=== PATIENT | female | born 1935 | race Caucasian/White ===

== ENCOUNTER 2018-07-02 10:28 | Inpatient (IN) | payer MEDICARE, OTHER ==
[2018-07-02 11:11] LABS: GLUCOSE, URINE (UA) NEGATIVE (NEGATIVE); KETONES,URINE (UA) 15 mg/dL (NEGATIVE); LEUKOCYTE ESTERASE, URINE TRACE (NEGATIVE); NITRITE,URINE NEGATIVE (NEGATIVE); OCCULT BLOOD,URINE SMALL (NEGATIVE); PH,URINE 5.5 PH (5.0-7.5); PROTEIN,URINE 100 mg/dL (NEGATIVE); UROBILINOGEN,URINE 0.2 (NORMAL) E.U./dL (NORMAL)
[2018-07-02 11:12] LABS: BASOPHILS % (AUTO) 0.4 %; EOSINOPHILS % (AUTO) 0.2 %; HGB - HEMOGLOBIN 14.3 g/dL (12.0-16.0); LYMPHOCYTES # (AUTO) 0.5 10^3/uL (1.5-3.5); LYMPHOCYTES % (AUTO) 6.4 %; MEAN CORPUSCULAR HEMOGLOBIN 32.1 pg (27.0-31.0); MEAN CORPUSCULAR HGB CONC 33.4 g/dL (32.0-36.0); MEAN CORPUSCULAR VOLUME 96.3 fL (81.0-99.0); MONOCYTES # (AUTO) 0.4 10^3/uL (0.0-1.0); MONOCYTES % (AUTO) 4.9 %; NEUTROPHILS # (AUTO) 7.2 10^3/uL (1.5-6.6); NEUTROPHILS % (AUTO) 88.1 %; PLT - PLATELET COUNT 213 10^3/uL (130-450); RED BLOOD COUNT 4.45 10^6/uL (4.20-5.40); WHITE BLOOD COUNT 8.1 x10^3/uL (4.8-10.8)
[2018-07-02 11:13] LABS: CLARITY,URINE SL. CLOUDY (CLEAR)
[2018-07-02 11:17] LABS: BILIRUBIN,URINE NEGATIVE (NEGATIVE); ICTOTEST,URINE NEGATIVE
[2018-07-02 11:22] LABS: BACTERIA,URINE Moderate /HPF (None Seen); SQUAMOUS EPITHELIAL CELL,UR MANY Squamous (<= Few)
[2018-07-02 11:25] LABS: ALBUMIN 3.8 g/dL (3.2-5.5); ALBUMIN/GLOBULIN RATIO 0.9 (1.0-2.2); BILIRUBIN,TOTAL 1.1 mg/dL (0.2-1.0); CALCIUM 9.8 mg/dL (8.5-10.3); CREATININE 1.2 mg/dL (0.4-1.0); TOTAL PROTEIN 8.1 g/dL (6.7-8.2)
[2018-07-02] MEDS ORDERED: ONDANSETRON 4 MG/2 ML VIAL IVP STA (12:20)
[2018-07-02] MEDS ORDERED: SODIUM CHLORIDE 0.9% 1,000 ML IV ONE (12:20)
[2018-07-02] MEDS ORDERED: HYDROmorphone 1 MG/ML CARPUJECT IVP STA (12:20)
--- NOTE | 2018-07-02 12:23 | ED Physician Documentation ---
PD HPI ABD PAIN - Stated complaint Stated Complaint: ABD PX/UNABLE TO URINATE - Chief complaint Chief Complaint: Abd Pain - History obtained from History obtained from: Patient - History of Present Illness Timing - onset: Enter time (0800), Yesterday Timing - duration: Days (1) Timing - details: Abrupt onset, Still present Quality: Cramping, Sharp, Fullness/distended, Pain Location: All over / everywhere Improved by: Laying still Worsened by: Moving, Position, Palpation Associated symptoms: Nausea, Vomiting Similar symptoms before: Diagnosis (bowel obstruction) Recently seen: Not recently seen - Additional information Additional information: 83-year-old female was well on went to [facility] on Wednesday morning with abdominal pain nausea vomiting and distention. She has had something similar to this happen to her previously when she has had a bowel obstruction. She has had a prior hysterectomy and appendectomy for ruptured appendix back in the 1970s. She did have a prior bowel obstruction requiring an 8-day hospitalization and surgery in the . One of her chief complaints today is that she has been unable to urinate or only makes a tiny amount of urine. She has not been able to consume fluids yesterday. She does report one loose bowel movement yesterday and nothing since. Review of Systems Constitutional: reports: Fatigue. denies: Fever, Chills Eyes: denies: Decreased vision Ears: denies: Ear pain Nose: denies: Rhinorrhea / runny nose, Congestion Throat: denies: Sore throat Cardiac: denies: Chest pain / pressure, Palpitations Respiratory: denies: Dyspnea, Cough GI: reports: Abdominal Pain, Nausea, Vomiting : denies: Dysuria, Frequency Skin: denies: Rash Musculoskeletal: denies: Neck pain, Back pain, Extremity pain Neurologic: reports: Generalized weakness. 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 HEENT: None Psych: None Musculoskeletal: None Derm: None - Past Surgical History General: Appendectomy, Other /SHREDDING MACHINE TENDER: Hysterectomy - Allergies Allergies/Adverse Reactions: Allergies Allergy/AdvReac Type Severity Reaction Status Date / Time iodine Allergy Hives Verified 07/02/18 10:37 - Social History Does the pt smoke?: No Smoking Status: Never smoker Does the pt drink ETOH?: Yes ETOH Use: Wine, Beer, Liquor Does the pt have substance abuse?: No - Immunizations Immunizations are current?: Yes - POLST Patient has POLST: No PD ED PE NORMAL - Vitals Vital signs reviewed: Yes (hypertensive systolic with wide pulse pressure. ) - General General: Alert and oriented X 3, No acute distress, Well developed/nourished - HEENT HEENT: Atraumatic, PERRL, EOMI - Neck Neck: Supple, no meningeal sign - Cardiac Cardiac: Other (irregularly irregular with 2/6 holosystolic murmer at LSB) - Respiratory Respiratory: No respiratory distress, Clear bilaterally - Abdomen Abdomen: Soft, Other (distended and generally tender without guarding or rebound tenderness. diminished bowel sounds. 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 handle assembler 2-12 intact, No motor deficit, No sensory deficit, Normal speech Eye Opening: Spontaneous Motor: Obeys Commands Verbal: Oriented GCS Score: 15 - Psych Psych: Normal mood, Normal affect Results - Vitals Vitals: Vital Signs - 24 hr 07/02/18 07/02/18 07/02/18 10:36 11:45 13:23 Temperature 37.0 C 36.8 C Heart Rate 96 78 83 Respiratory 18 20 16 Rate Blood Pressure 196/64 H 189/74 H 131/65 H O2 Saturation 97 96 94 Oxygen O2 Source Room air - Labs Labs: Laboratory Tests 07/02/18 07/02/18 07/02/18 10:57 11:05 11:05 WBC 8.1 RBC 4.45 Hgb 14.3 Hct 42.8 MCV 96.3 MCH 32.1 H MCHC 33.4 RDW 15.0 Plt Count 213 MPV 10.0 Neut # (Auto) 7.2 H Lymph # (Auto) 0.5 L [place] # (Auto) 0.4 Eos # (Auto) 0.0 Baso # (Auto) 0.0 Absolute Nucleated RBC 0.00 Nucleated RBC % 0.0 Sodium 140 Potassium 3.6 Chloride 100 L Carbon Dioxide 26 Anion Gap 14.0 H BUN 25 H Creatinine 1.2 H Estimated GFR (MDRD) 43 L Glucose 161 H Calcium 9.8 Total Bilirubin 1.1 H AST 29 ALT 28 Alkaline Phosphatase 51 Troponin I Total Protein 8.1 Albumin 3.8 Globulin 4.3 H Albumin/Globulin Ratio 0.9 L Lipase 33 Urine Color DARK YELLOW Urine Clarity SL. CLOUDY Urine pH 5.5 Ur Specific [place] >=1.030 H Urine Protein 100 H Urine Glucose (UA) NEGATIVE Urine Ketones 15 H Urine Occult Blood SMALL H Urine Nitrite NEGATIVE Urine Bilirubin NEGATIVE Urine Urobilinogen 0.2 (NORMAL) Ur Leukocyte Esterase TRACE H Urine RBC 11-25 H Urine WBC 6-10 H Ur Squamous Epith Cells MANY Squamous H Urine Bacteria Moderate H Ur Microscopic Review INDICATED Urine Culture Comments NOT INDICATED 07/02/18 11:05 WBC RBC Hgb Hct MCV MCH MCHC RDW Plt Count MPV Neut # (Auto) Lymph # (Auto) [place] # (Auto) Eos # (Auto) Baso # (Auto) Absolute Nucleated RBC Nucleated RBC % Sodium Potassium Chloride Carbon Dioxide Anion Gap BUN Creatinine Estimated GFR (MDRD) Glucose Calcium Total Bilirubin AST ALT Alkaline Phosphatase Troponin I < 0.04 Total Protein Albumin Globulin Albumin/Globulin Ratio Lipase Urine Color Urine Clarity Urine pH Ur Specific [place] Urine Protein Urine Glucose (UA) Urine Ketones Urine Occult Blood Urine Nitrite Urine Bilirubin Urine Urobilinogen Ur Leukocyte Esterase Urine RBC Urine WBC Ur Squamous Epith Cells Urine Bacteria Ur Microscopic Review Urine Culture Comments - Rads (name of study) CT abd/pel without Radiology: Prelim report reviewed (Impression: 1. Positive findings of a mid to distal small bowel obstruction. 2. Small volume of intraperitoneal free fluid. No bowel perforation or abscess. 3. There are three fat-containing hernias in the midline near the umbilicus these are not the cause of small bowel obstruction. 4. Colonic diverticulosis.), EMP read indepedently, See rad report Procedures - Bedside sono Bedside sono by EMP: With use of bedside ultrasound the bladder is imaged it is sonographically tender there is no evidence of distention of the bladder. It is nearly empty. - IVC sono (time) 1212 Bedside IVC sono: IVC measures (cm) (0.78), Significant dehydration (est 2-3 liter deficit) PD MEDICAL DECISION MAKING - ED course Complexity details: reviewed results, re-evaluated patient, considered differential, d/w patient, d/w reservoir engineering consultant ([place]: recomends hydration and gastrografin challenge. ) ED course: 83-year-old female with symptoms of bowel obstruction since yesterday morning has not been able to keep any fluids down she is dehydrated and CT scan shows evidence of mid small bowel obstruction. Dr. Gibson is consulted in the case and recommends hydration and Gastrografin challenge. The patient is found to be significantly dehydrated and IV saline, anti-emetic and pain medication are administered. Departure - Departure Disposition: 66 [facility] DC/Xfer Clinical Impression: Small bowel obstruction, Dehydration Condition: Stable
[2018-07-02] MEDS ORDERED: IOVERSOL 320 100 ML VIAL IVP ONE (12:33)
--- NOTE | 2018-07-02 13:22 | CT Report ---
Reason: looks like a bowel obstruction Procedure Date: 07/02/2018 Accession Number: [id number] / [id number] Procedure: CT - Abdomen/Pelvis WO CPT Code: FULL RESULT: EXAM: CT ABDOMEN AND PELVIS EXAM DATE: 07/02/2018 12:58 PM. CLINICAL HISTORY: Looks like a bowel obstruction. COMPARISONS: None. TECHNIQUE: Routine helical CT imaging was performed through the abdomen and pelvis. IV contrast: No. Enteric contrast: No. Reconstructions: Coronal and sagittal. In accordance with CT protocol optimization, one or more of the following dose reduction techniques were utilized for this exam: automated exposure control, adjustment of mA and/or KV based on patient size, or use of iterative reconstructive technique. FINDINGS: Lung Bases: There is mild linear left lower lobe atelectasis. No pleural effusion. Liver: The liver is normal in size and contour. Gallbladder/Bile Ducts: Unremarkable. Spleen: Normal in size and contour. Pancreas: Normal in size and contour. Adrenal Glands: Normal. Kidneys: Kidneys are normal in size. No renal calculus or hydronephrosis. Peritoneal Cavity/Bowel: The stomach contains fluid and gas and the size is within normal limits. There are multiple dilated small bowel loops with air-fluid levels. The larger small bowel loops measure up to 36 mm in diameter. There are distal small bowel loops which are non-dilated. There is some architectural distortion of small bowel loops and mesentery in the lower abdomen. There is a small volume of intraperitoneal free fluid. There are 3 fat-containing hernias near midline at the level of the umbilicus. The hernias measured 13 mm, 16 mm, and 13 mm in diameter at the neck of the hernia. There is a small amount of fluid within the hernia sac. There is no bowel in the hernia and the hernia does not correspond to small bowel obstruction. There are moderate number of diverticula throughout the colon. Pelvic Organs: There is very small free fluid in the low pelvis. Urinary bladder is unremarkable. Uterus not visualized. Vasculature: There is diffuse atherosclerotic vascular calcification. Bones: No significant abnormality. Other: None. IMPRESSION: 1. Positive for findings of a mid to distal small bowel obstruction 2. Small volume of intraperitoneal free fluid. No bowel perforation or abscess. 3. There are 3 fat-containing hernias at midline near the umbilicus. These are not the cause of small bowel obstruction. 4. Colonic diverticulosis. RADIA
[2018-07-02] MEDS ORDERED: ACETAMINOPHEN 325 MG TABLET PO PRN (14:04)
[2018-07-02] MEDS ORDERED: ONDANSETRON 4 MG/2 ML VIAL IVP PRN (14:04)
--- NOTE | 2018-07-02 14:09 | HISTORY & PHYSICAL EXAMINATION ---
Chief Complaint - Chief Complaint Chief Complaint: unable to urinate, abdominal pain Abdominal Pain HPI - Admitted From Admitted from: ED - History Obtained From Records Reviewed: RN notes reviewed, Old records reviewed History obtained from: Patient, Family - History of Present Illness Pain/Problem Location Description: flank pain, diffuse abdominal pain Severity at the worst: Moderate Pain Quality: Dull, Aching Context-Pain started w/: Eating, Movement, Palpation, Position Timing: Gradual onset (saw PCP yesterday (Wednesday), became worse by this morning) Duration: Days: (2) Improved with: Nothing Worsened by: Eating, Movement, Palpation, Nothing Associated symptoms: Nausea, Vomiting, Feeling faint / dizzy, General Weakness, Cough HPI Comment/Other: Elizabeth Quinonez is a 83-year old female with a past medical history of hypertension, DM type 2, GERD, chronic diarrhea, stable umbilical hernias, and prior SBO. She arrived to the ED today via private car with complaints of nausea, vomiting, new constipation and weakness. She saw Dr. Jon yesterday (Wednesday) for similar, less severe symptoms including nausea, abdominal pain, and constipation. She drank Miralax while in the clinic, and was prescribed nausea medications. She states that she was up all night with ongoing nausea with vomiting, abdominal pain, and remained constipated. Since this was unresolved and she was having urinary symptoms, her daughter, Arina drove her to the ED. Upon arrival the patient gave a urine sample which indicates acute UTI. Labs showed a WBC count of 8.1, H/H of 14.3/42.8, neut # 7.2, sodium 140, potassium 3.6, chloride 100, BUN 25, anion gap 14, creatinine 1.2, GFR 43, glucose 161, bili 1.1, troponin of 0.04, with no other abnormalities. Imaging showed a mid to distal SBO, 3 umbilical hernia are not suspected to be the cause, so a general surgery consult was made. Dr. Villanueva suggests to start with a gastro-graffin challenge imaging study. The patient will be admitted to inpatient for IV antibiotics, the gastro-graffin challenge using 100 mL of contrast to be consumed with serial single view imaging and surgery to follow. 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 OR PROBATION OFFICER: positive: Endometriosis : positive: Incontinence, Nocturia, Frequency HEENT: positive: Chronic vision loss, Chronic sinusitis Psych: positive: None Musculoskeletal: positive: Osteoarthritis Derm: positive: None MRSA Hx?: No - Past Surgical History General: positive: Appendectomy, Gastric surgery, Other /PAROLE OR PROBATION OFFICER: positive: Hysterectomy, Oophrectomy Social & Family Hx - Living Situation Living Arrangement: At home Living Situation: Alone (lives with her cat named Sujatha) - Social History Does the pt smoke?: No Smoking Status: Former smoker (from age [age]) Does the pt drink ETOH?: Yes ETOH Use: Wine, Beer, Liquor Does the pt have substance abuse?: No Additional Social History: 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 Her daughterArina lives near-by. She admits to a tobacco history from age [age], denies illicit drug use, and admits to occasional alcohol- wine or beer, only 1 per night. She wishes to be a FULL code. - POLST Patient has POLST: No POLST Status: Full Code - Family History Family History: Mother: , Diabetes, Type 2, Father: Meds/Allgy - Home Medications Home Medications: Ambulatory Orders Medication Instructions Recorded Confirmed Allopurinol 07/02/18 Hydrochlorothiazide 07/02/18 Lisinopril 07/02/18 - Allergies Allergies/Adverse Reactions: Allergies Allergy/AdvReac Type Severity Reaction Status Date / Time iodine Allergy Hives Verified 07/02/18 10:37 Review of Systems - Constitutional Constitutional: reports: Weakness, Poor appetite - Eyes Eyes: reports: Corrective lenses - Ears, Nose & Throat Ears, Nose & Throat: reports: Tinnitus, Nasal discharge, Postnasal drainage, Dentures - Cardiovascular Cariovascular: reports: Lightheadedness - Respiratory Respiratory: reports: Cough - Gastrointestinal Gastrointestinal: reports: Abdominal pain, Abdominal distention, Constipation, Diarrhea, Change in bowel habits, Nausea, Vomiting, Reflux/heartburn, Bloating, Poor appetite - Genitourinary Genitourinary: reports: Dysuria, Frequency, Incontinence, Nocturia - Musculoskeletal Musculoskeletal: reports: Muscle weakness, Gout, Joint swelling - Integumentary Integumentary: reports: Dryness - Neurological Neurological: reports: General weakness, Dizziness, Memory problems, Pre- existing deficit - All Other Systems All Other Systems: reports: Reviewed and negative Prior Level of Functionality: Lives independently with her cat Sujatha, some episodes of stumbling due to foot drop. No use of walker Exam - Vital Signs Reviewed Vital Signs: Yes Vital Signs: Vital Signs x48h Temp Pulse Resp BP Pulse Ox 07/02/18 13:23 83 16 131/65 H 94 07/02/18 11:45 36.8 C 78 20 189/74 H 96 07/02/18 10:36 37.0 C 96 18 196/64 H 97 - Physical Exam General Appearance: positive: Alert, Moderate distress Eyes Bilateral: positive: PERRL ENT: positive: Pharynx nml, Dry mucous membranes Neck: positive: Thyroid nml, No JVD, Trachea midline Respiratory: positive: Chest non-tender, No respiratory distress, Other (scattered crackles) Cardiovascular: positive: Regular rate & rhythm, No gallop, Systolic murmur Peripheral Pulses: positive: 2+ Abdomen: positive: Tenderness, Guarding, Hepatomegaly, Abnml bowel sounds (hyper/hypoactive), Other (rounded, soft) Back: positive: CVA tenderness (R), CVA tenderness (L) Skin: positive: No rash, Warm, Dry, Pallor Extremities: positive: Non-tender, Full ROM, Nml appearance, No pedal edema Neurologic/Psychiatric: positive: Oriented x3, CN's nml (2-12), Motor nml, Sensation nml, Mood/affect nml Reflexes: Bicep (R): 3+, Bicep (L): 3+ Results - Lab Results Lab results reviewed: Yes Fish Bones: 07/02/18 11:05 07/02/18 11:05 Other Lab Results: Lab Results x24hrs 07/02/18 07/02/18 07/02/18 Range/Units 13:10 11:05 11:05 WBC (4.8-10.8) x10^3/uL RBC (4.20-5.40) 10^6/uL Hgb (12.0-16.0) g/dL Hct (37.0-47.0) % MCV (81.0-99.0) fL MCH (27.0-31.0) pg MCHC (32.0-36.0) g/dL RDW (12.0-15.0) % Plt Count (130-450) 10^3/uL MPV (7.9-10.8) fL Neut # (Auto) (1.5-6.6) 10^3/uL Lymph # (Auto) (1.5-3.5) 10^3/uL [place] # (Auto) (0.0-1.0) 10^3/uL Eos # (Auto) (0.0-0.7) 10^3/uL Baso # (Auto) (0.0-0.1) 10^3/uL Absolute Nucleated RBC x10^3/uL Nucleated RBC % /100WBC Sodium 140 (135-145) mmol/L Potassium 3.6 (3.5-5.0) mmol/L Chloride 100 L (101-111) mmol/L Carbon Dioxide 26 (21-32) mmol/L Anion Gap 14.0 H (6-13) BUN 25 H (6-20) mg/dL Creatinine 1.2 H (0.4-1.0) mg/dL Estimated GFR (MDRD) 43 L (>89) Glucose 161 H (70-100) mg/dL Lactic Acid 1.2 (0.5-2.2) mmol/L Calcium 9.8 (8.5-10.3) mg/dL Total Bilirubin 1.1 H (0.2-1.0) mg/dL AST 29 (10-42) IU/L ALT 28 (10-60) IU/L Alkaline Phosphatase 51 (42-121) IU/L Troponin I < 0.04 (<0.49) ng/mL Total Protein 8.1 (6.7-8.2) g/dL Albumin 3.8 (3.2-5.5) g/dL Globulin 4.3 H (2.1-4.2) g/dL Albumin/Globulin Ratio 0.9 L (1.0-2.2) Lipase 33 (22-51) U/L Urine Color Urine Clarity (CLEAR) Urine pH (5.0-7.5) PH Ur Specific [place] (1.002-1.030) Urine Protein (NEGATIVE) mg/dL Urine Glucose (UA) (NEGATIVE) mg/dL Urine Ketones (NEGATIVE) mg/dL Urine Occult Blood (NEGATIVE) Urine Nitrite (NEGATIVE) Urine Bilirubin (NEGATIVE) Urine Urobilinogen (NORMAL) E.U./dL Ur Leukocyte Esterase (NEGATIVE) Urine RBC (0-5) /HPF Urine WBC (0-5) /HPF Ur Squamous Epith Cells (<= Few) Urine Bacteria (None Seen) /HPF Ur Microscopic Review Urine Culture Comments 07/02/18 07/02/18 Range/Units 11:05 10:57 WBC 8.1 (4.8-10.8) x10^3/uL RBC 4.45 (4.20-5.40) 10^6/uL Hgb 14.3 (12.0-16.0) g/dL Hct 42.8 (37.0-47.0) % MCV 96.3 (81.0-99.0) fL MCH 32.1 H (27.0-31.0) pg MCHC 33.4 (32.0-36.0) g/dL RDW 15.0 (12.0-15.0) % Plt Count 213 (130-450) 10^3/uL MPV 10.0 (7.9-10.8) fL Neut # (Auto) 7.2 H (1.5-6.6) 10^3/uL Lymph # (Auto) 0.5 L (1.5-3.5) 10^3/uL [place] # (Auto) 0.4 (0.0-1.0) 10^3/uL Eos # (Auto) 0.0 (0.0-0.7) 10^3/uL Baso # (Auto) 0.0 (0.0-0.1) 10^3/uL Absolute Nucleated RBC 0.00 x10^3/uL Nucleated RBC % 0.0 /100WBC Sodium (135-145) mmol/L Potassium (3.5-5.0) mmol/L Chloride (101-111) mmol/L Carbon Dioxide (21-32) mmol/L Anion Gap (6-13) BUN (6-20) mg/dL Creatinine (0.4-1.0) mg/dL Estimated GFR (MDRD) (>89) Glucose (70-100) mg/dL Lactic Acid (0.5-2.2) mmol/L Calcium (8.5-10.3) mg/dL Total Bilirubin (0.2-1.0) mg/dL AST (10-42) IU/L ALT (10-60) IU/L Alkaline Phosphatase (42-121) IU/L Troponin I (<0.49) ng/mL Total Protein (6.7-8.2) g/dL Albumin (3.2-5.5) g/dL Globulin (2.1-4.2) g/dL Albumin/Globulin Ratio (1.0-2.2) Lipase (22-51) U/L Urine Color DARK YELLOW Urine Clarity SL. CLOUDY (CLEAR) Urine pH 5.5 (5.0-7.5) PH Ur Specific [place] >=1.030 H (1.002-1.030) Urine Protein 100 H (NEGATIVE) mg/dL Urine Glucose (UA) NEGATIVE (NEGATIVE) mg/dL Urine Ketones 15 H (NEGATIVE) mg/dL Urine Occult Blood SMALL H (NEGATIVE) Urine Nitrite NEGATIVE (NEGATIVE) Urine Bilirubin NEGATIVE (NEGATIVE) Urine Urobilinogen 0.2 (NORMAL) (NORMAL) E.U./dL Ur Leukocyte Esterase TRACE H (NEGATIVE) Urine RBC 11-25 H (0-5) /HPF Urine WBC 6-10 H (0-5) /HPF Ur Squamous Epith Cells MANY Squamous H (<= Few) Urine Bacteria Moderate H (None Seen) /HPF Ur Microscopic Review INDICATED Urine Culture Comments NOT INDICATED - Diagnostic Imaging Results Diagnostic Imaging Results: positive: Final report reviewed Diagnostic Imaging Results Comments: EXAM: CT ABDOMEN AND PELVIS EXAM DATE: 07/02/2018 12:58 PM IMPRESSION: 1. Positive for findings of a mid to distal small bowel obstruction 2. Small volume of intraperitoneal free fluid. No bowel perforation or abscess. 3. There are 3 fat-containing hernias at midline near the umbilicus. These are not the cause of small bowel obstruction. 4. Colonic diverticulosis. Impression/Plan - Problem List Problem List: Diagnoses: SBO Intractable nausea and vomiting UTI TIFFANI hypoxia bilateral flank pain Diverticulosis Dehydration DM type 2 Generalized weakness Plan: Admit to inpatient for further treatment of UTI- pending sensitivities using IV antibiotics. Bladder scans for reports of urinary retention. Insert a reed catheter if found to have urinary retention. Carb controlled diet, and DM insulin order set to allow for SSI if needed. Monitor labs, give IV fluids for dehydration evidenced by TIFFANI/ creatinine of 1.2. General surgery consulted who suggested a Gastro-graffin challenge study. Follow up imaging, and control of symptoms, pain, nausea, vomiting, dysuria. * When ordering the gastro-graffin study, this is contraindicated with those patient who are allergic to iodine. I have alerted Dr. Gibson, bowel rest and pain control for now. No NG unless vomiting is intractable. Core Measures - Anticipated LOS I expect patient to be DC'd or transferred within 96 hours.: Yes - DVT/VTE - Prophylaxis VTE/DVT Device ordered at admit?: Yes VTE/DVT Prophylaxis med ordered at admit?: Yes - Stroke - Rehab Assessment Rehab services assessment to be ordered?: Yes - AMI - Statin at Admit Aspirin Prescribed on Admit: Yes
[2018-07-02] MEDS: SODIUM CHLORIDE FLUSH 0.9% 10 ML SYRINGE IVP PRN (15:48)
[2018-07-02] MEDS: SODIUM CHLORIDE 0.9% 1,000 ML IV SCH (15:48)
[2018-07-02] MEDS: SODIUM CHLORIDE FLUSH 0.9% 10 ML SYRINGE IVP SCH (18:17)
[2018-07-02] MEDS: ONDANSETRON 4 MG/2 ML VIAL IVP PRN (18:44)
[2018-07-02] MEDS: cefTRIAXone 2 GM in SODIUM CHLORIDE 0.9% MINIBAG 100 ML IV SCH (18:50)
[2018-07-02] MEDS: ENALAPRILAT 1.25 MG/ML VIAL IVP SCH (20:31)
[2018-07-02] MEDS: HYDROmorphone 0.5 MG/0.5 ML SYRINGE IVP PRN (21:26)
[2018-07-03] MEDS: ENALAPRILAT 1.25 MG/ML VIAL IVP SCH ×3 (00:21→13:07)
[2018-07-03] MEDS: SODIUM CHLORIDE 0.9% 1,000 ML IV SCH ×2 (02:19→12:20)
[2018-07-03] MEDS: SODIUM CHLORIDE FLUSH 0.9% 10 ML SYRINGE IVP SCH ×4 (02:19→19:54)
[2018-07-03] MEDS: HYDROmorphone 0.5 MG/0.5 ML SYRINGE IVP PRN ×2 (04:27→20:12)
[2018-07-03] MEDS: ONDANSETRON 4 MG/2 ML VIAL IVP PRN ×4 (04:27→19:54)
[2018-07-03] MEDS: PANTOPRAZOLE 40 MG TABLET PO SCH (06:53)
[2018-07-03 08:19] LABS: BASOPHILS % (AUTO) 0.3 %; EOSINOPHILS % (AUTO) 0.8 %; HGB - HEMOGLOBIN 13.4 g/dL (12.0-16.0); LYMPHOCYTES # (AUTO) 0.4 10^3/uL (1.5-3.5); LYMPHOCYTES % (AUTO) 7.4 %; MEAN CORPUSCULAR HEMOGLOBIN 32.5 pg (27.0-31.0); MEAN CORPUSCULAR HGB CONC 33.7 g/dL (32.0-36.0); MEAN CORPUSCULAR VOLUME 96.3 fL (81.0-99.0); MEAN PLATELET VOLUME 9.7 fL (7.9-10.8); MONOCYTES # (AUTO) 0.4 10^3/uL (0.0-1.0); MONOCYTES % (AUTO) 8.2 %; NEUTROPHILS # (AUTO) 4.4 10^3/uL (1.5-6.6); NEUTROPHILS % (AUTO) 83.3 %; PLT - PLATELET COUNT 170 10^3/uL (130-450); RED BLOOD COUNT 4.14 10^6/uL (4.20-5.40); RED CELL DISTRIBUTION WIDTH 14.7 % (12.0-15.0); WHITE BLOOD COUNT 5.2 x10^3/uL (4.8-10.8)
[2018-07-03 08:31] LABS: ALBUMIN 3.2 g/dL (3.2-5.5); ALBUMIN/GLOBULIN RATIO 0.9 (1.0-2.2); BILIRUBIN,TOTAL 0.7 mg/dL (0.2-1.0); CALCIUM 8.4 mg/dL (8.5-10.3); MAGNESIUM 1.9 mg/dL (1.7-2.8); TOTAL PROTEIN 6.6 g/dL (6.7-8.2)
[2018-07-03] MEDS: POLYETHYLENE GLYCOL 3350 17 GM PACKET PO SCH (09:39)
[2018-07-03] MEDS ORDERED: LACTULOSE 10 GM/15 ML BOTTLE PR SCH (11:00)
--- NOTE | 2018-07-03 13:20 | XRAY Report ---
Reason: SVT, cough Procedure Date: 07/03/2018 Accession Number: [id number] / [id number] Procedure: XR - Chest 1 View X-Ray CPT Code: 64659 FULL RESULT: EXAM: CHEST RADIOGRAPHY EXAM DATE: 07/03/2018 10:45 AM. CLINICAL HISTORY: SVT, cough. COMPARISON: CHEST 2 VIEW PA/LAT 07/08/2015 10:30 AM. TECHNIQUE: 1 view. FINDINGS: Lungs/Pleura: No focal opacities evident. No pleural effusion. No pneumothorax. Mediastinum: There is borderline enlargement of the cardiac silhouette, similar to prior. There is mild atherosclerotic calcification of the descending thoracic aorta. Other: No acute osseous abnormality. IMPRESSION: Stable borderline cardiomegaly. No focal pulmonary consolidation or other acute change. RADIA
[2018-07-03] MEDS ORDERED: diltiaZEM INJ 5 MG/ML VIAL IVP SCH ×2 (14:52→17:19)
[2018-07-03] MEDS ORDERED: IOVERSOL 320 100 ML VIAL IVP ONE (15:11)
[2018-07-03] MEDS ORDERED: DIATR MEGLU/DIATRIZOATE SODIUM 120 ML BOTTLE PO ONE (15:56)
[2018-07-03] MEDS ORDERED: diphenhydrAMINE INJ 50 MG/ML VIAL IVP SCH (15:57)
[2018-07-03] MEDS ORDERED: methylPREDNISolone SUCCINATE 40 MG/ML VIAL IVP SCH (15:58)
[2018-07-03 16:22] LABS: BASOPHILS % (AUTO) 0.1 %; EOSINOPHILS % (AUTO) 0.1 %; HGB - HEMOGLOBIN 14.4 g/dL (12.0-16.0); LYMPHOCYTES # (AUTO) 0.2 10^3/uL (1.5-3.5); LYMPHOCYTES % (AUTO) 4.1 %; MEAN CORPUSCULAR HEMOGLOBIN 32.5 pg (27.0-31.0); MEAN CORPUSCULAR HGB CONC 33.3 g/dL (32.0-36.0); MEAN CORPUSCULAR VOLUME 97.6 fL (81.0-99.0); MEAN PLATELET VOLUME 10.1 fL (7.9-10.8); MONOCYTES # (AUTO) 0.3 10^3/uL (0.0-1.0); MONOCYTES % (AUTO) 5.6 %; NEUTROPHILS # (AUTO) 4.5 10^3/uL (1.5-6.6); NEUTROPHILS % (AUTO) 90.1 %; PLT - PLATELET COUNT 192 10^3/uL (130-450); RED BLOOD COUNT 4.43 10^6/uL (4.20-5.40); RED CELL DISTRIBUTION WIDTH 14.9 % (12.0-15.0)
[2018-07-03] MEDS ORDERED: PROCHLORPERAZINE 10 MG/2 ML VIAL IVP PRN (16:30)
[2018-07-03 17:10] LABS: CRP - C-REACTIVE PROTEIN 3.7 mg/dL (0-1.0)
--- NOTE | 2018-07-03 18:07 | CONSULTATION NOTE ---
Referring Provider Name of Referring Provider:: Kelsey Brooks Consult Date: 07/02/18 Chief Complaint - Chief Complaint Chief Complaint: Obstipation-small bowel obstruction History of Present Illness - Admitted From Admitted From:: [facility] ED - History Obtained From Records Reviewed: Yes. History obtained from: Primarily the patient but also Dr. Mendiola and Kelsey Brooks. Exam Limitations: None. - History of Present Illness HPI Comment/Other: This is a absolutely delightful 83-year-old female who I interviewed in room 2210 at [facility] unit. This is a patient who normally complains of diarrhea but yesterday presented to our emergency department after she had not had a bowel movement and was complaining of some nausea and vomiting. There is very little abdominal pain. The patient states that she is distended. The last bowel movement was approximately 18 hours prior to presentation to the emergency department. Importantly, she had a ruptured appendix back in the . Additionally she had a hysterectomy and then in the had an operation for small bowel obstruction. The patient believes the bowel was resected but I do not have any records of this. There are no aggravating or alleviating factors. The patient has not had these symptoms recently. The patient was originally born in [place] but spent quite a bit of time in [facility]. She attended [employer]. While in [facility], in an effort to get the best montemayor, she mixed an iodine preparation along with baby oil and slathered it all over herself. As a result she states that she got a pretty nasty rash. Subsequent to this physicians have told her that they do not think that she has an allergy to iodine but rather she reacted to the preparation that she put on herself. This is an important part of the story if we are going to consider giving her a Gastrografin challenge. She states that her primary doc had treated her for hypertension in the past but with diet modification and some exercise she was able to come off of the medication. 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 She states that she is very stressed because her crafts have outgrown her trailer. She has no place to put many of her crafts including the rubber stamps that she uses. She describes this problem as a source of her anxiety and a likely contributor to her hypertension. History - Past Medical History Cardiovascular: reports: Hypertension Respiratory: reports: Emphysema Neuro: reports: Peripheral neuropathy Endocrine/Autoimmune: reports: Type 2 diabetes GI: reports: GERD, Chronic diarrhea MEDICAL RECORD TECHNICIAN: reports: Endometriosis : reports: Incontinence, Nocturia, Frequency HEENT: reports: Chronic vision loss, Chronic sinusitis Psych: reports: None Musculoskeletal: reports: Osteoarthritis Derm: reports: None MRSA Hx?: No - Past Surgical History General: reports: Appendectomy, Gastric surgery, Other /MEDICAL RECORD TECHNICIAN: reports: Hysterectomy, Oophrectomy - Family & Social History Family History: Mother: , Diabetes, Type 2, Father: Living arrangement: At home Living Situation: Alone (lives with her cat named Sujatha) Social History Notes: 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 Her daughter, Arina lives near-by. She admits to a tobacco history from age [age], denies illicit drug use, and admits to occasional alcohol- wine or beer, only 1 per night. She wishes to be a FULL code. - POLST Patient has POLST: No POLST Status: Full Code Meds/Allgy - Home Medications Home Medications: Ambulatory Orders Medication Instructions Recorded Confirmed Lisinopril 10 mg PO DAILY 07/02/18 07/03/18 Amlodipine Besylate 2.5 mg PO DAILY 07/03/18 07/03/18 Omeprazole 20 mg PO Q2D@0700 07/03/18 07/03/18 hydroCHLOROthiazide 25 mg PO DAILY 07/03/18 07/03/18 [Hydrochlorothiazide] - Allergies Allergies/Adverse Reactions: Allergies Allergy/AdvReac Type Severity Reaction Status Date / Time iodine Allergy Hives Verified 07/02/18 10:37 Review of Systems - Constitutional Constitutional: denies: Fever, Chills, Malaise - Eyes Eyes: denies: Pain - Ears, Nose & Throat Ears, Nose & Throat: denies: Ear pain - Cardiovascular Cariovascular: denies: Irregular heart rate - Respiratory Respiratory: denies: Cough - Gastrointestinal Gastrointestinal: reports: Diarrhea, Nausea, Vomiting. denies: Abdominal pain, Constipation, Rectal bleeding, Black stools, Bloody stools - Genitourinary Genitourinary: denies: Dysuria - Musculoskeletal Musculoskeletal: reports: Muscle aches - Integumentary Integumentary: denies: Rash - Hematologic/Lymphatic Hematologic/Lymphatic: denies: Anemia, Bruising Exam - Vital Signs Reviewed Vital Signs: Yes Vital Signs: Vital Signs x48h Temp Pulse Resp BP BP BP Pulse Ox 07/03/18 17:51 162/97 H 07/03/18 16:43 165 H 169/87 H 07/03/18 16:15 167 H 163/105 H 07/03/18 16:00 157 H 157/101 H 07/03/18 15:45 173 H 173/80 H 07/03/18 15:30 161 H 163/131 H 98 07/03/18 15:26 178 H 20 144/102 H 98 07/03/18 15:20 166 H 146/98 H 98 07/03/18 15:16 146/98 H 07/03/18 15:15 156 H 159/84 H 07/03/18 14:51 165 H 158/101 H 96 07/03/18 12:34 36.8 C 79 20 188/87 H 182/77 H 94 - Physical Exam General Appearance: positive: No acute distress Eyes Bilateral: positive: No lid inflammation, Conjunctivae nml, No scleral icterus ENT: positive: Dry mucous membranes (Mildly.) Neck: positive: Trachea midline, Other (No bruit or thrill bilaterally.). negative: Carotid bruit, Swelling/bruising, Tracheal deviation Respiratory: positive: Chest non-tender, No respiratory distress, Breath sounds nml Cardiovascular: positive: Regular rate & rhythm Abdomen: positive: Non-tender, Abnml bowel sounds (Ever so slightly decreased.), Other (Palpable hernias in the midline without obstruction, incarceration, strangulation, erythema, or ecchymosis.). negative: Tenderness, Guarding, Rebound, Hepatomegaly, Splenomegaly Extremities: positive: Non-tender, Nml appearance Neurologic/Psychiatric: positive: Oriented x3, Motor nml, Sensation nml, Mood/affect nml Conclusion/Plan - Diagnosis Diagnosis: Obstipationsmall bowel obstruction - Plan Plan: Her presentation was that of profound dehydration, urinary tract infection, and obstipation. The reading of the CT scan states that she has small bowel obstruction but no mention is made of a transition point or possible etiology. The CT scan does mention 3 hernias in the anterior abdominal wall. The report then goes on to state that these are not the source of the obstruction. The patient's white blood cell count is normal and her lactate is normal. I am not concerned about a closed loop small bowel obstruction. First, prior to a Gastrografin challenge, the patient needs to be rather aggressively hydrated. Following this I believe a Gastrografin challenge can be given safely in this patient. The patient herself is not sure that she is really allergic to iodine. To be on the safe side I would premedicate her with steroids as well as Benadryl. As I explained to her my job as her surgeon is to be the "other choice." Surgery is not first choice for her and arguably should not even be the second choice. She is being treated for the bacteria found in her urine. I will continue to follow the patient and have asked that she contact me with any surgical questions and or concerns. She stated that she would. 45 minutes of [id number] time spent with the patient, the majority of which was spent in discussion, coordination of care, and completion of the requisite paperwork I wish to thank Kelsey Brooks very much for this consultation. [employer] disclaimer: This document was created in part using voice recognition technology. Because of the inherent limitations of the system ([employer]'s [employer] Dictate user manual states that the licensee understands that speech recognition is a statistical process and that recognition errors are inherent in the process), occasional same sounding word substitutions and grammatical errors do occur and persist despite proofreading. Please read this document for context. - Lab Results Lab results reviewed: Yes Fish Bones: 07/03/18 16:10 07/03/18 07:45 - Diagnostic Imaging Results Diagnostic Imaging Results: positive: Final report reviewed, Read independently (I disagree a bit with the reading in the sense that I do not see a transition point and there is a paucity of air-fluid levels.)
--- NOTE | 2018-07-03 18:20 | PROVIDER PROGRESS NOTE ---
Subjective - Prog Note Date Prog Note Date: 07/03/18 Prog Note Time: 18:17 - Subjective Pt reports feeling: Worse Subjective: Elizabeth continues to complain of LLQ abdominal pain and states "I just don't feel good today". She has a dry mouth, has intermittent nausea with small amounts of emesis. She denies chest pain, headaches, a new rash, or a new cough. She denies s/s of her faster heart rates and states she thinks this happens at home at times as sometimes she is breathless while in bed at night. Current Medications - Current Medications Current Medications: Active Medications: Acetaminophen (Tylenol) 650 mg PO Q4HR PRN Diltiazem HCl (Cardizem Inj) 20 mg IVP ONCE NESSA Hydromorphone HCl (Dilaudid Inj Syringe) 0.5 mg IVP Q2H PRN Ceftriaxone Sodium 2 gm/ (Sodium Chloride) 100 mls @ 200 mls/hr IV Q24H NESSA Potassium Chloride/Sodium Chloride (Normal Saline 0.9% W/20 Meq Kcl) 1,000 mls @ 125 mls/hr IV .Q8H NESSA Magnesium Sulfate 1 gm/ Sodium (Chloride) 52 mls @ 54 mls/hr IV ONCE ONE Lactulose (Lactulose) 60 gm NH DAILY NSESA Ondansetron HCl (Zofran Inj) 4 mg IVP Q4HR PRN Pantoprazole Sodium (Protonix) 40 mg PO QDAC NESSA Polyethylene Glycol (Miralax) 17 gm PO DAILY NESSA Prochlorperazine Edisylate (Compazine Inj) 10 mg IVP Q4HR PRN Temazepam (Restoril) 15 mg PO QPM PRN HOME meds: Lisinopril 10 mg PO DAILY 07/02/18 Amlodipine Besylate 2.5 mg PO DAILY 07/03/18 Omeprazole 20 mg PO Q2D@0700 07/03/18 hydroCHLOROthiazide [Hydrochlorothiazide] 25 mg PO DAILY 07/03/18 * appears to be noncompliant per pharmacy review Objective - Vital Signs/Intake & Output Reviewed Vital Signs: Yes Vital Signs: Vital Signs x48h Temp Pulse Resp BP BP BP Pulse Ox 07/03/18 18:05 165 H 132/95 H 07/03/18 18:00 146 H 154/95 H 07/03/18 17:51 166 H 162/97 H 162/97 H 07/03/18 16:43 165 H 169/87 H 07/03/18 16:15 167 H 163/105 H 07/03/18 16:00 157 H 157/101 H 07/03/18 15:45 173 H 173/80 H 07/03/18 15:30 161 H 163/131 H 98 07/03/18 15:26 178 H 20 144/102 H 98 07/03/18 15:20 166 H 146/98 H 98 07/03/18 15:16 146/98 H 07/03/18 15:15 156 H 159/84 H 07/03/18 14:51 165 H 158/101 H 96 07/03/18 12:34 36.8 C 79 20 188/87 H 182/77 H 94 Intake & Output: Intake & Output 06/30/18 07/01/18 07/02/18 07/03/18 23:59 23:59 23:59 23:59 Intake Total 1100 1990 Output Total 310 Balance 1100 1680 - Objective General Appearance: positive: Alert, Moderate distress Eyes Bilateral: positive: PERRL ENT: positive: Pharynx nml, Dry mucous membranes Neck: positive: Thyroid nml, No JVD, Trachea midline Respiratory: positive: Chest non-tender, No respiratory distress, Other (scat tered crackles) Cardiovascular: positive: No gallop, Irregularly irregular, Systolic murmur, Decreased pulse(s) Peripheral Pulses: 1+ Radial (R), 1+ Radial (L) Abdomen: positive: Tenderness, Guarding, Abnml bowel sounds, Other (soft, rounded) Back: positive: Nml inspection Skin: positive: Color nml, No rash, Warm, Dry Extremities: positive: Non-tender, Full ROM, Nml appearance, No pedal edema Neurologic/Psychiatric: positive: Oriented x3, CN's nml (2-12), Motor nml, Sensation nml, Mood/affect nml Reflexes: Bicep (R): 2+, Bicep (L): 2+ - Lab Results Fish Bones: 07/03/18 16:10 07/03/18 07:45 Other Labs: Lab Results x24hrs 07/03/18 07/03/18 07/03/18 Range/Units 16:10 16:10 16:10 WBC 5.0 (4.8-10.8) x10^3/uL RBC 4.43 (4.20-5.40) 10^6/uL Hgb 14.4 (12.0-16.0) g/dL Hct 43.3 (37.0-47.0) % MCV 97.6 (81.0-99.0) fL MCH 32.5 H (27.0-31.0) pg MCHC 33.3 (32.0-36.0) g/dL RDW 14.9 (12.0-15.0) % Plt Count 192 (130-450) 10^3/uL MPV 10.1 (7.9-10.8) fL Neut # (Auto) 4.5 (1.5-6.6) 10^3/uL Lymph # (Auto) 0.2 L (1.5-3.5) 10^3/uL Pepin # (Auto) 0.3 (0.0-1.0) 10^3/uL Eos # (Auto) 0.0 (0.0-0.7) 10^3/uL Baso # (Auto) 0.0 (0.0-0.1) 10^3/uL Absolute Nucleated RBC 0.00 x10^3/uL Nucleated RBC % 0.0 /100WBC Sodium (135-145) mmol/L Potassium (3.5-5.0) mmol/L Chloride (101-111) mmol/L Carbon Dioxide (21-32) mmol/L Anion Gap (6-13) BUN (6-20) mg/dL Creatinine (0.4-1.0) mg/dL Estimated GFR (MDRD) (>89) Glucose (70-100) mg/dL Calcium (8.5-10.3) mg/dL Magnesium (1.7-2.8) mg/dL Total Bilirubin (0.2-1.0) mg/dL AST (10-42) IU/L ALT (10-60) IU/L Alkaline Phosphatase (42-121) IU/L Troponin I (<0.49) ng/mL C-Reactive Protein 3.7 H (0-1.0) mg/dL Total Protein (6.7-8.2) g/dL Albumin (3.2-5.5) g/dL Globulin (2.1-4.2) g/dL Albumin/Globulin Ratio (1.0-2.2) Lipase 27 (22-51) U/L TSH 0.67 (0.34-5.60) uIU/mL 07/03/18 07/03/18 07/03/18 Range/Units 16:10 07:45 07:45 WBC 5.2 (4.8-10.8) x10^3/uL RBC 4.14 L (4.20-5.40) 10^6/uL Hgb 13.4 (12.0-16.0) g/dL Hct 39.8 (37.0-47.0) % MCV 96.3 (81.0-99.0) fL MCH 32.5 H (27.0-31.0) pg MCHC 33.7 (32.0-36.0) g/dL RDW 14.7 (12.0-15.0) % Plt Count 170 (130-450) 10^3/uL MPV 9.7 (7.9-10.8) fL Neut # (Auto) 4.4 (1.5-6.6) 10^3/uL Lymph # (Auto) 0.4 L (1.5-3.5) 10^3/uL Pepin # (Auto) 0.4 (0.0-1.0) 10^3/uL Eos # (Auto) 0.0 (0.0-0.7) 10^3/uL Baso # (Auto) 0.0 (0.0-0.1) 10^3/uL Absolute Nucleated RBC 0.00 x10^3/uL Nucleated RBC % 0.0 /100WBC Sodium 139 (135-145) mmol/L Potassium 3.8 (3.5-5.0) mmol/L Chloride 103 (101-111) mmol/L Carbon Dioxide 24 (21-32) mmol/L Anion Gap 12.0 (6-13) BUN 23 H (6-20) mg/dL Creatinine 1.0 (0.4-1.0) mg/dL Estimated GFR (MDRD) 53 L (>89) Glucose 133 H (70-100) mg/dL Calcium 8.4 L (8.5-10.3) mg/dL Magnesium 1.9 (1.7-2.8) mg/dL Total Bilirubin 0.7 (0.2-1.0) mg/dL AST 17 (10-42) IU/L ALT 19 (10-60) IU/L Alkaline Phosphatase 38 L (42-121) IU/L Troponin I < 0.04 (<0.49) ng/mL C-Reactive Protein (0-1.0) mg/dL Total Protein 6.6 L (6.7-8.2) g/dL Albumin 3.2 (3.2-5.5) g/dL Globulin 3.4 (2.1-4.2) g/dL Albumin/Globulin Ratio 0.9 L (1.0-2.2) Lipase (22-51) U/L TSH (0.34-5.60) uIU/mL ABX Reporting Has patient been on IV antibiotics over the past 48 hours?: Yes Assessment/Plan - Problem List (1) Atrial fibrillation with RVR Impression: - since today at 1234pm, the patient has been with heart rates 150-210 - no chest pain on exam, but sometimes when taking a very deep breath some dilcia athlessness is noted - No palpitations, no diaphoresis, no dizziness, no desaturations - Oxygen applied for increased work load - Keep K+ at 4.0, keep mag at 2.0 Plan: Now status post diltiazem IV pushes x2 10mg, then 20mg, initiate diltiazem gtt in the ICU, monitor on telemetry (2) Small bowel obstruction Impression: - Initial imaging showed a SBO, but did not indicated as complete verses partial - Ongoing abdominal discomfort, primarily to the LLQ - Intermittent constipation at home - Previous abdominal surgeries, chronic umbilical hernias x3- stable on imaging - Surgery is consulted and following- Dr. Villanueva Plan: Gastro-graffin x1, repeat if not tolerated, consider per rectum is still no success (3) Abdominal pain Impression: - Imaging confirmed the most likely cause of this being SBO - Also with a history of diverticulosis Plan: continue to treat with bowel rest and IV dilaudid Qualifiers: Abdominal location: left lower quadrant Qualified Code(s): R10.32 - Left lower quadrant pain (4) GERD (gastroesophageal reflux disease) Impression: - takes a PPI at home - Now continued IV - Magnesium is stable at 1.9, giving a 1x rider Plan: Continue to monitor (5) Intractable nausea and vomiting Impression: - Likely a consequence of SBO - Was seen outpatient by PCP for this who prescribed Miralax Plan: Give zofran, compazine, attempt gastrograffin again (6) UTI (urinary tract infection) Impression: - Complaints of dysuria, urinary retention and frequency at home - Initial UA appeared infections given symptoms described - Started on Rocephin, which continues Plan: continue to monitor I/O, continue daily Rocephin
[2018-07-03] MEDS ORDERED: MAGNESIUM SULFATE 1 GM in SODIUM CHLORIDE 0.9% 50 ML IV SCH (18:25)
[2018-07-03] MEDS: cefTRIAXone 2 GM in SODIUM CHLORIDE 0.9% MINIBAG 100 ML IV SCH (18:32)
[2018-07-03] MEDS ORDERED: MAGNESIUM SULFATE 2 GRAM 2 GM/50 ML BAG IV SCH (19:00)
[2018-07-03] MEDS ORDERED: NS W/20 MEQ KCL 1,000 ML IV SCH (19:00)
[2018-07-03] MEDS: diltiaZEM INJ 125 MG in DEXTROSE 5% 100 ML IV SCH (19:57)
[2018-07-03] MEDS: SODIUM CHLORIDE FLUSH 0.9% 10 ML SYRINGE IVP PRN (20:12)
[2018-07-03] MEDS: TEMAZEPAM 15 MG CAPSULE PO PRN (22:53)
[2018-07-03] MEDS: guaiFENesin 100 MG/5 ML UDC PO PRN (23:26)
[2018-07-03] MEDS ORDERED: FUROSEMIDE 100 MG/10 ML VIAL IVP SCH (23:34)
[2018-07-04] MEDS: IPRATROPIUM/ALBUTEROL 3 ML NEB INH PRN (00:05)
[2018-07-04] MEDS: SODIUM CHLORIDE FLUSH 0.9% 10 ML SYRINGE IVP PRN ×2 (00:10→06:16)
[2018-07-04] MEDS: diltiaZEM INJ 125 MG in DEXTROSE 5% 100 ML IV SCH ×3 (04:00→21:06)
[2018-07-04] MEDS: ONDANSETRON 4 MG/2 ML VIAL IVP PRN ×2 (06:16→23:26)
[2018-07-04] MEDS: PANTOPRAZOLE 40 MG TABLET PO SCH (06:19)
--- NOTE | 2018-07-04 06:41 | XRAY Report ---
Reason: wheezing, dyspnea Procedure Date: 07/04/2018 Accession Number: [id number] / [id number] Procedure: XR - Chest 1 View X-Ray CPT Code: 19695 FULL RESULT: EXAM: CHEST RADIOGRAPHY EXAM DATE: 07/04/2018 06:34 AM. CLINICAL HISTORY: Wheezing, dyspnea. COMPARISON: CHEST 1 VIEW 07/03/2018 10:31 AM. TECHNIQUE: 1 view. FINDINGS: Lungs/Pleura: New patchy bibasilar airspace disease. No effusion or pneumothorax. Mediastinum: Within exam limitations, the cardiomediastinal contour is normal. Other: None. IMPRESSION: New patchy bibasilar infiltrates. RADIA
[2018-07-04 06:44] LABS: HGB - HEMOGLOBIN 14.4 g/dL (12.0-16.0); LYMPHOCYTES # (AUTO) 0.2 10^3/uL (1.5-3.5); LYMPHOCYTES % (AUTO) 2.4 %; MEAN CORPUSCULAR HEMOGLOBIN 33.2 pg (27.0-31.0); MEAN CORPUSCULAR HGB CONC 34.4 g/dL (32.0-36.0); MEAN CORPUSCULAR VOLUME 96.7 fL (81.0-99.0); MEAN PLATELET VOLUME 10.2 fL (7.9-10.8); MONOCYTES # (AUTO) 0.4 10^3/uL (0.0-1.0); MONOCYTES % (AUTO) 4.2 %; NEUTROPHILS # (AUTO) 8.5 10^3/uL (1.5-6.6); NEUTROPHILS % (AUTO) 93.4 %; PLT - PLATELET COUNT 237 10^3/uL (130-450); RED BLOOD COUNT 4.32 10^6/uL (4.20-5.40); RED CELL DISTRIBUTION WIDTH 14.9 % (12.0-15.0); WHITE BLOOD COUNT 9.1 x10^3/uL (4.8-10.8)
[2018-07-04 06:49] LABS: CALCIUM 8.8 mg/dL (8.5-10.3); CREATININE 1.3 mg/dL (0.4-1.0)
[2018-07-04] MEDS ORDERED: SODIUM CHLORIDE 0.9% 500 ML IV ONE (07:42)
[2018-07-04] MEDS ORDERED: PIPERACILLIN/TAZOBACTAM 3.375 GM in SODIUM CHLORIDE 0.9% MINIBAG 100 ML IV ONE (08:00)
[2018-07-04] MEDS: POTASSIUM CHLOR 10 MEQ/100 ML 10 MEQ/100 ML BAG IV SCH ×4 (08:36→14:01)
[2018-07-04] MEDS: POLYETHYLENE GLYCOL 3350 17 GM PACKET PO SCH (08:37)
[2018-07-04] MEDS: METOPROLOL 5 MG/5 ML VIAL IVP SCH ×4 (10:31→23:26)
[2018-07-04] MEDS: SODIUM CHLORIDE FLUSH 0.9% 10 ML SYRINGE IVP SCH ×3 (11:14→23:28)
[2018-07-04] MEDS ORDERED: PIPERACILLIN/TAZOBACTAM 3.375 GM in SODIUM CHLORIDE 0.9% MINIBAG 100 ML IV SCH (12:00)
[2018-07-04] MEDS: PIPERACILLIN/TAZOBACTAM 3.375 GM in SODIUM CHLORIDE 0.9% MINIBAG 100 ML IV SCH ×2 (13:38→21:39)
[2018-07-04] MEDS: LEVALBUTEROL 1.25 MG/3 ML NEB INH PRN (13:44)
--- NOTE | 2018-07-04 13:59 | PROVIDER PROGRESS NOTE ---
Subjective - General Admit Date: 07/02/18 - Review of Systems General: positive: No symptoms HEENT: positive: No symptoms Pulmonary: positive: No symptoms Cardiovascular: positive: No symptoms Gastrointestinal: positive: No symptoms (But states that she has not had a bowel movement today - 2 yesterday.) All Other Systems: positive: Reviewed and negative Objective - Patient Data Reviewed Vital Signs: Yes Vital Signs: Vital Signs x48h Temp Pulse Pulse Resp BP BP Pulse Ox 07/04/18 13:47 88 15 07/04/18 13:43 89 34 H 147/54 H 96 07/04/18 13:36 138/68 H 07/04/18 13:00 112 H 30 H 138/68 H 94 07/04/18 12:00 107 H 25 H 141/84 H 95 07/04/18 11:00 91 29 H 137/59 H 95 07/04/18 10:31 162/85 H 07/04/18 10:00 127 H 20 162/85 H 95 07/04/18 09:00 99 35 H 151/99 H 95 07/04/18 08:00 37.1 C 110 H 34 H 151/91 H 92 07/04/18 07:00 105 H 28 H 125/74 97 07/04/18 06:00 150 H 30 H 141/84 H 91 L Weight: Weight 07/02/18 07/03/18 07/04/18 23:59 23:59 23:59 Weight (kg) 80.5 kg 80 kg 80 kg Intake & Output: Intake and Output Totals x24h 07/02/18 07/03/18 07/04/18 23:59 23:59 23:59 Intake Total 1100 2870.833 1024.75 Output Total 410 1899 Balance 1100 2460.833 -874.25 - Lab Results Lab Results: 07/04/18 06:33 07/04/18 06:33 Other Lab Results: Lab Results x24hrs 07/04/18 07/04/18 07/04/18 Range/Units 06:33 06:33 06:33 WBC (4.8-10.8) x10^3/uL RBC (4.20-5.40) 10^6/uL Hgb (12.0-16.0) g/dL Hct (37.0-47.0) % MCV (81.0-99.0) fL MCH (27.0-31.0) pg MCHC (32.0-36.0) g/dL RDW (12.0-15.0) % Plt Count (130-450) 10^3/uL MPV (7.9-10.8) fL Neut # (Auto) (1.5-6.6) 10^3/uL Lymph # (Auto) (1.5-3.5) 10^3/uL [place] # (Auto) (0.0-1.0) 10^3/uL Eos # (Auto) (0.0-0.7) 10^3/uL Baso # (Auto) (0.0-0.1) 10^3/uL Absolute Nucleated RBC x10^3/uL Nucleated RBC % /100WBC Sodium (135-145) mmol/L Potassium (3.5-5.0) mmol/L Chloride (101-111) mmol/L Carbon Dioxide (21-32) mmol/L Anion Gap (6-13) BUN (6-20) mg/dL Creatinine (0.4-1.0) mg/dL Estimated GFR (MDRD) (>89) Glucose (70-100) mg/dL POC Whole Bld Glucose (70 - 100) mg/dL Calcium (8.5-10.3) mg/dL Troponin I < 0.04 (<0.49) ng/mL C-Reactive Protein (0-1.0) mg/dL Lipase (22-51) U/L TSH (0.34-5.60) uIU/mL Free T4 1.21 (0.58-1.64) ng/dL Free T3 pg/mL 2.61 (2.5-3.9) pg/mL Nasal Screen MRSA (PCR) (NEGATIVE) 07/04/18 07/04/18 07/03/18 Range/Units 06:33 06:33 22:37 WBC 9.1 (4.8-10.8) x10^3/uL RBC 4.32 (4.20-5.40) 10^6/uL Hgb 14.4 (12.0-16.0) g/dL Hct 41.8 (37.0-47.0) % MCV 96.7 (81.0-99.0) fL MCH 33.2 H (27.0-31.0) pg MCHC 34.4 (32.0-36.0) g/dL RDW 14.9 (12.0-15.0) % Plt Count 237 (130-450) 10^3/uL MPV 10.2 (7.9-10.8) fL Neut # (Auto) 8.5 H (1.5-6.6) 10^3/uL Lymph # (Auto) 0.2 L (1.5-3.5) 10^3/uL [place] # (Auto) 0.4 (0.0-1.0) 10^3/uL Eos # (Auto) 0.0 (0.0-0.7) 10^3/uL Baso # (Auto) 0.0 (0.0-0.1) 10^3/uL Absolute Nucleated RBC 0.01 x10^3/uL Nucleated RBC % 0.1 /100WBC Sodium 139 (135-145) mmol/L Potassium 3.2 L (3.5-5.0) mmol/L Chloride 101 (101-111) mmol/L Carbon Dioxide 24 (21-32) mmol/L Anion Gap 14.0 H (6-13) BUN 25 H (6-20) mg/dL Creatinine 1.3 H (0.4-1.0) mg/dL Estimated GFR (MDRD) 39 L (>89) Glucose 188 H (70-100) mg/dL POC Whole Bld Glucose 161 H (70 - 100) mg/dL Calcium 8.8 (8.5-10.3) mg/dL Troponin I (<0.49) ng/mL C-Reactive Protein (0-1.0) mg/dL Lipase (22-51) U/L TSH (0.34-5.60) uIU/mL Free T4 (0.58-1.64) ng/dL Free T3 pg/mL (2.5-3.9) pg/mL Nasal Screen MRSA (PCR) (NEGATIVE) 07/03/18 07/03/18 07/03/18 Range/Units 20:45 16:10 16:10 WBC (4.8-10.8) x10^3/uL RBC (4.20-5.40) 10^6/uL Hgb (12.0-16.0) g/dL Hct (37.0-47.0) % MCV (81.0-99.0) fL MCH (27.0-31.0) pg MCHC (32.0-36.0) g/dL RDW (12.0-15.0) % Plt Count (130-450) 10^3/uL MPV (7.9-10.8) fL Neut # (Auto) (1.5-6.6) 10^3/uL Lymph # (Auto) (1.5-3.5) 10^3/uL [place] # (Auto) (0.0-1.0) 10^3/uL Eos # (Auto) (0.0-0.7) 10^3/uL Baso # (Auto) (0.0-0.1) 10^3/uL Absolute Nucleated RBC x10^3/uL Nucleated RBC % /100WBC Sodium (135-145) mmol/L Potassium (3.5-5.0) mmol/L Chloride (101-111) mmol/L Carbon Dioxide (21-32) mmol/L Anion Gap (6-13) BUN (6-20) mg/dL Creatinine (0.4-1.0) mg/dL Estimated GFR (MDRD) (>89) Glucose (70-100) mg/dL POC Whole Bld Glucose (70 - 100) mg/dL Calcium (8.5-10.3) mg/dL Troponin I (<0.49) ng/mL C-Reactive Protein 3.7 H (0-1.0) mg/dL Lipase 27 (22-51) U/L TSH 0.67 (0.34-5.60) uIU/mL Free T4 (0.58-1.64) ng/dL Free T3 pg/mL (2.5-3.9) pg/mL Nasal Screen MRSA (PCR) NEGATIVE (NEGATIVE) 07/03/18 07/03/18 Range/Units 16:10 16:10 WBC 5.0 (4.8-10.8) x10^3/uL RBC 4.43 (4.20-5.40) 10^6/uL Hgb 14.4 (12.0-16.0) g/dL Hct 43.3 (37.0-47.0) % MCV 97.6 (81.0-99.0) fL MCH 32.5 H (27.0-31.0) pg MCHC 33.3 (32.0-36.0) g/dL RDW 14.9 (12.0-15.0) % Plt Count 192 (130-450) 10^3/uL MPV 10.1 (7.9-10.8) fL Neut # (Auto) 4.5 (1.5-6.6) 10^3/uL Lymph # (Auto) 0.2 L (1.5-3.5) 10^3/uL [place] # (Auto) 0.3 (0.0-1.0) 10^3/uL Eos # (Auto) 0.0 (0.0-0.7) 10^3/uL Baso # (Auto) 0.0 (0.0-0.1) 10^3/uL Absolute Nucleated RBC 0.00 x10^3/uL Nucleated RBC % 0.0 /100WBC Sodium (135-145) mmol/L Potassium (3.5-5.0) mmol/L Chloride (101-111) mmol/L Carbon Dioxide (21-32) mmol/L Anion Gap (6-13) BUN (6-20) mg/dL Creatinine (0.4-1.0) mg/dL Estimated GFR (MDRD) (>89) Glucose (70-100) mg/dL POC Whole Bld Glucose (70 - 100) mg/dL Calcium (8.5-10.3) mg/dL Troponin I < 0.04 (<0.49) ng/mL C-Reactive Protein (0-1.0) mg/dL Lipase (22-51) U/L TSH (0.34-5.60) uIU/mL Free T4 (0.58-1.64) ng/dL Free T3 pg/mL (2.5-3.9) pg/mL Nasal Screen MRSA (PCR) (NEGATIVE) - Current Medications Current Medications: Current Medications Generic Name Dose Route Start Last Admin Trade Name Freq PRN Reason Stop Dose Admin Albuterol/Ipratropium 3 ml 07/03/18 23:34 07/04/18 00:05 Duoneb INH 3 ml Q4HR PRN Administration Wheezing Guaifenesin 100 mg 07/03/18 23:18 07/03/18 23:26 Robitussin Liquid PO 100 mg Q6HR PRN Administration Cough Hydromorphone HCl 0.5 mg 07/02/18 14:04 07/03/18 20:12 Dilaudid Inj Syringe IVP 0.5 mg Q2H PRN Administration Pain 8 to 10 Piperacillin Sod/Tazobactam 100 mls @ 25 mls/hr 07/04/18 14:00 07/04/18 13:38 Sod 3.375 gm/ Sodium Chloride IV 25 mls/hr Q8H NESSA Administration Diltiazem HCl 125 mg/ Dextrose 125 mls @ 15 mls/hr 07/04/18 12:30 07/04/18 12:49 IV 15 mg/hr .Q8H20M NESSA 15 mls/hr Administration Protocol 15 MG/HR Levalbuterol HCl 1.25 mg 07/04/18 11:06 07/04/18 13:44 Xopenex INH 1.25 mg RTQ4H PRN Administration SHORTNESS OF AIR/WHEEZING Metoprolol Tartrate 2.5 mg 07/04/18 08:00 07/04/18 13:36 Lopressor Inj IVP 2.5 mg Q6HR NESSA Administration Ondansetron HCl 4 mg 07/02/18 16:27 07/04/18 06:16 Zofran Inj IVP 4 mg Q4HR PRN Administration Nausea / Vomiting Pantoprazole Sodium 40 mg 07/03/18 07:00 07/04/18 06:19 Protonix PO 40 mg QDAC NESSA Administration Polyethylene Glycol 17 gm 07/03/18 09:00 07/04/18 08:37 Miralax PO Not Given DAILY NESSA Prochlorperazine Edisylate 10 mg 07/03/18 16:30 07/03/18 17:34 Compazine Inj IVP 10 mg Q4HR PRN Administration Nausea / Vomiting Sodium Chloride 10 ml 07/02/18 14:04 07/04/18 06:16 Normal Saline Flush 0.9% IVP 10 ml PRN PRN Administration NEEDED PER PROVIDER ORDERS Sodium Chloride 10 ml 07/02/18 17:00 07/04/18 11:14 Normal Saline Flush 0.9% IVP 10 ml 0100,0900,1700 NESSA Administration Temazepam 15 mg 07/02/18 14:04 07/03/18 22:53 Restoril PO 15 mg QPM PRN Administration Insomnia - Physical Exam General Appearance: positive: No acute distress Eyes Bilateral: positive: No lid inflammation, Conjunctivae nml, No scleral icterus ENT: positive: Dry mucous membranes Neck: positive: Trachea midline Abdomen: positive: Non-tender, No organomegaly. negative: No distention (Still slightly distended.) Skin: positive: Color nml Extremities: positive: Nml appearance Neurologic/Psychiatric: positive: Oriented x3, Motor nml, Sensation nml, Mood/affect nml Impression/Plan - Problem List Problem List: Small bowel obstruction is clinically improved if the patient is having bowel movements but distention persists and no follow up AXR was done. I ordered it portably as she is an ICU patient. WBC is still normal. No fever. Need for surgical intervention is not apparent. Will follow.
--- NOTE | 2018-07-04 14:45 | XRAY Report ---
Reason: s/p gastrograffin challenge Procedure Date: 07/04/2018 Accession Number: [id number] / [id number] Procedure: XR - Abdomen 1 View X-Ray CPT Code: 77078 FULL RESULT: EXAM: ABDOMEN RADIOGRAPHY EXAM DATE: 07/04/2018 02:18 PM. CLINICAL HISTORY: Status post gastrografin challenge. COMPARISON: ABDOMEN/PELVIS W/O 07/02/2018 12:51 PM. TECHNIQUE: 1 view. FINDINGS: Bowel Gas Pattern: First film post-administration of positive oral contrast shows gastric distention and filling of moderately dilated proximal small bowel to at least the level of the mid jejunum. Small bowel dilatation measures upwards of 4.5 cm, not accounting for magnification. There is gas within nondistended colon. Other: None. IMPRESSION: First image of Gastrografin challenge as described. Gastric distention, with positive contrast filling dilated proximal small bowel to about the level of the mid jejunum. RADIA
[2018-07-04] MEDS ORDERED: D5NS W/20 MEQ KCL 1,000 ML IV STA (15:32)
--- NOTE | 2018-07-04 15:38 | PROVIDER PROGRESS NOTE ---
Assessment/Plan - Problem List (1) Atrial fibrillation with RVR Assessment/Plan: IV diltiazem started yesterday, it has been titrated up to maximum dose of 15mcg/kg/hr. Will add IV Lopressor 2.5 mg every 6 hours for further rate control. If her blood pressure tolerates it, the dose could be 5 mg IV q6h. Her CHADs score = 3 (HTN, DM diet controlled and age> 75). Since the A. fib has not converted, will begin anticoagulation using theraputic Lovenox sq dosing, renally adjusted, in case it needs to be stopped for surgery. Etiologies for developing new A.fib were investigated: Her troponins were negative, her thyroid function is stable, her Echo shows normal LV and RV sizes and function but she has a new pneumonia. (2) HCAP (healthcare-associated pneumonia) Assessment/Plan: Yesterday's chest x-ray was done when she went into new A.fib. This showed patchy bibasilar infiltrates. She has now been started on empiric IV Zosyn for HCAP. Start Mucinex, Xopenex and supplemental oxygen if she desaturates. (3) Small bowel obstruction Assessment/Plan: She got the Gastrograffin yesterday (with steroids and Benadryl premedication) and that resulted in 2 BMs, then she stopped passing gas and today is distended and hypertympanic, but has no pain. She did have N/V this a.m. Will restart IV fluids, continue with bowel rest except ice chips. Abdominal x-ray ordered. Surgery is following along (4) UTI (urinary tract infection) Assessment/Plan: Blood cx results pending. There was no urine culture obtained because of high squamous cell content but the U?A appeared consistent with a UTI. Patient also had complaints of dysuria and lower abdominal pain. She is on empiric iv antibiotics with Zosyn, changed to this from Ceftriaxone when the CXR showed HCAP. (5) Dehydration Assessment/Plan: She remains tachycardic and has poor urine output, both may be signs of volume depletion Restart iv fluids for hydration. Follow BMP daily. (6) Hypokalemia Assessment/Plan: Replace with iv fluids. Follow K daily. (7) Diet-controlled diabetes mellitus Assessment/Plan: Will begin empiric sliding scale insulin coverage, fingerstick glucose checks for patient who is n.p.o. and a hypoglycemia protocol. - Current Meds Current Meds: Current Medications Generic Name Dose Route Start Last Admin Trade Name Freq PRN Reason Stop Dose Admin Albuterol/Ipratropium 3 ml 07/03/18 23:34 07/04/18 00:05 Duoneb INH 3 ml Q4HR PRN Administration Wheezing Guaifenesin 100 mg 07/03/18 23:18 07/03/18 23:26 Robitussin Liquid PO 100 mg Q6HR PRN Administration Cough Hydromorphone HCl 0.5 mg 07/02/18 14:04 07/03/18 20:12 Dilaudid Inj Syringe IVP 0.5 mg Q2H PRN Administration Pain 8 to 10 Piperacillin Sod/Tazobactam 100 mls @ 25 mls/hr 07/04/18 14:00 07/04/18 13:38 Sod 3.375 gm/ Sodium Chloride IV 25 mls/hr Q8H NESSA Administration Diltiazem HCl 125 mg/ Dextrose 125 mls @ 15 mls/hr 07/04/18 12:30 07/04/18 12:49 IV 15 mg/hr .Q8H20M NESSA 15 mls/hr Administration Protocol 15 MG/HR Levalbuterol HCl 1.25 mg 07/04/18 11:06 07/04/18 13:44 Xopenex INH 1.25 mg RTQ4H PRN Administration SHORTNESS OF AIR/WHEEZING Metoprolol Tartrate 2.5 mg 07/04/18 08:00 07/04/18 13:36 Lopressor Inj IVP 2.5 mg Q6HR NESSA Administration Ondansetron HCl 4 mg 07/02/18 16:27 07/04/18 06:16 Zofran Inj IVP 4 mg Q4HR PRN Administration Nausea / Vomiting Pantoprazole Sodium 40 mg 07/03/18 07:00 07/04/18 06:19 Protonix PO 40 mg QDAC NESSA Administration Polyethylene Glycol 17 gm 07/03/18 09:00 07/04/18 08:37 Miralax PO Not Given DAILY NESSA Prochlorperazine Edisylate 10 mg 07/03/18 16:30 07/03/18 17:34 Compazine Inj IVP 10 mg Q4HR PRN Administration Nausea / Vomiting Sodium Chloride 10 ml 07/02/18 14:04 07/04/18 06:16 Normal Saline Flush 0.9% IVP 10 ml PRN PRN Administration NEEDED PER PROVIDER ORDERS Sodium Chloride 10 ml 07/02/18 17:00 07/04/18 11:14 Normal Saline Flush 0.9% IVP 10 ml 0100,0900,1700 NESSA Administration Temazepam 15 mg 07/02/18 14:04 07/03/18 22:53 Restoril PO 15 mg QPM PRN Administration Insomnia - Lab Result Fish Bone Diagrams: 07/04/18 06:33 07/04/18 06:33 - Additional Planning My Orders: My Active Orders 07/04/18 11:06 Nebulizer/MDI Tx. [RC] .qid Levalbuterol [Xopenex] 1.25 mg INH RTQ4H PRN 07/04/18 12:30 Dextrose 5% [D5w] 100 ml diltiaZEM INJ [Cardizem Inj] 125 mg IV 15 mg/hr 07/04/18 15:32 D5.9NS W/20 MEQ KCL @ 125 mls/hr D5ns W/20 Meq KCl 1,000 ml IV 125 mls/hr Subjective - Subjective Patient Reports: Feeling Better, Resting Comfortably Nursing Reports: Other (Urine output decreasing, has a Jessica) Objective Vital Signs: Vital Signs - 24 hr 07/03/18 07/03/18 07/03/18 15:45 16:00 16:15 Temperature Heart Rate Heart Rate [ 173 H 157 H 167 H Monitoring electrodes] Respiratory Rate Blood Pressure Blood Pressure 173/80 H 157/101 H 163/105 H [Right Brachial artery] O2 Saturation 07/03/18 07/03/18 07/03/18 16:43 17:51 18:00 Temperature Heart Rate Heart Rate [ 165 H 166 H 146 H Monitoring electrodes] Respiratory Rate Blood Pressure 162/97 H Blood Pressure 169/87 H 162/97 H 154/95 H [Right Brachial artery] O2 Saturation 07/03/18 07/03/18 07/03/18 18:05 18:14 18:25 Temperature Heart Rate Heart Rate [ 165 H 150 H 166 H Monitoring electrodes] Respiratory 22 Rate Blood Pressure Blood Pressure 132/95 H 142/101 H 146/78 H [Right Brachial artery] O2 Saturation 97 07/03/18 07/03/18 07/03/18 18:35 18:50 19:25 Temperature 37.4 C Heart Rate Heart Rate [ 156 H 150 H 163 H Monitoring electrodes] Respiratory 23 Rate Blood Pressure Blood Pressure 159/90 H 148/94 H 158/102 H [Right Brachial artery] O2 Saturation 92 07/03/18 07/03/18 07/03/18 19:30 19:45 20:00 Temperature Heart Rate Heart Rate [ 159 H 160 H 156 H Monitoring electrodes] Respiratory 23 25 H 24 Rate Blood Pressure Blood Pressure 149/95 H 155/113 H 165/82 H [Right Brachial artery] O2 Saturation 97 97 97 07/03/18 07/03/18 07/03/18 20:15 20:30 21:00 Temperature Heart Rate Heart Rate [ 160 H 156 H 150 H Monitoring electrodes] Respiratory 19 20 21 Rate Blood Pressure Blood Pressure 147/94 H 145/134 H 122/110 H [Right Brachial artery] O2 Saturation 95 93 94 07/03/18 07/03/18 07/04/18 22:00 23:00 00:00 Temperature 37.2 C Heart Rate Heart Rate [ 149 H 134 H 130 H Monitoring electrodes] Respiratory 25 H 27 H 23 Rate Blood Pressure Blood Pressure 122/98 H 119/80 137/90 H [Right Brachial artery] O2 Saturation 95 94 96 07/04/18 07/04/18 07/04/18 00:05 01:00 02:00 Temperature Heart Rate 135 H Heart Rate [ 142 H 134 H Monitoring electrodes] Respiratory 23 27 H 29 H Rate Blood Pressure Blood Pressure 121/92 H 127/97 H [Right Brachial artery] O2 Saturation 92 84 L 07/04/18 07/04/18 07/04/18 03:00 04:00 05:00 Temperature Heart Rate Heart Rate [ 132 H 128 H 137 H Monitoring electrodes] Respiratory 22 30 H 30 H Rate Blood Pressure Blood Pressure 121/78 131/80 H 146/81 H [Right Brachial artery] O2 Saturation 95 100 97 07/04/18 07/04/18 07/04/18 06:00 07:00 08:00 Temperature 37.1 C Heart Rate Heart Rate [ 150 H 105 H 110 H Monitoring electrodes] Respiratory 30 H 28 H 34 H Rate Blood Pressure Blood Pressure 141/84 H 125/74 151/91 H [Right Brachial artery] O2 Saturation 91 L 97 92 07/04/18 07/04/18 07/04/18 09:00 10:00 10:31 Temperature Heart Rate Heart Rate [ 99 127 H Monitoring electrodes] Respiratory 35 H 20 Rate Blood Pressure 162/85 H Blood Pressure 151/99 H 162/85 H [Right Brachial artery] O2 Saturation 95 95 07/04/18 07/04/18 07/04/18 11:00 12:00 13:00 Temperature Heart Rate Heart Rate [ 91 107 H 112 H Monitoring electrodes] Respiratory 29 H 25 H 30 H Rate Blood Pressure Blood Pressure 137/59 H 141/84 H 138/68 H [Right Brachial artery] O2 Saturation 95 95 94 07/04/18 07/04/18 07/04/18 13:36 13:43 13:47 Temperature Heart Rate 88 Heart Rate [ 89 Monitoring electrodes] Respiratory 34 H 15 Rate Blood Pressure 138/68 H Blood Pressure 147/54 H [Right Brachial artery] O2 Saturation 96 07/04/18 07/04/18 07/04/18 13:50 14:15 14:30 Temperature Heart Rate Heart Rate [ 90 96 100 Monitoring electrodes] Respiratory Rate Blood Pressure Blood Pressure 120/66 137/63 H 140/57 H [Right Brachial artery] O2 Saturation 07/04/18 15:00 Temperature Heart Rate Heart Rate [ 123 H Monitoring electrodes] Respiratory 29 H Rate Blood Pressure Blood Pressure 144/52 H [Right Brachial artery] O2 Saturation 95 Oxygen O2 Source Nasal cannula I&O (Last 24 Hrs): Intake and Output Totals x24h 07/02/18 07/03/18 07/04/18 23:59 23:59 23:59 Intake Total 1100 2870.833 1124.75 Output Total 410 1924 Balance 1100 2460.833 -799.25 General: Alert, Oriented x3 HEENT: Mucous membr. moist/pink Neck: Supple, No JVD Neuro: Non Focal Cardiovascular: Regular rate, No murmurs Respiratory: No respiratory distress, Breath sounds nml Abdomen: Soft, No tenderness, Other (distended, no bowel sounds) Extremities: No edema - Results Results: Laboratory Results WBC 9.1 x10^3/uL (4.8-10.8) 07/04/18 06:33 RBC 4.32 10^6/uL (4.20-5.40) 07/04/18 06:33 Hgb 14.4 g/dL (12.0-16.0) 07/04/18 06:33 Hct 41.8 % (37.0-47.0) 07/04/18 06:33 MCV 96.7 fL (81.0-99.0) 07/04/18 06:33 MCH 33.2 pg (27.0-31.0) H 07/04/18 06:33 MCHC 34.4 g/dL (32.0-36.0) 07/04/18 06:33 RDW 14.9 % (12.0-15.0) 07/04/18 06:33 Plt Count 237 10^3/uL (130-450) 07/04/18 06:33 MPV 10.2 fL (7.9-10.8) 07/04/18 06:33 Neut # (Auto) 8.5 10^3/uL (1.5-6.6) H 07/04/18 06:33 Lymph # (Auto) 0.2 10^3/uL (1.5-3.5) L 07/04/18 06:33 [place] # (Auto) 0.4 10^3/uL (0.0-1.0) 07/04/18 06:33 Eos # (Auto) 0.0 10^3/uL (0.0-0.7) 07/04/18 06:33 Baso # (Auto) 0.0 10^3/uL (0.0-0.1) 07/04/18 06:33 Absolute Nucleated RBC 0.01 x10^3/uL 07/04/18 06:33 Nucleated RBC % 0.1 /100WBC 07/04/18 06:33 Sodium 139 mmol/L (135-145) 07/04/18 06:33 Potassium 3.2 mmol/L (3.5-5.0) L 07/04/18 06:33 Chloride 101 mmol/L (101-111) 07/04/18 06:33 Carbon Dioxide 24 mmol/L (21-32) 07/04/18 06:33 Anion Gap 14.0 (6-13) H 07/04/18 06:33 BUN 25 mg/dL (6-20) H 07/04/18 06:33 Creatinine 1.3 mg/dL (0.4-1.0) H 07/04/18 06:33 Estimated GFR (MDRD) 39 (>89) L 07/04/18 06:33 Glucose 188 mg/dL (70-100) H 07/04/18 06:33 POC Whole Bld Glucose 161 mg/dL (70 - 100) H 07/03/18 22:37 Lactic Acid 1.2 mmol/L (0.5-2.2) 07/02/18 13:10 Calcium 8.8 mg/dL (8.5-10.3) 07/04/18 06:33 Magnesium 1.9 mg/dL (1.7-2.8) 07/03/18 07:45 Total Bilirubin 0.7 mg/dL (0.2-1.0) 07/03/18 07:45 AST 17 IU/L (10-42) 07/03/18 07:45 ALT 19 IU/L (10-60) 07/03/18 07:45 Alkaline Phosphatase 38 IU/L (42-121) L 07/03/18 07:45 Troponin I < 0.04 ng/mL (<0.49) 07/04/18 06:33 C-Reactive Protein 3.7 mg/dL (0-1.0) H 07/03/18 16:10 Total Protein 6.6 g/dL (6.7-8.2) L 07/03/18 07:45 Albumin 3.2 g/dL (3.2-5.5) 07/03/18 07:45 Globulin 3.4 g/dL (2.1-4.2) 07/03/18 07:45 Albumin/Globulin Ratio 0.9 (1.0-2.2) L 07/03/18 07:45 Lipase 27 U/L (22-51) 07/03/18 16:10 TSH 0.67 uIU/mL (0.34-5.60) 07/03/18 16:10 Free T4 1.21 ng/dL (0.58-1.64) 07/04/18 06:33 Free T3 pg/mL 2.61 pg/mL (2.5-3.9) 07/04/18 06:33 Urine Color DARK YELLOW 07/02/18 10:57 Urine Clarity SL. CLOUDY (CLEAR) 07/02/18 10:57 Urine pH 5.5 PH (5.0-7.5) 07/02/18 10:57 Ur Specific [place] >=1.030 (1.002-1.030) H 07/02/18 10:57 Urine Protein 100 mg/dL (NEGATIVE) H 07/02/18 10:57 Urine Glucose (UA) NEGATIVE mg/dL (NEGATIVE) 07/02/18 10:57 Urine Ketones 15 mg/dL (NEGATIVE) H 07/02/18 10:57 Urine Occult Blood SMALL (NEGATIVE) H 07/02/18 10:57 Urine Nitrite NEGATIVE (NEGATIVE) 07/02/18 10:57 Urine Bilirubin NEGATIVE (NEGATIVE) 07/02/18 10:57 Urine Urobilinogen 0.2 (NORMAL) E.U./dL (NORMAL) 07/02/18 10:57 Ur Leukocyte Esterase TRACE (NEGATIVE) H 07/02/18 10:57 Urine RBC 11-25 /HPF (0-5) H 07/02/18 10:57 Urine WBC 6-10 /HPF (0-5) H 07/02/18 10:57 Ur Squamous Epith Cells MANY Squamous (<= Few) H 07/02/18 10:57 Urine Bacteria Moderate /HPF (None Seen) H 07/02/18 10:57 Ur Microscopic Review INDICATED 07/02/18 10:57 Urine Culture Comments NOT INDICATED 07/02/18 10:57 Nasal Screen MRSA (PCR) NEGATIVE (NEGATIVE) 07/03/18 20:45
[2018-07-04] MEDS: ENOXAPARIN 80 MG/0.8 ML SYRINGE SUBQ SCH (16:15)
[2018-07-04] MEDS: INSULIN REGULAR HUMAN 100 UNIT/1 ML 10 ML MDV SUBQ SCH ×2 (18:20→23:30)
[2018-07-04] MEDS: TEMAZEPAM 15 MG CAPSULE PO PRN (21:39)
[2018-07-05 05:00] LABS: BASOPHILS % (AUTO) 0.3 %; HGB - HEMOGLOBIN 13.2 g/dL (12.0-16.0); LYMPHOCYTES # (AUTO) 0.5 10^3/uL (1.5-3.5); LYMPHOCYTES % (AUTO) 7.5 %; MEAN CORPUSCULAR HEMOGLOBIN 32.6 pg (27.0-31.0); MEAN CORPUSCULAR HGB CONC 33.5 g/dL (32.0-36.0); MEAN CORPUSCULAR VOLUME 97.5 fL (81.0-99.0); MEAN PLATELET VOLUME 10.3 fL (7.9-10.8); MONOCYTES # (AUTO) 0.3 10^3/uL (0.0-1.0); MONOCYTES % (AUTO) 4.6 %; NEUTROPHILS # (AUTO) 5.7 10^3/uL (1.5-6.6); NEUTROPHILS % (AUTO) 87.6 %; PLT - PLATELET COUNT 189 10^3/uL (130-450); RED BLOOD COUNT 4.04 10^6/uL (4.20-5.40); RED CELL DISTRIBUTION WIDTH 15.1 % (12.0-15.0); WHITE BLOOD COUNT 6.5 x10^3/uL (4.8-10.8)
[2018-07-05 05:10] LABS: CALCIUM 8.6 mg/dL (8.5-10.3); CREATININE 1.6 mg/dL (0.4-1.0); MAGNESIUM 2.2 mg/dL (1.7-2.8)
[2018-07-05 05:18] LABS: HB2 TOTAL 13.4 g/dL; HEMOGLOBIN A1C 0.5 g/dL; HEMOGLOBIN A1C % 5.6 % (4.6-6.2)
[2018-07-05] MEDS: PIPERACILLIN/TAZOBACTAM 3.375 GM in SODIUM CHLORIDE 0.9% MINIBAG 100 ML IV SCH ×3 (05:41→21:40)
[2018-07-05] MEDS: SODIUM CHLORIDE FLUSH 0.9% 10 ML SYRINGE IVP PRN (06:07)
[2018-07-05] MEDS: PANTOPRAZOLE 40 MG TABLET PO SCH (06:07)
[2018-07-05] MEDS: METOPROLOL 5 MG/5 ML VIAL IVP SCH ×4 (06:07→23:40)
[2018-07-05] MEDS: INSULIN REGULAR HUMAN 100 UNIT/1 ML 10 ML MDV SUBQ SCH ×3 (06:15→18:30)
[2018-07-05] MEDS: diltiaZEM INJ 125 MG in DEXTROSE 5% 100 ML IV SCH ×2 (06:51→16:50)
[2018-07-05] MEDS ORDERED: HYDROmorphone 2 MG/ML VIAL IVP PRN (09:02)
[2018-07-05] MEDS: guaiFENesin 100 MG/5 ML UDC PO PRN (09:07)
--- NOTE | 2018-07-05 10:09 | XRAY Report ---
Reason: short of breath, hypoxic Procedure Date: 07/05/2018 Accession Number: [id number] / [id number] Procedure: XR - Chest 1 View X-Ray CPT Code: 36091 FULL RESULT: EXAM: CHEST RADIOGRAPHY EXAM DATE: 07/05/2018 09:27 AM. CLINICAL HISTORY: Shortness of breath; hypoxia. COMPARISON: CHEST 1 VIEW 07/04/2018 6:19 AM. TECHNIQUE: 1 view. FINDINGS: Lungs/Pleura: The right lung base is clear. Patchy parenchymal opacity has worsened in the left lung base, now associated with a left pleural effusion. Differential diagnosis includes pneumonia or less likely atelectasis. No other focal opacities are evident. No pulmonary vascular congestion or interstitial edema. Mediastinum: Within exam limitations, the cardiomediastinal contour is normal. Other: Stable degenerative changes in the spine. IMPRESSION: 1. Worsening patchy parenchymal opacity in the left lung base, now associated with a left pleural effusion. Favored etiology is left lower lobe pneumonia. 2. The right lung base is clear. 3. The remainder is stable. [facility]
[2018-07-05] MEDS: SODIUM CHLORIDE FLUSH 0.9% 10 ML SYRINGE IVP SCH ×3 (10:59→23:41)
[2018-07-05] MEDS: POLYETHYLENE GLYCOL 3350 17 GM PACKET PO SCH (10:59)
[2018-07-05] MEDS ORDERED: SODIUM CHLORIDE 0.9% 500 ML IV PRN ×2 (11:02→18:26)
[2018-07-05] MEDS: ENOXAPARIN 80 MG/0.8 ML SYRINGE SUBQ SCH (11:49)
--- NOTE | 2018-07-05 12:40 | XRAY Report ---
Reason: ng tube placement Procedure Date: 07/05/2018 Accession Number: [id number] / [id number] Procedure: XR - Abdomen 1 View X-Ray CPT Code: 31594 FULL RESULT: EXAM: ABDOMEN RADIOGRAPHY EXAM DATE: 07/05/2018 12:25 PM. CLINICAL HISTORY: Ng tube placement. COMPARISON: ABDOMEN 1 VIEW 07/04/2018 2:01 PM CHEST 1 VIEW 07/04/2018 6:19 AM CHEST 1 VIEW 07/05/2018 9:26 AM. TECHNIQUE: 1 view. FINDINGS: Bowel Gas Pattern: Within normal limits. No dilated loops. Other: Nasogastric tube tip overlies the lateral left upper quadrant and region of upper gastric body. Extensive atherosclerotic aortic calcifications. Lateral left basilar lung opacity with obscuration of costophrenic angle. IMPRESSION: 1. Nasogastric tube tip overlies lateral upper gastric body. 2. Left basilar airspace disease concerning for pneumonia. [facility]
[2018-07-05] MEDS: levoFLOXacin 750 MG/150 ML 750 MG/150 ML BAG IV SCH (12:42)
--- NOTE | 2018-07-05 13:13 | XRAY Report ---
Reason: worsening bowel obst Procedure Date: 07/05/2018 Accession Number: [id number] / [id number] Procedure: XR - Abdomen 2 View X-Ray CPT Code: 11159 FULL RESULT: EXAM: ABDOMEN RADIOGRAPHY EXAM DATE: 07/05/2018 12:55 PM. CLINICAL HISTORY: Worsening bowel obstruction. COMPARISON: ABDOMEN 1 VIEW 07/05/2018 12:09 PM. ABDOMEN 1 VIEW 07/04/2018 2:01 PM. TECHNIQUE: 2 views. FINDINGS: Lung Bases: Small left effusion and subsegmental left basilar atelectasis. Bowel Gas Pattern: Stomach is now decompressed. There is an NG tube overlying the left upper quadrant; the tip does not conform to the greater curvature and may be within a redundant fold. There is faint dilute positive contrast within loops of jejunum showing dilatation upwards of 6 cm not accounting for magnification. Small amounts of gas are noted within the colon. No definite positive contrast into the colon. Free Air: None. Other: Atherosclerotic deposition noted in the aorta. IMPRESSION: Continued abnormal bowel gas pattern consistent with mid small bowel obstruction. [facility]
[2018-07-05 13:22] LABS: ABG BASE EXCESS 2.7 mmol/L (-2.0-3.0); ABG HCO3 26.3 mmol/L (22.0-26.0); ABG OXYGEN SATURATION 97 % (94-98); ABG PCO2 37 mmHg (34-45); ABG PH 7.47 (7.35-7.45); ABG PO2 89 mmHg (80-100); ABG TCO2 27.4 MMOL/L (21.0-29.0)
[2018-07-05] MEDS ORDERED: SODIUM CHLORIDE 0.9% 500 ML IV ONE (18:25)
[2018-07-05] MEDS ORDERED: POTASSIUM PHOSPHATE 15 MMOL in SODIUM CHLORIDE 0.9% 250 ML IV ONE (19:00)
--- NOTE | 2018-07-05 19:14 | PROVIDER PROGRESS NOTE ---
Subjective - Prog Note Date Prog Note Date: 07/05/18 Prog Note Time: 19:11 - Subjective Pt reports feeling: Worse (Feels breathing has become more labored) Objective - Vital Signs/Intake & Output Vital Signs: Vital Signs x48h Temp Pulse Resp BP BP Pulse Ox 07/05/18 18:41 142/73 H 07/05/18 18:01 120 H 21 157/65 H 98 07/05/18 17:00 127 H 23 115/66 94 07/05/18 16:00 116 H 21 119/70 96 07/05/18 15:58 36.6 C 119 H 16 126/65 97 07/05/18 15:00 107 H 26 H 119/71 97 07/05/18 13:56 93 123/48 L 07/05/18 13:45 120 H 122/68 07/05/18 13:30 100 25 H 111/46 L 97 07/05/18 13:00 91 23 109/61 94 07/05/18 12:08 125/58 L 07/05/18 12:00 95 26 H 125/58 L 95 Intake & Output: Intake & Output 07/02/18 07/03/18 07/04/18 07/05/18 23:59 23:59 23:59 23:59 Intake Total 1100 2870.833 1754.00 2107.499 Output Total 410 2499 2441 Balance 1100 2460.833 -745.00 -333.501 - Objective General Appearance: positive: Lethargic Eyes Bilateral: positive: Normal inspection Neck: positive: Nml inspection, Thyroid nml, No JVD, Trachea midline Respiratory: positive: Wheezes, Rhonchi, Other (RR mid 20-30s. Feeling more labored today.) Cardiovascular: positive: Irregularly irregular, Tachycardia (120-130s) Abdomen: positive: Non-tender, No organomegaly, Abnml bowel sounds, Other (Absent bowel tones. Remains distended, though reports no tenderness) Skin: positive: Color nml, No rash Extremities: positive: Non-tender Neurologic/Psychiatric: positive: Oriented x3 - Lab Results Fish Bones: 07/06/18 04:50 07/06/18 04:50 Other Labs: Lab Results x24hrs 07/05/18 07/05/18 07/05/18 Range/Units 18:26 13:07 12:24 WBC (4.8-10.8) x10^3/uL RBC (4.20-5.40) 10^6/uL Hgb (12.0-16.0) g/dL Hct (37.0-47.0) % MCV (81.0-99.0) fL MCH (27.0-31.0) pg MCHC (32.0-36.0) g/dL RDW (12.0-15.0) % Plt Count (130-450) 10^3/uL MPV (7.9-10.8) fL Neut # (Auto) (1.5-6.6) 10^3/uL Lymph # (Auto) (1.5-3.5) 10^3/uL Taney # (Auto) (0.0-1.0) 10^3/uL Eos # (Auto) (0.0-0.7) 10^3/uL Baso # (Auto) (0.0-0.1) 10^3/uL Absolute Nucleated RBC x10^3/uL Nucleated RBC % /100WBC Bld Gas Analysis Time 1320 Sample Site RIGHT BRACHIAL ABG pH 7.47 H (7.35-7.45) ABG pCO2 37 (34-45) mmHg ABG pO2 89 (80-100) mmHg ABG HCO3 26.3 H (22.0-26.0) mmol/L ABG Total CO2 27.4 (21.0-29.0) MMOL/L ABG O2 Saturation 97 (94-98) % ABG Base Excess 2.7 (-2.0-3.0) mmol/L Buddy Test NOT APPLICABLE O2 Delivery Device NASAL CANNULA O2 Liters/Min 4.50 LPM Sodium (135-145) mmol/L Potassium (3.5-5.0) mmol/L Chloride (101-111) mmol/L Carbon Dioxide (21-32) mmol/L Anion Gap (6-13) BUN (6-20) mg/dL Creatinine (0.4-1.0) mg/dL Estimated GFR (MDRD) (>89) Glucose (70-100) mg/dL POC Whole Bld Glucose 98 171 H (70 - 100) mg/dL Glycated Hemoglobin (4.6-6.2) % Estim Average Glucose (70-100) Calcium (8.5-10.3) mg/dL Phosphorus (2.5-4.6) mg/dL Magnesium (1.7-2.8) mg/dL B-Natriuretic Peptide (5-100) pg/mL 07/05/18 07/05/18 07/05/18 Range/Units 05:59 04:48 04:48 WBC (4.8-10.8) x10^3/uL RBC (4.20-5.40) 10^6/uL Hgb (12.0-16.0) g/dL Hct (37.0-47.0) % MCV (81.0-99.0) fL MCH (27.0-31.0) pg MCHC (32.0-36.0) g/dL RDW (12.0-15.0) % Plt Count (130-450) 10^3/uL MPV (7.9-10.8) fL Neut # (Auto) (1.5-6.6) 10^3/uL Lymph # (Auto) (1.5-3.5) 10^3/uL Taney # (Auto) (0.0-1.0) 10^3/uL Eos # (Auto) (0.0-0.7) 10^3/uL Baso # (Auto) (0.0-0.1) 10^3/uL Absolute Nucleated RBC x10^3/uL Nucleated RBC % /100WBC Bld Gas Analysis Time Sample Site ABG pH (7.35-7.45) ABG pCO2 (34-45) mmHg ABG pO2 (80-100) mmHg ABG HCO3 (22.0-26.0) mmol/L ABG Total CO2 (21.0-29.0) MMOL/L ABG O2 Saturation (94-98) % ABG Base Excess (-2.0-3.0) mmol/L Buddy Test O2 Delivery Device O2 Liters/Min LPM Sodium (135-145) mmol/L Potassium (3.5-5.0) mmol/L Chloride (101-111) mmol/L Carbon Dioxide (21-32) mmol/L Anion Gap (6-13) BUN (6-20) mg/dL Creatinine (0.4-1.0) mg/dL Estimated GFR (MDRD) (>89) Glucose (70-100) mg/dL POC Whole Bld Glucose 122 H (70 - 100) mg/dL Glycated Hemoglobin (4.6-6.2) % Estim Average Glucose (70-100) Calcium (8.5-10.3) mg/dL Phosphorus 1.7 L (2.5-4.6) mg/dL Magnesium (1.7-2.8) mg/dL B-Natriuretic Peptide 270 H (5-100) pg/mL 07/05/18 07/05/18 07/05/18 Range/Units 04:48 04:48 04:48 WBC 6.5 (4.8-10.8) x10^3/uL RBC 4.04 L (4.20-5.40) 10^6/uL Hgb 13.2 (12.0-16.0) g/dL Hct 39.4 (37.0-47.0) % MCV 97.5 (81.0-99.0) fL MCH 32.6 H (27.0-31.0) pg MCHC 33.5 (32.0-36.0) g/dL RDW 15.1 H (12.0-15.0) % Plt Count 189 (130-450) 10^3/uL MPV 10.3 (7.9-10.8) fL Neut # (Auto) 5.7 (1.5-6.6) 10^3/uL Lymph # (Auto) 0.5 L (1.5-3.5) 10^3/uL Taney # (Auto) 0.3 (0.0-1.0) 10^3/uL Eos # (Auto) 0.0 (0.0-0.7) 10^3/uL Baso # (Auto) 0.0 (0.0-0.1) 10^3/uL Absolute Nucleated RBC 0.00 x10^3/uL Nucleated RBC % 0.0 /100WBC Bld Gas Analysis Time Sample Site ABG pH (7.35-7.45) ABG pCO2 (34-45) mmHg ABG pO2 (80-100) mmHg ABG HCO3 (22.0-26.0) mmol/L ABG Total CO2 (21.0-29.0) MMOL/L ABG O2 Saturation (94-98) % ABG Base Excess (-2.0-3.0) mmol/L Buddy Test O2 Delivery Device O2 Liters/Min LPM Sodium 143 (135-145) mmol/L Potassium 3.7 (3.5-5.0) mmol/L Chloride 108 (101-111) mmol/L Carbon Dioxide 25 (21-32) mmol/L Anion Gap 10.0 (6-13) BUN 35 H (6-20) mg/dL Creatinine 1.6 H (0.4-1.0) mg/dL Estimated GFR (MDRD) 31 L (>89) Glucose 121 H (70-100) mg/dL POC Whole Bld Glucose (70 - 100) mg/dL Glycated Hemoglobin 5.6 (4.6-6.2) % Estim Average Glucose 114 H (70-100) Calcium 8.6 (8.5-10.3) mg/dL Phosphorus (2.5-4.6) mg/dL Magnesium 2.2 (1.7-2.8) mg/dL B-Natriuretic Peptide (5-100) pg/mL 07/04/18 Range/Units 23:17 WBC (4.8-10.8) x10^3/uL RBC (4.20-5.40) 10^6/uL Hgb (12.0-16.0) g/dL Hct (37.0-47.0) % MCV (81.0-99.0) fL MCH (27.0-31.0) pg MCHC (32.0-36.0) g/dL RDW (12.0-15.0) % Plt Count (130-450) 10^3/uL MPV (7.9-10.8) fL Neut # (Auto) (1.5-6.6) 10^3/uL Lymph # (Auto) (1.5-3.5) 10^3/uL Taney # (Auto) (0.0-1.0) 10^3/uL Eos # (Auto) (0.0-0.7) 10^3/uL Baso # (Auto) (0.0-0.1) 10^3/uL Absolute Nucleated RBC x10^3/uL Nucleated RBC % /100WBC Bld Gas Analysis Time Sample Site ABG pH (7.35-7.45) ABG pCO2 (34-45) mmHg ABG pO2 (80-100) mmHg ABG HCO3 (22.0-26.0) mmol/L ABG Total CO2 (21.0-29.0) MMOL/L ABG O2 Saturation (94-98) % ABG Base Excess (-2.0-3.0) mmol/L Buddy Test O2 Delivery Device O2 Liters/Min LPM Sodium (135-145) mmol/L Potassium (3.5-5.0) mmol/L Chloride (101-111) mmol/L Carbon Dioxide (21-32) mmol/L Anion Gap (6-13) BUN (6-20) mg/dL Creatinine (0.4-1.0) mg/dL Estimated GFR (MDRD) (>89) Glucose (70-100) mg/dL POC Whole Bld Glucose 223 H (70 - 100) mg/dL Glycated Hemoglobin (4.6-6.2) % Estim Average Glucose (70-100) Calcium (8.5-10.3) mg/dL Phosphorus (2.5-4.6) mg/dL Magnesium (1.7-2.8) mg/dL B-Natriuretic Peptide (5-100) pg/mL Assessment/Plan - Problem List (1) Atrial fibrillation with RVR Impression: IV diltiazem started 06/03, with IV betablocker q6h. Her CHADs score = 3 (HTN, DM, age). Since Afib has not converted, was started on subcutaneous lovenox. 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 Echocardiogram shows mild concentric left ventricular hypertrophy with an ejection fraction of 60-65 percent. Right ventricle normal size and function. Mild to moderate increase in left atrial volume index. Trace tricuspid regurgitation. Normal right ventricular systolic pressures. RVSP at rest 29. Her drip was titrated up to the max of 15mg/hr due to rate of 120-140s. Had br ief period Afib with controlled rate 80-90s after NGT placement, however returned to 1-teens to 130s this afternoon. Possibly consider alternate antiarhythmic if rate continues. (2) HCAP (healthcare-associated pneumonia) Impression: CxR 07/04 showing patchy bibasilar infiltrates. Initially started on Zosyn, levofloxacin added today. This morning presented with worsening respiratory status with labored breathing, RR 20-30s, increasing lethargy. Repeat CXR showed 1. worsening parenchymal opacity in the left lung base, now associated with a left pleural effusion. Favored etiology is left lower lobe pneumonia, 2. The right lung base is clear. (3) Small bowel obstruction Impression: She received gastrograffin 07/03 with one follow-up xray. Had 2 BMs, then stopped passing gas and remains distended, absent bowel tones, no pain. She vomited 300+ mL bilious emesis, so a NGT was placed with an initial 2700ml of bilious drainage. A repeat KUB showed continued abnormal bowel gas pattern consistent with mild small bowel obstruction. General surgery following, potential surgical candidate. (4) Acute kidney injury Impression: On chronic kidney disease stage III. Creatinine 1.2 on admit, 1.6 today. BUN 25 on admit, 35 today. Initial concern for UTI d/t complaints of dysuria and lower abdominal pain. No culture obtained. Continue to monitor UOP, follow creat/BUN tomorrow (5) Diet-controlled diabetes mellitus Impression: Currently NPO due to SBO. On SSI, fingerstick glucose checks for patient who is NPO and hypoglycemia protocol. BG 120-170s today. Will need to discuss potential for TPN if no improvement with SBO.
[2018-07-05] MEDS: TEMAZEPAM 15 MG CAPSULE PO PRN (23:37)
[2018-07-06] MEDS: diltiaZEM INJ 125 MG in DEXTROSE 5% 100 ML IV SCH ×3 (01:47→23:53)
[2018-07-06] MEDS: INSULIN REGULAR HUMAN 100 UNIT/1 ML 10 ML MDV SUBQ SCH ×4 (01:55→18:39)
[2018-07-06 05:42] LABS: BASOPHILS % (AUTO) 0.3 %; EOSINOPHILS # (AUTO) 0.1 10^3/uL (0.0-0.7); EOSINOPHILS % (AUTO) 1.3 %; HGB - HEMOGLOBIN 11.3 g/dL (12.0-16.0); LYMPHOCYTES # (AUTO) 0.5 10^3/uL (1.5-3.5); LYMPHOCYTES % (AUTO) 10.2 %; MEAN CORPUSCULAR HEMOGLOBIN 32.3 pg (27.0-31.0); MEAN CORPUSCULAR HGB CONC 32.9 g/dL (32.0-36.0); MEAN CORPUSCULAR VOLUME 98.3 fL (81.0-99.0); MEAN PLATELET VOLUME 10.3 fL (7.9-10.8); MONOCYTES # (AUTO) 0.2 10^3/uL (0.0-1.0); MONOCYTES % (AUTO) 4.5 %; NEUTROPHILS # (AUTO) 3.8 10^3/uL (1.5-6.6); NEUTROPHILS % (AUTO) 83.7 %; PLT - PLATELET COUNT 158 10^3/uL (130-450); RED BLOOD COUNT 3.49 10^6/uL (4.20-5.40); RED CELL DISTRIBUTION WIDTH 14.8 % (12.0-15.0); WHITE BLOOD COUNT 4.5 x10^3/uL (4.8-10.8)
[2018-07-06] MEDS: PIPERACILLIN/TAZOBACTAM 3.375 GM in SODIUM CHLORIDE 0.9% MINIBAG 100 ML IV SCH ×3 (05:50→21:51)
[2018-07-06 05:51] LABS: CREATININE 1.3 mg/dL (0.4-1.0)
[2018-07-06] MEDS: METOPROLOL 5 MG/5 ML VIAL IVP SCH (06:02)
[2018-07-06] MEDS: PANTOPRAZOLE 40 MG TABLET PO SCH (06:04)
[2018-07-06] MEDS: LEVALBUTEROL 1.25 MG/3 ML NEB INH PRN ×2 (07:46→13:16)
[2018-07-06] MEDS: SODIUM CHLORIDE FLUSH 0.9% 10 ML SYRINGE IVP SCH ×2 (08:11→17:02)
--- NOTE | 2018-07-06 09:05 | PROVIDER PROGRESS NOTE ---
Subjective - General Admit Date: 07/02/18 - Review of Systems General: positive: No symptoms HEENT: positive: No symptoms Pulmonary: positive: No symptoms Cardiovascular: positive: No symptoms Gastrointestinal: positive: Other (Patient has not passed gas or bowel movement in the last approximately 48 hours.) All Other Systems: positive: Reviewed and negative Objective - Patient Data Reviewed Vital Signs: Yes Vital Signs: Vital Signs x48h Temp Pulse Pulse Resp BP BP Pulse Ox 07/06/18 08:40 150 H 25 H 95 07/06/18 08:00 36.6 C 122 H 27 H 140/78 H 94 07/06/18 07:56 36.7 C 91 22 97 07/06/18 07:44 91 18 07/06/18 07:00 87 26 H 125/58 L 94 07/06/18 06:02 121/53 L 07/06/18 06:00 90 26 H 121/53 L 99 07/06/18 05:00 82 24 120/54 L 96 07/06/18 04:00 36.7 C 82 25 H 135/54 H 96 07/06/18 03:00 85 23 113/71 95 07/06/18 02:00 82 23 100/53 L 95 07/06/18 01:00 82 24 128/50 L 97 Weight: Weight 07/04/18 07/05/18 07/06/18 23:59 23:59 23:59 Weight (kg) 80 kg 80 kg 80 kg Intake & Output: Intake and Output Totals x24h 07/04/18 07/05/18 07/06/18 23:59 23:59 23:59 Intake Total 1754.00 2777.916 1104.750 Output Total 2499 3066 1122 Balance -745.00 -288.084 -17.250 - Lab Results Lab Results: 07/06/18 04:50 07/06/18 04:50 Other Lab Results: Lab Results x24hrs 07/06/18 07/06/18 07/06/18 Range/Units 05:55 04:50 04:50 WBC 4.5 L (4.8-10.8) x10^3/uL RBC 3.49 L (4.20-5.40) 10^6/uL Hgb 11.3 L (12.0-16.0) g/dL Hct 34.3 L (37.0-47.0) % MCV 98.3 (81.0-99.0) fL MCH 32.3 H (27.0-31.0) pg MCHC 32.9 (32.0-36.0) g/dL RDW 14.8 (12.0-15.0) % Plt Count 158 (130-450) 10^3/uL MPV 10.3 (7.9-10.8) fL Neut # (Auto) 3.8 (1.5-6.6) 10^3/uL Lymph # (Auto) 0.5 L (1.5-3.5) 10^3/uL Lares # (Auto) 0.2 (0.0-1.0) 10^3/uL Eos # (Auto) 0.1 (0.0-0.7) 10^3/uL Baso # (Auto) 0.0 (0.0-0.1) 10^3/uL Absolute Nucleated RBC 0.00 x10^3/uL Nucleated RBC % 0.0 /100WBC Bld Gas Analysis Time Sample Site ABG pH (7.35-7.45) ABG pCO2 (34-45) mmHg ABG pO2 (80-100) mmHg ABG HCO3 (22.0-26.0) mmol/L ABG Total CO2 (21.0-29.0) MMOL/L ABG O2 Saturation (94-98) % ABG Base Excess (-2.0-3.0) mmol/L Buddy Test O2 Delivery Device O2 Liters/Min LPM Sodium 142 (135-145) mmol/L Potassium 3.6 (3.5-5.0) mmol/L Chloride 108 (101-111) mmol/L Carbon Dioxide 25 (21-32) mmol/L Anion Gap 9.0 (6-13) BUN 38 H (6-20) mg/dL Creatinine 1.3 H (0.4-1.0) mg/dL Estimated GFR (MDRD) 39 L (>89) Glucose 120 H (70-100) mg/dL POC Whole Bld Glucose 105 H (70 - 100) mg/dL Calcium 8.0 L (8.5-10.3) mg/dL B-Natriuretic Peptide (5-100) pg/mL 07/05/18 07/05/18 07/05/18 Range/Units 23:28 18:26 13:07 WBC (4.8-10.8) x10^3/uL RBC (4.20-5.40) 10^6/uL Hgb (12.0-16.0) g/dL Hct (37.0-47.0) % MCV (81.0-99.0) fL MCH (27.0-31.0) pg MCHC (32.0-36.0) g/dL RDW (12.0-15.0) % Plt Count (130-450) 10^3/uL MPV (7.9-10.8) fL Neut # (Auto) (1.5-6.6) 10^3/uL Lymph # (Auto) (1.5-3.5) 10^3/uL Lares # (Auto) (0.0-1.0) 10^3/uL Eos # (Auto) (0.0-0.7) 10^3/uL Baso # (Auto) (0.0-0.1) 10^3/uL Absolute Nucleated RBC x10^3/uL Nucleated RBC % /100WBC Bld Gas Analysis Time 1320 Sample Site RIGHT BRACHIAL ABG pH 7.47 H (7.35-7.45) ABG pCO2 37 (34-45) mmHg ABG pO2 89 (80-100) mmHg ABG HCO3 26.3 H (22.0-26.0) mmol/L ABG Total CO2 27.4 (21.0-29.0) MMOL/L ABG O2 Saturation 97 (94-98) % ABG Base Excess 2.7 (-2.0-3.0) mmol/L Buddy Test NOT APPLICABLE O2 Delivery Device NASAL CANNULA O2 Liters/Min 4.50 LPM Sodium (135-145) mmol/L Potassium (3.5-5.0) mmol/L Chloride (101-111) mmol/L Carbon Dioxide (21-32) mmol/L Anion Gap (6-13) BUN (6-20) mg/dL Creatinine (0.4-1.0) mg/dL Estimated GFR (MDRD) (>89) Glucose (70-100) mg/dL POC Whole Bld Glucose 110 H 98 (70 - 100) mg/dL Calcium (8.5-10.3) mg/dL B-Natriuretic Peptide (5-100) pg/mL 07/05/18 07/05/18 Range/Units 12:24 04:48 WBC (4.8-10.8) x10^3/uL RBC (4.20-5.40) 10^6/uL Hgb (12.0-16.0) g/dL Hct (37.0-47.0) % MCV (81.0-99.0) fL MCH (27.0-31.0) pg MCHC (32.0-36.0) g/dL RDW (12.0-15.0) % Plt Count (130-450) 10^3/uL MPV (7.9-10.8) fL Neut # (Auto) (1.5-6.6) 10^3/uL Lymph # (Auto) (1.5-3.5) 10^3/uL Lares # (Auto) (0.0-1.0) 10^3/uL Eos # (Auto) (0.0-0.7) 10^3/uL Baso # (Auto) (0.0-0.1) 10^3/uL Absolute Nucleated RBC x10^3/uL Nucleated RBC % /100WBC Bld Gas Analysis Time Sample Site ABG pH (7.35-7.45) ABG pCO2 (34-45) mmHg ABG pO2 (80-100) mmHg ABG HCO3 (22.0-26.0) mmol/L ABG Total CO2 (21.0-29.0) MMOL/L ABG O2 Saturation (94-98) % ABG Base Excess (-2.0-3.0) mmol/L Buddy Test O2 Delivery Device O2 Liters/Min LPM Sodium (135-145) mmol/L Potassium (3.5-5.0) mmol/L Chloride (101-111) mmol/L Carbon Dioxide (21-32) mmol/L Anion Gap (6-13) BUN (6-20) mg/dL Creatinine (0.4-1.0) mg/dL Estimated GFR (MDRD) (>89) Glucose (70-100) mg/dL POC Whole Bld Glucose 171 H (70 - 100) mg/dL Calcium (8.5-10.3) mg/dL B-Natriuretic Peptide 270 H (5-100) pg/mL - Current Medications Current Medications: Current Medications Generic Name Dose Route Start Last Admin Trade Name Freq PRN Reason Stop Dose Admin Acetaminophen 650 mg 07/02/18 14:04 07/05/18 09:06 Tylenol PO 650 mg Q4HR PRN Administration Pain 1 to 4 Albuterol/Ipratropium 3 ml 07/03/18 23:34 07/04/18 00:05 Duoneb INH 3 ml Q4HR PRN Administration Wheezing Enoxaparin Sodium 80 mg 07/04/18 15:53 07/05/18 11:49 Lovenox SUBQ 80 mg 1200 NESSA Administration Guaifenesin 100 mg 07/03/18 23:18 07/05/18 09:07 Robitussin Liquid PO 100 mg Q6HR PRN Administration Cough Piperacillin Sod/Tazobactam 100 mls @ 25 mls/hr 07/04/18 14:00 07/06/18 05:50 Sod 3.375 gm/ Sodium Chloride IV 25 mls/hr Q8H NESSA Administration Diltiazem HCl 125 mg/ Dextrose 125 mls @ 15 mls/hr 07/04/18 12:30 07/06/18 08:40 IV 7 mg/hr .Q8H20M NESSA 7 mls/hr Titration Protocol 15 MG/HR Levofloxacin 750 mg in 150 mls @ 100 mls/hr 07/05/18 12:00 07/05/18 14:12 Levaquin 750 Mg/150 Ml IV Infused Q48H NESSA Infusion Sodium Chloride 500 mls @ 100 mls/hr 07/05/18 18:26 07/06/18 01:00 Normal Saline 0.9% IV Infused Q24H PRN Infusion TKO RATE Insulin Human Regular 1 - 5 unit 07/04/18 18:00 07/06/18 06:00 Novolin R SUBQ Not Given Q6HR NESSA Protocol Levalbuterol HCl 1.25 mg 07/04/18 11:06 07/06/18 07:46 Xopenex INH 1.25 mg RTQ4H PRN Administration SHORTNESS OF AIR/WHEEZING Metoprolol Tartrate 2.5 mg 07/05/18 09:04 07/06/18 06:02 Lopressor Inj IVP 2.5 mg Q6HR NESSA Administration Ondansetron HCl 4 mg 07/02/18 16:27 07/04/18 23:26 Zofran Inj IVP 4 mg Q4HR PRN Administration Nausea / Vomiting Pantoprazole Sodium 40 mg 07/03/18 07:00 07/06/18 06:04 Protonix PO 40 mg QDAC NESSA Administration Polyethylene Glycol 17 gm 07/03/18 09:00 07/05/18 10:59 Miralax PO Not Given DAILY NESSA Prochlorperazine Edisylate 10 mg 07/03/18 16:30 07/03/18 17:34 Compazine Inj IVP 10 mg Q4HR PRN Administration Nausea / Vomiting Sodium Chloride 10 ml 07/02/18 14:04 07/05/18 06:07 Normal Saline Flush 0.9% IVP 10 ml PRN PRN Administration NEEDED PER PROVIDER ORDERS Sodium Chloride 10 ml 07/02/18 17:00 07/06/18 08:11 Normal Saline Flush 0.9% IVP 10 ml 0100,0900,1700 NESSA Administration Temazepam 15 mg 07/02/18 14:04 07/05/18 23:37 Restoril PO 15 mg QPM PRN Administration Insomnia - Physical Exam General Appearance: positive: No acute distress Eyes Bilateral: positive: No lid inflammation, Conjunctivae nml, No scleral icterus Neck: positive: Trachea midline Respiratory: positive: Chest non-tender, Breath sounds nml Cardiovascular: positive: Irregularly irregular, Tachycardia Abdomen: positive: Non-tender, Abnml bowel sounds, Other (Midline incision with multiple incisional hernias nonincarcerated. No erythema. No ecchymosis.) Extremities: positive: Non-tender, Nml appearance Neurologic/Psychiatric: positive: Oriented x3, Motor nml, Sensation nml, Mood/affect nml Impression/Plan - Problem List Problem List: Although it appeared that the patient had responded initially to the Gastrografin challenge this was simply not the case. The patient had over 2 L sucked out of her stomach yesterday and a follow-up film showed no progression of the dye. The patient continues to have atrial fibrillation which yesterday seem to be controlled once the gastric decompression occurred but it has since recurred today. At any rate, 72 hours after refill Gastrografin decompression. I believe that surgery is indicated. The indications, procedure including incidental repair of any hernias that I encounter and possible bowel resection, risks including infection and bleeding including all the risks of transfusion, cardiac incident, and were fully explained to the patient all questions were answered. I placed her cardiac risk approximately 6%. I explained to Dr. Carranza would be able to give her a better idea of what her cardiac risk is. Postoperatively we will wait for bowel function return prior to feeding the patient and sending her home. Patient has an NG so she has been n.p.o. In addition she will receive antibiotics in anticipation of surgical prophylaxis. Teds and Venodyne's will be placed for prophylax against surgical DVT. I have asked her to contact me with any surgical questions and or concerns and she stated that she would. Additionally, have asked her let me know if there is any way we can make her stay at [facility] more comfortable and she stated that she would. She states her daughter will be arriving around 1030 which is approximately the time that surgery is anticipated.
[2018-07-06 09:58] LABS: MAGNESIUM 2.2 mg/dL (1.7-2.8); PHOSPHORUS 2.9 mg/dL (2.5-4.6)
[2018-07-06] MEDS ORDERED: BUPIVACAINE 0.5% PF 30 ML VIAL ONE (10:19)
--- NOTE | 2018-07-06 10:20 | PROVIDER PROGRESS NOTE ---
Subjective - Prog Note Date Prog Note Date: 07/06/18 Prog Note Time: 10:18 - Subjective Pt reports feeling: No change (Abdomen feels more distended, no pain or nausea. Breathing feels slightly better than yesterday.) Objective - Vital Signs/Intake & Output Vital Signs: Vital Signs x48h Temp Pulse Pulse Resp BP BP Pulse Ox 07/06/18 10:00 100 28 H 117/70 92 07/06/18 09:15 135 H 24 110/70 92 07/06/18 09:00 130 H 17 115/69 93 07/06/18 08:58 125 H 27 H 142/49 H 92 07/06/18 08:40 150 H 25 H 95 07/06/18 08:00 36.6 C 122 H 27 H 140/78 H 94 07/06/18 07:56 36.7 C 91 22 97 07/06/18 07:44 91 18 07/06/18 07:00 87 26 H 125/58 L 94 07/06/18 06:02 121/53 L 07/06/18 06:00 90 26 H 121/53 L 99 07/06/18 05:00 82 24 120/54 L 96 07/06/18 04:00 36.7 C 82 25 H 135/54 H 96 07/06/18 03:00 85 23 113/71 95 Intake & Output: Intake & Output 07/03/18 07/04/18 07/05/18 07/06/18 23:59 23:59 23:59 23:59 Intake Total 2870.833 1754.00 2777.916 1112.100 Output Total 410 2499 3066 1162 Balance 2460.833 -745.00 -288.084 -49.900 - Objective General Appearance: positive: No acute distress, Alert Eyes Bilateral: positive: Normal inspection ENT: positive: ENT inspection nml Neck: positive: Nml inspection, Thyroid nml, No JVD, Trachea midline Respiratory: positive: Chest non-tender, No respiratory distress, Wheezes, Rhonchi (L>R), Other (Coarse) Cardiovascular: positive: No murmur, Irregularly irregular Abdomen: positive: Non-tender, Nml bowel sounds (Bowel tones noted in Right lower quadrant, hypoactive in left lower quadrant), Other (Increased distention from yesterday) Skin: positive: Color nml, No rash, Warm, Dry, Other (slightly red buttock, blanching. Discussed respositioning) Extremities: positive: Non-tender, Joint swelling (Slight swelling noted in L lateral ankle. Per patient, intermittent swelling since she sprained it) Neurologic/Psychiatric: positive: Oriented x3, Motor nml, Sensation nml - Lab Results Fish Bones: 07/06/18 04:50 07/06/18 04:50 Other Labs: Lab Results x24hrs 07/06/18 07/06/18 07/06/18 Range/Units 05:55 04:50 04:50 WBC (4.8-10.8) x10^3/uL RBC (4.20-5.40) 10^6/uL Hgb (12.0-16.0) g/dL Hct (37.0-47.0) % MCV (81.0-99.0) fL MCH (27.0-31.0) pg MCHC (32.0-36.0) g/dL RDW (12.0-15.0) % Plt Count (130-450) 10^3/uL MPV (7.9-10.8) fL Neut # (Auto) (1.5-6.6) 10^3/uL Lymph # (Auto) (1.5-3.5) 10^3/uL Jack # (Auto) (0.0-1.0) 10^3/uL Eos # (Auto) (0.0-0.7) 10^3/uL Baso # (Auto) (0.0-0.1) 10^3/uL Absolute Nucleated RBC x10^3/uL Nucleated RBC % /100WBC Bld Gas Analysis Time Sample Site ABG pH (7.35-7.45) ABG pCO2 (34-45) mmHg ABG pO2 (80-100) mmHg ABG HCO3 (22.0-26.0) mmol/L ABG Total CO2 (21.0-29.0) MMOL/L ABG O2 Saturation (94-98) % ABG Base Excess (-2.0-3.0) mmol/L Buddy Test O2 Delivery Device O2 Liters/Min LPM Sodium (135-145) mmol/L Potassium (3.5-5.0) mmol/L Chloride (101-111) mmol/L Carbon Dioxide (21-32) mmol/L Anion Gap (6-13) BUN (6-20) mg/dL Creatinine (0.4-1.0) mg/dL Estimated GFR (MDRD) (>89) Glucose (70-100) mg/dL POC Whole Bld Glucose 105 H (70 - 100) mg/dL Calcium (8.5-10.3) mg/dL Phosphorus 2.9 (2.5-4.6) mg/dL Magnesium 2.2 (1.7-2.8) mg/dL Albumin 2.5 L (3.2-5.5) g/dL 07/06/18 07/06/18 07/05/18 Range/Units 04:50 04:50 23:28 WBC 4.5 L (4.8-10.8) x10^3/uL RBC 3.49 L (4.20-5.40) 10^6/uL Hgb 11.3 L (12.0-16.0) g/dL Hct 34.3 L (37.0-47.0) % MCV 98.3 (81.0-99.0) fL MCH 32.3 H (27.0-31.0) pg MCHC 32.9 (32.0-36.0) g/dL RDW 14.8 (12.0-15.0) % Plt Count 158 (130-450) 10^3/uL MPV 10.3 (7.9-10.8) fL Neut # (Auto) 3.8 (1.5-6.6) 10^3/uL Lymph # (Auto) 0.5 L (1.5-3.5) 10^3/uL Jack # (Auto) 0.2 (0.0-1.0) 10^3/uL Eos # (Auto) 0.1 (0.0-0.7) 10^3/uL Baso # (Auto) 0.0 (0.0-0.1) 10^3/uL Absolute Nucleated RBC 0.00 x10^3/uL Nucleated RBC % 0.0 /100WBC Bld Gas Analysis Time Sample Site ABG pH (7.35-7.45) ABG pCO2 (34-45) mmHg ABG pO2 (80-100) mmHg ABG HCO3 (22.0-26.0) mmol/L ABG Total CO2 (21.0-29.0) MMOL/L ABG O2 Saturation (94-98) % ABG Base Excess (-2.0-3.0) mmol/L Buddy Test O2 Delivery Device O2 Liters/Min LPM Sodium 142 (135-145) mmol/L Potassium 3.6 (3.5-5.0) mmol/L Chloride 108 (101-111) mmol/L Carbon Dioxide 25 (21-32) mmol/L Anion Gap 9.0 (6-13) BUN 38 H (6-20) mg/dL Creatinine 1.3 H (0.4-1.0) mg/dL Estimated GFR (MDRD) 39 L (>89) Glucose 120 H (70-100) mg/dL POC Whole Bld Glucose 110 H (70 - 100) mg/dL Calcium 8.0 L (8.5-10.3) mg/dL Phosphorus (2.5-4.6) mg/dL Magnesium (1.7-2.8) mg/dL Albumin (3.2-5.5) g/dL 07/05/18 07/05/18 07/05/18 Range/Units 18:26 13:07 12:24 WBC (4.8-10.8) x10^3/uL RBC (4.20-5.40) 10^6/uL Hgb (12.0-16.0) g/dL Hct (37.0-47.0) % MCV (81.0-99.0) fL MCH (27.0-31.0) pg MCHC (32.0-36.0) g/dL RDW (12.0-15.0) % Plt Count (130-450) 10^3/uL MPV (7.9-10.8) fL Neut # (Auto) (1.5-6.6) 10^3/uL Lymph # (Auto) (1.5-3.5) 10^3/uL Jack # (Auto) (0.0-1.0) 10^3/uL Eos # (Auto) (0.0-0.7) 10^3/uL Baso # (Auto) (0.0-0.1) 10^3/uL Absolute Nucleated RBC x10^3/uL Nucleated RBC % /100WBC Bld Gas Analysis Time 1320 Sample Site RIGHT BRACHIAL ABG pH 7.47 H (7.35-7.45) ABG pCO2 37 (34-45) mmHg ABG pO2 89 (80-100) mmHg ABG HCO3 26.3 H (22.0-26.0) mmol/L ABG Total CO2 27.4 (21.0-29.0) MMOL/L ABG O2 Saturation 97 (94-98) % ABG Base Excess 2.7 (-2.0-3.0) mmol/L Buddy Test NOT APPLICABLE O2 Delivery Device NASAL CANNULA O2 Liters/Min 4.50 LPM Sodium (135-145) mmol/L Potassium (3.5-5.0) mmol/L Chloride (101-111) mmol/L Carbon Dioxide (21-32) mmol/L Anion Gap (6-13) BUN (6-20) mg/dL Creatinine (0.4-1.0) mg/dL Estimated GFR (MDRD) (>89) Glucose (70-100) mg/dL POC Whole Bld Glucose 98 171 H (70 - 100) mg/dL Calcium (8.5-10.3) mg/dL Phosphorus (2.5-4.6) mg/dL Magnesium (1.7-2.8) mg/dL Albumin (3.2-5.5) g/dL Assessment/Plan - Problem List (1) Pre-op exam Impression: Patient preparing for surgery for small bowel obstruction, planned for this am. Revised Cardiac Index score of 1(intraperitoneal surgery), indicating Class II risk with 6% 30-day risk of , AR, cardiac arrest. Bowen Criteria 15 (Age >70, Arrhythmia-Afib, Intraperitonal surgery), indicating Class III risk with 14% complications. Atrial fibrillation rate controlled through the night in 80s on 5mg/hr Diltiazem drip overnight. Rate increased to 120s (brief periods up to 160 nonsustained) this am since learning of plan for surgery. Titrate up on Diltiazem. Also tolerating low-dose Metoprolol Tartrate 2.5mg IV (Last dose of Beta Hussain 07/06 at 0600) Abdomen appears more distended this am, though bowel tones ausculated in right lower quadrant and hypoactive in Left lower quadrant. Continued bilious drainage from NGT. No pain or nausea. (2) Small bowel obstruction Impression: Initially presented to the ED on 07/02 with nausea, vomiting, constipation and weakness. She saw Dr. Jon the day prior who prescribed Miralax and nausea meds. Symptoms continued to get worse, so daughter drove her to the ED. On imaging, she was found to have a mid to distal SBO and 3 umbilical hernias. Gastro-graffin was given, and she had two bowel movements following. However, she has not passed flatus since 07/04. She had 300+ mL bilious emesis 07/05, so an NGT tube was placed and immediately withdrew 2700ml Bilious drainage. This morning, Abdomen appears more distended though bowel tones auscultated in right lower quadrant and hypoactive in Left lower quadrant. Continued bilious drainage from NGT. No pain or nausea. Plan to take to surgery this am. (3) Atrial fibrillation with RVR Impression: Initially went in to Afib with RVR 07/03, diltiazem drip started. No history of afib, though patient described that a few days prior to her admission she could hear her heartbeat while laying in bed and she noticed it sounded "strange" and irregular. Diltiazem drip up to 15mg/hr yesterday with HR 120-140s, however, rate became controlled in 80s after placement of NGT. Rate controlled through the night in 80s on 5mg/hr Diltiazem drip overnight. Rate increased to 120s (brief periods up to 160 nonsustained) this morning since learning of plan for surgery. Titrate up on Diltiazem. Also tolerating low-dose Metoprolol Tartrate 2.5mg IV q6h. Currently on Lovenox 80mg SQ. CHADsVASC score 5 (HTN, Age >75, DM, Female). HAS- BLED score 1 (abnormal kidney function with TIFFANI, though creatinine slightly improved today). Overall the plan will be rate control with anticoagulation when she is done with surgery. (4) HCAP (healthcare-associated pneumonia) Impression: CxR 07/04 showing patchy bibasilar infiltrates. Started on Zosyn. Respiratory status worse on 07/05, RR 20-30, labored breathing, intermittent wheezing. Repeat CXR showed 1. worsening parenchymal opacity in the left lung base, now associated with a left pleural effusion. Favored etiology is left lower lobe p neumonia, 2. The right lung base is clear. Levofloxacin added 07/05. Continue with Zosyn and levofloxacin. Reports slight improvement in breathing this am. Remains intermittently wheezy, slight improvement after duoneb. Per patient, she is "always a little wheezy". Has history of empysema, however, patient unaware of this. History of smoking (from age [age]) noted in chart, Pack-year history unknown at this point.Respiratory therapy is working strongly with her. Using Xopenex for wheezing, and encouraging the patient to do incentive spirometry. Today RR 20s, remains on 4L NC sats 97-99%. (5) Acute kidney injury Impression: Mild TIFFANI though appears slightly improved today. Creatinine 1.2 on admit, 1.6 yesterday, 1.3 this am. UOP ~30ml/hr via reed Appears Euvolemic, electrolytes stable. Continue to monitor UOP, follow creat/BUN tomorrow (6) Diet-controlled diabetes mellitus Impression: Currently NPO due to SBO with plan for OR today. On SSI, fingerstick glucose checks for patient who is NPO and hypoglycemia protocol. BG 105-120 overnight. Will need to discuss potential for TPN if no improvement after surgery
--- NOTE | 2018-07-06 10:27 | ANESTHESIA ---
Pre-Anesthesia VS, & Labs - Diagnosis Diagnosis Obstipationsmall bowel obstruction Vital Signs: Temp Pulse Resp BP Pulse Ox 36.6 C 125 H 27 H 142/49 H 92 07/06/18 08:00 07/06/18 08:58 07/06/18 08:58 07/06/18 08:58 07/06/18 08:58 Height 5 ft Weight (kg) 80 kg Body Mass Index 34.6 - Lab Results Current Lab Results: Laboratory Tests 07/06/18 05:55: POC Whole Bld Glucose 105 H 07/06/18 04:50: Sodium 142, Potassium 3.6, Chloride 108, Carbon Dioxide 25, An ion Gap 9.0, BUN 38 H, Creatinine 1.3 H, Estimated GFR (MDRD) 39 L, Glucose 120 H, Calcium 8.0 L 07/06/18 04:50: WBC 4.5 L, RBC 3.49 L, Hgb 11.3 L, Hct 34.3 L, MCV 98.3, MCH 32.3 H, MCHC 32.9, RDW 14.8, Plt Count 158, MPV 10.3, Neut # (Auto) 3.8, Lymph # (Auto) 0.5 L, Sherman # (Auto) 0.2, Eos # (Auto) 0.1, Baso # (Auto) 0.0, Absolute Nucleated RBC 0.00, Nucleated RBC % 0.0 07/05/18 23:28: POC Whole Bld Glucose 110 H 07/05/18 18:26: POC Whole Bld Glucose 98 07/05/18 13:07: Bld Gas Analysis Time 1320, Sample Site RIGHT BRACHIAL, ABG pH 7.47 H, ABG pCO2 37, ABG pO2 89, ABG HCO3 26.3 H, ABG Total CO2 27.4, ABG O2 Saturation 97, ABG Base Excess 2.7, Buddy Test NOT APPLICABLE, O2 Delivery Device NASAL CANNULA, O2 Liters/Min 4.50 07/05/18 12:24: POC Whole Bld Glucose 171 H 07/05/18 05:59: POC Whole Bld Glucose 122 H 07/05/18 04:48: B-Natriuretic Peptide 270 H 07/05/18 04:48: Phosphorus 1.7 L 07/05/18 04:48: Glycated Hemoglobin 5.6, Estim Average Glucose 114 H 07/05/18 04:48: Sodium 143, Potassium 3.7, Chloride 108, Carbon Dioxide 25, Anion Gap 10.0, BUN 35 H, Creatinine 1.6 H, Estimated GFR (MDRD) 31 L, Glucose 121 H, Calcium 8.6, Magnesium 2.2 07/05/18 04:48: WBC 6.5, RBC 4.04 L, Hgb 13.2, Hct 39.4, MCV 97.5, MCH 32.6 H, MCHC 33.5, RDW 15.1 H, Plt Count 189, MPV 10.3, Neut # (Auto) 5.7, Lymph # (Auto) 0.5 L, Sherman # (Auto) 0.3, Eos # (Auto) 0.0, Baso # (Auto) 0.0, Absolute Nucleated RBC 0.00, Nucleated RBC % 0.0 07/04/18 23:17: POC Whole Bld Glucose 223 H 07/04/18 18:06: POC Whole Bld Glucose 220 H 07/04/18 06:33: Free T4 1.21 07/04/18 06:33: Free T3 pg/mL 2.61 07/04/18 06:33: Troponin I < 0.04 07/04/18 06:33: Sodium 139, Potassium 3.2 L, Chloride 101, Carbon Dioxide 24, Anion Gap 14.0 H, BUN 25 H, Creatinine 1.3 H, Estimated GFR (MDRD) 39 L, Glucose 188 H, Calcium 8.8 07/04/18 06:33: WBC 9.1, RBC 4.32, Hgb 14.4, Hct 41.8, MCV 96.7, MCH 33.2 H, MCHC 34.4, RDW 14.9, Plt Count 237, MPV 10.2, Neut # (Auto) 8.5 H, Lymph # (Auto) 0.2 L, Sherman # (Auto) 0.4, Eos # (Auto) 0.0, Baso # (Auto) 0.0, Absolute Nucleated RBC 0.01, Nucleated RBC % 0.1 07/03/18 22:37: POC Whole Bld Glucose 161 H 07/03/18 16:10: TSH 0.67 07/03/18 16:10: C-Reactive Protein 3.7 H, Lipase 27 07/03/18 16:10: WBC 5.0, RBC 4.43, Hgb 14.4, Hct 43.3, MCV 97.6, MCH 32.5 H, MCHC 33.3, RDW 14.9, Plt Count 192, MPV 10.1, Neut # (Auto) 4.5, Lymph # (Auto) 0.2 L, Sherman # (Auto) 0.3, Eos # (Auto) 0.0, Baso # (Auto) 0.0, Absolute Nucleated RBC 0.00, Nucleated RBC % 0.0 07/03/18 16:10: Troponin I < 0.04 07/03/18 07:45: Sodium 139, Potassium 3.8, Chloride 103, Carbon Dioxide 24, Anion Gap 12.0, BUN 23 H, Creatinine 1.0, Estimated GFR (MDRD) 53 L, Glucose 133 H, Calcium 8.4 L, Magnesium 1.9, Total Bilirubin 0.7, AST 17, ALT 19, Alkaline Phosphatase 38 L, Total Protein 6.6 L, Albumin 3.2, Globulin 3.4, Albumin/Globulin Ratio 0.9 L 07/03/18 07:45: WBC 5.2, RBC 4.14 L, Hgb 13.4, Hct 39.8, MCV 96.3, MCH 32.5 H, MCHC 33.7, RDW 14.7, Plt Count 170, MPV 9.7, Neut # (Auto) 4.4, Lymph # (Auto) 0.4 L, Sherman # (Auto) 0.4, Eos # (Auto) 0.0, Baso # (Auto) 0.0, Absolute Nucleated RBC 0.00, Nucleated RBC % 0.0 07/02/18 13:10: Lactic Acid 1.2 07/02/18 11:05: Troponin I < 0.04 07/02/18 11:05: Sodium 140, Potassium 3.6, Chloride 100 L, Carbon Dioxide 26, Anion Gap 14.0 H, BUN 25 H, Creatinine 1.2 H, Estimated GFR (MDRD) 43 L, Glucose 161 H, Calcium 9.8, Total Bilirubin 1.1 H, AST 29, ALT 28, Alkaline Phosphatase 51, Total Protein 8.1, Albumin 3.8, Globulin 4.3 H, Albumin/Globulin Ratio 0.9 L , Lipase 33 07/02/18 11:05: WBC 8.1, RBC 4.45, Hgb 14.3, Hct 42.8, MCV 96.3, MCH 32.1 H, MCHC 33.4, RDW 15.0, Plt Count 213, MPV 10.0, Neut # (Auto) 7.2 H, Lymph # (Auto) 0.5 L, Sherman # (Auto) 0.4, Eos # (Auto) 0.0, Baso # (Auto) 0.0, Absolute Nucleated RBC 0.00, Nucleated RBC % 0.0 Fish Bones: 07/06/18 04:50 07/06/18 04:50 Home Medications and Allergies Home Medications: Ambulatory Orders Lisinopril 10 mg PO DAILY 07/02/18 Amlodipine Besylate 2.5 mg PO DAILY 07/03/18 Omeprazole 20 mg PO Q2D@0700 07/03/18 hydroCHLOROthiazide [Hydrochlorothiazide] 25 mg PO DAILY 07/03/18 Active Medications Acetaminophen (Tylenol) 650 mg PO Q4HR PRN PRN Reason: Pain 1 to 4 Last Admin: 07/05/18 09:06 Dose: 650 mg Albuterol/Ipratropium (Duoneb) 3 ml INH Q4HR PRN PRN Reason: Wheezing Last Admin: 07/04/18 00:05 Dose: 3 ml Enoxaparin Sodium (Lovenox) 80 mg SUBQ 1200 NESSA Last Admin: 07/05/18 11:49 Dose: 80 mg Guaifenesin (Robitussin Liquid) 100 mg PO Q6HR PRN PRN Reason: Cough Last Admin: 07/05/18 09:07 Dose: 100 mg Hydromorphone HCl (Dilaudid Inj Syringe) 0.25 mg IVP Q2H PRN PRN Reason: PAIN Piperacillin Sod/Tazobactam (Sod 3.375 gm/ Sodium Chloride) 100 mls @ 25 mls/hr IV Q8H [facility] Last Admin: 07/06/18 05:50 Dose: 25 mls/hr Diltiazem HCl 125 mg/ Dextrose 125 mls @ 15 mls/hr IV .Q8H20M [facility]; Protocol Last Titration: 07/06/18 08:58 Dose: 12 mg/hr, 12 mls/hr Levofloxacin (Levaquin 750 Mg/150 Ml) 750 mg in 150 mls @ 100 mls/hr IV Q48H [facility] Last Infusion: 07/05/18 14:12 Dose: Infused Sodium Chloride (Normal Saline 0.9%) 500 mls @ 100 mls/hr IV Q24H PRN PRN Reason: TKO RATE Last Infusion: 07/06/18 01:00 Dose: Infused Insulin Human Regular (Novolin R) 1 - 5 unit SUBQ Q6HR [facility]; Protocol Last Admin: 07/06/18 06:00 Dose: Not Given Levalbuterol HCl (Xopenex) 1.25 mg INH RTQ4H PRN PRN Reason: SHORTNESS OF AIR/WHEEZING Last Admin: 07/06/18 07:46 Dose: 1.25 mg Metoprolol Tartrate (Lopressor Inj) 2.5 mg IVP Q6HR [facility] Last Admin: 07/06/18 06:02 Dose: 2.5 mg Ondansetron HCl (Zofran Inj) 4 mg IVP Q4HR PRN PRN Reason: Nausea / Vomiting Last Admin: 07/04/18 23:26 Dose: 4 mg Pantoprazole Sodium (Protonix) 40 mg PO QDAC [facility] Last Admin: 07/06/18 06:04 Dose: 40 mg Polyethylene Glycol (Miralax) 17 gm PO DAILY [facility] Last Admin: 07/05/18 10:59 Dose: Not Given Prochlorperazine Edisylate (Compazine Inj) 10 mg IVP Q4HR PRN PRN Reason: Nausea / Vomiting Last Admin: 07/03/18 17:34 Dose: 10 mg Sodium Chloride (Normal Saline Flush 0.9%) 10 ml IVP PRN PRN PRN Reason: NEEDED PER PROVIDER ORDERS Last Admin: 07/05/18 06:07 Dose: 10 ml Sodium Chloride (Normal Saline Flush 0.9%) 10 ml IVP 0100,0900,1700 [facility] Last Admin: 07/06/18 08:11 Dose: 10 ml Temazepam (Restoril) 15 mg PO QPM PRN PRN Reason: Insomnia Last Admin: 07/05/18 23:37 Dose: 15 mg Lisinopril 10 mg PO DAILY 07/02/18 Amlodipine Besylate 2.5 mg PO DAILY 07/03/18 Omeprazole 20 mg PO Q2D@0700 07/03/18 hydroCHLOROthiazide [Hydrochlorothiazide] 25 mg PO DAILY 07/03/18 Allergies/Adverse Reactions: Allergies Allergy/AdvReac Type Severity Reaction Status Date / Time iodine Allergy Hives Verified 07/02/18 10:37 Anes History & Medical History - Medical History Cardiovascular: reports: Hypertension Pulmonary: reports: Emphysema Gastrointestinal: reports: GERD, Chronic diarrhea Urinary: reports: Incontinence, Nocturia, Frequency Neuro: reports: Peripheral neuropathy Musculoskeletal: reports: Osteoarthritis Endocrine/Autoimmune: reports: Type 2 diabetes Blood Disorders: reports: None Skin: reports: None Smoking Status: Former smoker (from age [age]) - Surgical History General: Appendectomy, Gastric surgery, Other Gynecologic: Hysterectomy, Oophrectomy
--- NOTE | 2018-07-06 10:48 | ANESTHESIA ---
Pre-Anesthesia VS, & Labs - Diagnosis Diagnosis Obstipationsmall bowel obstruction Small bowel obstruction - Procedure Exploratory lap Vital Signs: Temp Pulse Resp BP Pulse Ox 36.6 C 100 28 H 117/70 92 07/06/18 08:00 07/06/18 10:00 07/06/18 10:00 07/06/18 10:00 07/06/18 10:00 Height 5 ft Weight (kg) 80 kg Body Mass Index 34.6 - NPO >8 hours, Other (ice chips) - Is Patient ?: No - Lab Results Current Lab Results: Laboratory Tests 07/06/18 05:55: POC Whole Bld Glucose 105 H 07/06/18 04:50: Albumin 2.5 L 07/06/18 04:50: Phosphorus 2.9, Magnesium 2.2 07/06/18 04:50: Sodium 142, Potassium 3.6, Chloride 108, Carbon Dioxide 25, Anion Gap 9.0, BUN 38 H, Creatinine 1.3 H, Estimated GFR (MDRD) 39 L, Glucose 120 H, Calcium 8.0 L 07/06/18 04:50: WBC 4.5 L, RBC 3.49 L, Hgb 11.3 L, Hct 34.3 L, MCV 98.3, MCH 32.3 H, MCHC 32.9, RDW 14.8, Plt Count 158, MPV 10.3, Neut # (Auto) 3.8, Lymph # (Auto) 0.5 L, Bourbon # (Auto) 0.2, Eos # (Auto) 0.1, Baso # (Auto) 0.0, Absolute Nucleated RBC 0.00, Nucleated RBC % 0.0 07/05/18 23:28: POC Whole Bld Glucose 110 H 07/05/18 18:26: POC Whole Bld Glucose 98 07/05/18 13:07: Bld Gas Analysis Time 1320, Sample Site RIGHT BRACHIAL, ABG pH 7.47 H, ABG pCO2 37, ABG pO2 89, ABG HCO3 26.3 H, ABG Total CO2 27.4, ABG O2 Saturation 97, ABG Base Excess 2.7, Buddy Test NOT APPLICABLE, O2 Delivery Device NASAL CANNULA, O2 Liters/Min 4.50 07/05/18 12:24: POC Whole Bld Glucose 171 H 07/05/18 05:59: POC Whole Bld Glucose 122 H 07/05/18 04:48: B-Natriuretic Peptide 270 H 07/05/18 04:48: Phosphorus 1.7 L 07/05/18 04:48: Glycated Hemoglobin 5.6, Estim Average Glucose 114 H 07/05/18 04:48: Sodium 143, Potassium 3.7, Chloride 108, Carbon Dioxide 25, Anion Gap 10.0, BUN 35 H, Creatinine 1.6 H, Estimated GFR (MDRD) 31 L, Glucose 121 H, Calcium 8.6, Magnesium 2.2 07/05/18 04:48: WBC 6.5, RBC 4.04 L, Hgb 13.2, Hct 39.4, MCV 97.5, MCH 32.6 H, MCHC 33.5, RDW 15.1 H, Plt Count 189, MPV 10.3, Neut # (Auto) 5.7, Lymph # (Auto) 0.5 L, Bourbon # (Auto) 0.3, Eos # (Auto) 0.0, Baso # (Auto) 0.0, Absolute Nucleated RBC 0.00, Nucleated RBC % 0.0 07/04/18 23:17: POC Whole Bld Glucose 223 H 07/04/18 18:06: POC Whole Bld Glucose 220 H 07/04/18 06:33: Free T4 1.21 07/04/18 06:33: Free T3 pg/mL 2.61 07/04/18 06:33: Troponin I < 0.04 07/04/18 06:33: Sodium 139, Potassium 3.2 L, Chloride 101, Carbon Dioxide 24, Anion Gap 14.0 H, BUN 25 H, Creatinine 1.3 H, Estimated GFR (MDRD) 39 L, Glucose 188 H, Calcium 8.8 07/04/18 06:33: WBC 9.1, RBC 4.32, Hgb 14.4, Hct 41.8, MCV 96.7, MCH 33.2 H, MCHC 34.4, RDW 14.9, Plt Count 237, MPV 10.2, Neut # (Auto) 8.5 H, Lymph # (Auto) 0.2 L, Bourbon # (Auto) 0.4, Eos # (Auto) 0.0, Baso # (Auto) 0.0, Absolute Nucleated RBC 0.01, Nucleated RBC % 0.1 07/03/18 22:37: POC Whole Bld Glucose 161 H 07/03/18 16:10: TSH 0.67 07/03/18 16:10: C-Reactive Protein 3.7 H, Lipase 27 07/03/18 16:10: WBC 5.0, RBC 4.43, Hgb 14.4, Hct 43.3, MCV 97.6, MCH 32.5 H, MCHC 33.3, RDW 14.9, Plt Count 192, MPV 10.1, Neut # (Auto) 4.5, Lymph # (Auto) 0.2 L, Bourbon # (Auto) 0.3, Eos # (Auto) 0.0, Baso # (Auto) 0.0, Absolute Nucleated RBC 0.00, Nucleated RBC % 0.0 07/03/18 16:10: Troponin I < 0.04 07/03/18 07:45: Sodium 139, Potassium 3.8, Chloride 103, Carbon Dioxide 24, Anion Gap 12.0, BUN 23 H, Creatinine 1.0, Estimated GFR (MDRD) 53 L, Glucose 133 H, Calcium 8.4 L, Magnesium 1.9, Total Bilirubin 0.7, AST 17, ALT 19, Alkaline Phosphatase 38 L, Total Protein 6.6 L, Albumin 3.2, Globulin 3.4, Albumin/Globulin Ratio 0.9 L 07/03/18 07:45: WBC 5.2, RBC 4.14 L, Hgb 13.4, Hct 39.8, MCV 96.3, MCH 32.5 H, MCHC 33.7, RDW 14.7, Plt Count 170, MPV 9.7, Neut # (Auto) 4.4, Lymph # (Auto) 0.4 L, Bourbon # (Auto) 0.4, Eos # (Auto) 0.0, Baso # (Auto) 0.0, Absolute Nucleated RBC 0.00, Nucleated RBC % 0.0 07/02/18 13:10: Lactic Acid 1.2 07/02/18 11:05: Troponin I < 0.04 07/02/18 11:05: Sodium 140, Potassium 3.6, Chloride 100 L, Carbon Dioxide 26, Anion Gap 14.0 H, BUN 25 H, Creatinine 1.2 H, Estimated GFR (MDRD) 43 L, Glucose 161 H, Calcium 9.8, Total Bilirubin 1.1 H, AST 29, ALT 28, Alkaline Phosphatase 51, Total Protein 8.1, Albumin 3.8, Globulin 4.3 H, Albumin/Globulin Ratio 0.9 L , Lipase 33 07/02/18 11:05: WBC 8.1, RBC 4.45, Hgb 14.3, Hct 42.8, MCV 96.3, MCH 32.1 H, MCHC 33.4, RDW 15.0, Plt Count 213, MPV 10.0, Neut # (Auto) 7.2 H, Lymph # (Auto) 0.5 L, Bourbon # (Auto) 0.4, Eos # (Auto) 0.0, Baso # (Auto) 0.0, Absolute Nucleated RBC 0.00, Nucleated RBC % 0.0 Lab results reviewed: Yes Fish Bones: 07/06/18 04:50 07/06/18 04:50 Home Medications and Allergies Home Medications: Ambulatory Orders Lisinopril 10 mg PO DAILY 07/02/18 Amlodipine Besylate 2.5 mg PO DAILY 07/03/18 Omeprazole 20 mg PO Q2D@0700 07/03/18 hydroCHLOROthiazide [Hydrochlorothiazide] 25 mg PO DAILY 07/03/18 Active Medications Acetaminophen (Tylenol) 650 mg PO Q4HR PRN PRN Reason: Pain 1 to 4 Last Admin: 07/05/18 09:06 Dose: 650 mg Albuterol/Ipratropium (Duoneb) 3 ml INH Q4HR PRN PRN Reason: Wheezing Last Admin: 07/04/18 00:05 Dose: 3 ml Enoxaparin Sodium (Lovenox) 80 mg SUBQ 1200 NESSA Last Admin: 07/05/18 11:49 Dose: 80 mg Guaifenesin (Robitussin Liquid) 100 mg PO Q6HR PRN PRN Reason: Cough Last Admin: 07/05/18 09:07 Dose: 100 mg Hydromorphone HCl (Dilaudid Inj Syringe) 0.25 mg IVP Q2H PRN PRN Reason: PAIN Piperacillin Sod/Tazobactam (Sod 3.375 gm/ Sodium Chloride) 100 mls @ 25 mls/hr IV Q8H [facility] Last Admin: 07/06/18 05:50 Dose: 25 mls/hr Diltiazem HCl 125 mg/ Dextrose 125 mls @ 15 mls/hr IV .Q8H20M [facility]; Protocol Last Titration: 07/06/18 09:21 Dose: 14 mg/hr, 14 mls/hr Levofloxacin (Levaquin 750 Mg/150 Ml) 750 mg in 150 mls @ 100 mls/hr IV Q48H [facility] Last Infusion: 07/05/18 14:12 Dose: Infused Sodium Chloride (Normal Saline 0.9%) 500 mls @ 100 mls/hr IV Q24H PRN PRN Reason: TKO RATE Last Infusion: 07/06/18 01:00 Dose: Infused Insulin Human Regular (Novolin R) 1 - 5 unit SUBQ Q6HR [facility]; Protocol Last Admin: 07/06/18 06:00 Dose: Not Given Levalbuterol HCl (Xopenex) 1.25 mg INH RTQ4H PRN PRN Reason: SHORTNESS OF AIR/WHEEZING Last Admin: 07/06/18 07:46 Dose: 1.25 mg Metoprolol Tartrate (Lopressor Inj) 2.5 mg IVP Q6HR [facility] Last Admin: 07/06/18 06:02 Dose: 2.5 mg Ondansetron HCl (Zofran Inj) 4 mg IVP Q4HR PRN PRN Reason: Nausea / Vomiting Last Admin: 07/04/18 23:26 Dose: 4 mg Pantoprazole Sodium (Protonix) 40 mg PO QDAC [facility] Last Admin: 07/06/18 06:04 Dose: 40 mg Polyethylene Glycol (Miralax) 17 gm PO DAILY [facility] Last Admin: 07/05/18 10:59 Dose: Not Given Prochlorperazine Edisylate (Compazine Inj) 10 mg IVP Q4HR PRN PRN Reason: Nausea / Vomiting Last Admin: 07/03/18 17:34 Dose: 10 mg Sodium Chloride (Normal Saline Flush 0.9%) 10 ml IVP PRN PRN PRN Reason: NEEDED PER PROVIDER ORDERS Last Admin: 07/05/18 06:07 Dose: 10 ml Sodium Chloride (Normal Saline Flush 0.9%) 10 ml IVP 0100,0900,1700 [facility] Last Admin: 07/06/18 08:11 Dose: 10 ml Temazepam (Restoril) 15 mg PO QPM PRN PRN Reason: Insomnia Last Admin: 07/05/18 23:37 Dose: 15 mg Lisinopril 10 mg PO DAILY 07/02/18 Amlodipine Besylate 2.5 mg PO DAILY 07/03/18 Omeprazole 20 mg PO Q2D@0700 07/03/18 hydroCHLOROthiazide [Hydrochlorothiazide] 25 mg PO DAILY 07/03/18 Allergies/Adverse Reactions: Allergies Allergy/AdvReac Type Severity Reaction Status Date / Time iodine Allergy Hives Verified 07/02/18 10:37 Anes History & Medical History - Anesthetic History Anesthesia Complications: reports: No previous complications Family history of Anesthesia Complications: Denies Family history of Malignant Hyperthermia: Denies - Medical History Cardiovascular: reports: Hypertension, Arrhythmia Pulmonary: reports: Emphysema, Other (oxygen therapy, 2 lpm) Gastrointestinal: reports: GERD, Chronic diarrhea Urinary: reports: Incontinence, Nocturia, Frequency Neuro: reports: None, Peripheral neuropathy Musculoskeletal: reports: Osteoarthritis Endocrine/Autoimmune: reports: Type 2 diabetes Blood Disorders: reports: None Skin: reports: None Smoking Status: Former smoker (from age [age]) Psychosocial: reports: No issues indicated - Surgical History General: Appendectomy, Gastric surgery, Other Gynecologic: Hysterectomy, Oophrectomy Exam General: Alert Dental: Dentures full Upper, Dentures full Lower Mouth Openin Fingerbreadth Neck Mobility: Normal Mallampati classification: II Thyromental Distance: greater than 6 cm Respiratory: Wheezing, Other (Decreased on bilat with insp crackles) Cardiovascular: Other (irregular) Neurological: Normal speech Mental/Cognitive Status: Alert/Oriented X3 Cognitive Status: Within normal limits Plan Anesthesia Type: General Consent for Procedure(s) Verified and Reviewed: Yes Code Status: Attempt Resuscitation ASA classification: 3-Severe systemic disease Is this case an emergency?: Yes
[2018-07-06] MEDS: POLYETHYLENE GLYCOL 3350 17 GM PACKET PO SCH (10:51)
[2018-07-06] MEDS ORDERED: LACTATED RINGERS 1,000 ML IV ONE (11:07)
[2018-07-06] MEDS ORDERED: BUPIVACAINE 0.5% PF 30 ML VIAL INFIL ONE (11:38)
[2018-07-06] MEDS ORDERED: PROPOFOL 200 MG/20 ML VIAL IVP ONE (12:32)
[2018-07-06] MEDS ORDERED: ESMOLOL 100 MG/10 ML VIAL IVP ONE (12:32)
[2018-07-06] MEDS ORDERED: ROCURONIUM 50 MG/5 ML VIAL IVP ONE (12:32)
[2018-07-06] MEDS ORDERED: fentaNYL 100 MCG/2 ML VIAL IVP ONE (12:32)
[2018-07-06] MEDS ORDERED: ONDANSETRON 4 MG/2 ML VIAL IVP ONE (12:32)
[2018-07-06] MEDS ORDERED: GLYCOPYRROLATE 1 MG/5 ML VIAL IVP ONE (12:32)
[2018-07-06] MEDS ORDERED: LIDOCAINE-MPF 2% 5 ML VIAL IM ONE (12:32)
[2018-07-06] MEDS ORDERED: ACETAMINOPHEN 1,000 MG/100 ML 100 ML IV ONE (12:32)
[2018-07-06] MEDS ORDERED: SUGAMMADEX 200 MG/2 ML VIAL IVP ONE ×2 (12:32→13:09)
[2018-07-06] MEDS ORDERED: NEOSTIGMINE 1 MG/1 ML 10 ML MDV IVP ONE (12:32)
[2018-07-06] MEDS ORDERED: ePHEDrine 50 MG/ML VIAL IVP ONE (12:32)
[2018-07-06] MEDS ORDERED: ceFAZolin 1 GM VIAL IV ONE (12:32)
--- NOTE | 2018-07-06 12:54 | OPERATIVE REPORT ---
Operative Report - General Admit Date: 07/02/18 Procedure Date: 07/06/18 Planned Procedure: Exploratory laparotomy with adhesio lysis, possible bowel resection, likely incidental incisional herniorrhaphy without mesh Pre-Op Diagnosis: Small bowel obstruction unresponsive to Gastrografin challenge, multiple in Procedure Performed: Exploratory laparotomy with significant adhesiolysis and release of internal hernia Repair of 4 incisional hernias without mesh Post Op Diagnosis: Internal hernia causing bowel obstruction, 4 incisional abdominal wall morteza - Procedure Note Primary Surgeon: Fritz Gibson MD Anesthesia Provider: Fritz Hughes MD Anesthesia Technique: General ET tube, Local (30 mL of half percent Marcaine without epinephrine) IV Fluids (mL): 700 Estimated Blood Loss (mL): 30 Drain/Tube Type: Other (None.) Complications: None. - Other Other Information/Narrative: OPERATIVE DESCRIPTION/REPORT: After verbal and written informed consent was obtained detailing the risks of infection, bleeding requiring transfusion with its risks, nerve injury, and , and after I met with the patient confirming the surgery and the site of the surgery, the patient was brought to the operative suite and placed supine on the operating table. Great care was taken to avoid pressure points to prevent pressure necrosis or nerve injury. Monitoring devices were applied along with TEDs and pneumatic compressive stockings (to prevent DVT). The patient received preoperative antibiotics for surgical prophylaxis. Dr. Fritz Hughes sedated and anesthetized the patient for the entire procedure. Please note that due to the patient's underlying comorbidities the patient was unstable throughout the procedure in the sense that her heart rate would vacillate between the 90s and 170. The patient was on a diltiazem drip and had received esmolol. Dr. Hughes was concerned enough that he called Dr. Palmer in to the operating room to discuss the operative and perioperative care. After assurance is that we could not improve the patient's clinical condition and that the operation itself was necessary I decided to proceed with the surgery. The patient was prepped and draped in the usual sterile manner. With the patient draped my initials were clearly visible. A "time in" then confirmed that the paitient was identified with 3 identifiers (name, birthdate and medical record number), the history and physical was in the chart, the signed consent confirming the procedure was in the chart, the patient was in the correct position, the aforementioned prophyla ctic measures were in place or given, we had the correct personel and equipment to complete the procedure and that anesthesia, surgery and nursing were given an opportunIty to express any concerns. With the agreement of everyone in the room, we proceeded with the operation. A midline incision was made tracing the previous crooked incision. Sharp dissection utilizing Bovie electrocautery was used to expose the linea alba. Numerous incisional hernias were encountered in the dissection down to the linea alba. The linea alba was opened using Bovie electrocautery. The peritoneum was incised using Metzenbaum scissor gaining entry into the abdomen without incident. All of the hernia sacs were delineated using Bovie electrocautery as well as Metzenbaum scissors. The interrupted Prolene sutures were used to close the abdomen previously were removed as they were encountered. There were significant adhesions to the anterior abdominal wall and these were taken down sharply using Metzenbaum scissors. The small bowel was carefully delivered onto the operative field. In the lower abdomen, the bowel was noted to be distended and this distended bowel had looped back onto itself and an adh esion/band was preventing passage of bowel contents. The bowel was not compromised in any way. The bowel was not dusky, dark or thick walled. This band causing the obstruction was cut with Bovie electrocautery using my finger to protect the underlying bowel. With this cut it was clear that the obstruction was resolved. There were multiple adhesions throughout the abdomen and additional adhesio lysis was performed using Metzenbaum scissors to ensure that 1 of these adhesions and several other bands did not become a another cause for a bowel obstruction. With this bowel mobilized I was able to run the bowel contents in the ligament of Treitz to the ileocecal valve but this is not to suggest that all the adhesions were taken down. The peritoneum was copiously irrigated with warm sterile saline. The fascia was closed using 0 PDS in a running fashion starting inferiorly and superiorly and running to meet in the middle just above the umbilicus. A fish Mushtaq retractor was used to protect the bowel during the closure of the fascia. Great care was taken to dissect the fascia back approximately 3 cm from the incision and during the closure I made sure to get excellent bites of the fascia in order to close the fascia and this repair the forehead incisional abdominal hernias without mesh. The umbilicus was sewn down to the fascia using a 3-0 Vicryl [id number] suture. This was done to give the patient a "innie." The skin incision was approximated with skin kaela. A dressing was placed on the wound. At this point a time out was performed that confirmed that all the counts were correct, the procedure that was performed, the blood loss, the IV fluids administered, and the patients condition. Having tolerated the procedure well, the patient was subsequently extubated and taken to ICU in fair and somewhat unstable condition (her heart rate was still not controlled). [employer] disclaimer: This document was created in part using voice recognition technology. Because of the inherent limitations of the system ([employer]'s [employer] user manual states that the licensee understands that speech recognition is a statistical process and that recognition errors are inherent in the process), occasional same sounding word substitutions and grammatical errors do occur and persist despite proofreading. Please read this document for context.
[2018-07-06] MEDS ORDERED: SODIUM CHLORIDE FLUSH 0.9% 10 ML SYRINGE IVP PRN (13:07)
[2018-07-06] MEDS: METOPROLOL 5 MG/5 ML VIAL IVP PRN (13:13)
[2018-07-06] MEDS ORDERED: ACETAMINOPHEN 1,000 MG/100 ML 100 ML IV SCH (14:00)
[2018-07-06] MEDS: NS W/20 MEQ KCL 1,000 ML IV SCH ×2 (14:36→23:52)
[2018-07-06] MEDS ORDERED: SODIUM CHLORIDE FLUSH 0.9% 10 ML SYRINGE IVP SCH (17:00)
[2018-07-06] MEDS: ENOXAPARIN 80 MG/0.8 ML SYRINGE SUBQ SCH (18:23)
[2018-07-06] MEDS: ACETAMINOPHEN 1,000 MG/100 ML 100 ML IV SCH ×2 (18:24→23:52)
[2018-07-06] MEDS: TEMAZEPAM 15 MG CAPSULE PO PRN (21:51)
[2018-07-07] MEDS: diltiaZEM INJ 125 MG in DEXTROSE 5% 100 ML IV SCH ×3 (00:48→15:25)
[2018-07-07] MEDS: INSULIN REGULAR HUMAN 100 UNIT/1 ML 10 ML MDV SUBQ SCH ×4 (00:50→18:11)
[2018-07-07] MEDS: SODIUM CHLORIDE FLUSH 0.9% 10 ML SYRINGE IVP SCH ×3 (02:23→18:03)
[2018-07-07] MEDS: HYDROmorphone 0.5 MG/0.5 ML SYRINGE IVP PRN ×3 (03:46→18:00)
[2018-07-07] MEDS: SODIUM CHLORIDE FLUSH 0.9% 10 ML SYRINGE IVP PRN (03:47)
[2018-07-07 04:52] LABS: BASOPHILS % (AUTO) 0.2 %; EOSINOPHILS # (AUTO) 0.1 10^3/uL (0.0-0.7); EOSINOPHILS % (AUTO) 1.8 %; HGB - HEMOGLOBIN 11.6 g/dL (12.0-16.0); LYMPHOCYTES # (AUTO) 0.4 10^3/uL (1.5-3.5); LYMPHOCYTES % (AUTO) 7.6 %; MEAN CORPUSCULAR HEMOGLOBIN 32.4 pg (27.0-31.0); MEAN CORPUSCULAR HGB CONC 32.8 g/dL (32.0-36.0); MEAN CORPUSCULAR VOLUME 98.6 fL (81.0-99.0); MEAN PLATELET VOLUME 10.5 fL (7.9-10.8); MONOCYTES # (AUTO) 0.2 10^3/uL (0.0-1.0); MONOCYTES % (AUTO) 4.5 %; NEUTROPHILS # (AUTO) 4.5 10^3/uL (1.5-6.6); NEUTROPHILS % (AUTO) 85.9 %; PLT - PLATELET COUNT 177 10^3/uL (130-450); RED BLOOD COUNT 3.57 10^6/uL (4.20-5.40); WHITE BLOOD COUNT 5.2 x10^3/uL (4.8-10.8)
[2018-07-07 04:54] LABS: CALCIUM 7.9 mg/dL (8.5-10.3); CREATININE 1.1 mg/dL (0.4-1.0)
[2018-07-07] MEDS: ACETAMINOPHEN 1,000 MG/100 ML 100 ML IV SCH ×3 (05:52→18:05)
[2018-07-07] MEDS: PIPERACILLIN/TAZOBACTAM 3.375 GM in SODIUM CHLORIDE 0.9% MINIBAG 100 ML IV SCH ×3 (05:52→22:26)
[2018-07-07] MEDS: IPRATROPIUM/ALBUTEROL 3 ML NEB INH PRN (06:02)
[2018-07-07] MEDS: PANTOPRAZOLE 40 MG TABLET PO SCH (06:41)
[2018-07-07] MEDS: LEVALBUTEROL 1.25 MG/3 ML NEB INH PRN (07:45)
[2018-07-07] MEDS: METOPROLOL 5 MG/5 ML VIAL IVP PRN ×2 (08:15→18:31)
[2018-07-07] MEDS: POLYETHYLENE GLYCOL 3350 17 GM PACKET PO SCH (09:44)
[2018-07-07] MEDS: NS W/20 MEQ KCL 1,000 ML IV SCH ×3 (10:00→21:56)
--- NOTE | 2018-07-07 10:05 | PROVIDER PROGRESS NOTE ---
Subjective - Prog Note Date Prog Note Date: 07/07/18 Prog Note Time: 12:05 - Subjective Pt reports feeling: Improved Subjective: She is still in discomfort. Her abdomen hurts. Overall she just does not want to be here anymore. But she does admit that the horrible misery she was feeling before that was so vague, nonspecific, not really associated with her abdominal pain, is gone. In retrospect she wonders if her belly was bothering her more than she realized. Her main complaint at this time is incisional pain. The cough from her pneumonia that causes her to have to use a pillow on her incision site. She is very tired. Nausea is gone. NG output is close to 500 cc overnight Current Medications - Current Medications Current Medications: Active Medications Acetaminophen (Tylenol) 650 mg PO Q4HR PRN PRN Reason: Pain 1 to 4 Last Admin: 07/05/18 09:06 Dose: 650 mg Albuterol/Ipratropium (Duoneb) 3 ml INH Q4HR PRN PRN Reason: Wheezing Last Admin: 07/07/18 06:02 Dose: 3 ml Enoxaparin Sodium (Lovenox) 80 mg SUBQ 1200 NESSA Last Admin: 07/07/18 11:50 Dose: 80 mg Guaifenesin (Robitussin Liquid) 100 mg PO Q6HR PRN PRN Reason: Cough Last Admin: 07/05/18 09:07 Dose: 100 mg Hydromorphone HCl (Dilaudid Inj Syringe) 0.25 mg IVP Q2H PRN PRN Reason: PAIN Last Admin: 07/07/18 10:57 Dose: 0.25 mg Piperacillin Sod/Tazobactam (Sod 3.375 gm/ Sodium Chloride) 100 mls @ 25 mls/hr IV Q8H NESSA Last Infusion: 07/07/18 10:00 Dose: Infused Diltiazem HCl 125 mg/ Dextrose 125 mls @ 15 mls/hr IV .Q8H20M NESSA; Protocol Last Titration: 07/07/18 11:00 Dose: 15 mg/hr, 15 mls/hr Levofloxacin (Levaquin 750 Mg/150 Ml) 750 mg in 150 mls @ 100 mls/hr IV Q48H NESSA Last Admin: 07/07/18 11:50 Dose: 100 mls/hr Sodium Chloride (Normal Saline 0.9%) 500 mls @ 100 mls/hr IV Q24H PRN PRN Reason: TKO RATE Last Infusion: 07/06/18 01:00 Dose: Infused Potassium Chloride/Sodium Chloride (Normal Saline 0.9% W/20 Meq Kcl) 1,000 mls @ 100 mls/hr IV .Q10H [facility] [place] Last Infusion: 07/07/18 11:35 Dose: 0 mls/hr Acetaminophen (Ofirmev) 100 mls @ 400 mls/hr IV Q6H [facility] [place] Last Infusion: 07/07/18 11:50 Dose: Infused Insulin Human Regular (Novolin R) 1 - 5 unit SUBQ Q6HR [facility] [place]; Protocol Last Admin: 07/07/18 11:39 Dose: Not Given Levalbuterol HCl (Xopenex) 1.25 mg INH RTQ4H PRN PRN Reason: SHORTNESS OF AIR/WHEEZING Last Admin: 07/07/18 07:45 Dose: 1.25 mg Metoprolol Tartrate (Lopressor Inj) 5 mg IVP Q6H PRN PRN Reason: Hypertensive Emergency Last Admin: 07/07/18 08:15 Dose: 5 mg Ondansetron HCl (Zofran Inj) 4 mg IVP Q4HR PRN PRN Reason: Nausea / Vomiting Last Admin: 07/04/18 23:26 Dose: 4 mg Pantoprazole Sodium (Protonix) 40 mg PO QDAC [facility] [place] Last Admin: 07/07/18 06:41 Dose: 40 mg Polyethylene Glycol (Miralax) 17 gm PO DAILY [facility] [place] Last Admin: 07/07/18 09:44 Dose: Not Given Prochlorperazine Edisylate (Compazine Inj) 10 mg IVP Q4HR PRN PRN Reason: Nausea / Vomiting Last Admin: 07/03/18 17:34 Dose: 10 mg Sodium Chloride (Normal Saline Flush 0.9%) 10 ml IVP PRN PRN PRN Reason: NEEDED PER PROVIDER ORDERS Last Admin: 07/07/18 03:47 Dose: 10 ml Sodium Chloride (Normal Saline Flush 0.9%) 10 ml IVP 0100,0900,1700 [facility] [place] Last Admin: 07/07/18 11:28 Dose: 10 ml Temazepam (Restoril) 15 mg PO QPM PRN PRN Reason: Insomnia Last Admin: 07/06/18 21:51 Dose: 15 mg Lisinopril 10 mg PO DAILY 07/02/18 Amlodipine Besylate 2.5 mg PO DAILY 07/03/18 Omeprazole 20 mg PO Q2D@0700 07/03/18 hydroCHLOROthiazide [Hydrochlorothiazide] 25 mg PO DAILY 07/03/18 Objective - Vital Signs/Intake & Output Reviewed Vital Signs: Yes Vital Signs: Vital Signs x48h Temp Pulse Pulse Resp BP BP Pulse Ox 07/07/18 09:00 146 H 22 130/91 H 95 07/07/18 08:18 90 105/55 L 07/07/18 08:15 130/91 H 07/07/18 08:00 97.4 C H 143 H 23 130/91 H 95 07/07/18 07:46 142 H 11 L 07/07/18 07:00 112 H 21 133/53 H 95 07/07/18 06:00 108 H 105 H 22 119/77 93 07/07/18 05:00 36.6 C 126 H 27 H 126/67 94 07/07/18 04:00 115 H 26 H 104/80 93 07/07/18 03:00 105 H 20 124/52 L 93 07/07/18 02:00 103 H 28 H 111/56 L 93 Intake & Output: Intake & Output 07/04/18 07/05/18 07/06/18 07/07/18 23:59 23:59 23:59 23:59 Intake Total 1754.00 2777.916 2767.017 1358.333 Output Total 2499 3066 1647 682 Balance -745.00 -815.789 1031.017 676.333 - Objective General Appearance: positive: No acute distress, Mild distress (From incisional pain, overall discomfort in being in bed all the time), Other (Elderly alert female with NG in place, looks fatigued) Eyes Bilateral: positive: PERRL ENT: positive: Dry mucous membranes Neck: positive: No JVD. negative: Stiff neck, Carotid bruit Respiratory: positive: Chest non-tender, Wheezes, Rhonchi, Other (Deep bronchiti c cough at times). negative: Rales Cardiovascular: positive: Irregularly irregular, Tachycardia (No Lopressor given overnight), Systolic murmur. negative: Gallop/S4, Friction rub Abdomen: positive: No organomegaly, No distention, Tenderness, Other (No bowel sounds yet, no flatus). negative: Guarding, Rebound Skin: positive: Warm, Dry Extremities: positive: Full ROM, Pedal edema Neurologic/Psychiatric: positive: Oriented x3, CN's nml (2-12), Motor nml - Lab Results Fish Bones: 07/07/18 04:15 07/07/18 04:15 Other Labs: Lab Results x24hrs 07/07/18 07/07/18 07/07/18 Range/Units 05:49 04:15 04:15 WBC 5.2 (4.8-10.8) x10^3/uL RBC 3.57 L (4.20-5.40) 10^6/uL Hgb 11.6 L (12.0-16.0) g/dL Hct 35.3 L (37.0-47.0) % MCV 98.6 (81.0-99.0) fL MCH 32.4 H (27.0-31.0) pg MCHC 32.8 (32.0-36.0) g/dL RDW 15.0 (12.0-15.0) % Plt Count 177 (130-450) 10^3/uL MPV 10.5 (7.9-10.8) fL Neut # (Auto) 4.5 (1.5-6.6) 10^3/uL Lymph # (Auto) 0.4 L (1.5-3.5) 10^3/uL Mellette # (Auto) 0.2 (0.0-1.0) 10^3/uL Eos # (Auto) 0.1 (0.0-0.7) 10^3/uL Baso # (Auto) 0.0 (0.0-0.1) 10^3/uL Absolute Nucleated RBC 0.00 x10^3/uL Nucleated RBC % 0.0 /100WBC Sodium 141 (135-145) mmol/L Potassium 3.7 (3.5-5.0) mmol/L Chloride 112 H (101-111) mmol/L Carbon Dioxide 22 (21-32) mmol/L Anion Gap 7.0 (6-13) BUN 30 H (6-20) mg/dL Creatinine 1.1 H (0.4-1.0) mg/dL Estimated GFR (MDRD) 47 L (>89) Glucose 133 H (70-100) mg/dL POC Whole Bld Glucose 126 H (70 - 100) mg/dL Calcium 7.9 L (8.5-10.3) mg/dL Phosphorus (2.5-4.6) mg/dL Magnesium (1.7-2.8) mg/dL Albumin (3.2-5.5) g/dL 07/06/18 07/06/18 07/06/18 Range/Units 23:54 18:28 14:36 WBC (4.8-10.8) x10^3/uL RBC (4.20-5.40) 10^6/uL Hgb (12.0-16.0) g/dL Hct (37.0-47.0) % MCV (81.0-99.0) fL MCH (27.0-31.0) pg MCHC (32.0-36.0) g/dL RDW (12.0-15.0) % Plt Count (130-450) 10^3/uL MPV (7.9-10.8) fL Neut # (Auto) (1.5-6.6) 10^3/uL Lymph # (Auto) (1.5-3.5) 10^3/uL Mellette # (Auto) (0.0-1.0) 10^3/uL Eos # (Auto) (0.0-0.7) 10^3/uL Baso # (Auto) (0.0-0.1) 10^3/uL Absolute Nucleated RBC x10^3/uL Nucleated RBC % /100WBC Sodium (135-145) mmol/L Potassium (3.5-5.0) mmol/L Chloride (101-111) mmol/L Carbon Dioxide (21-32) mmol/L Anion Gap (6-13) BUN (6-20) mg/dL Creatinine (0.4-1.0) mg/dL Estimated GFR (MDRD) (>89) Glucose (70-100) mg/dL POC Whole Bld Glucose 102 H 129 H 187 H (70 - 100) mg/dL Calcium (8.5-10.3) mg/dL Phosphorus (2.5-4.6) mg/dL Magnesium (1.7-2.8) mg/dL Albumin (3.2-5.5) g/dL 07/06/18 07/06/18 Range/Units 04:50 04:50 WBC (4.8-10.8) x10^3/uL RBC (4.20-5.40) 10^6/uL Hgb (12.0-16.0) g/dL Hct (37.0-47.0) % MCV (81.0-99.0) fL MCH (27.0-31.0) pg MCHC (32.0-36.0) g/dL RDW (12.0-15.0) % Plt Count (130-450) 10^3/uL MPV (7.9-10.8) fL Neut # (Auto) (1.5-6.6) 10^3/uL Lymph # (Auto) (1.5-3.5) 10^3/uL Mellette # (Auto) (0.0-1.0) 10^3/uL Eos # (Auto) (0.0-0.7) 10^3/uL Baso # (Auto) (0.0-0.1) 10^3/uL Absolute Nucleated RBC x10^3/uL Nucleated RBC % /100WBC Sodium (135-145) mmol/L Potassium (3.5-5.0) mmol/L Chloride (101-111) mmol/L Carbon Dioxide (21-32) mmol/L Anion Gap (6-13) BUN (6-20) mg/dL Creatinine (0.4-1.0) mg/dL Estimated GFR (MDRD) (>89) Glucose (70-100) mg/dL POC Whole Bld Glucose (70 - 100) mg/dL Calcium (8.5-10.3) mg/dL Phosphorus 2.9 (2.5-4.6) mg/dL Magnesium 2.2 (1.7-2.8) mg/dL Albumin 2.5 L (3.2-5.5) g/dL ABX Reporting Has patient been on IV antibiotics over the past 48 hours?: Yes Assessment/Plan - Problem List (1) Small bowel obstruction Impression: POD #1 Due to adhesions. Initially presented to the ED on 07/02 with nausea, vomiting, constipation and weakness. She saw Dr. Jon the day prior who prescribed Miralax and nausea meds. Symptoms continued to get worse, so daughter drove her to the ED. On imaging, she was found to have a mid to distal SBO and 3 umbilical hernias. Gastro-graffin was given, and she had two bowel movements following. However, she had not passed flatus since 07/04. She had 300+ mL bilious emesis 07/05, so an NGT tube was placed and immediately withdrew 2700ml Bilious drainage. 07/06 morning abdomen appeared more distended though bowel tones auscultated in right lower quadrant and hypoactive in Left lower quadrant. Continued bilious drainage from NGT. No pain or nausea. She was taken to surgery. Open lysis of adhesions and 3 hernias repaired. Today she is in pain from incision, coughing, but less miserable than before surgery. Plan: Surgery to assess if NG can come out Expectant waiting for bowel function to return. Control pain and nausea (3) Atrial fibrillation with RVR Impression: Initially went in to Afib with RVR 07/03, diltiazem drip started. No history of afib, though patient described that a few days prior to her admission she could hear her heartbeat while laying in bed and she noticed it sounded "strange" and irregular.Echocardiogram has ejection fraction 60 to 65% with overall systolic function and wall function normal. She has moderate increase in left atrial volume index to 43 mL. Moderate aortic valve sclerosis but no stenosis. RVSP at rest 29 mmHg. Diltiazem drip up to 15mg/hr continues preop and post op with HR 120-140s, however, rate became controlled in 80s after placement of NGT. Just prior to surgery titrated up on Diltiazem to 15 from 5. I increased Metoprolol Tartrate from 2.5mg IV q6h to 5 mg. Not given lopressor last night and I've asked RN to give it since rate consistently high. Currently on Lovenox 80mg SQ. CHADsVASC score 5 (HTN, Age >75, DM, Female). HAS- BLED score 1 (abnormal kidney function with TIFFANI, though creatinine slightly improved today). Overall the plan will be rate control with anticoagulation when she is able to take po. (4) HCAP (healthcare-associated pneumonia) Impression: CxR 07/04 showing patchy bibasilar infiltrates. Started on Zosyn. Respiratory status worse on 07/05, RR 20-30, labored breathing, intermittent wheezing. Repeat CXR showed: 1. worsening parenchymal opacity in the left lung base, now associated with a left pleural effusion. Favored etiology is left lower lobe pneumonia, 2. The right lung base is clear. Levofloxacin added 07/05. Continue with Zosyn and levofloxacin. Day#4 zosyn, Day #3 levo. Reports slight improvement in breathing this am. Remains intermittently wheezy, slight improvement after duoneb. Per patient, she is "always a little wheezy". Has history of empysema, however, patient unaware of this. History of smoking (from age [age]) noted in chart, Pack-year history unknown at this point.Respiratory therapy is working strongly with her. Using Xopenex for wheezing. Yesterday after surgery she was up to 8 L nasal cannula with an O2 sat of 90%. By the end of yesterday and into the evening she was 4 L. This morning she is 2 L with O2 sat anywhere from 86 to 96%. Nursing and respiratory therapy are working well with her to encourage sitting up in chair, walking 2-3 steps, coughing, incentive spirometry. (5) Acute kidney injury Impression: Mild TIFFANI though appears slightly improved today. Creatinine 1.2 on admit, 1.6 by 07/05 and is 1.1 this am. UOP ~30ml/hr via reed Appears Euvolemic, electrolytes stable. Continue to monitor UOP, follow creat/BUN tomorrow (6) Diet-controlled diabetes mellitus Impression: Currently NPO due to SBO, the is now post op w no bowel sounds yet. On SSI, fingerstick glucose checks for patient who is NPO and hypoglycemia protocol. Selected Entries 07/06/18 07/06/18 07/06/18 12:00 14:50 17:16 Result (mg/dL) 187 187 171 07/06/18 07/06/18 07/07/18 18:25 18:39 00:00 Result (mg/dL) 129 129 102 07/07/18 07/07/18 07/07/18 00:50 11:38 11:39 Result (mg/dL) 102 129 129 Will need to discuss potential for TPN if no improvement after surgery. I discussed this with nutrition services. Plan is for tomorrow if she is not opening up.
[2018-07-07] MEDS: ENOXAPARIN 80 MG/0.8 ML SYRINGE SUBQ SCH (11:50)
[2018-07-07] MEDS: levoFLOXacin 750 MG/150 ML 750 MG/150 ML BAG IV SCH (11:50)
[2018-07-07] MEDS ORDERED: FUROSEMIDE 20 MG/2 ML VIAL IVP STA (17:25)
--- NOTE | 2018-07-07 18:07 | PROVIDER PROGRESS NOTE ---
Subjective - General Admit Date: 07/02/18 Procedure Date: 07/06/18 Post Op Days: 13 Procedure Performed: Adhesiolysis, incisional herniorrhaphy x4, exploratory laparotomy - Review of Systems Wound/Incisions: positive: Dressing dry and intact General: positive: No symptoms HEENT: positive: No symptoms Pulmonary: positive: No symptoms Cardiovascular: positive: No symptoms Gastrointestinal: negative: Nausea, Vomiting, Flatus, Diarrhea Genitourinary: positive: No symptoms Psychiatric: positive: No symptoms All Other Systems: positive: Reviewed and negative Objective - Patient Data Reviewed Vital Signs: Yes Vital Signs: Vital Signs x48h Temp Pulse Resp BP Pulse Ox 07/07/18 17:00 97 21 118/67 95 07/07/18 16:00 36.3 C L 100 20 116/62 96 07/07/18 15:00 82 29 H 130/68 96 07/07/18 14:00 36.4 C L 96 24 120/60 96 07/07/18 13:00 105 H 17 113/72 97 07/07/18 11:52 51 L 25 H 139/65 H 94 07/07/18 11:00 92 18 101/58 L 90 L Weight: Weight 07/05/18 07/06/18 07/07/18 23:59 23:59 23:59 Weight (kg) 80 kg 80 kg 84 kg Intake & Output: Intake and Output Totals x24h 07/05/18 07/06/18 07/07/18 23:59 23:59 23:59 Intake Total 2777.916 2767.017 3050.417 Output Total 3066 1647 1247 Balance -779.383 4065.017 1803.417 - Lab Results Lab Results: 07/11/18 14:56 07/11/18 14:56 Other Lab Results: Lab Results x24hrs 07/07/18 07/07/18 07/07/18 Range/Units 16:39 11:37 05:49 WBC (4.8-10.8) x10^3/uL RBC (4.20-5.40) 10^6/uL Hgb (12.0-16.0) g/dL Hct (37.0-47.0) % MCV (81.0-99.0) fL MCH (27.0-31.0) pg MCHC (32.0-36.0) g/dL RDW (12.0-15.0) % Plt Count (130-450) 10^3/uL MPV (7.9-10.8) fL Neut # (Auto) (1.5-6.6) 10^3/uL Lymph # (Auto) (1.5-3.5) 10^3/uL Dukes # (Auto) (0.0-1.0) 10^3/uL Eos # (Auto) (0.0-0.7) 10^3/uL Baso # (Auto) (0.0-0.1) 10^3/uL Absolute Nucleated RBC x10^3/uL Nucleated RBC % /100WBC Sodium (135-145) mmol/L Potassium (3.5-5.0) mmol/L Chloride (101-111) mmol/L Carbon Dioxide (21-32) mmol/L Anion Gap (6-13) BUN (6-20) mg/dL Creatinine (0.4-1.0) mg/dL Estimated GFR (MDRD) (>89) Glucose (70-100) mg/dL POC Whole Bld Glucose 107 H 129 H 126 H (70 - 100) mg/dL Calcium (8.5-10.3) mg/dL 07/07/18 07/07/18 07/06/18 Range/Units 04:15 04:15 23:54 WBC 5.2 (4.8-10.8) x10^3/uL RBC 3.57 L (4.20-5.40) 10^6/uL Hgb 11.6 L (12.0-16.0) g/dL Hct 35.3 L (37.0-47.0) % MCV 98.6 (81.0-99.0) fL MCH 32.4 H (27.0-31.0) pg MCHC 32.8 (32.0-36.0) g/dL RDW 15.0 (12.0-15.0) % Plt Count 177 (130-450) 10^3/uL MPV 10.5 (7.9-10.8) fL Neut # (Auto) 4.5 (1.5-6.6) 10^3/uL Lymph # (Auto) 0.4 L (1.5-3.5) 10^3/uL Dukes # (Auto) 0.2 (0.0-1.0) 10^3/uL Eos # (Auto) 0.1 (0.0-0.7) 10^3/uL Baso # (Auto) 0.0 (0.0-0.1) 10^3/uL Absolute Nucleated RBC 0.00 x10^3/uL Nucleated RBC % 0.0 /100WBC Sodium 141 (135-145) mmol/L Potassium 3.7 (3.5-5.0) mmol/L Chloride 112 H (101-111) mmol/L Carbon Dioxide 22 (21-32) mmol/L Anion Gap 7.0 (6-13) BUN 30 H (6-20) mg/dL Creatinine 1.1 H (0.4-1.0) mg/dL Estimated GFR (MDRD) 47 L (>89) Glucose 133 H (70-100) mg/dL POC Whole Bld Glucose 102 H (70 - 100) mg/dL Calcium 7.9 L (8.5-10.3) mg/dL 07/06/18 Range/Units 18:28 WBC (4.8-10.8) x10^3/uL RBC (4.20-5.40) 10^6/uL Hgb (12.0-16.0) g/dL Hct (37.0-47.0) % MCV (81.0-99.0) fL MCH (27.0-31.0) pg MCHC (32.0-36.0) g/dL RDW (12.0-15.0) % Plt Count (130-450) 10^3/uL MPV (7.9-10.8) fL Neut # (Auto) (1.5-6.6) 10^3/uL Lymph # (Auto) (1.5-3.5) 10^3/uL Dukes # (Auto) (0.0-1.0) 10^3/uL Eos # (Auto) (0.0-0.7) 10^3/uL Baso # (Auto) (0.0-0.1) 10^3/uL Absolute Nucleated RBC x10^3/uL Nucleated RBC % /100WBC Sodium (135-145) mmol/L Potassium (3.5-5.0) mmol/L Chloride (101-111) mmol/L Carbon Dioxide (21-32) mmol/L Anion Gap (6-13) BUN (6-20) mg/dL Creatinine (0.4-1.0) mg/dL Estimated GFR (MDRD) (>89) Glucose (70-100) mg/dL POC Whole Bld Glucose 129 H (70 - 100) mg/dL Calcium (8.5-10.3) mg/dL - Current Medications Current Medications: Current Medications Generic Name Dose Route Start Last Admin Trade Name Freq PRN Reason Stop Dose Admin Acetaminophen 650 mg 07/02/18 14:04 07/05/18 09:06 Tylenol PO 650 mg Q4HR PRN Administration Pain 1 to 4 Albuterol/Ipratropium 3 ml 07/03/18 23:34 07/07/18 06:02 Duoneb INH 3 ml Q4HR PRN Administration Wheezing Enoxaparin Sodium 80 mg 07/04/18 15:53 07/07/18 11:50 Lovenox SUBQ 80 mg 1200 NSESA Administration Guaifenesin 100 mg 07/03/18 23:18 07/05/18 09:07 Robitussin Liquid PO 100 mg Q6HR PRN Administration Cough Hydromorphone HCl 0.25 mg 07/05/18 14:19 07/07/18 18:00 Dilaudid Inj Syringe IVP 0.25 mg Q2H PRN Administration PAIN Piperacillin Sod/Tazobactam 100 mls @ 25 mls/hr 07/04/18 14:00 07/07/18 17:55 Sod 3.375 gm/ Sodium Chloride IV Infused Q8H NESSA Infusion Diltiazem HCl 125 mg/ Dextrose 125 mls @ 15 mls/hr 07/04/18 12:30 07/07/18 17:00 IV 15 mg/hr .Q8H20M NESSA 15 mls/hr Titration Protocol 15 MG/HR Levofloxacin 750 mg in 150 mls @ 100 mls/hr 07/05/18 12:00 07/07/18 13:20 Levaquin 750 Mg/150 Ml IV Infused Q48H NESSA Infusion Sodium Chloride 500 mls @ 100 mls/hr 07/05/18 18:26 07/06/18 01:00 Normal Saline 0.9% IV Infused Q24H PRN Infusion TKO RATE Potassium Chloride/Sodium Chloride 1,000 mls @ 100 mls/hr 07/06/18 14:00 07/07/18 17:00 Normal Saline 0.9% W/20 Meq Kcl IV 100 mls/hr .Q10H NESSA Infusion Acetaminophen 100 mls @ 400 mls/hr 07/06/18 18:00 07/07/18 11:50 Ofirmev IV Infused Q6H NESSA Infusion Insulin Human Regular 1 - 5 unit 07/04/18 18:00 07/07/18 11:39 Novolin R SUBQ Not Given Q6HR NESSA Protocol Levalbuterol HCl 1.25 mg 07/04/18 11:06 07/07/18 07:45 Xopenex INH 1.25 mg RTQ4H PRN Administration SHORTNESS OF AIR/WHEEZING Ondansetron HCl 4 mg 07/02/18 16:27 07/04/18 23:26 Zofran Inj IVP 4 mg Q4HR PRN Administration Nausea / Vomiting Pantoprazole Sodium 40 mg 07/03/18 07:00 07/07/18 06:41 Protonix PO 40 mg QDAC NESSA Administration Polyethylene Glycol 17 gm 07/03/18 09:00 07/07/18 09:44 Miralax PO Not Given DAILY [facility] Prochlorperazine Edisylate 10 mg 07/03/18 16:30 07/03/18 17:34 Compazine Inj IVP 10 mg Q4HR PRN Administration Nausea / Vomiting Sodium Chloride 10 ml 07/02/18 14:04 07/07/18 03:47 Normal Saline Flush 0.9% IVP 10 ml PRN PRN Administration NEEDED PER PROVIDER ORDERS Sodium Chloride 10 ml 07/02/18 17:00 07/07/18 18:03 Normal Saline Flush 0.9% IVP 10 ml 0100,0900,1700 NESSA Administration Temazepam 15 mg 07/02/18 14:04 07/06/18 21:51 Restoril PO 15 mg QPM PRN Administration Insomnia - Physical Exam Wound/Incisions: positive: Dressing dry and intact General Appearance: positive: No acute distress Eyes Bilateral: positive: No lid inflammation, Conjunctivae nml, No scleral icterus ENT: positive: Dry mucous membranes Neck: positive: Trachea midline Respiratory: positive: Wheezes (Very mild bilaterally - better than yesterday.) Cardiovascular: positive: Irregularly irregular, Tachycardia Abdomen: positive: Tenderness (Incisional.), Abnml bowel sounds Skin: positive: Color nml Extremities: positive: Non-tender, Nml appearance Neurologic/Psychiatric: positive: Oriented x3, Motor nml, Sensation nml, Mood/affect nml ABX Reporting Has patient been on IV antibiotics over the past 48 hours?: Yes Impression/Plan - Problem List Problem List: Ds/p adhesiolysis, repair abdominal wall incisional hernia x4 NG out. Continue IVF and re-evaluate in AM.
[2018-07-07] MEDS: TEMAZEPAM 15 MG CAPSULE PO PRN (22:24)
[2018-07-08] MEDS: ACETAMINOPHEN 1,000 MG/100 ML 100 ML IV SCH ×4 (00:34→18:00)
[2018-07-08] MEDS: diltiaZEM INJ 125 MG in DEXTROSE 5% 100 ML IV SCH ×2 (00:39→09:00)
[2018-07-08] MEDS: INSULIN REGULAR HUMAN 100 UNIT/1 ML 10 ML MDV SUBQ SCH ×4 (00:40→17:26)
[2018-07-08] MEDS ORDERED: DEXTROSE 5% 100 ML IV ONE (00:43)
[2018-07-08] MEDS: SODIUM CHLORIDE FLUSH 0.9% 10 ML SYRINGE IVP SCH ×3 (03:17→17:25)
[2018-07-08 05:44] LABS: BASOPHILS # (AUTO) 0.1 10^3/uL (0.0-0.1); BASOPHILS % (AUTO) 0.9 %; EOSINOPHILS # (AUTO) 0.3 10^3/uL (0.0-0.7); EOSINOPHILS % (AUTO) 4.8 %; HGB - HEMOGLOBIN 10.8 g/dL (12.0-16.0); LYMPHOCYTES # (AUTO) 0.5 10^3/uL (1.5-3.5); MEAN CORPUSCULAR HEMOGLOBIN 32.2 pg (27.0-31.0); MEAN CORPUSCULAR HGB CONC 32.2 g/dL (32.0-36.0); MEAN CORPUSCULAR VOLUME 99.9 fL (81.0-99.0); MEAN PLATELET VOLUME 10.3 fL (7.9-10.8); MONOCYTES # (AUTO) 0.3 10^3/uL (0.0-1.0); MONOCYTES % (AUTO) 4.6 %; NEUTROPHILS # (AUTO) 5.1 10^3/uL (1.5-6.6); NEUTROPHILS % (AUTO) 81.7 %; PLT - PLATELET COUNT 169 10^3/uL (130-450); RED BLOOD COUNT 3.34 10^6/uL (4.20-5.40); RED CELL DISTRIBUTION WIDTH 15.4 % (12.0-15.0); WHITE BLOOD COUNT 6.3 x10^3/uL (4.8-10.8)
[2018-07-08 05:51] LABS: CREATININE 1.2 mg/dL (0.4-1.0)
[2018-07-08] MEDS: PIPERACILLIN/TAZOBACTAM 3.375 GM in SODIUM CHLORIDE 0.9% MINIBAG 100 ML IV SCH ×3 (06:23→21:51)
[2018-07-08 06:47] LABS: MAGNESIUM 1.7 mg/dL (1.7-2.8)
[2018-07-08] MEDS: PANTOPRAZOLE 40 MG TABLET PO SCH (06:59)
[2018-07-08] MEDS: NS W/20 MEQ KCL 1,000 ML IV SCH (08:00)
[2018-07-08] MEDS: POLYETHYLENE GLYCOL 3350 17 GM PACKET PO SCH (09:31)
[2018-07-08] MEDS: HYDROmorphone 0.5 MG/0.5 ML SYRINGE IVP PRN (10:21)
--- NOTE | 2018-07-08 10:44 | PROVIDER PROGRESS NOTE ---
<Kelsey Gibbs - Last Filed: 07/08/18 18:22> Subjective - Prog Note Date Prog Note Date: 07/08/18 Prog Note Time: 10:42 - Subjective Pt reports feeling: Improved (Overall, patient feeling better. Abdomen mildly tender but tolerable, increased pain with coughing. More concered about her breathing, still feels wheezy and slightly labored.) Objective - Vital Signs/Intake & Output Reviewed Vital Signs: Yes Vital Signs: Vital Signs x48h Temp Pulse Resp BP Pulse Ox 07/08/18 10:00 96 23 138/59 H 93 07/08/18 08:00 36.4 C L 88 21 136/65 H 92 07/08/18 07:00 84 25 H 128/74 95 07/08/18 06:00 88 29 H 122/65 96 07/08/18 05:00 90 23 124/57 L 94 07/08/18 04:00 36.8 C 90 25 H 115/50 L 94 07/08/18 03:00 83 29 H 115/57 L 96 Intake & Output: Intake & Output 07/05/18 07/06/18 07/07/18 07/08/18 23:59 23:59 23:59 23:59 Intake Total 2777.916 2767.017 3870.000 1840.000 Output Total 3066 1647 2672 675 Balance -623.079 5424.017 2407.751 7154.000 - Objective General Appearance: positive: No acute distress, Alert Eyes Bilateral: positive: Normal inspection, PERRL, No lid inflammation, Conjunctivae nml, No scleral icterus ENT: positive: ENT inspection nml, Pharynx nml, No signs of dehydration. negative: Purulent nasal drainage, Pharyngeal erythema, Oral lesions, Dry mucous membranes Neck: positive: Nml inspection, Thyroid nml, No JVD, Trachea midline. negative: Thyromegaly, Lymphadenopathy (R), Lymphadenopathy (L), Stiff neck, Carotid bruit, Tracheal deviation Respiratory: positive: Chest non-tender, Wheezes, Rhonchi, Other (RR 20s, audible wheezing) Cardiovascular: positive: No murmur, No gallop, Irregularly irregular. negative: Tachycardia, Bradycardia, JVD present, Systolic murmur, Diastolic murmur, Gallop/S4, Friction rub, Decreased pulse(s) Peripheral Pulses: 1+ Radial (R), 1+ Radial (L), 1+ Dorsalis pedis (R), 1+ Dorsalis pedis (L), 1+ Posterior tibialis (R), 1+ Posterior tibialis (L) Abdomen: positive: Tenderness, Abnml bowel sounds (Not audible per my assessment. Intermittenly audible per nursing. Still slightly distended. Mildly tender.) Skin: positive: Color nml, No rash, Warm, Dry. negative: Cyanosis, Diaphoresis, Pallor, Skin rash, Decubitus, Laceration (cm), Puncture wound, Embolic lesions Extremities: positive: Non-tender, Full ROM, Nml appearance, No pedal edema. negative: Pedal edema, Calf tenderness, Joint swelling Neurologic/Psychiatric: positive: Oriented x3, Motor nml, Sensation nml, Mood/affect nml. negative: Disoriented to person, Disoriented to place, Disoriented to time, Facial droop, Slurred/abnml speech, Depressed mood/affect - Lab Results Fish Bones: 07/08/18 04:50 07/08/18 04:50 Other Labs: Lab Results x24hrs 07/08/18 07/08/18 07/08/18 Range/Units 06:17 04:50 04:50 WBC (4.8-10.8) x10^3/uL RBC (4.20-5.40) 10^6/uL Hgb (12.0-16.0) g/dL Hct (37.0-47.0) % MCV (81.0-99.0) fL MCH (27.0-31.0) pg MCHC (32.0-36.0) g/dL RDW (12.0-15.0) % Plt Count (130-450) 10^3/uL MPV (7.9-10.8) fL Neut # (Auto) (1.5-6.6) 10^3/uL Lymph # (Auto) (1.5-3.5) 10^3/uL Lea # (Auto) (0.0-1.0) 10^3/uL Eos # (Auto) (0.0-0.7) 10^3/uL Baso # (Auto) (0.0-0.1) 10^3/uL Absolute Nucleated RBC x10^3/uL Nucleated RBC % /100WBC Sodium (135-145) mmol/L Potassium (3.5-5.0) mmol/L Chloride (101-111) mmol/L Carbon Dioxide (21-32) mmol/L Anion Gap (6-13) BUN (6-20) mg/dL Creatinine (0.4-1.0) mg/dL Estimated GFR (MDRD) (>89) Glucose (70-100) mg/dL POC Whole Bld Glucose 91 (70 - 100) mg/dL Calcium (8.5-10.3) mg/dL Phosphorus 2.0 L (2.5-4.6) mg/dL Magnesium 1.7 (1.7-2.8) mg/dL Albumin 2.3 L (3.2-5.5) g/dL 07/08/18 07/08/18 07/08/18 Range/Units 04:50 04:50 00:06 WBC 6.3 (4.8-10.8) x10^3/uL RBC 3.34 L (4.20-5.40) 10^6/uL Hgb 10.8 L (12.0-16.0) g/dL Hct 33.4 L (37.0-47.0) % MCV 99.9 H (81.0-99.0) fL MCH 32.2 H (27.0-31.0) pg MCHC 32.2 (32.0-36.0) g/dL RDW 15.4 H (12.0-15.0) % Plt Count 169 (130-450) 10^3/uL MPV 10.3 (7.9-10.8) fL Neut # (Auto) 5.1 (1.5-6.6) 10^3/uL Lymph # (Auto) 0.5 L (1.5-3.5) 10^3/uL Lea # (Auto) 0.3 (0.0-1.0) 10^3/uL Eos # (Auto) 0.3 (0.0-0.7) 10^3/uL Baso # (Auto) 0.1 (0.0-0.1) 10^3/uL Absolute Nucleated RBC 0.00 x10^3/uL Nucleated RBC % 0.0 /100WBC Sodium 140 (135-145) mmol/L Potassium 3.8 (3.5-5.0) mmol/L Chloride 110 (101-111) mmol/L Carbon Dioxide 22 (21-32) mmol/L Anion Gap 8.0 (6-13) BUN 24 H (6-20) mg/dL Creatinine 1.2 H (0.4-1.0) mg/dL Estimated GFR (MDRD) 43 L (>89) Glucose 104 H (70-100) mg/dL POC Whole Bld Glucose 95 (70 - 100) mg/dL Calcium 8.0 L (8.5-10.3) mg/dL Phosphorus (2.5-4.6) mg/dL Magnesium (1.7-2.8) mg/dL Albumin (3.2-5.5) g/dL 07/07/18 07/07/18 07/06/18 Range/Units 16:39 11:37 16:51 WBC (4.8-10.8) x10^3/uL RBC (4.20-5.40) 10^6/uL Hgb (12.0-16.0) g/dL Hct (37.0-47.0) % MCV (81.0-99.0) fL MCH (27.0-31.0) pg MCHC (32.0-36.0) g/dL RDW (12.0-15.0) % Plt Count (130-450) 10^3/uL MPV (7.9-10.8) fL Neut # (Auto) (1.5-6.6) 10^3/uL Lymph # (Auto) (1.5-3.5) 10^3/uL Lea # (Auto) (0.0-1.0) 10^3/uL Eos # (Auto) (0.0-0.7) 10^3/uL Baso # (Auto) (0.0-0.1) 10^3/uL Absolute Nucleated RBC x10^3/uL Nucleated RBC % /100WBC Sodium (135-145) mmol/L Potassium (3.5-5.0) mmol/L Chloride (101-111) mmol/L Carbon Dioxide (21-32) mmol/L Anion Gap (6-13) BUN (6-20) mg/dL Creatinine (0.4-1.0) mg/dL Estimated GFR (MDRD) (>89) Glucose (70-100) mg/dL POC Whole Bld Glucose 107 H 129 H 171 H (70 - 100) mg/dL Calcium (8.5-10.3) mg/dL Phosphorus (2.5-4.6) mg/dL Magnesium (1.7-2.8) mg/dL Albumin (3.2-5.5) g/dL Assessment/Plan - Problem List (1) Small bowel obstruction Impression: POD #2, adhesions repaired 07/06 Initially presented to the ED on 07/02 with nausea, vomiting, constipation and weakness. She saw Dr. Jon the day prior who prescribed Miralax and nausea meds. Symptoms continued to get worse, so daughter drove her to the ED. On imaging, she was found to have a mid to distal SBO and 3 umbilical hernias. Gastro-graffin was given, and she had two bowel movements following. However, she had not passed flatus since 07/04. She had 300+ mL bilious emesis 07/05, so an NGT tube was placed and immediately withdrew 2700ml Bilious drainage. 07/06 morning abdomen appeared more distended though bowel tones auscultated in right lower quadrant and hypoactive in Left lower quadrant. Continued bilious drainage from NGT. No pain or nausea. She was taken to surgery. Open lysis of adhesions and 3 hernias repaired. NGT removed 07/07. Today, patient reports mild abdominal incisional pain, mostly with coughing. No flautus yet. No bowel tones auscultated on assessment, however nursing reports auscultaing bowel tones intermittently. No N/V. Per surgery, will advance to Clear liquid diet. If unable to tolerate, will discuss TPN. Pain controlled with PRN IV tylenol and low-dose Dilaudid. PRN antiemetics, none needed yet. (2) Atrial fibrillation with RVR Impression: Initially went in to Afib with RVR 07/03, diltiazem drip started. No known history of afib, though patient described that a few days prior to her admission she could hear her heartbeat while laying in bed and she noticed it sounded "strange" and irregular.Echocardiogram has ejection fraction 60 to 65% with overall systolic function and wall function normal. She has moderate increase in left atrial volume index to 43 mL. Moderate aortic valve sclerosis but no stenosis. RVSP at rest 29 mmHg. Diltiazem drip up to 15mg/hr continues preop and post op . Metoprolol Tartrate increased from 2.5mg IV q6h PRN to 5 mm, none needed overnight. Currently on Lovenox 80mg SQ. CHADsVASC score 5 (HTN, Age >75, DM, Female). HAS- BLED score 1 (abnormal kidney function with TIFFANI vs CKD?). Stable overnight, remains on Diltiazem gtt 15mg/hr with HR 80-low 100s. SBP 1- teens to 120s. Transitioned to oral Cardizem 180mg daily at noon today, weaned off diltiazem gtt, HR remained 80-low 100s through afternoon. OK to transition VS to q4h. Plan to continue rate control and anticoagulation. Will transition to PO anticoagulation when able. Need for continued rate control and anticoagulation discussed with patient. (3) HCAP (healthcare-associated pneumonia) Impression: CxR 5/ showing patchy bibasilar infiltrates. Started on Zosyn. Respiratory status worse on 5/, RR 20-30, labored breathing, intermittent wheezing. Repeat CXR showed: 1. worsening parenchymal opacity in the left lung base, now associated with a left pleural effusion. Favored etiology is left lower lobe pneumonia, 2. The right lung base is clear. Levofloxacin added /. Continue with Zosyn and levofloxacin. Day#5 zosyn, Day #4 levo. Remains consistently wheezy, RR in 20s, sats 94-96% on 2L NC. PRN Duoneb and Xopenex. Per patient, she is "always a little wheezy". Has history of empysema, however, patient unaware of this. History of smoking (from age [age]) noted in chart, Pack-year history 67.5 (smoked 1.5 PPD from age [age]). Nursing and respiratory therapy are working well with her to encourage sitting up in chair, walking 2-3 steps, coughing, incentive spirometry. (4) Acute kidney injury Impression: Creatinine slightly up this am 1.1-> 1.2. Received 20mg IV lasix x1 yesterday evening, diuresed well. UOP ~40-90ml/hr this AM via reed. Electrolytes stable. Unsure of baseline kidney function. Creatine 1.1-1.3, GFR 40s throughout admission. Is this patients baseline? Continue to monitor UOP, follow creat/BUN tomorrow (5) Diet-controlled diabetes mellitus Impression: BG 90-low 100s overnight. Tolerating ice chips, ok to advance to clear liquids today per Surgery. If unable to tolerate, will discuss TPN. <Amisha Palmer - Last Filed: 07/08/18 19:07> Subjective - Subjective Subjective: Daughter is at the bedside. We went over the case and reviewed the case summary so far. Spent 20 minutes discussing her atrial fibrillation, prognosis for that, and probable need for anticoagulation with her chads score. Patient's main concern is her wheezing. She always wheezes at home, but it is soft not very loud wheeze. Since being in the hospital is much louder and much more constant with increased cough. She denies chest pain. No pleuritic pain. Really wants to get out of here and is been ambulating in the room Current Medications - Current Medications Current Medications: Active Medications Acetaminophen (Tylenol) 650 mg PO Q4HR PRN PRN Reason: Pain 1 to 4 Last Admin: 07/05/18 09:06 Dose: 650 mg Albuterol/Ipratropium (Duoneb) 3 ml INH Q4HR PRN PRN Reason: Wheezing Last Admin: 07/07/18 06:02 Dose: 3 ml Budesonide (Pulmicort) 0.5 mg INH RTBID NESSA Diltiazem HCl (Cardizem Cd) 180 mg PO DAILY NESSA Last Admin: 07/08/18 11:57 Dose: 180 mg Enoxaparin Sodium (Lovenox) 80 mg SUBQ 1200 NESSA Last Admin: 07/08/18 11:57 Dose: 80 mg Formoterol Fumarate (Perforomist) 20 mcg INH RTBID NESSA Guaifenesin (Robitussin Liquid) 100 mg PO Q6HR PRN PRN Reason: Cough Last Admin: 07/08/18 13:13 Dose: 100 mg Hydromorphone HCl (Dilaudid Inj Syringe) 0.25 mg IVP Q2H PRN PRN Reason: PAIN Last Admin: 07/08/18 10:21 Dose: 0.25 mg Piperacillin Sod/Tazobactam (Sod 3.375 gm/ Sodium Chloride) 100 mls @ 25 mls/hr IV Q8H [facility] Last Infusion: 07/08/18 18:00 Dose: Infused Levofloxacin (Levaquin 750 Mg/150 Ml) 750 mg in 150 mls @ 100 mls/hr IV Q48H [facility] Last Infusion: 07/07/18 13:20 Dose: Infused Acetaminophen (Ofirmev) 100 mls @ 400 mls/hr IV Q6H [facility] Last Infusion: 07/08/18 18:15 Dose: Infused Sodium Chloride (Normal Saline 0.9%) 500 mls @ 20 mls/hr IV Q24H PRN PRN Reason: TKO RATE Last Admin: 07/08/18 18:20 Dose: 20 mls/hr Insulin Human Regular (Novolin R) 1 - 5 unit SUBQ Q6HR [facility]; Protocol Last Admin: 07/08/18 17:26 Dose: Not Given Levalbuterol HCl (Xopenex) 1.25 mg INH RTQ4H PRN PRN Reason: SHORTNESS OF AIR/WHEEZING Last Admin: 07/08/18 17:43 Dose: 1.25 mg Metoprolol Tartrate (Lopressor Inj) 5 mg IVP Q6H PRN PRN Reason: Tachycardia Last Admin: 07/08/18 18:19 Dose: 5 mg Ondansetron HCl (Zofran Inj) 4 mg IVP Q4HR PRN PRN Reason: Nausea / Vomiting Last Admin: 07/04/18 23:26 Dose: 4 mg Pantoprazole Sodium (Protonix) 40 mg PO QDAC [facility] Last Admin: 07/08/18 06:59 Dose: 40 mg Polyethylene Glycol (Miralax) 17 gm PO DAILY [facility] Last Admin: 07/08/18 09:31 Dose: Not Given Prochlorperazine Edisylate (Compazine Inj) 10 mg IVP Q4HR PRN PRN Reason: Nausea / Vomiting Last Admin: 07/03/18 17:34 Dose: 10 mg Saccharomyces Boulardii (Florastor) 250 mg PO BIDWM [facility] Last Admin: 07/08/18 17:24 Dose: 250 mg Sodium Chloride (Normal Saline Flush 0.9%) 10 ml IVP PRN PRN PRN Reason: NEEDED PER PROVIDER ORDERS Last Admin: 07/07/18 03:47 Dose: 10 ml Sodium Chloride (Normal Saline Flush 0.9%) 10 ml IVP 0100,0900,1700 NESSA Last Admin: 07/08/18 17:25 Dose: 10 ml Temazepam (Restoril) 15 mg PO QPM PRN PRN Reason: Insomnia Last Admin: 07/07/18 22:24 Dose: 15 mg Lisinopril 10 mg PO DAILY 07/02/18 Amlodipine Besylate 2.5 mg PO DAILY 07/03/18 Omeprazole 20 mg PO Q2D@0700 07/03/18 hydroCHLOROthiazide [Hydrochlorothiazide] 25 mg PO DAILY 07/03/18 Objective - Vital Signs/Intake & Output Vital Signs: Vital Signs x48h Temp Pulse Pulse Resp BP BP Pulse Ox 07/08/18 18:24 106 H 34 H 124/70 93 07/08/18 18:19 131/57 H 07/08/18 17:43 105 H 23 07/08/18 16:31 37.0 C 86 25 H 140/64 H 93 07/08/18 13:00 75 30 H 121/73 95 07/08/18 12:38 121/73 07/08/18 12:08 136/71 H 07/08/18 12:06 110 H 27 H 136/71 H 94 Intake & Output: Intake & Output 07/05/18 07/06/18 07/07/18 07/08/18 23:59 23:59 23:59 23:59 Intake Total 2777.916 2767.017 3870.000 3345.000 Output Total 3066 1647 2672 950 Balance -488.426 3639.017 8457.552 1905.000 - Objective Comments/Other: Agree with the above physical examination. She is an alert elderly pleasant female. Mild respiratory distress from chronic constant right lung wheezing. No use of accessory muscles. Sitting upright in a chair. No JVD, lungs right lung with some rhonchi. Left lung essentially clear. An irregular rate and rhythm that is no longer tachycardic. No bowel sounds audible by me. Nursing reports one tinkling sound for them. Still slightly distended. Has some incisional pain. No rebound or guarding. Legs are soft calves, no edema. - Lab Results Fish Bones: 07/08/18 04:50 07/08/18 04:50 Other Labs: Lab Results x24hrs 07/08/18 07/08/18 07/08/18 Range/Units 16:40 12:00 06:17 WBC (4.8-10.8) x10^3/uL RBC (4.20-5.40) 10^6/uL Hgb (12.0-16.0) g/dL Hct (37.0-47.0) % MCV (81.0-99.0) fL MCH (27.0-31.0) pg MCHC (32.0-36.0) g/dL RDW (12.0-15.0) % Plt Count (130-450) 10^3/uL MPV (7.9-10.8) fL Neut # (Auto) (1.5-6.6) 10^3/uL Lymph # (Auto) (1.5-3.5) 10^3/uL Lea # (Auto) (0.0-1.0) 10^3/uL Eos # (Auto) (0.0-0.7) 10^3/uL Baso # (Auto) (0.0-0.1) 10^3/uL Absolute Nucleated RBC x10^3/uL Nucleated RBC % /100WBC Sodium (135-145) mmol/L Potassium (3.5-5.0) mmol/L Chloride (101-111) mmol/L Carbon Dioxide (21-32) mmol/L Anion Gap (6-13) BUN (6-20) mg/dL Creatinine (0.4-1.0) mg/dL Estimated GFR (MDRD) (>89) Glucose (70-100) mg/dL POC Whole Bld Glucose 111 H 85 91 (70 - 100) mg/dL Calcium (8.5-10.3) mg/dL Phosphorus (2.5-4.6) mg/dL Magnesium (1.7-2.8) mg/dL Albumin (3.2-5.5) g/dL 07/08/18 07/08/18 07/08/18 Range/Units 04:50 04:50 04:50 WBC (4.8-10.8) x10^3/uL RBC (4.20-5.40) 10^6/uL Hgb (12.0-16.0) g/dL Hct (37.0-47.0) % MCV (81.0-99.0) fL MCH (27.0-31.0) pg MCHC (32.0-36.0) g/dL RDW (12.0-15.0) % Plt Count (130-450) 10^3/uL MPV (7.9-10.8) fL Neut # (Auto) (1.5-6.6) 10^3/uL Lymph # (Auto) (1.5-3.5) 10^3/uL Lea # (Auto) (0.0-1.0) 10^3/uL Eos # (Auto) (0.0-0.7) 10^3/uL Baso # (Auto) (0.0-0.1) 10^3/uL Absolute Nucleated RBC x10^3/uL Nucleated RBC % /100WBC Sodium 140 (135-145) mmol/L Potassium 3.8 (3.5-5.0) mmol/L Chloride 110 (101-111) mmol/L Carbon Dioxide 22 (21-32) mmol/L Anion Gap 8.0 (6-13) BUN 24 H (6-20) mg/dL Creatinine 1.2 H (0.4-1.0) mg/dL Estimated GFR (MDRD) 43 L (>89) Glucose 104 H (70-100) mg/dL POC Whole Bld Glucose (70 - 100) mg/dL Calcium 8.0 L (8.5-10.3) mg/dL Phosphorus 2.0 L (2.5-4.6) mg/dL Magnesium 1.7 (1.7-2.8) mg/dL Albumin 2.3 L (3.2-5.5) g/dL 07/08/18 07/08/18 07/06/18 Range/Units 04:50 00:06 16:51 WBC 6.3 (4.8-10.8) x10^3/uL RBC 3.34 L (4.20-5.40) 10^6/uL Hgb 10.8 L (12.0-16.0) g/dL Hct 33.4 L (37.0-47.0) % MCV 99.9 H (81.0-99.0) fL MCH 32.2 H (27.0-31.0) pg MCHC 32.2 (32.0-36.0) g/dL RDW 15.4 H (12.0-15.0) % Plt Count 169 (130-450) 10^3/uL MPV 10.3 (7.9-10.8) fL Neut # (Auto) 5.1 (1.5-6.6) 10^3/uL Lymph # (Auto) 0.5 L (1.5-3.5) 10^3/uL Lea # (Auto) 0.3 (0.0-1.0) 10^3/uL Eos # (Auto) 0.3 (0.0-0.7) 10^3/uL Baso # (Auto) 0.1 (0.0-0.1) 10^3/uL Absolute Nucleated RBC 0.00 x10^3/uL Nucleated RBC % 0.0 /100WBC Sodium (135-145) mmol/L Potassium (3.5-5.0) mmol/L Chloride (101-111) mmol/L Carbon Dioxide (21-32) mmol/L Anion Gap (6-13) BUN (6-20) mg/dL Creatinine (0.4-1.0) mg/dL Estimated GFR (MDRD) (>89) Glucose (70-100) mg/dL POC Whole Bld Glucose 95 171 H (70 - 100) mg/dL Calcium (8.5-10.3) mg/dL Phosphorus (2.5-4.6) mg/dL Magnesium (1.7-2.8) mg/dL Albumin (3.2-5.5) g/dL ABX Reporting Has patient been on IV antibiotics over the past 48 hours?: Yes Assessment/Plan - Problem List (1) Small bowel obstruction Impression: She is now postoperative day #2. Surgery has advanced her to clear liquids. She is tolerating that without nausea or emesis. Still no flatus., Will continue to use antiemetics, pain management meds. Follow surgery recommendations. This patient is ambulating in her room, sitting up in her chair. (2) Atrial fibrillation with RVR Impression: Now that she is p.o., I have stopped IV fluids. I am changing her diltiazem to p.o. diltiazem 2 hours before I stop the drip. I will continue Lopressor as needed. Long discussion held with daughter and patient about anticoagulation. They would like me to write prescriptions to pharmacy to see how much it would cost her to do a novel oral anticoagulant versus Coumadin. I will do that today. (3) HCAP (healthcare-associated pneumonia) Impression: We will continue IV antibiotics. She will complete IV antibiotics while here. Anticipate at least 2 more days of hospital stay for her. (4) Acute kidney injury Impression: Probably resolved. Without knowing her previous history I believe she is at baseline. In June 2015 she was 1.2 creatinine, and July 03, 2018 she is 1.0. She peaked at 1.6 here and has been coming down. (5) Diet-controlled diabetes mellitus Impression: Glucose today has been 95, 91, 85 and 111. Well controlled. She is on sliding scale insulin and started on p.o. clear liquids. We will continue to monitor and adjust insulin as needed.We do not think she needs TPN at this time since we started p.o. food today. (6) COPD exacerbation Impression: Secondary to her pneumonia. Also most likely contributed to by her A. fib with RVR. She is already on antibiotics. I hesitate to add IV steroids because of her diabetes. I will add budesonide and Perforomist today. At this point in time this is her main problem.
--- NOTE | 2018-07-08 10:51 | PROVIDER PROGRESS NOTE ---
Subjective - General Admit Date: 07/02/18 Procedure Date: 07/06/18 Post Op Days: 13 Procedure Performed: Adhesiolysis, incisional herniorrhaphy x4, exploratory laparotomy - Review of Systems Wound/Incisions: positive: Healing well. negative: Erythema General: positive: No symptoms HEENT: positive: No symptoms Pulmonary: positive: No symptoms Cardiovascular: positive: No symptoms Gastrointestinal: negative: Nausea, Vomiting, Flatus, Diarrhea Genitourinary: positive: No symptoms Psychiatric: positive: No symptoms All Other Systems: positive: Reviewed and negative Objective - Patient Data Reviewed Vital Signs: Yes Vital Signs: Vital Signs x48h Temp Pulse Resp BP Pulse Ox 07/08/18 10:00 96 23 138/59 H 93 07/08/18 08:00 36.4 C L 88 21 136/65 H 92 07/08/18 07:00 84 25 H 128/74 95 07/08/18 06:00 88 29 H 122/65 96 07/08/18 05:00 90 23 124/57 L 94 07/08/18 04:00 36.8 C 90 25 H 115/50 L 94 07/08/18 03:00 83 29 H 115/57 L 96 Weight: Weight 07/06/18 07/07/18 07/08/18 23:59 23:59 23:59 Weight (kg) 80 kg 84 kg 84 kg Intake & Output: Intake and Output Totals x24h 07/06/18 07/07/18 07/08/18 23:59 23:59 23:59 Intake Total 2767.017 3870.000 1940.000 Output Total 1647 2672 675 Balance 1330.827 5052.000 1265.000 - Lab Results Lab Results: 07/11/18 14:56 07/11/18 14:56 Other Lab Results: Lab Results x24hrs 07/08/18 07/08/18 07/08/18 Range/Units 06:17 04:50 04:50 WBC (4.8-10.8) x10^3/uL RBC (4.20-5.40) 10^6/uL Hgb (12.0-16.0) g/dL Hct (37.0-47.0) % MCV (81.0-99.0) fL MCH (27.0-31.0) pg MCHC (32.0-36.0) g/dL RDW (12.0-15.0) % Plt Count (130-450) 10^3/uL MPV (7.9-10.8) fL Neut # (Auto) (1.5-6.6) 10^3/uL Lymph # (Auto) (1.5-3.5) 10^3/uL [place] # (Auto) (0.0-1.0) 10^3/uL Eos # (Auto) (0.0-0.7) 10^3/uL Baso # (Auto) (0.0-0.1) 10^3/uL Absolute Nucleated RBC x10^3/uL Nucleated RBC % /100WBC Sodium (135-145) mmol/L Potassium (3.5-5.0) mmol/L Chloride (101-111) mmol/L Carbon Dioxide (21-32) mmol/L Anion Gap (6-13) BUN (6-20) mg/dL Creatinine (0.4-1.0) mg/dL Estimated GFR (MDRD) (>89) Glucose (70-100) mg/dL POC Whole Bld Glucose 91 (70 - 100) mg/dL Calcium (8.5-10.3) mg/dL Phosphorus 2.0 L (2.5-4.6) mg/dL Magnesium 1.7 (1.7-2.8) mg/dL Albumin 2.3 L (3.2-5.5) g/dL 07/08/18 07/08/18 07/08/18 Range/Units 04:50 04:50 00:06 WBC 6.3 (4.8-10.8) x10^3/uL RBC 3.34 L (4.20-5.40) 10^6/uL Hgb 10.8 L (12.0-16.0) g/dL Hct 33.4 L (37.0-47.0) % MCV 99.9 H (81.0-99.0) fL MCH 32.2 H (27.0-31.0) pg MCHC 32.2 (32.0-36.0) g/dL RDW 15.4 H (12.0-15.0) % Plt Count 169 (130-450) 10^3/uL MPV 10.3 (7.9-10.8) fL Neut # (Auto) 5.1 (1.5-6.6) 10^3/uL Lymph # (Auto) 0.5 L (1.5-3.5) 10^3/uL [place] # (Auto) 0.3 (0.0-1.0) 10^3/uL Eos # (Auto) 0.3 (0.0-0.7) 10^3/uL Baso # (Auto) 0.1 (0.0-0.1) 10^3/uL Absolute Nucleated RBC 0.00 x10^3/uL Nucleated RBC % 0.0 /100WBC Sodium 140 (135-145) mmol/L Potassium 3.8 (3.5-5.0) mmol/L Chloride 110 (101-111) mmol/L Carbon Dioxide 22 (21-32) mmol/L Anion Gap 8.0 (6-13) BUN 24 H (6-20) mg/dL Creatinine 1.2 H (0.4-1.0) mg/dL Estimated GFR (MDRD) 43 L (>89) Glucose 104 H (70-100) mg/dL POC Whole Bld Glucose 95 (70 - 100) mg/dL Calcium 8.0 L (8.5-10.3) mg/dL Phosphorus (2.5-4.6) mg/dL Magnesium (1.7-2.8) mg/dL Albumin (3.2-5.5) g/dL 07/07/18 07/07/18 07/06/18 Range/Units 16:39 11:37 16:51 WBC (4.8-10.8) x10^3/uL RBC (4.20-5.40) 10^6/uL Hgb (12.0-16.0) g/dL Hct (37.0-47.0) % MCV (81.0-99.0) fL MCH (27.0-31.0) pg MCHC (32.0-36.0) g/dL RDW (12.0-15.0) % Plt Count (130-450) 10^3/uL MPV (7.9-10.8) fL Neut # (Auto) (1.5-6.6) 10^3/uL Lymph # (Auto) (1.5-3.5) 10^3/uL [place] # (Auto) (0.0-1.0) 10^3/uL Eos # (Auto) (0.0-0.7) 10^3/uL Baso # (Auto) (0.0-0.1) 10^3/uL Absolute Nucleated RBC x10^3/uL Nucleated RBC % /100WBC Sodium (135-145) mmol/L Potassium (3.5-5.0) mmol/L Chloride (101-111) mmol/L Carbon Dioxide (21-32) mmol/L Anion Gap (6-13) BUN (6-20) mg/dL Creatinine (0.4-1.0) mg/dL Estimated GFR (MDRD) (>89) Glucose (70-100) mg/dL POC Whole Bld Glucose 107 H 129 H 171 H (70 - 100) mg/dL Calcium (8.5-10.3) mg/dL Phosphorus (2.5-4.6) mg/dL Magnesium (1.7-2.8) mg/dL Albumin (3.2-5.5) g/dL - Current Medications Current Medications: Current Medications Generic Name Dose Route Start Last Admin Trade Name Freq PRN Reason Stop Dose Admin Acetaminophen 650 mg 07/02/18 14:04 07/05/18 09:06 Tylenol PO 650 mg Q4HR PRN Administration Pain 1 to 4 Albuterol/Ipratropium 3 ml 07/03/18 23:34 07/07/18 06:02 Duoneb INH 3 ml Q4HR PRN Administration Wheezing Enoxaparin Sodium 80 mg 07/04/18 15:53 07/07/18 11:50 Lovenox SUBQ 80 mg 1200 NESSA Administration Guaifenesin 100 mg 07/03/18 23:18 07/05/18 09:07 Robitussin Liquid PO 100 mg Q6HR PRN Administration Cough Hydromorphone HCl 0.25 mg 07/05/18 14:19 07/08/18 10:21 Dilaudid Inj Syringe IVP 0.25 mg Q2H PRN Administration PAIN Piperacillin Sod/Tazobactam 100 mls @ 25 mls/hr 07/04/18 14:00 07/08/18 10:30 Sod 3.375 gm/ Sodium Chloride IV Infused Q8H NESSA Infusion Diltiazem HCl 125 mg/ Dextrose 125 mls @ 15 mls/hr 07/04/18 12:30 07/08/18 10:00 IV 07/08/18 14:00 15 mg/hr .Q8H20M NESSA 15 mls/hr Titration Protocol 15 MG/HR Levofloxacin 750 mg in 150 mls @ 100 mls/hr 07/05/18 12:00 07/07/18 13:20 Levaquin 750 Mg/150 Ml IV Infused Q48H NESSA Infusion Sodium Chloride 500 mls @ 100 mls/hr 07/05/18 18:26 07/06/18 01:00 Normal Saline 0.9% IV Infused Q24H PRN Infusion TKO RATE Potassium Chloride/Sodium Chloride 1,000 mls @ 100 mls/hr 07/06/18 14:00 07/08/18 10:00 Normal Saline 0.9% W/20 Meq Kcl IV 100 mls/hr .Q10H NESSA Infusion Acetaminophen 100 mls @ 400 mls/hr 07/06/18 18:00 07/08/18 06:57 Ofirmev IV Infused Q6H NESSA Infusion Insulin Human Regular 1 - 5 unit 07/04/18 18:00 07/08/18 06:37 Novolin R SUBQ Not Given Q6HR REPLACED BY [facility] Protocol Levalbuterol HCl 1.25 mg 07/04/18 11:06 07/07/18 07:45 Xopenex INH 1.25 mg RTQ4H PRN Administration SHORTNESS OF AIR/WHEEZING Metoprolol Tartrate 5 mg 07/07/18 12:14 07/07/18 18:31 Lopressor Inj IVP 5 mg Q6H PRN Administration Tachycardia Ondansetron HCl 4 mg 07/02/18 16:27 07/04/18 23:26 Zofran Inj IVP 4 mg Q4HR PRN Administration Nausea / Vomiting Pantoprazole Sodium 40 mg 07/03/18 07:00 07/08/18 06:59 Protonix PO 40 mg QDAC NESSA Administration Polyethylene Glycol 17 gm 07/03/18 09:00 07/08/18 09:31 Miralax PO Not Given DAILY REPLACED BY [facility] Prochlorperazine Edisylate 10 mg 07/03/18 16:30 07/03/18 17:34 Compazine Inj IVP 10 mg Q4HR PRN Administration Nausea / Vomiting Sodium Chloride 10 ml 07/02/18 14:04 07/07/18 03:47 Normal Saline Flush 0.9% IVP 10 ml PRN PRN Administration NEEDED PER PROVIDER ORDERS Sodium Chloride 10 ml 07/02/18 17:00 07/08/18 09:32 Normal Saline Flush 0.9% IVP 10 ml 0100,0900,1700 NESSA Administration Temazepam 15 mg 07/02/18 14:04 07/07/18 22:24 Restoril PO 15 mg QPM PRN Administration Insomnia - Physical Exam Wound/Incisions: positive: Healing well. negative: Drainage, Erythema General Appearance: positive: No acute distress Eyes Bilateral: positive: No lid inflammation, Conjunctivae nml, No scleral icterus ENT: positive: Dry mucous membranes Neck: positive: Trachea midline Cardiovascular: positive: Irregularly irregular, Tachycardia Abdomen: positive: Tenderness (Incisional.), Abnml bowel sounds (Decreased.) Skin: positive: Color nml Extremities: positive: Nml appearance Neurologic/Psychiatric: positive: Oriented x3, Motor nml, Sensation nml, Mood/affect nml ABX Reporting Has patient been on IV antibiotics over the past 48 hours?: Yes Impression/Plan - Problem List Problem List: D2 s/p adhesiolysis with repair abdominal incisional hernia x4 Start full liquid diet. Ambulate patient. Involve PT as needed.
[2018-07-08] MEDS: diltiaZEM CD 180 MG CAPSULE PO SCH (11:57)
[2018-07-08] MEDS: ENOXAPARIN 80 MG/0.8 ML SYRINGE SUBQ SCH (11:57)
[2018-07-08] MEDS: NEUTRA-PHOS 250 MG TABLET PO SCH ×2 (11:57→13:47)
[2018-07-08] MEDS: METOPROLOL 5 MG/5 ML VIAL IVP PRN ×2 (12:08→18:19)
[2018-07-08] MEDS: guaiFENesin 100 MG/5 ML UDC PO PRN (13:13)
[2018-07-08] MEDS ORDERED: SODIUM CHLORIDE 0.9% 500 ML IV PRN (14:00)
[2018-07-08] MEDS: SACCHAROMYCES BOULARDII 250 MG CAPSULE PO SCH (17:24)
[2018-07-08] MEDS: LEVALBUTEROL 1.25 MG/3 ML NEB INH PRN (17:43)
[2018-07-08] MEDS: FORMOTEROL FUMARATE NEB 20 MCG/2 ML INH SCH (19:24)
[2018-07-08] MEDS: BUDESONIDE 0.5 MG/2 ML NEB INH SCH (19:25)
[2018-07-08] MEDS: TEMAZEPAM 15 MG CAPSULE PO PRN (21:51)
[2018-07-08] MEDS: INSULIN ASPART 300 UNIT/3 ML PEN SUBQ SCH (21:54)
[2018-07-09] MEDS: ACETAMINOPHEN 1,000 MG/100 ML 100 ML IV SCH ×4 (00:20→18:36)
[2018-07-09] MEDS: SODIUM CHLORIDE FLUSH 0.9% 10 ML SYRINGE IVP SCH ×3 (04:05→17:00)
[2018-07-09] MEDS: guaiFENesin 100 MG/5 ML UDC PO PRN (04:33)
[2018-07-09 06:03] LABS: BASOPHILS % (AUTO) 0.5 %; EOSINOPHILS # (AUTO) 0.3 10^3/uL (0.0-0.7); HGB - HEMOGLOBIN 10.8 g/dL (12.0-16.0); LYMPHOCYTES # (AUTO) 0.5 10^3/uL (1.5-3.5); LYMPHOCYTES % (AUTO) 9.9 %; MEAN CORPUSCULAR HEMOGLOBIN 32.6 pg (27.0-31.0); MEAN CORPUSCULAR HGB CONC 33.5 g/dL (32.0-36.0); MEAN CORPUSCULAR VOLUME 97.3 fL (81.0-99.0); MEAN PLATELET VOLUME 10.1 fL (7.9-10.8); MONOCYTES # (AUTO) 0.3 10^3/uL (0.0-1.0); MONOCYTES % (AUTO) 5.3 %; NEUTROPHILS # (AUTO) 4.4 10^3/uL (1.5-6.6); NEUTROPHILS % (AUTO) 79.3 %; PLT - PLATELET COUNT 161 10^3/uL (130-450); RED BLOOD COUNT 3.32 10^6/uL (4.20-5.40); RED CELL DISTRIBUTION WIDTH 15.1 % (12.0-15.0); WHITE BLOOD COUNT 5.5 x10^3/uL (4.8-10.8)
[2018-07-09 06:13] LABS: CALCIUM 8.2 mg/dL (8.5-10.3)
[2018-07-09] MEDS: PIPERACILLIN/TAZOBACTAM 3.375 GM in SODIUM CHLORIDE 0.9% MINIBAG 100 ML IV SCH ×3 (06:38→22:19)
[2018-07-09] MEDS: BUDESONIDE 0.5 MG/2 ML NEB INH SCH ×2 (07:28→18:09)
[2018-07-09] MEDS: FORMOTEROL FUMARATE NEB 20 MCG/2 ML INH SCH ×2 (07:28→18:09)
[2018-07-09] MEDS: PANTOPRAZOLE 40 MG TABLET PO SCH (07:35)
[2018-07-09] MEDS: METOPROLOL 5 MG/5 ML VIAL IVP PRN ×3 (08:10→21:25)
[2018-07-09] MEDS: INSULIN ASPART 300 UNIT/3 ML PEN SUBQ SCH ×4 (08:15→21:35)
--- NOTE | 2018-07-09 08:17 | PROVIDER PROGRESS NOTE ---
Subjective - Prog Note Date Prog Note Date: 07/09/18 Prog Note Time: 08:15 - Subjective Subjective: She sat up in bedside chair yesterday. Diet was advanced to clear liquids. No emesis. Transitioned to oral antiarrhythmics and stopped on her diltiazem drip. So far has tolerated all of these changes. Heart rate is in the low 100s, below 110. Needed Lopressor IV only once for as needed. Tolerating her nebulizer treatments. I added budesonide and Pulmicort yesterday. This morning respiratory comments that her wheezing seems to be worse with treatments not better. No chest pain, palpitations, and abdominal pain is incisional only. Still no f latus. Current Medications - Current Medications Current Medications: Active Medications Acetaminophen (Tylenol) 650 mg PO Q4HR PRN PRN Reason: Pain 1 to 4 Last Admin: 07/05/18 09:06 Dose: 650 mg Albuterol/Ipratropium (Duoneb) 3 ml INH Q4HR PRN PRN Reason: Wheezing Last Admin: 07/07/18 06:02 Dose: 3 ml Budesonide (Pulmicort) 0.5 mg INH RTBID NESSA Last Admin: 07/09/18 07:28 Dose: 0.5 mg Diltiazem HCl (Cardizem Cd) 180 mg PO DAILY [facility] Last Admin: 07/08/18 11:57 Dose: 180 mg Enoxaparin Sodium (Lovenox) 80 mg SUBQ 1200 NESSA Last Admin: 07/08/18 11:57 Dose: 80 mg Formoterol Fumarate (Perforomist) 20 mcg INH RTBID [facility] Last Admin: 07/09/18 07:28 Dose: 20 mcg Guaifenesin (Robitussin Liquid) 100 mg PO Q6HR PRN PRN Reason: Cough Last Admin: 07/09/18 04:33 Dose: 100 mg Hydromorphone HCl (Dilaudid Inj Syringe) 0.25 mg IVP Q2H PRN PRN Reason: PAIN Last Admin: 07/08/18 10:21 Dose: 0.25 mg Piperacillin Sod/Tazobactam (Sod 3.375 gm/ Sodium Chloride) 100 mls @ 25 mls/hr IV Q8H [facility] Last Admin: 07/09/18 06:38 Dose: 25 mls/hr Levofloxacin (Levaquin 750 Mg/150 Ml) 750 mg in 150 mls @ 100 mls/hr IV Q48H [facility] Last Infusion: 07/07/18 13:20 Dose: Infused Acetaminophen (Ofirmev) 100 mls @ 400 mls/hr IV Q6H [facility] Last Infusion: 07/09/18 06:20 Dose: Infused Sodium Chloride (Normal Saline 0.9%) 500 mls @ 20 mls/hr IV Q24H PRN PRN Reason: TKO RATE Last Admin: 07/08/18 18:20 Dose: 20 mls/hr Insulin Aspart (Novolog) 1 - 9 unit SUBQ 0800,1200,1700,2100 [facility]; Protocol Last Admin: 07/09/18 08:15 Dose: Not Given Levalbuterol HCl (Xopenex) 1.25 mg INH RTQ4H PRN PRN Reason: SHORTNESS OF AIR/WHEEZING Last Admin: 07/08/18 17:43 Dose: 1.25 mg Metoprolol Tartrate (Lopressor Inj) 5 mg IVP Q6H PRN PRN Reason: Tachycardia Last Admin: 07/09/18 08:10 Dose: 5 mg Ondansetron HCl (Zofran Inj) 4 mg IVP Q4HR PRN PRN Reason: Nausea / Vomiting Last Admin: 07/04/18 23:26 Dose: 4 mg Pantoprazole Sodium (Protonix) 40 mg PO QDAC [facility] Last Admin: 07/09/18 07:35 Dose: 40 mg Polyethylene Glycol (Miralax) 17 gm PO DAILY [facility] Last Admin: 07/08/18 09:31 Dose: Not Given Prochlorperazine Edisylate (Compazine Inj) 10 mg IVP Q4HR PRN PRN Reason: Nausea / Vomiting Last Admin: 07/03/18 17:34 Dose: 10 mg Saccharomyces Boulardii (Florastor) 250 mg PO BIDWM [facility] Last Admin: 07/08/18 17:24 Dose: 250 mg Sodium Chloride (Normal Saline Flush 0.9%) 10 ml IVP PRN PRN PRN Reason: NEEDED PER PROVIDER ORDERS Last Admin: 07/07/18 03:47 Dose: 10 ml Sodium Chloride (Normal Saline Flush 0.9%) 10 ml IVP 0100,0900,1700 [facility] Last Admin: 07/09/18 04:05 Dose: Not Given Temazepam (Restoril) 15 mg PO QPM PRN PRN Reason: Insomnia Last Admin: 07/08/18 21:51 Dose: 15 mg Lisinopril 10 mg PO DAILY 07/02/18 Amlodipine Besylate 2.5 mg PO DAILY 07/03/18 Omeprazole 20 mg PO Q2D@0700 07/03/18 hydroCHLOROthiazide [Hydrochlorothiazide] 25 mg PO DAILY 07/03/18 Objective - Vital Signs/Intake & Output Reviewed Vital Signs: Yes Vital Signs: Vital Signs x48h Temp Pulse Pulse Resp BP BP Pulse Ox 07/09/18 08:10 155/112 H 07/09/18 07:37 36.7 C 111 H 21 92 07/09/18 07:32 111 H 20 07/09/18 05:00 36.7 C 98 27 H 115/77 95 Intake & Output: Intake & Output 07/06/18 07/07/18 07/08/18 07/09/18 23:59 23:59 23:59 23:59 Intake Total 2767.017 3870.000 3585.000 500 Output Total 1647 2672 1250 670 Balance 8212.172 6229.000 2335.000 -170 - Objective General Appearance: positive: No acute distress, Alert, Mild distress (From the right lung wheezing that is consistent) Eyes Bilateral: positive: PERRL ENT: positive: Pharynx nml Neck: positive: No JVD. negative: Stiff neck, Carotid bruit Respiratory: positive: Chest non-tender, No respiratory distress, Wheezes, R honchi (coarse, diffuse), Other (spasmodic cough making her miserable). negative: Rales Cardiovascular: positive: Irregularly irregular, Tachycardia (Now down to below 110). negative: Gallop/S4, Friction rub Abdomen: positive: No organomegaly, Nml bowel sounds, No distention. negative: Guarding, Rebound Skin: positive: Warm, Dry Extremities: positive: Non-tender, Full ROM. negative: Pedal edema, Stephan's sign/cords Neurologic/Psychiatric: positive: Oriented x3, CN's nml (2-12), Motor nml - Lab Results Fish Bones: 07/09/18 05:15 07/09/18 05:15 Other Labs: Lab Results x24hrs 07/09/18 07/09/18 07/09/18 Range/Units 07:39 05:15 05:15 WBC 5.5 (4.8-10.8) x10^3/uL RBC 3.32 L (4.20-5.40) 10^6/uL Hgb 10.8 L (12.0-16.0) g/dL Hct 32.3 L (37.0-47.0) % MCV 97.3 (81.0-99.0) fL MCH 32.6 H (27.0-31.0) pg MCHC 33.5 (32.0-36.0) g/dL RDW 15.1 H (12.0-15.0) % Plt Count 161 (130-450) 10^3/uL MPV 10.1 (7.9-10.8) fL Neut # (Auto) 4.4 (1.5-6.6) 10^3/uL Lymph # (Auto) 0.5 L (1.5-3.5) 10^3/uL [place] # (Auto) 0.3 (0.0-1.0) 10^3/uL Eos # (Auto) 0.3 (0.0-0.7) 10^3/uL Baso # (Auto) 0.0 (0.0-0.1) 10^3/uL Absolute Nucleated RBC 0.00 x10^3/uL Nucleated RBC % 0.0 /100WBC Sodium 137 (135-145) mmol/L Potassium 3.7 (3.5-5.0) mmol/L Chloride 107 (101-111) mmol/L Carbon Dioxide 21 (21-32) mmol/L Anion Gap 9.0 (6-13) BUN 19 (6-20) mg/dL Creatinine 1.0 (0.4-1.0) mg/dL Estimated GFR (MDRD) 53 L (>89) Glucose 134 H (70-100) mg/dL POC Whole Bld Glucose 118 H (70 - 100) mg/dL Calcium 8.2 L (8.5-10.3) mg/dL 07/08/18 07/08/18 07/08/18 Range/Units 20:52 16:40 12:00 WBC (4.8-10.8) x10^3/uL RBC (4.20-5.40) 10^6/uL Hgb (12.0-16.0) g/dL Hct (37.0-47.0) % MCV (81.0-99.0) fL MCH (27.0-31.0) pg MCHC (32.0-36.0) g/dL RDW (12.0-15.0) % Plt Count (130-450) 10^3/uL MPV (7.9-10.8) fL Neut # (Auto) (1.5-6.6) 10^3/uL Lymph # (Auto) (1.5-3.5) 10^3/uL [place] # (Auto) (0.0-1.0) 10^3/uL Eos # (Auto) (0.0-0.7) 10^3/uL Baso # (Auto) (0.0-0.1) 10^3/uL Absolute Nucleated RBC x10^3/uL Nucleated RBC % /100WBC Sodium (135-145) mmol/L Potassium (3.5-5.0) mmol/L Chloride (101-111) mmol/L Carbon Dioxide (21-32) mmol/L Anion Gap (6-13) BUN (6-20) mg/dL Creatinine (0.4-1.0) mg/dL Estimated GFR (MDRD) (>89) Glucose (70-100) mg/dL POC Whole Bld Glucose 152 H 111 H 85 (70 - 100) mg/dL Calcium (8.5-10.3) mg/dL ABX Reporting Has patient been on IV antibiotics over the past 48 hours?: Yes Assessment/Plan - Problem List (1) Small bowel obstruction Impression: She was admitted with a 24 onset of nausea, constipation, decrease in bowel sounds. Found to have small bowel obstruction and admitted. We initially tho ught she was going to respond to simple conservative measures and had 2 large bowel movements. But then she closed back down again. Required an NG tube and had close to 2-1/2 L of NG drainage. She never had a fever or white cell count. Was taken to the operating room and was found to have obstruction from adhesions. She is now postop day #3. Diet was advanced on postop day 2. To continue with DVT prophylaxis, advancing of diet per surgery recommendations. Antiemetics and pain medicine per surgery. (2) Atrial fibrillation with RVR Impression: This is a new onset for her. Echocardiogram shows minimally dilated left atrium. Responding to p.o. Cardizem at this point. May need an addition of a beta-mine in the immediate perioperative period. I will fax local pharmacies today for Sheri to see how much it would cost her. If the NOACs are too expensive she is going to want Coumadin. (3) HCAP (healthcare-associated pneumonia) Impression: All of her wheezing is on her right side. And her pneumonia is on her left side. She is day #5 Levaquin. Day #6 Zosyn. 3 sets of blood cultures are nega tive. Plan: Stop Zosyn after tomorrow. Continue Levaquin for 1 more day after that. (4) Acute kidney injury Impression: On admission creatinine was 1.2 and it bryan to 1.6 during this admission with fluid shifts. Today her creatinine is 1. Plan: Continue to monitor, avoid nephrotoxic agents. (5) Diet-controlled diabetes mellitus Impression: Yesterday her glucose was 95, 91, 85, 111, 152. This morning she is 118. She is on sliding scale insulin to be managed hospital. As an outpatient she is diet controlled. Her A1c during this admission is 5.6%. Plan, continue sliding scale insulin. When she is discharged no change in outpatient medications. (6) COPD exacerbation Impression: She used to be a smoker. Quit many years ago. Blood gas done on July 05 showed her to have a pH 7.47, PCO2 37, PO2 89. So I do not think she is a CO2 retainer. Wheezing on right lung is concerning and that it does not seem to brady. Could she have a mucous plug?. Of all the things that are bothering her right now, the wheezing is the thing that concerns her the most. Consider CT of the chest today after discussion with patient. Chest x-ray does not show anything significant on the right side. (7) Anemia Impression: She has dropped from 14 g of hemoglobin on admission which could have been from dehydration in concentration and she is now down to 10 after surgery and IV fluids. She only lost 30 cc of blood with surgery scheduled to get acute blood loss anemia from surgery. She is not a candidate for transfusion at 10. Oxy genating well. Will discontinue to monitor. Start oral iron. Will check studies for iron and B12 first Qualifiers: Anemia type: unspecified type Qualified Code(s): D64.9 - Anemia, unspecified
[2018-07-09] MEDS: diltiaZEM CD 180 MG CAPSULE PO SCH (08:26)
[2018-07-09] MEDS: SACCHAROMYCES BOULARDII 250 MG CAPSULE PO SCH ×2 (08:27→17:52)
[2018-07-09 08:47] LABS: ABSOLUTE RETICS # AUTO 0.026 10^6/uL (0.020-0.110); MEAN RETIC VALUE 100.3; RED BLOOD COUNT 3.35 10^6/uL (4.20-5.40)
[2018-07-09 09:12] LABS: FERRITIN 741.1 ng/mL (11.0-306.8)
[2018-07-09 09:18] LABS: % IRON SATURATION 19 % (20-50); IRON 28 ug/dL (28-170); TOTAL IRON BINDING CAPACITY 150 ug/dL (250-450); TRANSFERRIN 107 mg/dL (192-382)
--- NOTE | 2018-07-09 11:28 | PROVIDER PROGRESS NOTE ---
Subjective - Prog Note Date Prog Note Date: 07/09/18 Prog Note Time: 11:25 - Subjective Pt reports feeling: Improved (Abdominal pain minimal. Starting to ambulate. Tolerated liquid diet. No BM or flatus. Still with SOB.) Objective - Vital Signs/Intake & Output Vital Signs: Vital Signs x48h Temp Pulse Pulse Resp BP BP Pulse Ox 07/09/18 10:00 114 H 21 127/74 07/09/18 09:00 110 H 28 H 07/09/18 08:10 155/112 H 07/09/18 08:00 36.2 C L 123 H 24 153/112 H 93 07/09/18 07:37 36.7 C 111 H 21 92 07/09/18 07:32 111 H 20 07/09/18 05:00 36.7 C 98 27 H 115/77 95 Intake & Output: Intake & Output 07/06/18 07/07/18 07/08/18 07/09/18 23:59 23:59 23:59 23:59 Intake Total 2767.017 3870.000 3585.000 980 Output Total 1647 2672 1250 670 Balance 7379.714 2806.000 2335.000 310 - Objective General Appearance: positive: No acute distress Eyes Bilateral: positive: Normal inspection ENT: positive: ENT inspection nml Neck: positive: Nml inspection Respiratory: positive: Chest non-tender Abdomen: positive: Non-tender Back: positive: Nml inspection Skin: positive: Color nml Extremities: positive: Non-tender Neurologic/Psychiatric: positive: Oriented x3 - Lab Results Fish Bones: 07/09/18 05:15 07/09/18 05:15 Other Labs: Lab Results x24hrs 07/09/18 07/09/18 07/09/18 Range/Units 07:39 05:15 05:15 WBC (4.8-10.8) x10^3/uL RBC (4.20-5.40) 10^6/uL Hgb (12.0-16.0) g/dL Hct (37.0-47.0) % MCV (81.0-99.0) fL MCH (27.0-31.0) pg MCHC (32.0-36.0) g/dL RDW (12.0-15.0) % Plt Count (130-450) 10^3/uL MPV (7.9-10.8) fL Reticulocyte % (Auto) (0.5-2.3) % Neut # (Auto) (1.5-6.6) 10^3/uL Lymph # (Auto) (1.5-3.5) 10^3/uL [place] # (Auto) (0.0-1.0) 10^3/uL Eos # (Auto) (0.0-0.7) 10^3/uL Baso # (Auto) (0.0-0.1) 10^3/uL Absolute Nucleated RBC x10^3/uL Nucleated RBC % /100WBC Absolute Retic (0.020-0.110) 10^6/uL Sodium (135-145) mmol/L Potassium (3.5-5.0) mmol/L Chloride (101-111) mmol/L Carbon Dioxide (21-32) mmol/L Anion Gap (6-13) BUN (6-20) mg/dL Creatinine (0.4-1.0) mg/dL Estimated GFR (MDRD) (>89) Glucose (70-100) mg/dL POC Whole Bld Glucose 118 H (70 - 100) mg/dL Calcium (8.5-10.3) mg/dL Iron (28-170) ug/dL TIBC (250-450) ug/dL % Saturation (20-50) % Transferrin (192-382) mg/dL Ferritin 741.1 H (11.0-306.8) ng/mL Lactate Dehydrogenase 158 (91-225) IU/L Vitamin B12 1073 H (180-914) pg/mL 07/09/18 07/09/18 07/09/18 Range/Units 05:15 05:15 05:15 WBC (4.8-10.8) x10^3/uL RBC 3.35 L (4.20-5.40) 10^6/uL Hgb (12.0-16.0) g/dL Hct (37.0-47.0) % MCV (81.0-99.0) fL MCH (27.0-31.0) pg MCHC (32.0-36.0) g/dL RDW (12.0-15.0) % Plt Count (130-450) 10^3/uL MPV (7.9-10.8) fL Reticulocyte % (Auto) 0.77 (0.5-2.3) % Neut # (Auto) (1.5-6.6) 10^3/uL Lymph # (Auto) (1.5-3.5) 10^3/uL [place] # (Auto) (0.0-1.0) 10^3/uL Eos # (Auto) (0.0-0.7) 10^3/uL Baso # (Auto) (0.0-0.1) 10^3/uL Absolute Nucleated RBC x10^3/uL Nucleated RBC % /100WBC Absolute Retic 0.026 (0.020-0.110) 10^6/uL Sodium 137 (135-145) mmol/L Potassium 3.7 (3.5-5.0) mmol/L Chloride 107 (101-111) mmol/L Carbon Dioxide 21 (21-32) mmol/L Anion Gap 9.0 (6-13) BUN 19 (6-20) mg/dL Creatinine 1.0 (0.4-1.0) mg/dL Estimated GFR (MDRD) 53 L (>89) Glucose 134 H (70-100) mg/dL POC Whole Bld Glucose (70 - 100) mg/dL Calcium 8.2 L (8.5-10.3) mg/dL Iron 28 (28-170) ug/dL TIBC 150 L (250-450) ug/dL % Saturation 19 L (20-50) % Transferrin 107 L (192-382) mg/dL Ferritin (11.0-306.8) ng/mL Lactate Dehydrogenase (91-225) IU/L Vitamin B12 (180-914) pg/mL 07/09/18 07/08/18 07/08/18 Range/Units 05:15 20:52 16:40 WBC 5.5 (4.8-10.8) x10^3/uL RBC 3.32 L (4.20-5.40) 10^6/uL Hgb 10.8 L (12.0-16.0) g/dL Hct 32.3 L (37.0-47.0) % MCV 97.3 (81.0-99.0) fL MCH 32.6 H (27.0-31.0) pg MCHC 33.5 (32.0-36.0) g/dL RDW 15.1 H (12.0-15.0) % Plt Count 161 (130-450) 10^3/uL MPV 10.1 (7.9-10.8) fL Reticulocyte % (Auto) (0.5-2.3) % Neut # (Auto) 4.4 (1.5-6.6) 10^3/uL Lymph # (Auto) 0.5 L (1.5-3.5) 10^3/uL [place] # (Auto) 0.3 (0.0-1.0) 10^3/uL Eos # (Auto) 0.3 (0.0-0.7) 10^3/uL Baso # (Auto) 0.0 (0.0-0.1) 10^3/uL Absolute Nucleated RBC 0.00 x10^3/uL Nucleated RBC % 0.0 /100WBC Absolute Retic (0.020-0.110) 10^6/uL Sodium (135-145) mmol/L Potassium (3.5-5.0) mmol/L Chloride (101-111) mmol/L Carbon Dioxide (21-32) mmol/L Anion Gap (6-13) BUN (6-20) mg/dL Creatinine (0.4-1.0) mg/dL Estimated GFR (MDRD) (>89) Glucose (70-100) mg/dL POC Whole Bld Glucose 152 H 111 H (70 - 100) mg/dL Calcium (8.5-10.3) mg/dL Iron (28-170) ug/dL TIBC (250-450) ug/dL % Saturation (20-50) % Transferrin (192-382) mg/dL Ferritin (11.0-306.8) ng/mL Lactate Dehydrogenase (91-225) IU/L Vitamin B12 (180-914) pg/mL 07/08/18 Range/Units 12:00 WBC (4.8-10.8) x10^3/uL RBC (4.20-5.40) 10^6/uL Hgb (12.0-16.0) g/dL Hct (37.0-47.0) % MCV (81.0-99.0) fL MCH (27.0-31.0) pg MCHC (32.0-36.0) g/dL RDW (12.0-15.0) % Plt Count (130-450) 10^3/uL MPV (7.9-10.8) fL Reticulocyte % (Auto) (0.5-2.3) % Neut # (Auto) (1.5-6.6) 10^3/uL Lymph # (Auto) (1.5-3.5) 10^3/uL [place] # (Auto) (0.0-1.0) 10^3/uL Eos # (Auto) (0.0-0.7) 10^3/uL Baso # (Auto) (0.0-0.1) 10^3/uL Absolute Nucleated RBC x10^3/uL Nucleated RBC % /100WBC Absolute Retic (0.020-0.110) 10^6/uL Sodium (135-145) mmol/L Potassium (3.5-5.0) mmol/L Chloride (101-111) mmol/L Carbon Dioxide (21-32) mmol/L Anion Gap (6-13) BUN (6-20) mg/dL Creatinine (0.4-1.0) mg/dL Estimated GFR (MDRD) (>89) Glucose (70-100) mg/dL POC Whole Bld Glucose 85 (70 - 100) mg/dL Calcium (8.5-10.3) mg/dL Iron (28-170) ug/dL TIBC (250-450) ug/dL % Saturation (20-50) % Transferrin (192-382) mg/dL Ferritin (11.0-306.8) ng/mL Lactate Dehydrogenase (91-225) IU/L Vitamin B12 (180-914) pg/mL Assessment/Plan - Problem List (1) Abdominal pain Impression: s/p open adhesiolysis for SBO. Plan to advance to regular diet today. Otherwise doing well, although her age, afib, pneumonia, etc is limiting her somewhat. Qualifiers: Abdominal location: left lower quadrant Qualified Code(s): R10.32 - Left lower quadrant pain
[2018-07-09] MEDS: POLYETHYLENE GLYCOL 3350 17 GM PACKET PO SCH (11:43)
[2018-07-09] MEDS: levoFLOXacin 750 MG/150 ML 750 MG/150 ML BAG IV SCH (12:09)
[2018-07-09] MEDS: ENOXAPARIN 80 MG/0.8 ML SYRINGE SUBQ SCH (12:33)
[2018-07-09] MEDS: DIGOXIN 500 MCG/2 ML AMP IVP SCH ×3 (12:45→21:31)
[2018-07-09] MEDS: HYDROmorphone 0.5 MG/0.5 ML SYRINGE IVP PRN (13:44)
[2018-07-09] MEDS ORDERED: IOVERSOL 320 100 ML VIAL IVP ONE ×2 (15:20→17:57)
[2018-07-09] MEDS: diphenhydrAMINE INJ 50 MG/ML VIAL IVP PRN (17:00)
[2018-07-09] MEDS: methylPREDNISolone SUCCINATE 125 MG/2 ML VIAL IVP SCH ×2 (17:00→22:20)
[2018-07-09] MEDS ORDERED: diphenhydrAMINE INJ 50 MG/ML VIAL ONE (17:01)
[2018-07-09] MEDS ORDERED: WARFARIN 5 MG TABLET PO ONE (18:00)
--- NOTE | 2018-07-09 18:51 | CT Report ---
Reason: new sob post op pat Procedure Date: 07/09/2018 Accession Number: [id number] / [id number] Procedure: CT - ANGIO CHEST W/WO CPT Code: FULL RESULT: EXAM: CT ANGIOGRAM CHEST EXAM DATE: 07/09/2018 05:32 PM. CLINICAL HISTORY: Dyspnea. COMPARISON: None. TECHNIQUE: Routine helical imaging was performed through the chest in the pulmonary arterial phase. IV Contrast: OPTI 320 80 ML. Reconstructions: Coronal 3-D MIP reconstructions.Sagittal and coronal. In accordance with CT protocol optimization, one or more of the following dose reduction techniques were utilized for this exam: automated exposure control, adjustment of mA and/or KV based on patient size, or use of iterative reconstructive technique. FINDINGS: Pulmonary Arteries: Diagnostic quality: Adequate through the proximal to mid segmental arteries. No evidence for acute or chronic pulmonary emboli. Lungs/Pleura: There is reticular and groundglass opacity within the anterior aspect of the right upper lobe. There is some mild associated architectural distortion. There are scattered peribronchovascular and possibly tree-in-bud nodules within the lower lungs. More dense consolidation is seen within the posterior and lateral basal segments of the lower lobes. There are small pleural effusions. There is no evidence of pneumothorax. Mediastinum: There is cardiomegaly. There are coronary artery calcifications. There are no enlarged axillary, supraclavicular, mediastinal, or hilar lymph nodes. Thoracic Aorta: No evidence of aortic dissection or aneurysm. There are atheromatous calcifications of the aorta. Upper Abdomen: The visualized portions of the upper abdominal organs demonstrate no acute abnormalities. Other: None. IMPRESSION: 1. No evidence of acute pulmonary embolism through the proximal to mid segmental branch level. 2. There is peribronchovascular nodularity with bibasilar consolidation. There is some groundglass opacity and interlobular septal thickening. Findings may represent combination of pneumonia and edema. 3. There is no evidence of aortic dissection or aneurysm. [facility]
[2018-07-10] MEDS: diphenhydrAMINE INJ 50 MG/ML VIAL IVP PRN (00:29)
[2018-07-10] MEDS: PIPERACILLIN/TAZOBACTAM 3.375 GM in SODIUM CHLORIDE 0.9% MINIBAG 100 ML IV SCH (06:01)
[2018-07-10] MEDS: ACETAMINOPHEN 1,000 MG/100 ML 100 ML IV SCH ×3 (06:01→12:32)
[2018-07-10] MEDS: SODIUM CHLORIDE FLUSH 0.9% 10 ML SYRINGE IVP SCH ×3 (06:10→17:07)
[2018-07-10] MEDS: methylPREDNISolone SUCCINATE 125 MG/2 ML VIAL IVP SCH (06:14)
[2018-07-10] MEDS: PANTOPRAZOLE 40 MG TABLET PO SCH (07:58)
[2018-07-10] MEDS: INSULIN ASPART 300 UNIT/3 ML PEN SUBQ SCH ×4 (08:12→21:06)
[2018-07-10] MEDS: DIGOXIN 500 MCG/2 ML AMP IVP SCH (08:54)
[2018-07-10] MEDS: SODIUM CHLORIDE FLUSH 0.9% 10 ML SYRINGE IVP PRN (08:59)
[2018-07-10] MEDS ORDERED: FUROSEMIDE 20 MG/2 ML VIAL IVP SCH (09:00)
[2018-07-10] MEDS: METOPROLOL 5 MG/5 ML VIAL IVP PRN (09:05)
[2018-07-10] MEDS: LEVALBUTEROL 1.25 MG/3 ML NEB INH PRN ×2 (09:21→13:01)
[2018-07-10] MEDS: BUDESONIDE 0.5 MG/2 ML NEB INH SCH ×2 (09:22→20:23)
[2018-07-10] MEDS: FORMOTEROL FUMARATE NEB 20 MCG/2 ML INH SCH ×2 (09:22→20:23)
[2018-07-10] MEDS: POLYETHYLENE GLYCOL 3350 17 GM PACKET PO SCH (09:49)
[2018-07-10] MEDS: diltiaZEM CD 180 MG CAPSULE PO SCH (09:49)
[2018-07-10] MEDS: SACCHAROMYCES BOULARDII 250 MG CAPSULE PO SCH ×2 (09:49→17:06)
--- NOTE | 2018-07-10 11:02 | PROVIDER PROGRESS NOTE ---
Subjective - Prog Note Date Prog Note Date: 07/10/18 Prog Note Time: 13:49 - Subjective Pt reports feeling: Improved Subjective: Yesterday her coughing and wheezing and shortness of breath crescendoed to a brief episode where she felt like she could not breathe and she had a tight band around her lower chest. CT pulmonary Angiogram was negative for pulmonary embolus.. She does have pneumonia and some groundglass opacities. I started her on steroids. That seemed to have improved her status. Today her main problem is that of rate control of her atrial fibrillation. I have stopped the IV diltiazem 2 days ago, transitioned her to p.o. diltiazem 180 mg a day. I also dig loaded her up 0.25 IV every 6x4 doses. This morning she still has episodes of tachycardia. Had flatus and a bowel movement this morning Current Medications - Current Medications Current Medications: Active Medications Acetaminophen (Tylenol) 650 mg PO Q4HR PRN PRN Reason: Pain 1 to 4 Last Admin: 07/05/18 09:06 Dose: 650 mg Albuterol/Ipratropium (Duoneb) 3 ml INH Q4HR PRN PRN Reason: Wheezing Last Admin: 07/07/18 06:02 Dose: 3 ml Budesonide (Pulmicort) 0.5 mg INH RTBID [facility] Last Admin: 07/10/18 09:22 Dose: 0.5 mg Digoxin (Lanoxin) 125 mcg PO DAILY [facility] Last Admin: 07/10/18 11:59 Dose: 125 mcg Diltiazem HCl (Cardizem Cd) 240 mg PO DAILY [facility] Last Admin: 07/10/18 12:19 Dose: 240 mg Enoxaparin Sodium (Lovenox) 80 mg SUBQ 1200 [facility] Last Admin: 07/10/18 12:00 Dose: 80 mg Formoterol Fumarate (Perforomist) 20 mcg INH RTBID [facility] Last Admin: 07/10/18 09:22 Dose: 20 mcg Guaifenesin (Robitussin Liquid) 100 mg PO Q6HR PRN PRN Reason: Cough Last Admin: 07/09/18 04:33 Dose: 100 mg Hydromorphone HCl (Dilaudid Inj Syringe) 0.25 mg IVP Q2H PRN PRN Reason: PAIN Last Admin: 07/09/18 13:44 Dose: 0.25 mg Insulin Aspart (Novolog) 1 - 9 unit SUBQ 0800,1200,1700,2100 [facility]; Protocol Last Admin: 07/10/18 12:15 Dose: 5 unit Levalbuterol HCl (Xopenex) 1.25 mg INH RTQ4H PRN PRN Reason: SHORTNESS OF AIR/WHEEZING Last Admin: 07/10/18 13:01 Dose: 1.25 mg Metoprolol Tartrate (Lopressor Inj) 5 mg IVP Q6H PRN PRN Reason: Tachycardia Last Admin: 07/10/18 09:05 Dose: 5 mg Polyethylene Glycol (Miralax) 17 gm PO DAILY [facility] Last Admin: 07/10/18 09:49 Dose: Not Given Prochlorperazine Edisylate (Compazine Inj) 10 mg IVP Q4HR PRN PRN Reason: Nausea / Vomiting Last Admin: 07/03/18 17:34 Dose: 10 mg Saccharomyces Boulardii (Florastor) 250 mg PO BIDWM [facility] Last Admin: 07/10/18 09:49 Dose: 250 mg Sodium Chloride (Normal Saline Flush 0.9%) 10 ml IVP PRN PRN PRN Reason: NEEDED PER PROVIDER ORDERS Last Admin: 07/10/18 08:59 Dose: 10 ml Sodium Chloride (Normal Saline Flush 0.9%) 10 ml IVP 0100,0900,1700 [facility] Last Admin: 07/10/18 09:10 Dose: 10 ml Temazepam (Restoril) 15 mg PO QPM PRN PRN Reason: Insomnia Last Admin: 07/08/18 21:51 Dose: 15 mg Warfarin Sodium (Coumadin) 5 mg PO ONCE ONE Stop: 07/10/18 18:01 Lisinopril 10 mg PO DAILY 07/02/18 Amlodipine Besylate 2.5 mg PO DAILY 07/03/18 Omeprazole 20 mg PO Q2D@0700 07/03/18 hydroCHLOROthiazide [Hydrochlorothiazide] 25 mg PO DAILY 07/03/18 Objective - Vital Signs/Intake & Output Reviewed Vital Signs: Yes Vital Signs: Vital Signs x48h Temp Pulse Pulse Resp BP BP Pulse Ox 07/10/18 09:05 161/66 H 07/10/18 09:00 125 H 68 21 136/59 H 97 07/10/18 08:54 144 H 07/10/18 05:00 36.8 C 85 23 136/67 H 96 Intake & Output: Intake & Output 07/07/18 07/08/18 07/09/18 07/10/18 23:59 23:59 23:59 23:59 Intake Total 3870.000 3585.000 1870 800 Output Total 2672 1250 1370 750 Balance 6934.593 0389.000 500 50 - Objective General Appearance: positive: No acute distress, Alert, Other (Very tired. So desperately wants to get out of the hospital. Has been getting up out of bed and sitting in chair) Eyes Bilateral: positive: PERRL, EOMI ENT: positive: Pharynx nml Neck: positive: No JVD. negative: Stiff neck, Carotid bruit Respiratory: positive: Chest non-tender, Wheezes (Right upper lung right midlung. Left lung is clear). negative: Rales, Rhonchi Cardiovascular: positive: Irregularly irregular, Tachycardia. negative: Gallop/S4, Friction rub Abdomen: positive: No organomegaly, Nml bowel sounds, No distention, Tenderness (Over incision site especially when she coughs). negative: Guarding, Rebound Skin: positive: Warm, Dry Extremities: positive: Non-tender, No pedal edema Neurologic/Psychiatric: positive: Oriented x3, CN's nml (2-12), Motor nml, Weakness - Lab Results Fish Bones: 07/09/18 05:15 07/09/18 05:15 Other Labs: Lab Results x24hrs 07/10/18 07/09/18 07/09/18 Range/Units 07:58 21:33 19:35 POC Whole Bld Glucose 174 H 177 H (70 - 100) mg/dL Troponin I < 0.04 (<0.49) ng/mL 07/09/18 07/09/18 07/09/18 Range/Units 18:11 13:50 11:53 POC Whole Bld Glucose 116 H 175 H (70 - 100) mg/dL Troponin I < 0.04 (<0.49) ng/mL ABX Reporting Has patient been on IV antibiotics over the past 48 hours?: Yes Assessment/Plan - Problem List (1) Small bowel obstruction Impression: POD #4 She was admitted with a 24 onset of nausea, constipation, decrease in bowel ayala nds. Found to have small bowel obstruction and admitted. We initially thought she was going to respond to simple conservative measures and had 2 large bowel movements. But then she closed back down again. Required an NG tube and had close to 2-1/2 L of NG drainage. She never had a fever or white cell count. Was taken to the operating room and was found to have obstruction from adhesions. Diet was advanced on postop day 2. To continue with DVT prophylaxis, advancing of diet per surgery recommendations. Antiemetics and pain medicine per surgery. Post op recovery slowed by #2 and #3 problems. Now having flatus today. Advance diet to regular. Start to change all medications to p.o. (2) Atrial fibrillation with RVR Impression: This is a new onset for her. Echocardiogram shows minimally dilated left atrium. Responding to p.o. Cardizem at this point. May need an addition of a beta-mine in the immediate perioperative period. I will fax local pharmacies today for Eliquis to see how much it would cost her. If the NOACs are too expensive she is going to want Coumadin. Her share of cost is $430/month for eliguis so given first dose of coumadin last night. continue at home. Rate is still fluctuating off of IV dilt drip. On po since yesterday. Had episode of RVR and chest tightness evaluated 07/09 with CTA and no PE, just pneumonia.EKG without ST changes and troponin negative. Digoxin IV added. This am better rate control until she gets up then gets tachy. Will add po dig, increase cardizem to 240 mg po daily (3) HCAP (healthcare-associated pneumonia) Impression: All of her wheezing is on her right side. And her pneumonia is on her left side. She is day #6 Levaquin. Day #7 Zosyn. 3 sets of blood cultures are negative. Plan: Stop Zosyn today. Continue Levaquin po for 1 more day after that. (4) Acute kidney injury Impression: On admission creatinine was 1.2 and it bryan to 1.6 during this admission with fluid shifts. Today her creatinine is 1. Plan: Continue to monitor, avoid nephrotoxic agents. (5) Diet-controlled diabetes mellitus Impression: 07/08 glucose was 95, 91, 85, 111, 152. Glucose on July 09 was 118, 175, 116, 177. Today she is 174 and 236 as diet has been advanced. She is on sliding scale insulin to be managed hospital. As an outpatient she is diet controlled. Her A1c during this admission is 5.6%. Plan, continue sliding scale insulin. When she is discharged no change in outpatient medications. (6) COPD exacerbation Impression: She used to be a smoker. Quit many years ago. Blood gas done on July 05 showed her to have a pH 7.47, PCO2 37, PO2 89. So I do not think she is a CO2 retainer. Wheezing on right lung is concerning and that it does not seem to brady. Could she have a mucous plug?. Of all the things that are bothering her right now, the wheezing is the thing that concerns her the most. CT angiogram of the chest done yesterday to make sure I was not missing a PE. Does have groundglass opacities, continued pneumonia. Is finishing 7 days of Zosyn today, will give 1 more p.o. dose of Levaquin. I added IV steroids yesterday. That has improved her. Will change to p.o. tapering dose of steroids today. (7) Anemia Impression: She has dropped from 14 g of hemoglobin on admission which could have been from dehydration in concentration and she is now down to 10 after surgery and IV fluids. She only lost 30 cc of blood with surgery scheduled to get acute blood loss anemia from surgery. She is not a candidate for transfusion at 10. Oxygenating well. Will discontinue to monitor. Start oral iron. Iron level is normal as is B12 level. So her anemia may be minimally acute blood loss anemia with dilution from aggressive IV hydration Qualifiers: Anemia type: unspecified type Qualified Code(s): D64.9 - Anemia, unspecified (8) Generalized weakness She has been able to get out of bed, walk to the bathroom, walked to the chair but gets very easily tachypneic and short of breath. Physical therapy feels that she should be getting home health with PT and OT to increase her strength. I have ordered home health consult/referral and will order PT for outpatient setting. This patient would require extraordinary effort to leave her home. She can barely manage 20 feet in the room right now. We will also do desaturation challenge to see if she needs oxygen at home.
[2018-07-10] MEDS ORDERED: diltiaZEM INJ 5 MG/ML VIAL IVP ONE (11:03)
[2018-07-10] MEDS: DIGOXIN 125 MCG TABLET PO SCH (11:59)
[2018-07-10] MEDS: ENOXAPARIN 80 MG/0.8 ML SYRINGE SUBQ SCH (12:00)
[2018-07-10] MEDS: diltiaZEM CD 240 MG CAPSULE PO SCH (12:19)
--- NOTE | 2018-07-10 16:57 | PROVIDER PROGRESS NOTE ---
Subjective - Prog Note Date Prog Note Date: 07/10/18 Prog Note Time: 11:00 - Subjective Pt reports feeling: Improved (Pt continues to improve. Reports she tolerated regular diet without event and had 2 BMs. No real abdominal pain at this point.) Objective - Vital Signs/Intake & Output Vital Signs: Vital Signs x48h Temp Pulse Pulse Resp BP BP Pulse Ox 07/10/18 13:10 101 H 22 07/10/18 12:22 37.0 C 110 H 24 149/87 H 07/10/18 11:54 149/87 H 07/10/18 09:35 135/59 H 07/10/18 09:05 161/66 H 07/10/18 09:00 125 H 68 21 136/59 H 97 Intake & Output: Intake & Output 07/07/18 07/08/18 07/09/18 07/10/18 23:59 23:59 23:59 23:59 Intake Total 3870.000 3585.000 1870 1540 Output Total 2672 1250 1370 1900 Balance 7037.635 0050.000 500 -360 - Lab Results Fish Bones: 07/09/18 05:15 07/09/18 05:15 Other Labs: Lab Results x24hrs 07/10/18 07/10/18 07/10/18 Range/Units 16:45 11:49 07:58 POC Whole Bld Glucose 229 H 236 H 174 H (70 - 100) mg/dL Troponin I (<0.49) ng/mL 07/09/18 07/09/18 07/09/18 Range/Units 21:33 19:35 18:11 POC Whole Bld Glucose 177 H 116 H (70 - 100) mg/dL Troponin I < 0.04 (<0.49) ng/mL Assessment/Plan - Problem List (1) Abdominal pain Impression: Pt has fully recovered from surgery. Her medical co-morbidities require further management, however. Pt can be discharged with follow up in surgery clinic in 1 week. No heavy lifting/exertion until that time. Qualifiers: Abdominal location: left lower quadrant Qualified Code(s): R10.32 - Left lower quadrant pain
[2018-07-10] MEDS ORDERED: WARFARIN 5 MG TABLET PO ONE (18:00)
[2018-07-10] MEDS: TEMAZEPAM 15 MG CAPSULE PO PRN (23:21)
[2018-07-11] MEDS: SODIUM CHLORIDE FLUSH 0.9% 10 ML SYRINGE IVP SCH ×2 (01:29→07:49)
[2018-07-11] MEDS: guaiFENesin 100 MG/5 ML UDC PO PRN ×3 (01:52→14:22)
[2018-07-11] MEDS: CALCIUM CARBONATE CHEW 500 MG TABLET PO SCH ×2 (04:37→07:48)
[2018-07-11] MEDS: SUCRALFATE 1 GM/10 ML UDC PO SCH ×4 (04:37→16:20)
[2018-07-11 05:22] LABS: PT - PROTHROMBIN TIME 107.5 secs (9.9-12.6)
[2018-07-11 05:31] LABS: INR 9.7 (0.8-1.2)
[2018-07-11] MEDS: FORMOTEROL FUMARATE NEB 20 MCG/2 ML INH SCH (07:26)
[2018-07-11] MEDS: BUDESONIDE 0.5 MG/2 ML NEB INH SCH (07:26)
[2018-07-11] MEDS: DIGOXIN 125 MCG TABLET PO SCH (07:48)
[2018-07-11] MEDS: diltiaZEM CD 240 MG CAPSULE PO SCH (07:48)
[2018-07-11] MEDS: SACCHAROMYCES BOULARDII 250 MG CAPSULE PO SCH ×2 (07:48→17:26)
[2018-07-11] MEDS: POLYETHYLENE GLYCOL 3350 17 GM PACKET PO SCH (07:49)
[2018-07-11] MEDS: INSULIN ASPART 300 UNIT/3 ML PEN SUBQ SCH ×3 (07:52→16:44)
[2018-07-11] MEDS ORDERED: CHERRY SYRUP 10 ML UDC PO ONE (08:00)
[2018-07-11] MEDS ORDERED: PHYTONADIONE 10 MG/ML AMP PO ONE (08:00)
[2018-07-11] MEDS ORDERED: predniSONE 20 MG TABLET PO SCH (13:00)
[2018-07-11 15:11] LABS: INR 3.7 (0.8-1.2); PT - PROTHROMBIN TIME 41.7 secs (9.9-12.6)
[2018-07-11 15:12] LABS: BASOPHILS % (AUTO) 0.1 %; LYMPHOCYTES # (AUTO) 0.5 10^3/uL (1.5-3.5); LYMPHOCYTES % (AUTO) 4.1 %; MEAN CORPUSCULAR HEMOGLOBIN 31.3 pg (27.0-31.0); MEAN CORPUSCULAR HGB CONC 32.7 g/dL (32.0-36.0); MEAN CORPUSCULAR VOLUME 95.7 fL (81.0-99.0); MEAN PLATELET VOLUME 10.2 fL (7.9-10.8); MONOCYTES # (AUTO) 0.7 10^3/uL (0.0-1.0); MONOCYTES % (AUTO) 5.9 %; NEUTROPHILS # (AUTO) 10.8 10^3/uL (1.5-6.6); NEUTROPHILS % (AUTO) 89.9 %; PLT - PLATELET COUNT 230 10^3/uL (130-450); RED BLOOD COUNT 3.52 10^6/uL (4.20-5.40); RED CELL DISTRIBUTION WIDTH 15.2 % (12.0-15.0)
--- NOTE | 2018-07-11 15:42 | Discharge Plan ---
Discharge Plan Disposition: Home Health Service Condition: Stable Prescriptions: Albuterol Sulf [Ventolin Hfa Inhaler] 1 - 2 puffs INH Q4HR PRN #1 inhaler PRN Reason: Shortness Of Air/Wheezing diltiaZEM CD [Cardizem Cd] 240 mg PO DAILY #30 capsule Hydrocodone/Acetaminophen [[place] 5-325 Tablet] 1 each PO Q4H PRN #50 tablet PRN Reason: Pain Prednisone 5 mg PO UD #21 tablet Warfarin [Coumadin] 1 mg PO 1400 #30 tablet Diet: Regular Activity Restrictions: Activity as Tolerated Shower Restrictions: No Driving Restrictions: Yes (no driving until you see your PCP) Assistance Devices: Walker Instruction Topics: Obstruction Sm Bowel, AFL/Afib Additional Instructions or Follow Up instructions: You were admitted to the hospital because of nausea, vomiting, abdominal pain. We found you to have 3 main things. 1. you had a small bowel obstruction and needed to go to surgery. You have done well after the surgeon removed the adhesions causing your bowel to be pinched. You need to see him in follow-up in the next week or 2 for the wound. Keep the wound clean and dry. You can take a shower but dry off immediately. Do not take a bath and soak the wound. Do not lift anything heavier than 10 pounds for the next month. 2. You had a left lung pneumonia. You have finished antibiotic therapy for that. This caused your emphysema to get much worse and you were wheezing for quite a bit. I am sending you home on inhaler, and a tapering short dose of steroids. 3. You have a new onset of atrial fibrillation. That is an irregularly irregular heart rate. You will need to have your primary care provider refer you to a skip hoist operator. Because you have atrial fibrillation, and it can increase your risk of stroke, you need to start a blood thinner. When I called your pharmacy to see how much one of the newer blood thinners cost, that are easy to take, it was going to be $430 a month. So we have decided to start you on Coumadin which is much cheaper but more inconvenient to use. Today your INR is 3.7. We need to have you between 2 to 3. I will start you on Coumadin. A very small dose. Start that tablet on July 13. Make sure that your primary care provider gets your blood done on July 14 and July 18 while you are on the Coumadin. It needs to be adjusted so that your INR is between 2 and 3. Because you were in the ICU, in bed for many days, you are very weak and deconditioned. Right now you get very easily short of breath, cough, and your heart rate can get fast. I have ordered home health to come see you. They need to examine your lungs and make sure your emphysema is not getting worse. You also need to do physical therapy. You have been provided with a walker. Tomorrow, you may need oxygen delivered depending on what today's results are. It is late enough in the day that you will not go home with oxygen today. Follow-Up Care: Home Health - RN, Home Health - PT No Smoking: If you smoke, Please STOP! Call for help. Follow-up with: Pasquale Jon MD [Primary Care Provider] -
[2018-07-11 17:32] VITALS: BP 139/62
--- NOTE | 2018-07-12 02:43 | DISCHARGE SUMMARY ---
Physician: Amisha Palmer MD DATE OF ADMISSION: 07/02/2018 DATE OF DISCHARGE: 07/11/2018 DISCHARGE DIAGNOSES 1. Small-bowel obstruction. 2. Three ventral hernias. 3. New onset atrial fibrillation with rapid ventricular response. 4. Healthcare-associated pneumonia. 5. Acute kidney injury, superimposed on chronic kidney disease. 6. Type 2 diabetes mellitus, diet controlled. No complications. No use of insulin. 7. Chronic obstructive pulmonary disease with exacerbation. 8. Anemia, nonspecific. 9. Generalized weakness. ___ 10. After being in ICU. 11. Urinary retention. DISCHARGE MEDICATIONS 1. Hydrochlorothiazide 25 mg a day. 2. Lisinopril 10 mg a day. 3. Omeprazole 20 mg every 2 days. 4. Ventolin HFA inhaler 1-2 puffs every 4 hours as needed. 5. Cardizem CD 240 mg a day is a new prescription. 6. [place] 5/325 one tablet every 4 hours as needed is a new prescription. 7. Prednisone 5 mg tablets to be tapered as directed is a new prescription. 8. Coumadin 1 mg p.o. daily is a new prescription. 9. Amlodipine has been discontinued. PRINCIPAL PROCEDURES 1. Echocardiogram shows left ventricular hypertrophy with normal systolic function. Ejection fraction 60%. Left atrium is mild to moderately dilated. She has mildly sclerotic aortic valve without stenosis. Normal pulmonary pressures, otherwise normal study. 2. Abdomen and pelvis CT shows mildly dilated loops of bowel with 3 ventral hernias. Mild linear left lower lobe atelectasis. Small volume intraperitoneal fluid. Diverticulosis without diverticulitis. 3. Chest x-rays done during her stay showed a gradually evolving left lower lobe pneumonia, identified as healthcare-associated pneumonia. 4. CT/thorax CT angiogram showed no pulmonary emboli. She had reticular and ground-glass opacities within the anterior aspect of the right upper lobe. Mild associated architectural distortion. Scattered peribronchovascular and possibly tree-in-bud nodules within the lower lungs. More dense consolidation seen in the posterior and lateral basal segments of the lower lobes. Small bilateral pleural effusions. No evidence of pneumothorax. Some cardiomegaly. 5. Blood cultures done on July 02 are negative, as are blood cultures on July 05. 6. Serial troponins were negative. 7. Iron studies done for iron deficiency anemia showed iron 28, TIBC 150, percent saturation 19, transferrin 107. B12 was high at 1073. HOSPITAL COURSE: She is an 83-year-old female who has had multiple abdominal surgeries in the past. She saw her primary care provider on Wednesday because of gradual onset of flank pain, diffuse abdominal pain, that was constant, dull, aching, and crampy. Moving around, eating, made it hurt very badly. She started having nausea and vomiting, and she started getting very weak. She always wheezes. She says she wheezes on a daily basis and has done so for years, but the wheezing and cough got substantially worse as well. She has had a previous small-bowel obstruction and was wondering if that is what was happening. After she saw her primary care provider for these symptoms that were much less severe than when she came to the emergency room, she drank MiraLax in the clinic, was given some nausea medicines. She woke up the next night, continuing to have ongoing nausea, vomiting, worsening abdominal pain, and no ability to have flatus or a bowel movement. She then started having the urge to urinate constantly and, no matter how much she got up to go urinate, nothing came out. She was brought to the emergency room, where she was afebrile, tachycardic, but otherwise normal vital signs. She had scattered crackles. At that point in time, she was not wheezing. She did not have a white cell count, hemoglobin was normal. Imaging studies showed her to have a mid to distal small-bowel obstruction, 3 umbilical hernias. General Surgery recommended a Gastrografin challenge imaging study. Initially, there was progress, in that the contrast went through to the dilated small bowel and to the level of the mid jejunum, but nothing beyond that point, but only gas in the colon. She initially had some response with the Gastrografin challenge, in that she had 2 bowel movements on Wednesday. By Wednesday, however, she started having a return of her distention, nausea. Her preliminary EKG on admission did show atrial fibrillation. As her abdominal distention got worse and nausea got worse, atrial fibrillation, got much worse as well. In spite of having 2 bowel movements, we felt that her bowel obstruction had returned. We placed an NG tube, and 2500 mL of bilious fluid was removed. She was re-seen by General Surgery, who opted to take her to the operating room. He found her to have a loop of bowel that was constricted by an adhesion. He did lysis of adhesions for that loop of bowel, as well as other adhesions seen intraabdominally. He also repaired the 3 ventral hernias and umbilical hernia. By this point, wheezing was quite severe. Always predominantly in the right lung, with left lung clear. Cough was constant and painful because she had an abdominal incision, and she always had to hold a pillow against her. Atrial fibrillation rate was difficult to control. She was anticoagulated with Lovenox. We started her on a diltiazem drip, gave her Lopressor p.r.n. When she was eating by mouth, we transitioned the Cardizem to p.o. and still needed occasional Lopressor p.r.n. I then digoxin loaded her and continued Lopressor p.o., before she finally became under control. I increased her Cardizem CD from 180 mg to 240 mg. She was now slow enough that she was having 2-second pauses with all of this blockade. As such, at discharge, I am opting only to give her Cardizem CD. She has been stopped on the amlodipine for blood pressure, and she is to continue Cardizem for rate control and hypertension, and lisinopril for hypertension. The echocardiogram was as above. She has a dilated left atrium. It might be difficult to get her back into sinus. She was anticoagulated initially with Lovenox. We did call the pharmacy to see how much Eliquis would cost, and her share of the cost was $430 that first month. She does not have that kind of money, so we put her on Coumadin and gave her 10 mg one day, 5 mg the next, and her INR went greater than 9. We then gave her vitamin K p.o., and her INR came down to 3.7. She is felt to be stable with that number and will be discharged on Coumadin 1 mg a day. We think that her INR was prolonged because of interaction between Coumadin and her antibiotics, specifically Levaquin. She will need her INR checked on the , the , and the . She needs to have her Coumadin adjusted on the basis of INR. Wheezing crescendoed to the point that on postop day #1 she developed chest tightness. Alarming for its severity and increased wheezing and shortness of breath and coughing. We did a CT pulmonary angiogram, which was negative for PE, but showed architectural distortion of the right upper lobe, lung nodules at the bases of her lungs. 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 She may have an undiagnosed pneumoconiosis. She did respond to steroids and nebulizers. She did complete antibiotic therapy for healthcare-associated pneumonia with Zosyn and Levaquin. Blood cultures were negative during her stay. On the day of discharge, wheezing was much improved. She is still having occasional spasmodic cough. I have asked her to taper off her steroids over the next 5 days from prednisone 5 mg tablets. Six one day, then 5, then 4, then 3, then 2, then 1, then nothing. She has also been discharged on Ventolin HFA inhaler. I would like her to see her primary care provider and follow up in the next week. She sees Dr. Pasquale Jon. He needs to follow up on lung exam and referral for pulmonology for possible pneumoconiosis. Her wheezing is out of proportion to COPD findings on lung exam. I also need him to do INR to adjust her Coumadin. She needs to follow up with General Surgery, Dr. Gibson. He would like to see her in 1-2 weeks. She can take a shower but cannot take a bath. Needs to keep her wound clean and dry. She has been referred to Home Health after being evaluated by Physical Therapy in the hospital. She is very deconditioned after being in the ICU for a week. Just walking to the bathroom results in tachypnea and tachycardia. We did check her O2 saturations at discharge, and she is 94% to 95% on room air and does not desaturate with walking. She will need home health PT and a home health RN to make sure her lung exam stays stable and her rate control remains stable. She is not able to return to her home because of weakness and extraordinary effort living by herself. She will be living with her daughter for a week or so. The only other restriction is not to drive for the first week. I would like her to see her PCP before she returns to driving. Pain medicine will be [place] 5/325 every 4 hours as needed, and I have asked her to avoid constipation. She is discharged in stable condition. PHYSICAL EXAMINATION VITAL SIGNS: Temperature is 36.4. With walking, to get her desaturation test, her heart rate went from 80 to 110 and was slow to recover. Blood pressure is 148/71, respirations are 23 and unlabored, 98% on room air saturation. GENERAL: She is an elderly woman at 83 but looks younger than stated age. NECK: Supple with shotty adenopathy. No goiter or bruits. LUNGS: Scattered, faint wheezing, right midlung, right upper lung, but much, much improved than during her hospitalization when wheezing was audible. Of note, wheezing was always contained to the right mid lung, right upper lung during her exam findings. HEART: She has an irregular rate and rhythm. Rate is controlled. ABDOMEN: The abdomen aches along her vertical incision, but there is no rebound, no guarding and she has normal bowel sounds, with bowel movements for the last 2 days. She is tolerating a full diet. EXTREMITIES: Warm. Homans is negative. There has been no edema of her ankles or legs. She ambulates with a walker, slow, shuffling gait, but is easily prompted and able to do so with only standby assist. Greater than 30 minutes was spent in coordinating discharge. TD: 07/11/2018 17:04 VISHAL
== END 2018-07-11 17:30 | disposition home health service (06) | DRG 335 ==
LOC: ED 10:28 → MS2 14:04 → ICU 07-03 19:31
PROVIDERS: ADMIT Nurse Practitioner; ATTEND Specialist
PROC: 0WQF0ZZ Repair Abdominal Wall, Open Approach (ICD-10-PCS; 2018-07-06)
PROC: 0DNW0ZZ Release Peritoneum, Open Approach (ICD-10-PCS; 2018-07-06)
PROC: 0DN80ZZ Release Small Intestine, Open Approach (ICD-10-PCS; principal; 2018-07-06 10:30)
DX: K56.609 Unspecified intestinal obstruction, unspecified as to partial versus complete obstruction (principal); K56.52 Intestinal adhesions [bands] with complete obstruction; K42.9 Umbilical hernia without obstruction or gangrene; J18.9 Pneumonia, unspecified organism; N17.9 Acute kidney failure, unspecified; J44.0 Chronic obstructive pulmonary disease with (acute) lower respiratory infection; J44.1 Chronic obstructive pulmonary disease with (acute) exacerbation; N39.0 Urinary tract infection, site not specified; D62 Acute posthemorrhagic anemia; K43.2 Incisional hernia without obstruction or gangrene; I48.91 Unspecified atrial fibrillation; Y95 Nosocomial condition; J64 Unspecified pneumoconiosis; I13.10 Hypertensive heart and chronic kidney disease without heart failure, with stage 1 through stage 4 chronic kidney disease, or unspecified chronic kidney disease; E11.22 Type 2 diabetes mellitus with diabetic chronic kidney disease; N18.3 Chronic kidney disease, stage 3 (moderate); E11.42 Type 2 diabetes mellitus with diabetic polyneuropathy; R33.9 Retention of urine, unspecified; E86.0 Dehydration; E87.6 Hypokalemia; K57.30 Diverticulosis of large intestine without perforation or abscess without bleeding; K21.9 Gastro-esophageal reflux disease without esophagitis; K52.9 Noninfective gastroenteritis and colitis, unspecified; R94.2 Abnormal results of pulmonary function studies; R32 Unspecified urinary incontinence; R35.1 Nocturia; R35.0 Frequency of micturition; H54.7 Unspecified visual loss; J32.9 Chronic sinusitis, unspecified; M19.90 Unspecified osteoarthritis, unspecified site; M10.9 Gout, unspecified; Z90.710 Acquired absence of both cervix and uterus; Z90.49 Acquired absence of other specified parts of digestive tract; Z87.891 Personal history of nicotine dependence
CPT/HCPCS: 36415; 36600; 71045; 71275; 74018; 74019; 74176; 80048; 80053; 81001; 82040; 82607; 82728; 82803; 83036; 83540; 83605; 83615; 83690; 83735; 83880; 84100; 84439; 84443; 84466; 84481; 84484; 85025; 85044; 85610; 86140; 87040; 87150; 93005; 93306; 94640; 94664; 96361; 96374; 97116; 97162; 97530; 99284; A9270; J0131; J1170; J1200; J1650; J1815; J1940; J7040; J7120; J7512; J7626; Q9963; Q9967; 81003; 87086; 99283

== ENCOUNTER 2018-07-20 14:13 | Outpatient (CLI) | payer MEDICARE, OTHER | END 2018-07-20 14:14 | disposition home or self-care (01) | LOC: LAB.F 14:13 | PROVIDERS: ATTEND Family Medicine | DX: I48.91 Unspecified atrial fibrillation (principal) | CPT/HCPCS: 85610 ==

== ENCOUNTER 2018-08-03 13:33 | Outpatient (CLI) | payer MEDICARE, OTHER | END 2018-08-03 13:34 | disposition home or self-care (01) | LOC: LAB.F 13:33 | PROVIDERS: ATTEND Family Medicine | DX: I48.91 Unspecified atrial fibrillation (principal) | CPT/HCPCS: 85610 ==

== ENCOUNTER 2018-08-12 08:00 | Outpatient (CLI) | payer MEDICARE, OTHER | END 2018-08-12 23:59 | disposition home or self-care (01) | LOC: LAB.F 08:00 | PROVIDERS: ATTEND Family Medicine | DX: I48.91 Unspecified atrial fibrillation (principal) | CPT/HCPCS: 85610 ==

== ENCOUNTER 2018-08-22 10:24 | Outpatient (CLI) | payer MEDICARE, OTHER | END 2018-08-22 10:25 | disposition home or self-care (01) | LOC: LAB.S 10:24 | PROVIDERS: ATTEND Family Medicine | DX: I48.91 Unspecified atrial fibrillation (principal) | CPT/HCPCS: 85610 ==

== ENCOUNTER 2018-09-05 10:24 | Outpatient (CLI) | payer MEDICARE, OTHER | END 2018-09-05 10:25 | disposition home or self-care (01) | LOC: LAB.S 10:24 | PROVIDERS: ATTEND Internal Medicine | DX: I48.91 Unspecified atrial fibrillation (principal) | CPT/HCPCS: 85610 ==

== ENCOUNTER 2018-09-19 11:33 | Outpatient (CLI) | payer MEDICARE, OTHER | END 2018-09-19 11:34 | disposition home or self-care (01) | LOC: LAB.S 11:33 | PROVIDERS: ATTEND Family Medicine | DX: I48.91 Unspecified atrial fibrillation (principal) | CPT/HCPCS: 85610 ==

== ENCOUNTER 2018-09-26 | Outpatient (CLI) | payer MEDICARE, OTHER | END 2018-09-26 10:26 | disposition home or self-care (01) | DX: I48.91 Unspecified atrial fibrillation (principal) ==

== ENCOUNTER 2018-10-03 11:13 | Outpatient (CLI) | payer MEDICARE, OTHER | END 2018-10-03 11:14 | disposition home or self-care (01) | LOC: LAB.S 11:13 | PROVIDERS: ATTEND Family Medicine | DX: I48.91 Unspecified atrial fibrillation (principal) | CPT/HCPCS: 85610 ==

== ENCOUNTER 2018-10-10 09:20 | Outpatient (CLI) | payer MEDICARE, OTHER | END 2018-10-10 09:21 | disposition home or self-care (01) | LOC: LAB.S 09:20 | PROVIDERS: ATTEND Family Medicine | DX: I48.91 Unspecified atrial fibrillation (principal) | CPT/HCPCS: 85610 ==

== ENCOUNTER 2018-10-17 11:15 | Outpatient (CLI) | payer MEDICARE, OTHER | END 2018-10-17 11:16 | disposition home or self-care (01) | LOC: LAB.S 11:15 | PROVIDERS: ATTEND Family Medicine | DX: I48.91 Unspecified atrial fibrillation (principal) | CPT/HCPCS: 85610 ==

== ENCOUNTER 2018-10-25 11:07 | Outpatient (CLI) | payer MEDICARE, OTHER | END 2018-10-25 11:08 | disposition home or self-care (01) | LOC: LAB.S 11:07 | PROVIDERS: ATTEND Family Medicine | DX: I48.91 Unspecified atrial fibrillation (principal) | CPT/HCPCS: 85610 ==

== ENCOUNTER 2018-10-31 11:16 | Outpatient (CLI) | payer MEDICARE, OTHER | END 2018-10-31 11:17 | disposition home or self-care (01) | LOC: LAB.S 11:16 | PROVIDERS: ATTEND Family Medicine | DX: I48.91 Unspecified atrial fibrillation (principal) | CPT/HCPCS: 85610 ==

== ENCOUNTER 2018-11-10 11:22 | Outpatient (CLI) | payer MEDICARE, OTHER | END 2018-11-10 11:23 | disposition home or self-care (01) | LOC: LAB.S 11:22 | PROVIDERS: ATTEND Family Medicine | DX: I48.91 Unspecified atrial fibrillation (principal) | CPT/HCPCS: 85610 ==

== ENCOUNTER 2018-11-21 10:11 | Outpatient (CLI) | payer MEDICARE, OTHER ==
--- NOTE | 2018-11-22 14:33 | Mammography Report ---
Reason: SCREENING FOR MALIGNANT NEOPLASM OF BREAST Procedure Date: 11/21/2018 Accession Number: [id number] / [id number] Procedure: MGS - Screening Mammo Dig Bilat CPT Code: FULL RESULT: EXAM: Screening Mammo Dig Bilat DATE: 11/21/2018 10:39 AM CLINICAL HISTORY: Screening TECHNIQUE: (B) - Bilateral CC and MLO views were obtained. COMPARISON: None PARENCHYMAL PATTERN: (A) - The breasts demonstrate scattered fibroglandular densities bilaterally. FINDINGS: There are no suspicious masses, calcifications, or areas of distortion. IMPRESSION: Negative examination. BI-RADS category 1. RECOMMENDATION: (ANNUAL) - Recommend routine annual screening mammography. BI-RADS CATEGORY: (1) - Negative. STANDARD QUALIFYING STATEMENTS: 1. This examination was reviewed with the aid of Computer-Aided Detection (CAD). 2. A negative or benign imaging report should not preclude biopsy if clinically suspicious findings are present. 3. Dense breasts may obscure an underlying neoplasm. 4. This examination was reviewed without the aid of 3D breast imaging (tomosynthesis).
== END 2018-11-21 10:12 | disposition home or self-care (01) ==
LOC: DI.S 10:11
PROVIDERS: ATTEND Family Medicine
DX: Z12.31 Encounter for screening mammogram for malignant neoplasm of breast (principal)
CPT/HCPCS: 77067

== ENCOUNTER 2018-11-23 13:58 | Outpatient (CLI) | payer MEDICARE, OTHER | END 2018-11-23 13:59 | disposition home or self-care (01) | LOC: LAB.S 13:58 | PROVIDERS: ATTEND Family Medicine | DX: I48.91 Unspecified atrial fibrillation (principal) | CPT/HCPCS: 85610 ==

== ENCOUNTER 2018-12-05 11:34 | Outpatient (CLI) | payer MEDICARE, OTHER | END 2018-12-05 11:35 | disposition home or self-care (01) | LOC: LAB.S 11:34 | PROVIDERS: ATTEND Family Medicine | DX: I48.91 Unspecified atrial fibrillation (principal) | CPT/HCPCS: 85610 ==

== ENCOUNTER 2018-12-16 11:32 | Inpatient (IN) | payer MEDICARE, OTHER ==
[2018-12-16 12:22] LABS: BASOPHILS % (AUTO) 0.2 %; EOSINOPHILS % (AUTO) 0.2 %; HGB - HEMOGLOBIN 16.3 g/dL (12.0-16.0); LYMPHOCYTES # (AUTO) 0.3 10^3/uL (1.5-3.5); LYMPHOCYTES % (AUTO) 1.7 %; MEAN CORPUSCULAR HEMOGLOBIN 27.8 pg (27.0-31.0); MEAN CORPUSCULAR VOLUME 86.7 fL (81.0-99.0); MEAN PLATELET VOLUME 11.5 fL (7.9-10.8); MONOCYTES % (AUTO) 5.4 %; NEUTROPHILS # (AUTO) 16.3 10^3/uL (1.5-6.6); NEUTROPHILS % (AUTO) 91.7 %; PLT - PLATELET COUNT 265 10^3/uL (130-450); RED BLOOD COUNT 5.87 10^6/uL (4.20-5.40); RED CELL DISTRIBUTION WIDTH 18.3 % (12.0-15.0); WHITE BLOOD COUNT 17.8 x10^3/uL (4.8-10.8)
[2018-12-16 12:38] LABS: ALBUMIN 4.5 g/dL (3.2-5.5); ALBUMIN/GLOBULIN RATIO 1.2 (1.0-2.2); BILIRUBIN,TOTAL 2.1 mg/dL (0.2-1.0); CALCIUM 11.5 mg/dL (8.5-10.3); CREATININE 1.4 mg/dL (0.4-1.0); TOTAL PROTEIN 8.3 g/dL (6.7-8.2)
[2018-12-16] MEDS ORDERED: ONDANSETRON 4 MG/2 ML VIAL IVP STA (12:38)
[2018-12-16] MEDS ORDERED: SODIUM CHLORIDE 0.9% 1,000 ML IV ONE ×2 (12:38)
--- NOTE | 2018-12-16 12:38 | ED Physician Documentation ---
History of Present Illness - Stated complaint Stated Complaint: N/V - Chief complaint Chief Complaint: Abd Pain - History obtained from History obtained from: Patient - History of Present Illness Timing: Today Pain level max: 0 Pain level now: 0 - Additonal information Additional information: 83-year-old female presents to the emergency department stating that she has vomiting for the past 3 days. Unable to keep anything down. Nothing makes it better or worse. She states that she had a bowel obstruction in the past and that this feels similar. No fevers. No coughing. No chills. Has crampy diffuse abdominal pain. Review of Systems Ten Systems: 10 systems reviewed and negative Constitutional: denies: Fever, Chills Cardiac: denies: Chest pain / pressure Respiratory: denies: Cough GI: reports: Nausea, Vomiting : denies: Dysuria, Frequency, Hesitancy Skin: denies: Rash Musculoskeletal: denies: Neck pain, Back pain Neurologic: denies: Headache PD PAST MEDICAL HISTORY - Past Medical History Cardiovascular: Hypertension, Arrhythmia Respiratory: Emphysema, Other Neuro: None, Peripheral neuropathy Endocrine/Autoimmune: Type 2 diabetes GI: GERD, Chronic diarrhea ROOF TILE LAYER: Endometriosis : Incontinence, Nocturia, Frequency HEENT: Chronic vision loss, Chronic sinusitis Psych: None Musculoskeletal: Osteoarthritis Derm: None - Past Surgical History General: Appendectomy, Gastric surgery, Other /ROOF TILE LAYER: Hysterectomy, Oophrectomy - Present Medications Home Medications: Ambulatory Orders Medication Instructions Recorded Confirmed Lisinopril 10 mg PO DAILY 07/02/18 07/03/18 Omeprazole 20 mg PO Q2D@0700 07/03/18 07/03/18 hydroCHLOROthiazide 25 mg PO DAILY 07/03/18 07/03/18 [Hydrochlorothiazide] Albuterol Sulf [Ventolin Hfa 1 - 2 puffs INH Q4HR PRN #1 inhaler 07/11/18 Inhaler] Hydrocodone/Acetaminophen [[place] 1 each PO Q4H PRN #50 tablet 07/11/18 5-325 Tablet] Prednisone 5 mg PO UD #21 tablet 07/11/18 Warfarin [Coumadin] 1 mg PO 1400 #30 tablet 07/11/18 diltiaZEM CD [Cardizem Cd] 240 mg PO DAILY #30 capsule 07/11/18 - Allergies Allergies/Adverse Reactions: Allergies Allergy/AdvReac Type Severity Reaction Status Date / Time iodine Allergy Hives Verified 10/25/19 11:39 - Social History Does the pt smoke?: No Smoking Status: Never smoker Does the pt drink ETOH?: Yes Does the pt have substance abuse?: No - Immunizations Immunizations are current?: Yes - POLST Patient has POLST: No POLST Status: Full Code PD ED PE NORMAL - Vitals Vital signs reviewed: Yes - General General: Alert and oriented X 3, No acute distress - HEENT HEENT: Moist mucous membranes - Neck Neck: Supple, no meningeal sign - Cardiac Cardiac: RRR - Respiratory Respiratory: No respiratory distress, Clear bilaterally - Abdomen Abdomen: Soft, Non distended, Other (Mild diffuse tenderness. No peritoneal signs.) - Derm Derm: Warm and dry - Extremities Extremities: No edema - Neuro Neuro: Alert and oriented X 3 - Psych Psych: Normal mood, Normal affect Results - Vitals Vitals: Vital Signs - 24 hr 12/16/18 12/16/18 11:35 14:57 Temperature 36.8 C Heart Rate 65 81 Respiratory 20 18 Rate Blood Pressure 152/104 H 154/102 H O2 Saturation 95 98 Oxygen O2 Source [Without Activity] Room air O2 Source Room air - Labs Labs: Laboratory Tests 12/16/18 12/16/18 12/16/18 12:18 12:18 12:18 WBC 17.8 H RBC 5.87 H Hgb 16.3 H Hct 50.9 H MCV 86.7 MCH 27.8 MCHC 32.0 RDW 18.3 H Plt Count 265 MPV 11.5 H Neut # (Auto) 16.3 H Lymph # (Auto) 0.3 L Banner # (Auto) 1.0 Eos # (Auto) 0.0 Baso # (Auto) 0.0 Absolute Nucleated RBC 0.00 Nucleated RBC % 0.0 PT 15.7 H INR 1.4 H Sodium 142 Potassium 3.3 L Chloride 94 L Carbon Dioxide 30 Anion Gap 18.0 H BUN 26 H Creatinine 1.4 H Estimated GFR (MDRD) 36 L Glucose 259 H Glycated Hemoglobin Estim Average Glucose Calcium 11.5 H Total Bilirubin 2.1 H AST 24 ALT 18 Alkaline Phosphatase 63 Total Protein 8.3 H Albumin 4.5 Globulin 3.8 Albumin/Globulin Ratio 1.2 Lipase 29 Urine Color Urine Clarity Urine pH Ur Specific [place] Urine Protein Urine Glucose (UA) Urine Ketones Urine Occult Blood Urine Nitrite Urine Bilirubin Urine Urobilinogen Ur Leukocyte Esterase Urine RBC Urine WBC Ur Squamous Epith Cells Urine Bacteria Urine Casts Ur Microscopic Review Urine Culture Comments 12/16/18 12/16/18 12:18 13:45 WBC RBC Hgb Hct MCV MCH MCHC RDW Plt Count MPV Neut # (Auto) Lymph # (Auto) Banner # (Auto) Eos # (Auto) Baso # (Auto) Absolute Nucleated RBC Nucleated RBC % PT INR Sodium Potassium Chloride Carbon Dioxide Anion Gap BUN Creatinine Estimated GFR (MDRD) Glucose Glycated Hemoglobin 6.0 Estim Average Glucose 126 H Calcium Total Bilirubin AST ALT Alkaline Phosphatase Total Protein Albumin Globulin Albumin/Globulin Ratio Lipase Urine Color YELLOW Urine Clarity HAZY Urine pH 7.5 Ur Specific [place] 1.020 Urine Protein 100 H Urine Glucose (UA) 500 H Urine Ketones NEGATIVE Urine Occult Blood SMALL H Urine Nitrite NEGATIVE Urine Bilirubin NEGATIVE Urine Urobilinogen 0.2 (NORMAL) Ur Leukocyte Esterase NEGATIVE Urine RBC 2 Urine WBC 0-3 Ur Squamous Epith Cells RARE Squamous Urine Bacteria Rare Urine Casts 3-5 Hyaline Casts Ur Microscopic Review INDICATED Urine Culture Comments NOT INDICATED - Rads (name of study) CT abdomen pelvis Radiology: Prelim report reviewed, EMP read contemporaneously, See rad report (New moderately dilated and fluid-filled stomach. Findings may reflect gastric outlet obstruction or gastric ileus. Distal esophageal wall thickening consistent with acute esophagitis. New very small left and trace right pleural effusion. Bibasilar increased atelectasis. Aspiration not excluded. Colonic diverticulosis without diverticulitis.) PD MEDICAL DECISION MAKING - ED course Complexity details: reviewed results, re-evaluated patient, considered differential, d/w patient, d/w family, d/w computer systems consultant ED course: 83-year-old female with what appears to be A duodenal ulcer, leading to gastric outlet obstruction. Unable to tolerate p.o. NG tube placed and gastric mary jo nts suctioned. Discussed the case with Dr. Reeder and will accept for admission. Also discussed case with Dr. Gibson, general surgery who will consult. IV Protonix given IV fluids given. She is dehydrated as well. This document was made in part using voice recognition software. While efforts are made to proofread this document, sound alike and grammatical errors may occur. Departure - Departure Disposition: 66 [facility] DC/Xfer Clinical Impression: Gastric outlet obstruction, Esophagitis, Duodenal ulcer Intractable vomiting Qualifiers: Vomiting type: unspecified Nausea presence: unspecified Qualified Code(s): R11.10 - Vomiting, unspecified Condition: Stable Discharge Date/Time: 12/16/18 16:50
[2018-12-16 12:56] LABS: INR 1.4 (0.8-1.2); PT - PROTHROMBIN TIME 15.7 secs (9.9-12.6)
[2018-12-16] MEDS ORDERED: IOVERSOL 320 100 ML VIAL IVP ONE ×2 (13:15→13:40)
[2018-12-16] MEDS ORDERED: PANTOPRAZOLE 40 MG VIAL IVP STA (13:49)
[2018-12-16 13:59] LABS: BILIRUBIN,URINE NEGATIVE (NEGATIVE); GLUCOSE, URINE (UA) 500 mg/dL (NEGATIVE); KETONES,URINE (UA) NEGATIVE (NEGATIVE); LEUKOCYTE ESTERASE, URINE NEGATIVE (NEGATIVE); NITRITE,URINE NEGATIVE (NEGATIVE); OCCULT BLOOD,URINE SMALL (NEGATIVE); PH,URINE 7.5 PH (5.0-7.5); PROTEIN,URINE 100 mg/dL (NEGATIVE); UROBILINOGEN,URINE 0.2 (NORMAL) E.U./dL (NORMAL)
[2018-12-16 14:00] LABS: CLARITY,URINE HAZY (CLEAR)
[2018-12-16 14:07] LABS: BACTERIA,URINE Rare /HPF (None Seen); CASTS, URINE 3-5 Hyaline Casts /LPF; RBC,URINE 2 /HPF (0-5); SQUAMOUS EPITHELIAL CELL,UR RARE Squamous (<= Few)
--- NOTE | 2018-12-16 14:13 | CT Report ---
Reason: abd pain, vomiting Procedure Date: 12/16/2018 Accession Number: [id number] / [id number] Procedure: CT - Abdomen/Pelvis W CPT Code: FULL RESULT: EXAM: CT ABDOMEN AND PELVIS EXAM DATE: 12/16/2018 01:41 PM. CLINICAL HISTORY: Abd pain, vomiting. COMPARISONS: ABDOMEN/PELVIS W/O 07/02/2018 12:51 PM. TECHNIQUE: Routine helical CT imaging was performed through the abdomen and pelvis. IV contrast: OPTI 320 90ML. Enteric contrast: No. Reconstructions: Coronal and sagittal. In accordance with CT protocol optimization, one or more of the following dose reduction techniques were utilized for this exam: automated exposure control, adjustment of mA and/or KV based on patient size, or use of iterative reconstructive technique. FINDINGS: Lung Bases: There is a new very small left and trace right pleural effusion. The distal thoracic esophagus is diffusely thickened. There is new left lower lobe consolidation. Liver: Normal. No masses. Gallbladder/Bile Ducts: Unremarkable. Spleen: Normal. Pancreas: There is pancreatic atrophy with no pancreatic mass or perfusion defect. No surrounding phlegmon. Adrenal Glands: Normal. Kidneys: There is a lobulated contour to both kidneys with renal volume loss. Peritoneal Cavity/Bowel: The stomach is fluid-filled and moderately dilated. The distal duodenum is nondilated. The small bowel is nondilated. There are a moderate number of colonic diverticula. No focal acute diverticulitis. There are findings of previous midline ventral abdominal surgery. There is a focal fat-containing ventral hernia with hernia neck measuring 17 mm in diameter. There is scar tissue along the midline. No herniation of bowel. Pelvic Organs: Urinary bladder is unremarkable. Uterus not visualized. Vasculature: There is diffuse moderate atherosclerotic vascular calcification without aneurysm. Bones: No significant abnormality. Other: None. IMPRESSION: 1. New moderately dilated and fluid-filled stomach. Findings may reflect gastric outlet obstruction or gastric ileus. 2. Distal esophageal wall thickening consistent with acute esophagitis. 3. New very small left and trace right pleural effusion. Bibasilar increased atelectasis. Aspiration not excluded. 4. Colonic diverticulosis without acute diverticulitis. RADIA ADDENDUM: 12/16/18 19:22 In addition, there is circumferential thickening of the wall at the stomach duodenum junction. The wall thickness of the stomach measures 13 mm measured on series 5 image 18. The lumen of the bowel is approximately 5 mm. A component of this thickening and luminal narrowing could be spasm or physiologic contraction, however the degree of stomach dilation increases the likelihood that this is a pathologic finding.
[2018-12-16] MEDS ORDERED: LIDOCAINE TOPICAL 4% 50 ML BOTTLE MM STA (14:45)
[2018-12-16] MEDS ORDERED: ONDANSETRON 4 MG/2 ML VIAL IVP PRN (15:06)
[2018-12-16] MEDS ORDERED: MORPHINE 2 MG/ML CARPUJECT IVP PRN (15:06)
--- NOTE | 2018-12-16 16:03 | HISTORY & PHYSICAL EXAMINATION ---
Chief Complaint - Chief Complaint Chief Complaint: nausea, vomiting, and abdominal pain History of Present Illness - History of Present Illness HPI Comment/Other: Elizabeth Quinonez is a 83-year old female with a past medical history of afib with Coumadin, hypertension, DM type 2, GERD, chronic diarrhea, stable umbilical hernias, and prior SBO who present ER today with complaints of nausea, vomiting, and cramp and abdominal pain. She report she has vomiting for the past 3 days, she report she was unable to keep anything down. she report she had diffuse abdominal pain. she report she can not take her Coumadin or other medications because of vomiting. She states that she had a bowel obstruction in the past and she feels the similar. CT of abdomen reveals new moderately dilated and fluid- filled stomach, findings may reflect gastric outlet obstruction or gastric ileus, distal esophageal wall thickening consistent with acute esophatitis, new left lower lobe consolidation, aspiration was not excluded. pt denies fever, chill, shortness of breath, chest pain, palpitation. Route lab test in ER reveals pt has elevated WBC 17.8, elevated BUN 26, creatinine 1.4, elevated glucose level 259. pt was admitted for above medical reasons. . 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 he father at ago 80. she had three children. 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 Her daughter, Arina lives near-by. She admits to a tobacco history from age [age], denies illicit drug use, and admits to occasional alcohol- wine or beer, only 1 per night. She wishes to be a FULL code. - POLST Patient has POLST: No POLST Status: Full Code Meds/Allgy - Home Medications Home Medications: Ambulatory Orders Medication Instructions Recorded Confirmed Lisinopril 10 mg PO DAILY 07/02/18 07/03/18 Omeprazole 20 mg PO Q2D@0700 07/03/18 07/03/18 hydroCHLOROthiazide 25 mg PO DAILY 07/03/18 07/03/18 [Hydrochlorothiazide] Albuterol Sulf [Ventolin Hfa 1 - 2 puffs INH Q4HR PRN #1 inhaler 07/11/18 Inhaler] Hydrocodone/Acetaminophen [[place] 1 each PO Q4H PRN #50 tablet 07/11/18 5-325 Tablet] Prednisone 5 mg PO UD #21 tablet 07/11/18 Warfarin [Coumadin] 1 mg PO 1400 #30 tablet 07/11/18 diltiaZEM CD [Cardizem Cd] 240 mg PO DAILY #30 capsule 07/11/18 - Allergies Allergies/Adverse Reactions: Allergies Allergy/AdvReac Type Severity Reaction Status Date / Time iodine Allergy Hives Verified 12/16/18 11:39 Review of Systems - Constitutional Constitutional: denies: Fatigue, Fever, Chills, Malaise, Weakness, Poor appetite, Diaphoresis, Night sweats - Eyes Eyes: denies: Pain, Irritation, Amaurosis, Blurred vision, Spots in vision, Field loss, Vision loss, Dipolpia - Ears, Nose & Throat Ears, Nose & Throat: denies: Ear pain, Hearing loss, Hearing aids, Tinnitus, Nasal pain, Nasal discharge, Nosebleeds, Nasal obstruction, Nasal congestion, Postnasal drainage, Dentures, Hoarseness, Mouth lesions, Bleeding gums - Cardiovascular Cariovascular: denies: Irregular heart rate, Palpitations, Chest pain, Edema, Lightheadedness, Syncope, Exertional dyspnea, Decr. exercise tolerance - Respiratory Respiratory: denies: Cough, Sputum production, Wheezing, Snoring, Hemoptysis, Orthopnea, SOB at rest, SOB with exertion, Apnea - Gastrointestinal Gastrointestinal: reports: Abdominal pain, Nausea, Vomiting. denies: Abdominal distention, Constipation, Diarrhea, Change in bowel habits, Rectal bleeding, Black stools, Bloody stools, Bile emesis, David blood emesis, Coffee grounds emesis, Reflux/heartburn, Bloating, Poor appetite - Genitourinary Genitourinary: denies: Dysuria, Frequency, Urgency, Hematuria, Incontinence, Flank pain, Nocturia, Urethral discharge - Musculoskeletal Musculoskeletal: denies: Muscle pain, Back pain, Muscle aches, Stiffness, Limited range of motion, Muscle weakness, Gout, Joint pain - Integumentary Integumentary: denies: Rash, Pruritis, Lesions, Dryness, Lumps, Acne, Pigment changes, Nail changes - Neurological Neurological: denies: General weakness, Focal weakness, Headache, Dizziness, Numbness, Memory problems, Pre-existing deficit, Abnormal gait - Psychiatric Psychiatric: denies: Depression, Anxiety, Suicidal, Delusions, Hallucinations, Homicidal - Endocrine Endocrine: denies: Polyuria, Polydypsia, Polyphagia, Intolerance to cold - Hematologic/Lymphatic Hematologic/Lymphatic: denies: Anemia, Bruising, Petechiae, Blood clots, Lymphadenopathy, Bleeding tendencies Exam - Vital Signs Reviewed Vital Signs: Yes Vital Signs: Vital Signs x48h Temp Pulse Resp BP Pulse Ox 12/16/18 14:57 81 18 154/102 H 98 12/16/18 11:35 36.8 C 65 20 152/104 H 95 - Physical Exam General Appearance: positive: No acute distress, Mild distress. negative: Lethargic Eyes Bilateral: positive: Normal inspection, PERRL, No lid inflammation, Conjunctivae nml ENT: positive: ENT inspection nml, Pharynx nml, No signs of dehydration. negative: Purulent nasal drainage Neck: positive: Nml inspection, Thyroid nml, No JVD, Trachea midline. negative: Thyromegaly, Lymphadenopathy (R), Lymphadenopathy (L), Stiff neck, Tracheal deviation Respiratory: positive: Chest non-tender, No respiratory distress, Breath sounds nml. negative: Wheezes, Rales, Rhonchi Cardiovascular: positive: No murmur, No gallop, Tachycardia. negative: Irregularly irregular, Extrasystoles, Bradycardia, JVD present, Systolic murmur, Diastolic murmur Peripheral Pulses: positive: 2+ Abdomen: positive: Non-tender, No organomegaly, No distention, Abnml bowel sounds (hypoactive bowel sounds). negative: Nml bowel sounds, Tenderness, Guarding, Rebound Back: positive: Nml inspection. negative: CVA tenderness (R), CVA tenderness (L) Skin: positive: Color nml, No rash, Warm, Dry. negative: Cyanosis, Diaphoresis, Pallor Extremities: positive: Non-tender, Nml appearance. negative: Calf tenderness, Stephan's sign/cords Neurologic/Psychiatric: positive: Oriented x3, Sensation nml, Mood/affect nml. negative: Weakness, Sensory loss, Facial droop, Slurred/abnml speech, Depressed mood/affect Sepsis Event Note (H) - Evaluation Current Stage of Sepsis: Ruled out Conclusion/Plan - Problem List (1) Gastric outlet obstruction Conclusion/Plan: CT reveals gastric outlet obstruction or gastric ileus. consulted with Dr. Villanueva by ER. Dr. Villanueva came to hospitalist office state pt is not good candidate for surgery, please do not consult to him for surgery, he did surgery for pt before, he know her conditions. he suggest bowel rest, NG tube, give pt PPI. plan: NPO, IVF, NG tube, protonix IV, Reglan and Zofran PRN for N/V discuss with nurse and pt the care plan, encourage pt safely ambulate, reduce opiates usage. (2) Nausea & vomiting Conclusion/Plan: it is most likely caused by SBO. Plan: reglan and Zofran PRN, IVF of NS, daily lab and vital monitor (3) Esophagitis Conclusion/Plan: CT of abdomen reveals distal acute esophagitis. plan: PPI IV, NPO, IVF of NS (4) Pneumonia Conclusion/Plan: pt had elevated WBC, CT reveals left lower lobe consolidation, aspiration not excluded from pt's N/V plan: Zosyn, vital monitor, lab monitor (5) Atrial fibrillation with rapid ventricular response Conclusion/Plan: pt report because of her N/V, she could not take her home meds. Her HR is running around 110-140. INR is 1.4 now. pt denies chest pain, palpitation. Plan: on tele, vital monitor; once Cardizem IV, and PRN metoprolol. pt has home meds 240mg cardizem( but not verified by pharmacy yet) (6) Dehydration Conclusion/Plan: pt had increase creatinine and BUN. it was likely caused by pt's N/V hydration by IVF of NS lab and vital monitor (7) Diabetes Conclusion/Plan: pt had hx of DM2 but not on medications per pt report. but pt has elevated glucose level at 259 plan: [facility] to check glucose level, hypoglycemia protocol. pt is on NPO now (8) HTN (hypertension) Conclusion/Plan: pt is slight elevated BP. pt took Lisinopril. Plan: Cardizem iV, PRN metoprolol IV (9) Full code status Conclusion/Plan: pt request full code now - Lab Results Fish Bones: 12/16/18 12:18 12/16/18 12:18 Core Measures - Anticipated LOS I expect patient to be DC'd or transferred within 96 hours.: Yes - DVT/VTE - Prophylaxis VTE/DVT Device ordered at admit?: Yes VTE/DVT Prophylaxis med ordered at admit?: Yes
[2018-12-16 16:33] LABS: HB2 TOTAL 17.5 g/dL; HEMOGLOBIN A1C 0.74 g/dL
[2018-12-16] MEDS ORDERED: POTASSIUM CHLOR 10 MEQ/100 ML 10 MEQ/100 ML BAG IV ONE (16:58)
[2018-12-16] MEDS ORDERED: AMPICILLIN/SULBACTAM 1.5 GM in SODIUM CHLORIDE 0.9% MINIBAG 100 ML IV SCH (17:00)
[2018-12-16] MEDS: SODIUM CHLORIDE 0.9% 1,000 ML IV SCH (17:10)
[2018-12-16] MEDS: SODIUM CHLORIDE FLUSH 0.9% 10 ML SYRINGE IVP SCH (17:28)
[2018-12-16] MEDS ORDERED: diltiaZEM INJ 5 MG/ML VIAL IVP ONE ×2 (17:30→20:44)
[2018-12-16] MEDS ORDERED: METOCLOPRAMIDE 10 MG/2 ML VIAL IVP PRN (17:31)
[2018-12-16] MEDS: POTASSIUM CHLOR 10 MEQ/100 ML 10 MEQ/100 ML BAG IV SCH ×2 (17:45→18:45)
[2018-12-16] MEDS ORDERED: PIPERACILLIN/TAZOBACTAM 3.375 GM in SODIUM CHLORIDE 0.9% MINIBAG 100 ML IV ONE (18:00)
[2018-12-16] MEDS: METOPROLOL 5 MG/5 ML VIAL IVP PRN (18:11)
--- NOTE | 2018-12-16 21:02 | XRAY Report ---
Reason: NGT verification Procedure Date: 12/16/2018 Accession Number: [id number] / [id number] Procedure: XR - Chest for Line Placement CPT Code: FULL RESULT: EXAM: CHEST RADIOGRAPHY EXAM DATE: 12/16/2018 07:55 PM. CLINICAL HISTORY: NGT verification. COMPARISON: CHEST 1 VIEW 07/05/2018 9:26 AM. TECHNIQUE: 1 view. FINDINGS: Lines and tubes: Suction tube terminates approximately at the level of the gastroesophageal junction. Lungs/Pleura: Mild blunting of the costophrenic angles bilaterally. No horacio consolidation. No pneumothorax. Mediastinum: Heart size within normal limits given technique. Osseous structures: None. IMPRESSION: 1. NG suction tube terminates at the gastroesophageal junction. 2. Mild blunting of the costophrenic angles bilaterally Seen with pleural thickening/scarring or trace pleural effusions. [facility]
[2018-12-16] MEDS: PANTOPRAZOLE 40 MG VIAL IVP SCH (21:28)
[2018-12-16] MEDS: HEPARIN 5,000 UNIT/ML VIAL SUBQ SCH (21:28)
[2018-12-16] MEDS ORDERED: METOPROLOL 5 MG/5 ML VIAL IVP STA (21:55)
[2018-12-16] MEDS ORDERED: PIPERACILLIN/TAZOBACTAM 3.375 GM in SODIUM CHLORIDE 0.9% MINIBAG 100 ML IV SCH (22:00)
--- NOTE | 2018-12-16 22:04 | XRAY Report ---
Reason: ng tube placement/ repositioned Procedure Date: 12/16/2018 Accession Number: [id number] / [id number] Procedure: XR - Chest for Line Placement CPT Code: FULL RESULT: EXAM: CHEST RADIOGRAPHY EXAM DATE: 12/16/2018 09:24 PM. CLINICAL HISTORY: Status post NG tube repositioning. COMPARISON: CHEST 1 VIEW 12/16/2018 7:27 PM. TECHNIQUE: 1 view. FINDINGS/ IMPRESSION: 1. Nasogastric tube again seen coiled in the pharynx with tip at the gastroesophageal junction. Recommend removal and reattempt placement. 2. The lungs are hypoventilatory with compressive changes. 3. Again retrocardiac consolidation with question of trace pleural effusion. Correlate clinically for atelectasis versus infection or aspiration. 4. Unchanged cardiomegaly. The aorta is calcified and tortuous. 5. Otherwise, no significant change. No pneumothorax. [facility] The call report notification system was initiated by Dr. Justin Durant at 09:59 PM on 12/16/2018. ADDENDUM: 12/16/18 22:08 Findings discussed with Nicole Ma RN patient's nurse at 10:06 PM on 12/16/18
[2018-12-16] MEDS ORDERED: BENZOCAINE/TETRACAINE/BUTAMBEN 20 GM ONE (22:40)
[2018-12-16] MEDS ORDERED: BENZOCAINE/TETRACAINE/BUTAMBEN 20 GM TOP SCH (23:00)
--- NOTE | 2018-12-16 23:58 | XRAY Report ---
Reason: new NGT placement check Procedure Date: 12/16/2018 Accession Number: [id number] / [id number] Procedure: XR - Chest for Line Placement CPT Code: FULL RESULT: EXAM: CHEST RADIOGRAPHY EXAM DATE: 12/16/2018 11:16 PM. CLINICAL HISTORY: New NGT placement check. COMPARISON: CHEST FOR LINE PLACEMENT 12/16/2018 9:05 PM. TECHNIQUE: 1 view. FINDINGS: Lungs/Pleura: There is an infiltrative zone of atelectasis of the left lung base with a continuous pleural effusion. Mediastinum: Within exam limitations, the cardiomediastinal contour is normal. Other: NGT traverses through the thorax. The distal aspect of the NG tube is not clearly apparent on this study. IMPRESSION: 1. Infiltrate/atelectasis at the left lung base with a continuous pleural effusion. [facility]
[2018-12-17] MEDS ORDERED: diltiaZEM INJ 125 MG in DEXTROSE 5% 100 ML IV SCH ×2
[2018-12-17] MEDS ORDERED: diltiaZEM INJ 5 MG/ML VIAL ONE (00:14)
[2018-12-17] MEDS: AMPICILLIN/SULBACTAM 1.5 GM in SODIUM CHLORIDE 0.9% MINIBAG 100 ML IV SCH ×5 (01:40→23:33)
[2018-12-17] MEDS: SODIUM CHLORIDE 0.9% 1,000 ML IV SCH (01:46)
[2018-12-17] MEDS: SODIUM CHLORIDE FLUSH 0.9% 10 ML SYRINGE IVP PRN ×2 (01:56→03:51)
[2018-12-17] MEDS: SODIUM CHLORIDE FLUSH 0.9% 10 ML SYRINGE IVP SCH ×4 (01:56→20:17)
[2018-12-17] MEDS: METOPROLOL 5 MG/5 ML VIAL IVP PRN (03:45)
[2018-12-17 05:44] LABS: INR 1.7 (0.8-1.2); PT - PROTHROMBIN TIME 18.7 secs (9.9-12.6)
[2018-12-17 05:47] LABS: BASOPHILS % (AUTO) 0.3 %; EOSINOPHILS % (AUTO) 0.1 %; HGB - HEMOGLOBIN 12.5 g/dL (12.0-16.0); LYMPHOCYTES # (AUTO) 1.1 10^3/uL (1.5-3.5); LYMPHOCYTES % (AUTO) 7.3 %; MEAN CORPUSCULAR HEMOGLOBIN 28.9 pg (27.0-31.0); MEAN CORPUSCULAR VOLUME 87.7 fL (81.0-99.0); MEAN PLATELET VOLUME 11.5 fL (7.9-10.8); MONOCYTES # (AUTO) 1.1 10^3/uL (0.0-1.0); MONOCYTES % (AUTO) 7.1 %; NEUTROPHILS # (AUTO) 12.5 10^3/uL (1.5-6.6); NEUTROPHILS % (AUTO) 84.6 %; PLT - PLATELET COUNT 205 10^3/uL (130-450); RED BLOOD COUNT 4.32 10^6/uL (4.20-5.40); RED CELL DISTRIBUTION WIDTH 16.8 % (12.0-15.0); WHITE BLOOD COUNT 14.7 x10^3/uL (4.8-10.8)
[2018-12-17 05:57] LABS: ALBUMIN 3.1 g/dL (3.2-5.5); ALBUMIN/GLOBULIN RATIO 1.1 (1.0-2.2); BILIRUBIN,TOTAL 1.2 mg/dL (0.2-1.0); CALCIUM 9.1 mg/dL (8.5-10.3); CREATININE 1.1 mg/dL (0.4-1.0); MAGNESIUM 1.1 mg/dL (1.7-2.8)
[2018-12-17] MEDS: PANTOPRAZOLE 40 MG VIAL IVP SCH ×2 (08:11→20:16)
[2018-12-17] MEDS: HEPARIN 5,000 UNIT/ML VIAL SUBQ SCH ×2 (08:11→20:16)
[2018-12-17] MEDS: POLYETHYLENE GLYCOL 3350 17 GM PACKET PO SCH (08:12)
[2018-12-17] MEDS: diltiaZEM INJ 125 MG in DEXTROSE 5% 100 ML IV SCH ×2 (08:13→20:23)
[2018-12-17] MEDS: MAGNESIUM SULFATE 2 GRAM 2 GM/50 ML BAG IV SCH ×2 (09:35→10:57)
--- NOTE | 2018-12-17 12:14 | PROVIDER PROGRESS NOTE ---
Assessment/Plan - Problem List (1) Gastric outlet obstruction Assessment/Plan: Bowel rest with npo status, ng tube for decompression and awaiting Gen Surgical consult today for a possible EGD. All her meds are iv form. The note from the Hospitalist Provider, Prasanth Jiménez NP, yesterday stated "Dr. Villanueva came to hospitalist office state pt is not good candidate for surgery, please do not consult to him for surgery, he did surgery for pt before, he know her conditions. he suggest bowel rest, NG tube, give pt PPI." I spoke to Dr Gibson today, and there was no refusal to see the patient in consult, the CARDIOLOGY PHYSICIAN ASSISTANT misunderstood. Dr Gibson told the CARDIOLOGY PHYSICIAN ASSISTANT that no EGD is needed since the imaging shows a classic presentation of a pyloric channel ulcer in a patient who has had prior ulcers and does not take her PPI meds. Dr Gibson indeed advised ng tube decompression, bowel rest and PPI iv bid treatment until she can take po meds. I called today's on-call surgeon, Dr Pam Molina and told her that. (2) Esophagitis Assessment/Plan: The CT also showed esophageal wall thickening c/w esophagitis. The patient did get heartburn when she tried ice chops today. Continue PPI, . Will also consider Sucralfate, when the obstruction is relieved. (3) Atrial fibrillation with rapid ventricular response Assessment/Plan: Her meds did not stay down for several days, due to N/V. The INR was 1.4 at admission, and she is not on anticoagulants now in order to have EGD, in case biopsies or dilation are needed. Rapid Afib needed management with an iv Diltiazem drip, and therefore she was transferred to the ICU last night. Will continue the iv drip for rate control, so she has satble VS to undergo conscious sedation for an EGD. (4) Aspiration pneumonia Assessment/Plan: The pneumonia is felt to be from vomiting, therefore aspiration. No sputum production or cough. She was started on Unasyn iv (5) TIFFANI (acute kidney injury) Assessment/Plan: She was dehydrated from vomitong for several days. BUN/creat are improving slowly. iv saline 2 bags completed. Will start D5 1/2 NS iv maintenance fluids, while she is NPO (6) Diabetes Assessment/Plan: Glu checks are in the 130's. Will start peripheral glu with D5 in the iv fluids. NPO continues. Fingerstick checks and ss Insulin ordered if needed. (7) HTN (hypertension) Assessment/Plan: At home, she was on Liinopril. Here the current Diltiazem drip is controlling BP. - Current Meds Current Meds: Current Medications Generic Name Dose Route Start Last Admin Trade Name Freq PRN Reason Stop Dose Admin Heparin Sodium (Porcine) 5,000 unit 12/16/18 21:00 12/17/18 08:11 SUBQ 5,000 unit BID NESSA Administration Sodium Chloride 1,000 mls @ 100 mls/hr 12/16/18 17:00 12/17/18 12:08 Normal Saline 0.9% IV 12/17/18 12:59 Infused .Q10H NESSA Infusion Ampicillin Sodium/Sulbactam 100 mls @ 200 mls/hr 12/17/18 00:00 12/17/18 12:02 Sodium 1.5 gm/ Sodium Chloride IV 200 mls/hr Q6HR NESSA Administration Diltiazem HCl 125 mg/ Dextrose 125 mls @ 5 mls/hr 12/17/18 08:30 12/17/18 08:13 IV 12.5 mg/hr .Q25H NESSA 12.5 mls/hr Administration Protocol 5 MG/HR Metoprolol Tartrate 5 mg 12/16/18 17:34 12/17/18 03:45 Lopressor Inj IVP 5 mg Q6H PRN Administration Hypertensive Emergency Pantoprazole Sodium 40 mg 12/16/18 21:00 12/17/18 08:11 Protonix IVP 40 mg BID NESSA Administration Polyethylene Glycol 17 gm 12/17/18 09:00 12/17/18 08:12 Miralax PO Not Given DAILY NESSA Sodium Chloride 10 ml 12/16/18 15:06 12/17/18 03:51 Normal Saline Flush 0.9% IVP 10 ml PRN PRN Administration NEEDED PER PROVIDER ORDERS Sodium Chloride 10 ml 12/16/18 17:00 12/17/18 08:11 Normal Saline Flush 0.9% IVP 10 ml 0100,0900,1700 NESSA Administration - Lab Result Fish Bone Diagrams: 12/17/18 05:30 12/17/18 05:30 - Additional Planning My Orders: My Active Orders 12/17/18 08:38 NG Tube Care [RC] Q4HR 12/17/18 13:00 D5.45NS @ 83.333 mls/hr Dextrose 5%-0.45% NaCl [D5.45ns] 1,000 ml IV 83.333 mls/hr Subjective - Subjective Patient Reports: Feeling Better, Heartburn Nursing Reports: Other (No further N/V) Objective Vital Signs: Vital Signs - 24 hr 12/16/18 12/16/18 12/16/18 14:57 16:38 17:25 Temperature 36.9 C Heart Rate 81 Heart Rate [ 68 Monitoring electrodes] Respiratory 18 24 Rate Blood Pressure 154/102 H 153/72 H Blood Pressure 167/99 H [Right Brachial artery] O2 Saturation 98 97 12/16/18 12/16/18 12/16/18 17:38 17:45 17:50 Temperature Heart Rate Heart Rate [ 140 H 160 H 120 H Monitoring electrodes] Respiratory Rate Blood Pressure Blood Pressure 143/77 H 162/83 H 153/78 H [Right Brachial artery] O2 Saturation 12/16/18 12/16/18 12/16/18 17:55 18:00 18:05 Temperature Heart Rate Heart Rate [ 122 H 124 H 136 H Monitoring electrodes] Respiratory Rate Blood Pressure Blood Pressure 132/80 H 146/87 H 124/72 [Right Brachial artery] O2 Saturation 12/16/18 12/16/18 12/16/18 18:11 19:56 20:10 Temperature 37.4 C 37.2 C Heart Rate 124 H Heart Rate [ 111 H Monitoring electrodes] Respiratory 18 18 Rate Blood Pressure 143/65 H Blood Pressure 148/82 H [Right Brachial artery] O2 Saturation 92 92 12/16/18 12/16/18 12/16/18 20:50 21:01 21:06 Temperature Heart Rate Heart Rate [ 118 H 125 H Monitoring electrodes] Respiratory Rate Blood Pressure 139/80 H Blood Pressure 111/74 117/58 L [Right Brachial artery] O2 Saturation 12/16/18 12/16/18 12/16/18 21:11 22:08 22:15 Temperature Heart Rate Heart Rate [ 118 H 133 H Monitoring electrodes] Respiratory Rate Blood Pressure 126/53 L Blood Pressure 117/64 135/69 H [Right Brachial artery] O2 Saturation 12/16/18 12/16/18 12/16/18 22:20 22:25 23:59 Temperature 37.2 C Heart Rate Heart Rate [ 124 H 152 H 154 H Monitoring electrodes] Respiratory 18 Rate Blood Pressure Blood Pressure 117/72 101/81 H 119/80 [Right Brachial artery] O2 Saturation 93 12/17/18 12/17/18 12/17/18 00:23 00:25 00:30 Temperature Heart Rate Heart Rate [ 132 H 138 H 139 H Monitoring electrodes] Respiratory 25 H 19 22 Rate Blood Pressure Blood Pressure 118/75 125/68 131/78 H [Right Brachial artery] O2 Saturation 93 95 39 L 12/17/18 12/17/18 12/17/18 00:35 00:40 00:45 Temperature Heart Rate Heart Rate [ 137 H 139 H 92 Monitoring electrodes] Respiratory 25 H 23 26 H Rate Blood Pressure Blood Pressure 129/76 121/71 121/66 [Right Brachial artery] O2 Saturation 92 92 92 12/17/18 12/17/18 12/17/18 00:50 00:55 01:00 Temperature Heart Rate Heart Rate [ 145 H 137 H 141 H Monitoring electrodes] Respiratory 26 H 23 22 Rate Blood Pressure Blood Pressure 127/70 128/77 134/88 H [Right Brachial artery] O2 Saturation 93 93 92 12/17/18 12/17/18 12/17/18 01:05 01:10 01:15 Temperature Heart Rate Heart Rate [ 136 H 139 H 135 H Monitoring electrodes] Respiratory 25 H 23 25 H Rate Blood Pressure Blood Pressure 116/77 122/69 119/75 [Right Brachial artery] O2 Saturation 92 12/17/18 12/17/18 12/17/18 01:20 01:25 01:52 Temperature Heart Rate Heart Rate [ 133 H 135 H 129 H Monitoring electrodes] Respiratory 25 H 25 H 25 H Rate Blood Pressure Blood Pressure 116/78 130/70 133/69 H [Right Brachial artery] O2 Saturation 91 L 12/17/18 12/17/18 12/17/18 01:55 02:00 02:05 Temperature Heart Rate Heart Rate [ 134 H 127 H 121 H Monitoring electrodes] Respiratory 26 H 28 H 23 Rate Blood Pressure Blood Pressure 129/67 113/63 133/82 H [Right Brachial artery] O2 Saturation 90 L 89 L 95 12/17/18 12/17/18 12/17/18 02:10 02:15 02:20 Temperature Heart Rate Heart Rate [ 123 H 126 H 117 H Monitoring electrodes] Respiratory 22 24 25 H Rate Blood Pressure Blood Pressure 122/76 108/76 120/65 [Right Brachial artery] O2 Saturation 96 96 96 12/17/18 12/17/18 12/17/18 02:25 02:30 02:35 Temperature Heart Rate Heart Rate [ 125 H 115 H 119 H Monitoring electrodes] Respiratory 23 25 H 25 H Rate Blood Pressure Blood Pressure 123/62 122/68 120/71 [Right Brachial artery] O2 Saturation 96 97 96 12/17/18 12/17/18 12/17/18 02:40 02:45 02:50 Temperature Heart Rate Heart Rate [ 129 H 123 H 95 Monitoring electrodes] Respiratory 25 H 25 H 24 Rate Blood Pressure Blood Pressure 125/64 114/69 128/76 [Right Brachial artery] O2 Saturation 94 94 95 12/17/18 12/17/18 12/17/18 03:00 03:45 04:00 Temperature Heart Rate Heart Rate [ 121 H 101 H Monitoring electrodes] Respiratory 25 H 20 Rate Blood Pressure 121/77 Blood Pressure 131/52 H 112/67 [Right Brachial artery] O2 Saturation 95 94 12/17/18 12/17/18 12/17/18 04:15 05:00 06:06 Temperature 37.1 C Heart Rate Heart Rate [ 96 102 H Monitoring electrodes] Respiratory 27 H 25 H Rate Blood Pressure 113/61 Blood Pressure 118/49 L 108/98 H [Right Brachial artery] O2 Saturation 94 96 12/17/18 12/17/18 12/17/18 07:00 08:00 08:13 Temperature 37.1 C Heart Rate Heart Rate [ 85 88 Monitoring electrodes] Respiratory 27 H 20 Rate Blood Pressure 122/64 Blood Pressure 114/54 L 122/64 [Right Brachial artery] O2 Saturation 94 96 12/17/18 12/17/18 12/17/18 09:00 10:00 11:00 Temperature Heart Rate Heart Rate [ 102 H 100 92 Monitoring electrodes] Respiratory 25 H 24 24 Rate Blood Pressure Blood Pressure 133/56 H 124/63 118/61 [Right Brachial artery] O2 Saturation 95 96 95 12/17/18 12:00 Temperature 36.6 C Heart Rate Heart Rate [ 90 Monitoring electrodes] Respiratory 22 Rate Blood Pressure Blood Pressure 118/63 [Right Brachial artery] O2 Saturation 94 Oxygen O2 Source [Without Activity] Room air O2 Source Nasal cannula I&O (Last 24 Hrs): Intake and Output Totals x24h 12/15/18 12/16/18 12/17/18 23:59 23:59 23:59 Intake Total 1300 2375.000 Output Total 250 250 Balance 1050 2125.000 General: Alert HEENT: Mucous membr. moist/pink, Other (ng in place) Neck: Supple Neuro: Non Focal Cardiovascular: Regular rate Respiratory: No respiratory distress Abdomen: Normal bowel sounds Extremities: No edema - Results Results: Laboratory Results WBC 14.7 x10^3/uL (4.8-10.8) H 12/17/18 05:30 RBC 4.32 10^6/uL (4.20-5.40) 12/17/18 05:30 Hgb 12.5 g/dL (12.0-16.0) 12/17/18 05:30 Hct 37.9 % (37.0-47.0) 12/17/18 05:30 MCV 87.7 fL (81.0-99.0) 12/17/18 05:30 MCH 28.9 pg (27.0-31.0) 12/17/18 05:30 MCHC 33.0 g/dL (32.0-36.0) 12/17/18 05:30 RDW 16.8 % (12.0-15.0) H 12/17/18 05:30 Plt Count 205 10^3/uL (130-450) 12/17/18 05:30 MPV 11.5 fL (7.9-10.8) H 12/17/18 05:30 Neut # (Auto) 12.5 10^3/uL (1.5-6.6) H 12/17/18 05:30 Lymph # (Auto) 1.1 10^3/uL (1.5-3.5) L 12/17/18 05:30 [place] # (Auto) 1.1 10^3/uL (0.0-1.0) H 12/17/18 05:30 Eos # (Auto) 0.0 10^3/uL (0.0-0.7) 12/17/18 05:30 Baso # (Auto) 0.0 10^3/uL (0.0-0.1) 12/17/18 05:30 Absolute Nucleated RBC 0.00 x10^3/uL 12/17/18 05:30 Nucleated RBC % 0.0 /100WBC 12/17/18 05:30 PT 18.7 secs (9.9-12.6) H 12/17/18 05:30 INR 1.7 (0.8-1.2) H 12/17/18 05:30 Sodium 139 mmol/L (135-145) 12/17/18 05:30 Potassium 4.0 mmol/L (3.5-5.0) 12/17/18 05:30 Chloride 106 mmol/L (101-111) 12/17/18 05:30 Carbon Dioxide 25 mmol/L (21-32) 12/17/18 05:30 Anion Gap 8.0 (6-13) 12/17/18 05:30 BUN 30 mg/dL (6-20) H 12/17/18 05:30 Creatinine 1.1 mg/dL (0.4-1.0) H 12/17/18 05:30 Estimated GFR (MDRD) 47 (>89) L 12/17/18 05:30 Glucose 142 mg/dL (70-100) H 12/17/18 05:30 POC Whole Bld Glucose 123 mg/dL (70 - 100) H 12/17/18 12:03 Glycated Hemoglobin 6.0 % (4.6-6.2) 12/16/18 12:18 Estim Average Glucose 126 (70-100) H 12/16/18 12:18 Calcium 9.1 mg/dL (8.5-10.3) 12/17/18 05:30 Magnesium 1.1 mg/dL (1.7-2.8) L 12/17/18 05:30 Total Bilirubin 1.2 mg/dL (0.2-1.0) H 12/17/18 05:30 AST 12 IU/L (10-42) 12/17/18 05:30 ALT 11 IU/L (10-60) 12/17/18 05:30 Alkaline Phosphatase 37 IU/L (42-121) L 12/17/18 05:30 Total Protein 6.0 g/dL (6.7-8.2) L 12/17/18 05:30 Albumin 3.1 g/dL (3.2-5.5) L 12/17/18 05:30 Globulin 2.9 g/dL (2.1-4.2) 12/17/18 05:30 Albumin/Globulin Ratio 1.1 (1.0-2.2) 12/17/18 05:30 Lipase 29 U/L (22-51) 12/16/18 12:18 Urine Color YELLOW 12/16/18 13:45 Urine Clarity HAZY (CLEAR) 12/16/18 13:45 Urine pH 7.5 PH (5.0-7.5) 12/16/18 13:45 Ur Specific [place] 1.020 (1.002-1.030) 12/16/18 13:45 Urine Protein 100 mg/dL (NEGATIVE) H 12/16/18 13:45 Urine Glucose (UA) 500 mg/dL (NEGATIVE) H 12/16/18 13:45 Urine Ketones NEGATIVE mg/dL (NEGATIVE) 12/16/18 13:45 Urine Occult Blood SMALL (NEGATIVE) H 12/16/18 13:45 Urine Nitrite NEGATIVE (NEGATIVE) 12/16/18 13:45 Urine Bilirubin NEGATIVE (NEGATIVE) 12/16/18 13:45 Urine Urobilinogen 0.2 (NORMAL) E.U./dL (NORMAL) 12/16/18 13:45 Ur Leukocyte Esterase NEGATIVE (NEGATIVE) 12/16/18 13:45 Urine RBC 2 /HPF (0-5) 12/16/18 13:45 Urine WBC 0-3 /HPF (0-5) 12/16/18 13:45 Ur Squamous Epith Cells RARE Squamous (<= Few) 12/16/18 13:45 Urine Bacteria Rare /HPF (None Seen) 12/16/18 13:45 Urine Casts 3-5 Hyaline Casts /LPF 12/16/18 13:45 Ur Microscopic Review INDICATED 12/16/18 13:45 Urine Culture Comments NOT INDICATED 12/16/18 13:45 Nasal Screen MRSA (PCR) NEGATIVE (NEGATIVE) 12/17/18 00:38 - Procedures Procedures: Procedures RELEASE PERITONEUM, OPEN APPROACH (07/02/18) RELEASE SMALL INTESTINE, OPEN APPROACH (07/02/18) REPAIR ABDOMINAL WALL, OPEN APPROACH (07/02/18) Sepsis Event Note (H) - Evaluation Current Stage of Sepsis: Ruled out
--- NOTE | 2018-12-17 12:44 | CONSULTATION NOTE ---
Referring Provider Name of Referring Provider:: Kimmie Reeder MD Consult Date: 12/17/18 Chief Complaint - Chief Complaint Chief Complaint: Gastric outlet obstruction History of Present Illness - Admitted From Admitted From:: Emergency Department - History Obtained From Records Reviewed: Physician and nursing documentation from this and prior visits History obtained from: Old records and discussion with care givers and patient Exam Limitations: Memory difficulties for patient - History of Present Illness HPI Comment/Other: Elizabeth White is a 83-year old female with a past medical history of afib with Coumadin, hypertension, DM type 2, GERD, gastric and duodenal ulcers, chronic diarrhea, umbilical hernias repaired in June of this year, and prior SBO treated with laparotomy in June of this year, who present ER today with complaints of nausea, vomiting, and cramp and abdominal pain. She report she has vomiting for the past 3 days, she report she was unable to keep anything down. she report she had diffuse abdominal pain. she report she can not take her Coumadin or other medications because of vomiting. She reported to the ED staff that her disc omfort was similar to what she had felt in the past with small bowel obstruction. She was seen by the hospitalist and admitted for afib with RVR and pneumonia, as well as small bowel obstruction. This morning, she is markedly improved from yesterday. Her heart rate is under control with a cardizem drip and pneumonia is being treated with IV antibiotics. She has had an NGT placed and denies any further abdominal distress. At the time of admission, she had a CT scan concerning for duodenal mass or ulcer and I have been consulted regarding this finding. History - Past Medical History Cardiovascular: reports: Hypertension, Arrhythmia Respiratory: reports: Emphysema, Other Neuro: reports: None, Peripheral neuropathy Endocrine/Autoimmune: reports: Type 2 diabetes GI: reports: GERD, Ulcers, Chronic diarrhea CHEMICAL TECHNICIAN: reports: Endometriosis : reports: Incontinence, Nocturia, Frequency HEENT: reports: Chronic vision loss, Chronic sinusitis Psych: reports: None Musculoskeletal: reports: Osteoarthritis Derm: reports: None MRSA Hx?: No - Past Surgical History General: reports: Appendectomy, Gastric surgery, Other (Laparotomy with lysis of adhesions and repair of multiple ventral hernias) /CHEMICAL TECHNICIAN: reports: Hysterectomy, Oophrectomy - Family & Social History Family History: Mother: , Diabetes, Type 2, Father: Family History Comment/Other: pt report his mother had DM2 and at ago 90. he father at ago 80. she had three children. 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 Her daughter, Arina lives near-by. She admits to a tobacco history from age [age], denies illicit drug use, and admits to occasional alcohol- wine or beer, only 1 per night. She wishes to be a FULL code. - Substance History Use: Uses substance without health or social issues: Alcohol Dependence: Experiences withdrawal or developed tolerances: Tobacco - POLST Patient has POLST: No POLST Status: Full Code Meds/Allgy - Home Medications Home Medications: Ambulatory Orders Medication Instructions Recorded Confirmed hydroCHLOROthiazide 25 mg PO DAILY 07/03/18 12/17/18 [Hydrochlorothiazide] Diltiazem HCl [Cardizem Cd] 360 mg PO DAILY 12/17/18 12/17/18 Lisinopril 20 mg PO DAILY 12/17/18 12/17/18 Ocuvite Eye Vitamin 1 tab PO DAILY 12/17/18 12/17/18 Warfarin Sodium 2.5 mg PO TUTH@1400 12/17/18 12/17/18 Warfarin [Coumadin] 2 mg PO SUMOWEFRSA@1400 12/17/18 12/17/18 - Allergies Allergies/Adverse Reactions: Allergies Allergy/AdvReac Type Severity Reaction Status Date / Time iodine Allergy Hives Verified 12/16/18 11:39 Review of Systems - Constitutional Constitutional: reports: Fatigue, Malaise, Weakness, Weight loss - Eyes Eyes: reports: Vision loss - Ears, Nose & Throat Ears, Nose & Throat: reports: Vertigo - Cardiovascular Cariovascular: reports: Irregular heart rate, Palpitations, Lightheadedness, Exertional dyspnea - Respiratory Respiratory: reports: SOB at rest, SOB with exertion - Gastrointestinal Gastrointestinal: reports: Abdominal pain, Abdominal distention, Diarrhea, Vomiting, Bile emesis, Reflux/heartburn, Bloating, Poor appetite - Genitourinary Genitourinary: denies: Dysuria, Urgency - Musculoskeletal Musculoskeletal: reports: Back pain, Muscle aches, Stiffness, Joint pain - Integumentary Integumentary: denies: Rash - Neurological Neurological: reports: Memory problems Exam - Vital Signs Reviewed Vital Signs: Yes Vital Signs: Vital Signs x48h Temp Pulse Resp BP BP Pulse Ox 12/17/18 12:00 36.6 C 90 22 118/63 94 12/17/18 11:00 92 24 118/61 95 12/17/18 10:00 100 24 124/63 96 12/17/18 09:00 102 H 25 H 133/56 H 95 12/17/18 08:13 122/64 12/17/18 08:00 37.1 C 88 20 122/64 96 12/17/18 07:00 85 27 H 114/54 L 94 12/17/18 06:06 37.1 C 102 H 25 H 108/98 H 96 12/17/18 05:00 96 27 H 118/49 L 94 - Physical Exam General Appearance: positive: No acute distress Eyes Bilateral: positive: Normal inspection, PERRL, EOMI ENT: positive: ENT inspection nml Neck: positive: Nml inspection, No JVD, Trachea midline Respiratory: positive: Chest non-tender, No respiratory distress, Breath sounds nml Cardiovascular: positive: Irregularly irregular Peripheral Pulses: positive: 0 Abdomen: positive: Non-tender, Abnml bowel sounds (Hypoactive bowel tones.), Other (Healed midline surgical incision) Skin: positive: Color nml Neurologic/Psychiatric: positive: Oriented x3 Conclusion/Plan - Diagnosis Diagnosis: Gastric outlet obstruction almost certainly due to recurrent ulcer disease. - Plan Plan: Elizabeth is a poor surgical candidate but definitely improved from admission. This patient is well known to our service. I recommend continued bowel rest, IV protonix, and all other excellent treatment being rendered by the Hospitalist service. If we do not see improvement in the form of return of bowel function and decreased NGT output in the next 48 hours, we can certainly reconsider EGD. Thank you for involving our team in the care of this kind lady. - Lab Results Fish Bones: 12/17/18 05:30 12/17/18 05:30 - Diagnostic Imaging Results Diagnostic Imaging Results: positive: Final report reviewed Diagnostic Imaging Results Comments: Final Report PT NAME: ELIZABETH WHITE MR#: [id number] ADM IN/MS2 AGE: 83 CI DT/TM: 12/16/18 PCP: Pasquale Jon MD ([facility]) : 1935 ATT: [place] Sathya Jiménez SEX: F ORD: Carlos Ramey Minesh levine MD EXAM: [id number] CT/ABPEW ([id number]) Reason: abd pain, vomiting Procedure Date: 12/16/2018 Accession Number: [id number] / [id number] Procedure: CT - Abdomen/Pelvis W CPT Code: FULL RESULT: EXAM: CT ABDOMEN AND PELVIS EXAM DATE: 12/16/2018 01:41 PM. CLINICAL HISTORY: Abd pain, vomiting. COMPARISONS: ABDOMEN/PELVIS W/O 07/02/2018 12:51 PM. TECHNIQUE: Routine helical CT imaging was performed through the abdomen and pelvis. IV contrast: OPTI 320 90ML. Enteric contrast: No. Reconstructions: Coronal and sagittal. In accordance with CT protocol optimization, one or more of the following dose reduction techniques were utilized for this exam: automated exposure control, adjustment of mA and/or KV based on patient size, or use of iterative reconstructive technique. FINDINGS: Lung Bases: There is a new very small left and trace right pleural effusion. The distal thoracic esophagus is diffusely thickened. There is new left lower lobe consolidation. Liver: Normal. No masses. Gallbladder/Bile Ducts: Unremarkable. Spleen: Normal. Pancreas: There is pancreatic atrophy with no pancreatic mass or perfusion defect. No surrounding phlegmon. Adrenal Glands: Normal. Kidneys: There is a lobulated contour to both kidneys with renal volume loss. Peritoneal Cavity/Bowel: The stomach is fluid-filled and moderately dilated. The distal duodenum is nondilated. The small bowel is nondilated. There are a moderate number of colonic diverticula. No focal acute diverticulitis. There are findings of previous midline ventral abdominal surgery. There is a focal fat-containing ventral hernia with hernia neck measuring 17 mm in diameter. There is scar tissue along the midline. No herniation of bowel. Pelvic Organs: Urinary bladder is unremarkable. Uterus not visualized. Vasculature: There is diffuse moderate atherosclerotic vascular calcification without aneurysm. Bones: No significant abnormality. Other: None. IMPRESSION: 1. New moderately dilated and fluid-filled stomach. Findings may reflect gastric outlet obstruction or gastric ileus. 2. Distal esophageal wall thickening consistent with acute esophagitis. 3. New very small left and trace right pleural effusion. Bibasilar increased atelectasis. Aspiration not excluded. 4. Colonic diverticulosis without acute diverticulitis. RADIA ADDENDUM: 12/16/18 19:22 In addition, there is circumferential thickening of the wall at the stomach duodenum junction. The wall thickness of the stomach measures 13 mm measured on series 5 image 18. The lumen of the bowel is approximately 5 mm. A component of this thickening and luminal narrowing could be spasm or physiologic contraction, however the degree of stomach dilation increases the likelihood that this is a pathologic finding. Studio Hand: Reading Radiologist: Dave Gauthier MD Releasing Radiologist: Dave Gauthier MD Released Date Time: 12/16/181916 Report 16 cc: Carlos Ma MD; Pasquale Jon MD ([facility])
[2018-12-17] MEDS: DEXTROSE 5%-0.45% NACL 1,000 ML IV SCH ×2 (13:10→23:38)
[2018-12-18 05:32] LABS: ALBUMIN 2.7 g/dL (3.2-5.5); ALKALINE PHOSPHATASE 32 IU/L (42-121); ALT ALANINE AMINOTRANSFERASE < 10 IU/L (10-60); AST ASPARTATE AMINOTRANSFERASE 12 IU/L (10-42); BILIRUBIN,TOTAL 0.8 mg/dL (0.2-1.0); BUN - BLOOD UREA NITROGEN 21 mg/dL (6-20); CALCIUM 8.1 mg/dL (8.5-10.3); CARBON DIOXIDE - CO2 22 mmol/L (21-32); CHLORIDE 105 mmol/L (101-111); GFR - MDRD 53 (>89); GLUCOSE 138 mg/dL (70-100); MAGNESIUM 1.9 mg/dL (1.7-2.8); PHOSPHORUS 1.9 mg/dL (2.5-4.6); SODIUM 136 mmol/L (135-145); TOTAL PROTEIN 5.4 g/dL (6.7-8.2)
[2018-12-18] MEDS: AMPICILLIN/SULBACTAM 1.5 GM in SODIUM CHLORIDE 0.9% MINIBAG 100 ML IV SCH ×3 (06:21→18:52)
[2018-12-18 06:27] LABS: BASOPHILS # (AUTO) 0.1 10^3/uL (0.0-0.1); BASOPHILS % (AUTO) 0.5 %; EOSINOPHILS # (AUTO) 0.2 10^3/uL (0.0-0.7); EOSINOPHILS % (AUTO) 1.6 %; HGB - HEMOGLOBIN 12.9 g/dL (12.0-16.0); LYMPHOCYTES # (AUTO) 0.8 10^3/uL (1.5-3.5); LYMPHOCYTES % (AUTO) 9.1 %; MEAN CORPUSCULAR HEMOGLOBIN 28.4 pg (27.0-31.0); MEAN CORPUSCULAR HGB CONC 30.7 g/dL (32.0-36.0); MEAN CORPUSCULAR VOLUME 92.3 fL (81.0-99.0); MONOCYTES # (AUTO) 0.7 10^3/uL (0.0-1.0); MONOCYTES % (AUTO) 7.6 %; NEUTROPHILS # (AUTO) 7.4 10^3/uL (1.5-6.6); NEUTROPHILS % (AUTO) 80.8 %; RED BLOOD COUNT 4.55 10^6/uL (4.20-5.40); RED CELL DISTRIBUTION WIDTH 17.1 % (12.0-15.0)
[2018-12-18 06:32] LABS: WHITE BLOOD COUNT 9.1 x10^3/uL (4.8-10.8)
[2018-12-18] MEDS: POTASSIUM CHLOR 10 MEQ/100 ML 10 MEQ/100 ML BAG IV SCH ×4 (07:57→13:07)
[2018-12-18] MEDS: SODIUM CHLORIDE FLUSH 0.9% 10 ML SYRINGE IVP SCH ×2 (08:07→18:04)
[2018-12-18] MEDS: POLYETHYLENE GLYCOL 3350 17 GM PACKET PO SCH (08:07)
[2018-12-18] MEDS: PANTOPRAZOLE 40 MG VIAL IVP SCH ×2 (08:07→20:58)
[2018-12-18] MEDS: HEPARIN 5,000 UNIT/ML VIAL SUBQ SCH ×2 (08:07→20:58)
[2018-12-18] MEDS: DEXTROSE 5%-0.45% NACL 1,000 ML IV SCH ×2 (11:22→22:59)
[2018-12-18] MEDS ORDERED: POTASSIUM PHOSPHATE 15 MMOL in SODIUM CHLORIDE 0.9% 250 ML IV ONE (12:00)
[2018-12-18] MEDS: diltiaZEM INJ 125 MG in DEXTROSE 5% 100 ML IV SCH (15:09)
--- NOTE | 2018-12-18 16:23 | PROVIDER PROGRESS NOTE ---
Assessment/Plan - Problem List (1) Gastric outlet obstruction Assessment/Plan: She has had 2 days of bowel rest and ng drainage, to continuous low suction Will start to try clear liquids and clamping the NG tube for 30 minutes and check for residual, several times, possibly the NG can come out if she is st arting to have passage of liquid from stomach into duodenum. (2) Prepyloric ulcer Qualifiers: Gastric ulcer chronicity: acute Qualified Code(s): K25.3 - Acute gastric ulcer without hemorrhage or perforation Assessment/Plan: Her CT imaging showed a classic presentation of a pyloric channel ulcer in a patient who has had prior ulcers and does not take her PPI meds per Dr Gibson' phone conversation with me yesterday. Continue iv bid PPI (3) Esophagitis Assessment/Plan: As in #1 This was seen on CT abdomen (4) Atrial fibrillation with rapid ventricular response Assessment/Plan: Heart rate is controlled on IV diltiazem drip which was not discontinued to restart her oral meds yet Coumadin was on hold in case of need for EGD with biopsy or any surgery Will resume anticoagulation as no intervention is planned Will give therapeutic Lovenox dosing as a bridge to restarting oral agent, since her creat has normalized (5) Aspiration pneumonia Assessment/Plan: Continue iv antibiotics Await Cx data (6) Diabetes Assessment/Plan: She is getting iv with D5 and fingersticks q6h (7) HTN (hypertension) Assessment/Plan: She is only getting iv Dilt (for GR and BP). No Lisonopril or HCTZ, due to low BP and dehydartion (8) Hypokalemia Assessment/Plan: Replace and follow BMP daily (9) TIFFANI (acute kidney injury) Assessment/Plan: Resolved with iv hydration - Current Meds Current Meds: Current Medications Generic Name Dose Route Start Last Admin Trade Name Freq PRN Reason Stop Dose Admin Heparin Sodium (Porcine) 5,000 unit 12/16/18 21:00 12/18/18 08:07 SUBQ 5,000 unit BID NESSA Administration Ampicillin Sodium/Sulbactam 100 mls @ 200 mls/hr 12/17/18 00:00 12/18/18 12:16 Sodium 1.5 gm/ Sodium Chloride IV Infused Q6HR NESSA Infusion Diltiazem HCl 125 mg/ Dextrose 125 mls @ 5 mls/hr 12/17/18 08:30 12/18/18 15:09 IV 6 mg/hr .Q25H NESSA 6 mls/hr Administration Protocol 5 MG/HR Dextrose/Sodium Chloride 1,000 mls @ 83.333 mls/hr 12/17/18 13:00 12/18/18 11:22 D5.45ns IV 83.333 mls/hr .Q12H NESSA Administration Metoprolol Tartrate 5 mg 12/16/18 17:34 12/17/18 03:45 Lopressor Inj IVP 5 mg Q6H PRN Administration Hypertensive Emergency Pantoprazole Sodium 40 mg 12/16/18 21:00 12/18/18 08:07 Protonix IVP 40 mg BID NESSA Administration Polyethylene Glycol 17 gm 12/17/18 09:00 12/18/18 08:07 Miralax PO Not Given DAILY NESSA Sodium Chloride 10 ml 12/16/18 15:06 12/17/18 03:51 Normal Saline Flush 0.9% IVP 10 ml PRN PRN Administration NEEDED PER PROVIDER ORDERS Sodium Chloride 10 ml 12/16/18 17:00 12/18/18 08:07 Normal Saline Flush 0.9% IVP 10 ml 0100,0900,1700 NESSA Administration - Lab Result Fish Bone Diagrams: 12/18/18 06:20 12/18/18 04:45 - Additional Planning My Orders: My Active Orders 12/18/18 15:19 Miscellaenous Nursing Order [RC] QSHIFT 12/18/18 15:20 NG Tube Care [RC] Q4HR 12/19/18 05:00 MAGNESIUM [CHEM] DAILYLAB Subjective - Subjective Patient Reports: Pain (Quick fleeting pain in the epigastric area, possibly hunger pain. Has an appetite) Nursing Reports: Nausea Objective Vital Signs: Vital Signs - 24 hr 12/17/18 12/17/18 12/17/18 17:00 18:00 19:00 Temperature Heart Rate [ 88 91 77 Monitoring electrodes] Respiratory 20 22 25 H Rate Blood Pressure 128/70 117/68 116/66 [Right Brachial artery] O2 Saturation 96 95 94 12/17/18 12/17/18 12/17/18 20:00 21:00 22:00 Temperature 36.9 C Heart Rate [ 100 94 90 Monitoring electrodes] Respiratory 23 23 27 H Rate Blood Pressure 123/63 132/63 H 138/73 H [Right Brachial artery] O2 Saturation 97 98 98 12/17/18 12/18/18 12/18/18 23:00 00:00 01:00 Temperature 36.9 C Heart Rate [ 82 104 H 102 H Monitoring electrodes] Respiratory 22 25 H 23 Rate Blood Pressure 118/57 L 133/65 H 125/71 [Right Brachial artery] O2 Saturation 96 96 97 12/18/18 12/18/18 12/18/18 02:00 03:00 04:00 Temperature Heart Rate [ 91 94 90 Monitoring electrodes] Respiratory 23 18 23 Rate Blood Pressure 115/56 L 116/76 127/65 [Right Brachial artery] O2 Saturation 96 97 95 12/18/18 12/18/18 12/18/18 05:00 06:00 07:00 Temperature Heart Rate [ 101 H 96 97 Monitoring electrodes] Respiratory 22 21 23 Rate Blood Pressure 118/54 L 124/65 115/57 L [Right Brachial artery] O2 Saturation 96 96 96 12/18/18 12/18/18 12/18/18 08:00 09:00 10:00 Temperature 36.5 C Heart Rate [ 104 H 81 94 Monitoring electrodes] Respiratory 26 H 19 28 H Rate Blood Pressure 111/56 L 120/69 110/61 [Right Brachial artery] O2 Saturation 96 96 96 12/18/18 12/18/18 12/18/18 11:00 12:00 13:00 Temperature Heart Rate [ 109 H 93 97 Monitoring electrodes] Respiratory 21 27 H 24 Rate Blood Pressure 115/64 120/79 120/79 [Right Brachial artery] O2 Saturation 96 99 96 12/18/18 12/18/18 12/18/18 14:00 15:00 16:00 Temperature 36.9 C Heart Rate [ 90 98 99 Monitoring electrodes] Respiratory 22 25 H 23 Rate Blood Pressure 122/80 125/65 119/67 [Right Brachial artery] O2 Saturation 96 99 99 Oxygen O2 Source [Without Activity] Room air O2 Source Nasal cannula I&O (Last 24 Hrs): Intake and Output Totals x24h 12/16/18 12/17/18 12/18/18 23:59 23:59 23:59 Intake Total 1300 3712.219 1979.340 Output Total 250 575 550 Balance 1050 3137.219 1429.340 General: Alert, Oriented x3 HEENT: Mucous membr. moist/pink, Other (Appears very tired) Neck: Supple, No JVD Neuro: Alert, Non Focal Cardiovascular: Regular rate, No murmurs Respiratory: No respiratory distress, Breath sounds nml Abdomen: Normal bowel sounds, Soft, Other (Tender to moder palpation in RUQ only, no guarding or rebound) Extremities: No edema - Results Results: Laboratory Results WBC 9.1 x10^3/uL (4.8-10.8) 12/18/18 06:20 RBC 4.55 10^6/uL (4.20-5.40) 12/18/18 06:20 Hgb 12.9 g/dL (12.0-16.0) 12/18/18 06:20 Hct 42.0 % (37.0-47.0) 12/18/18 06:20 MCV 92.3 fL (81.0-99.0) 12/18/18 06:20 MCH 28.4 pg (27.0-31.0) 12/18/18 06:20 MCHC 30.7 g/dL (32.0-36.0) L 12/18/18 06:20 RDW 17.1 % (12.0-15.0) H 12/18/18 06:20 Plt Count 205 10^3/uL (130-450) 12/17/18 05:30 MPV 11.5 fL (7.9-10.8) H 12/17/18 05:30 Neut # (Auto) 7.4 10^3/uL (1.5-6.6) H 12/18/18 06:20 Lymph # (Auto) 0.8 10^3/uL (1.5-3.5) L 12/18/18 06:20 [place] # (Auto) 0.7 10^3/uL (0.0-1.0) 12/18/18 06:20 Eos # (Auto) 0.2 10^3/uL (0.0-0.7) 12/18/18 06:20 Baso # (Auto) 0.1 10^3/uL (0.0-0.1) 12/18/18 06:20 Absolute Nucleated RBC 0.00 x10^3/uL 12/18/18 06:20 Nucleated RBC % 0.0 /100WBC 12/18/18 06:20 PT 18.7 secs (9.9-12.6) H 12/17/18 05:30 INR 1.7 (0.8-1.2) H 12/17/18 05:30 Sodium 136 mmol/L (135-145) 12/18/18 04:45 Potassium 3.3 mmol/L (3.5-5.0) L 12/18/18 04:45 Chloride 105 mmol/L (101-111) 12/18/18 04:45 Carbon Dioxide 22 mmol/L (21-32) 12/18/18 04:45 Anion Gap 9.0 (6-13) 12/18/18 04:45 BUN 21 mg/dL (6-20) H 12/18/18 04:45 Creatinine 1.0 mg/dL (0.4-1.0) 12/18/18 04:45 Estimated GFR (MDRD) 53 (>89) L 12/18/18 04:45 Glucose 138 mg/dL (70-100) H 12/18/18 04:45 POC Whole Bld Glucose 133 mg/dL (70 - 100) H 12/18/18 11:39 Glycated Hemoglobin 6.0 % (4.6-6.2) 12/16/18 12:18 Estim Average Glucose 126 (70-100) H 12/16/18 12:18 Calcium 8.1 mg/dL (8.5-10.3) L 12/18/18 04:45 Phosphorus 1.9 mg/dL (2.5-4.6) L 12/18/18 04:45 Magnesium 1.9 mg/dL (1.7-2.8) 12/18/18 04:45 Total Bilirubin 0.8 mg/dL (0.2-1.0) 12/18/18 04:45 AST 12 IU/L (10-42) 12/18/18 04:45 ALT < 10 IU/L (10-60) L 12/18/18 04:45 Alkaline Phosphatase 32 IU/L (42-121) L 12/18/18 04:45 Total Protein 5.4 g/dL (6.7-8.2) L 12/18/18 04:45 Albumin 2.7 g/dL (3.2-5.5) L 12/18/18 04:45 Globulin 2.7 g/dL (2.1-4.2) 12/18/18 04:45 Albumin/Globulin Ratio 1.0 (1.0-2.2) 12/18/18 04:45 Lipase 29 U/L (22-51) 12/16/18 12:18 Urine Color YELLOW 12/16/18 13:45 Urine Clarity HAZY (CLEAR) 12/16/18 13:45 Urine pH 7.5 PH (5.0-7.5) 12/16/18 13:45 Ur Specific [place] 1.020 (1.002-1.030) 12/16/18 13:45 Urine Protein 100 mg/dL (NEGATIVE) H 12/16/18 13:45 Urine Glucose (UA) 500 mg/dL (NEGATIVE) H 12/16/18 13:45 Urine Ketones NEGATIVE mg/dL (NEGATIVE) 12/16/18 13:45 Urine Occult Blood SMALL (NEGATIVE) H 12/16/18 13:45 Urine Nitrite NEGATIVE (NEGATIVE) 12/16/18 13:45 Urine Bilirubin NEGATIVE (NEGATIVE) 12/16/18 13:45 Urine Urobilinogen 0.2 (NORMAL) E.U./dL (NORMAL) 12/16/18 13:45 Ur Leukocyte Esterase NEGATIVE (NEGATIVE) 12/16/18 13:45 Urine RBC 2 /HPF (0-5) 12/16/18 13:45 Urine WBC 0-3 /HPF (0-5) 12/16/18 13:45 Ur Squamous Epith Cells RARE Squamous (<= Few) 12/16/18 13:45 Urine Bacteria Rare /HPF (None Seen) 12/16/18 13:45 Urine Casts 3-5 Hyaline Casts /LPF 12/16/18 13:45 Ur Microscopic Review INDICATED 12/16/18 13:45 Urine Culture Comments NOT INDICATED 12/16/18 13:45 Nasal Screen MRSA (PCR) NEGATIVE (NEGATIVE) 12/17/18 00:38 - Procedures Procedures: Procedures RELEASE PERITONEUM, OPEN APPROACH (07/02/18) RELEASE SMALL INTESTINE, OPEN APPROACH (07/02/18) REPAIR ABDOMINAL WALL, OPEN APPROACH (07/02/18) Sepsis Event Note (H) - Evaluation Current Stage of Sepsis: Ruled out
[2018-12-18] MEDS: SODIUM CHLORIDE FLUSH 0.9% 10 ML SYRINGE IVP PRN (20:59)
[2018-12-19] MEDS: AMPICILLIN/SULBACTAM 1.5 GM in SODIUM CHLORIDE 0.9% MINIBAG 100 ML IV SCH ×5 (00:01→23:39)
[2018-12-19] MEDS: SODIUM CHLORIDE FLUSH 0.9% 10 ML SYRINGE IVP SCH ×3 (01:40→16:29)
[2018-12-19 05:03] LABS: BASOPHILS % (AUTO) 0.4 %; EOSINOPHILS # (AUTO) 0.2 10^3/uL (0.0-0.7); HGB - HEMOGLOBIN 11.6 g/dL (12.0-16.0); LYMPHOCYTES % (AUTO) 12.6 %; MEAN CORPUSCULAR HEMOGLOBIN 27.8 pg (27.0-31.0); MEAN CORPUSCULAR HGB CONC 31.7 g/dL (32.0-36.0); MEAN CORPUSCULAR VOLUME 87.6 fL (81.0-99.0); MEAN PLATELET VOLUME 11.9 fL (7.9-10.8); MONOCYTES # (AUTO) 0.6 10^3/uL (0.0-1.0); MONOCYTES % (AUTO) 8.5 %; NEUTROPHILS # (AUTO) 5.7 10^3/uL (1.5-6.6); PLT - PLATELET COUNT 171 10^3/uL (130-450); RED BLOOD COUNT 4.18 10^6/uL (4.20-5.40); RED CELL DISTRIBUTION WIDTH 16.3 % (12.0-15.0); WHITE BLOOD COUNT 7.5 x10^3/uL (4.8-10.8)
[2018-12-19 05:05] LABS: INR 1.6 (0.8-1.2); PT - PROTHROMBIN TIME 18.1 secs (9.9-12.6)
[2018-12-19 05:13] LABS: ALBUMIN 2.9 g/dL (3.2-5.5); ALBUMIN/GLOBULIN RATIO 0.9 (1.0-2.2); CALCIUM 8.4 mg/dL (8.5-10.3); CREATININE 0.9 mg/dL (0.4-1.0); MAGNESIUM 1.7 mg/dL (1.7-2.8); PHOSPHORUS 1.8 mg/dL (2.5-4.6); TOTAL PROTEIN 6.1 g/dL (6.7-8.2)
[2018-12-19] MEDS: SODIUM CHLORIDE FLUSH 0.9% 10 ML SYRINGE IVP PRN (06:05)
[2018-12-19] MEDS ORDERED: MAGNESIUM SULFATE 2 GRAM 2 GM/50 ML BAG IV ONE (07:00)
[2018-12-19] MEDS ORDERED: POTASSIUM PHOSPHATE 15 MMOL in SODIUM CHLORIDE 0.9% 250 ML IV ONE (08:00)
[2018-12-19] MEDS: PANTOPRAZOLE 40 MG VIAL IVP SCH ×2 (08:12→21:24)
[2018-12-19] MEDS: POLYETHYLENE GLYCOL 3350 17 GM PACKET PO SCH (08:13)
[2018-12-19] MEDS: HEPARIN 5,000 UNIT/ML VIAL SUBQ SCH (08:22)
[2018-12-19] MEDS ORDERED: ENOXAPARIN 60 MG/0.6 ML SYRINGE SUBQ SCH ×2 (09:00→21:00)
[2018-12-19] MEDS: diltiaZEM CD 180 MG CAPSULE PO SCH (10:05)
[2018-12-19] MEDS: DEXTROSE 5%-0.45% NACL 1,000 ML IV SCH ×2 (11:44→22:29)
[2018-12-19] MEDS: INSULIN ASPART 300 UNIT/3 ML PEN SUBQ SCH ×3 (11:45→21:24)
[2018-12-19] MEDS: METOPROLOL 5 MG/5 ML VIAL IVP PRN (12:34)
[2018-12-19] MEDS: WARFARIN 1 MG TABLET PO SCH (14:10)
[2018-12-19] MEDS: LEVALBUTEROL 1.25 MG/3 ML NEB INH PRN ×2 (15:36→20:22)
--- NOTE | 2018-12-19 16:16 | PROVIDER PROGRESS NOTE ---
Assessment/Plan - Problem List (1) Gastric outlet obstruction Assessment/Plan: Overnight she tried clear liquids, and the NG tube was clamped, and no residual was suctioned out. We will remove the NG tube today. Start clear liquids, advance as tolerated. The dietitian also suggested Carafate liquid for epigastric discomfort symptoms. The obstruction was felt to be secondary to significant small bowel wall edema related to the ulcer, therefore continue with the ulcer treatment aggressively. She did not have an EGD to have any biopsies done (2) Prepyloric ulcer Qualifiers: Gastric ulcer chronicity: acute Qualified Code(s): K25.3 - Acute gastric ulcer without hemorrhage or perforation Assessment/Plan: Continue with PPI management and symptomatic treatment (3) Esophagitis Assessment/Plan: PPI to continue and will add Carafate liquid (4) Atrial fibrillation with rapid ventricular response Assessment/Plan: When she is able to take p.o. liquids without vomiting, will start her Cardizem CD 360 mg daily dose, 30 minutes later will discontinue the IV diltiazem drip. Continue to use IV metoprolol boluses if needed for heart rate control. Will begin to resume the Coumadin and use Lovenox for bridging, follow INR daily (5) Wheezing Assessment/Plan: There is a history or her being on inhalers which were stopped on her own, unknown if she had asthma or COPD. Xopenex will be started today. Will recheck a chest x-ray for "cardiac asthma" since she has received a lot of fluids (6) Aspiration pneumonia Assessment/Plan: She made no sputum to send for culture She remains on empiric IV antibiotics Will add Xopenex for the wheezing Recheck a CXR due to new wheezing today (7) Diabetes Assessment/Plan: We will start sliding scale insulin coverage for this patient that we will start eating today (8) HTN (hypertension) Assessment/Plan: Her blood pressure has been "soft" and only the Cardizem was needed for pressure control Will resume her Lisinopril today, parameters for holding it will be ordered. Remain off the HCTZ (9) Hypokalemia Assessment/Plan: Replace. Follow BMP daily (10) TIFFANI (acute kidney injury) Assessment/Plan: It resolved with hydration - Current Meds Current Meds: Current Medications Generic Name Dose Route Start Last Admin Trade Name Freq PRN Reason Stop Dose Admin Diltiazem HCl 360 mg 10/28/19 10:00 12/19/18 10:05 Cardizem Cd PO 360 mg DAILY NESSA Administration Ampicillin Sodium/Sulbactam 100 mls @ 200 mls/hr 12/17/18 00:00 12/19/18 12:25 Sodium 1.5 gm/ Sodium Chloride IV Infused Q6HR NESSA Infusion Diltiazem HCl 125 mg/ Dextrose 125 mls @ 5 mls/hr 12/17/18 08:30 12/19/18 10:39 IV 0 mg/hr .Q25H NESSA 0 mls/hr Titration Protocol 5 MG/HR Dextrose/Sodium Chloride 1,000 mls @ 83.333 mls/hr 12/17/18 13:00 12/19/18 11:44 D5.45ns IV 83.333 mls/hr .Q12H NESSA Administration Insulin Aspart 1 - 5 unit 12/19/18 12:00 12/19/18 11:45 Novolog SUBQ Not Given 0800,1200,1700,2100 [facility] Protocol Levalbuterol HCl 1.25 mg 12/19/18 15:15 12/19/18 15:36 Xopenex INH 1.25 mg Q4H PRN Administration Shortness of Air/Wheezing Metoprolol Tartrate 5 mg 12/16/18 17:34 12/19/18 12:34 Lopressor Inj IVP 5 mg Q6H PRN Administration Hypertensive Emergency Pantoprazole Sodium 40 mg 12/16/18 21:00 12/19/18 08:12 Protonix IVP 40 mg BID NESSA Administration Polyethylene Glycol 17 gm 12/17/18 09:00 12/19/18 08:13 Miralax PO Not Given DAILY [facility] Sodium Chloride 10 ml 12/16/18 15:06 12/19/18 06:05 Normal Saline Flush 0.9% IVP 10 ml PRN PRN Administration NEEDED PER PROVIDER ORDERS Sodium Chloride 10 ml 12/16/18 17:00 12/19/18 09:27 Normal Saline Flush 0.9% IVP 10 ml 0100,0900,1700 NESSA Administration Warfarin Sodium 2 mg 12/19/18 14:00 12/19/18 14:10 Coumadin PO 2 mg SUMOWEFRSA@1400 NESSA Administration - Lab Result Fish Bone Diagrams: 12/19/18 04:41 12/19/18 04:41 - Additional Planning My Orders: My Active Orders 12/19/18 08:36 Blood Glucose Checks - Eating [RC] 0800,1200,1700,2100 12/19/18 10:00 diltiaZEM CD [Cardizem Cd] 360 mg PO DAILY 12/19/18 12:00 Insulin Aspart [NovoLOG] 1 - 5 unit SUBQ 0800,1200,1700,2100 12/19/18 14:00 Warfarin [Coumadin] 2 mg PO SUMOWEFRSA@1400 12/19/18 14:55 Mag Hydrox/Al Hydrox/Simeth [Mylanta Plus] 30 ml PO Q4HR PRN 12/19/18 15:15 Nebulizer/MDI Tx. [RC] .Q4 PRN Levalbuterol [Xopenex] 1.25 mg INH Q4H PRN 12/19/18 21:00 Enoxaparin [Lovenox] 60 mg SUBQ DAILY@2100 12/19/18 Dinner Full Liquid Diet [DIET] 12/20/18 05:00 PHOSPHORUS [CHEM] DAILYLAB PT WITH INR [COAG] DAILYLAB 12/20/18 09:00 Lisinopril [Zestril] 20 mg PO DAILY 12/20/18 14:00 Warfarin [Coumadin] 2.5 mg PO TUTH@1400 12/21/18 05:00 PHOSPHORUS [CHEM] DAILYLAB PT WITH INR [COAG] DAILYLAB Subjective - Subjective Patient Reports: Resting Comfortably Nursing Reports: Other (Brief pain in epigastrium when swallows liquids) Objective Vital Signs: Vital Signs - 24 hr 12/18/18 12/18/18 12/18/18 17:00 18:00 19:00 Temperature Heart Rate Heart Rate [ 96 103 H 94 Monitoring electrodes] Respiratory 25 H 21 27 H Rate Blood Pressure Blood Pressure 122/67 127/68 130/94 H [Right Brachial artery] O2 Saturation 98 99 98 12/18/18 12/18/18 12/18/18 20:00 21:00 22:00 Temperature Heart Rate Heart Rate [ 104 H 93 98 Monitoring electrodes] Respiratory 26 H 30 H 27 H Rate Blood Pressure Blood Pressure 129/73 132/65 H 130/79 [Right Brachial artery] O2 Saturation 98 98 97 12/18/18 12/19/18 12/19/18 23:00 00:00 01:00 Temperature 37.1 C Heart Rate Heart Rate [ 101 H 100 105 H Monitoring electrodes] Respiratory 30 H 30 H 28 H Rate Blood Pressure Blood Pressure 143/72 H 134/89 H 123/66 [Right Brachial artery] O2 Saturation 97 97 93 12/19/18 12/19/18 12/19/18 03:00 04:00 04:30 Temperature 36.6 C Heart Rate Heart Rate [ 115 H 107 H 110 H Monitoring electrodes] Respiratory 24 27 H 29 H Rate Blood Pressure Blood Pressure 95/76 123/66 [Right Brachial artery] O2 Saturation 95 95 96 12/19/18 12/19/18 12/19/18 05:00 06:00 07:06 Temperature Heart Rate Heart Rate [ 111 H 119 H 105 H Monitoring electrodes] Respiratory 31 H 26 H 25 H Rate Blood Pressure Blood Pressure 125/80 130/51 L 132/85 H [Right Brachial artery] O2 Saturation 95 96 96 12/19/18 12/19/18 12/19/18 08:00 09:00 10:00 Temperature 36.6 C Heart Rate Heart Rate [ 93 105 H 101 H Monitoring electrodes] Respiratory 24 23 25 H Rate Blood Pressure Blood Pressure 125/60 133/69 H 134/80 H [Right Brachial artery] O2 Saturation 96 96 1 L 12/19/18 12/19/18 12/19/18 11:00 12:00 12:34 Temperature 37.1 C Heart Rate Heart Rate [ 99 107 H Monitoring electrodes] Respiratory 29 H 27 H Rate Blood Pressure 150/84 H Blood Pressure 85/56 L 155/78 H [Right Brachial artery] O2 Saturation 95 93 12/19/18 12/19/18 12/19/18 12:38 12:42 13:00 Temperature Heart Rate Heart Rate [ 108 H 102 H 79 Monitoring electrodes] Respiratory 23 20 Rate Blood Pressure Blood Pressure 142/68 H 105/82 H 127/81 H [Right Brachial artery] O2 Saturation 93 94 12/19/18 12/19/18 12/19/18 13:04 13:15 13:30 Temperature Heart Rate Heart Rate [ 87 81 Monitoring electrodes] Respiratory 30 H Rate Blood Pressure 128/61 Blood Pressure 120/93 H 126/71 [Right Brachial artery] O2 Saturation 94 12/19/18 12/19/18 12/19/18 14:00 15:00 15:36 Temperature Heart Rate 91 Heart Rate [ 81 84 Monitoring electrodes] Respiratory 27 H 25 H 23 Rate Blood Pressure Blood Pressure 128/61 95/44 L [Right Brachial artery] O2 Saturation 94 99 Oxygen O2 Source [Without Activity] Room air O2 Source Nasal cannula I&O (Last 24 Hrs): Intake and Output Totals x24h 12/17/18 12/18/18 12/19/18 23:59 23:59 23:59 Intake Total 3712.219 3299.992 1817 Output Total 868 142 2282 Balance 3137.219 2424.992 292 General: Other (Sleeping) HEENT: Mucous membr. moist/pink Neck: Supple Neuro: Non Focal Cardiovascular: No murmurs Respiratory: No respiratory distress, Wheezes Abdomen: Normal bowel sounds, Soft Extremities: No edema - Results Results: Laboratory Results WBC 7.5 x10^3/uL (4.8-10.8) 12/19/18 04:41 RBC 4.18 10^6/uL (4.20-5.40) L 12/19/18 04:41 Hgb 11.6 g/dL (12.0-16.0) L 12/19/18 04:41 Hct 36.6 % (37.0-47.0) L 12/19/18 04:41 MCV 87.6 fL (81.0-99.0) 12/19/18 04:41 MCH 27.8 pg (27.0-31.0) 12/19/18 04:41 MCHC 31.7 g/dL (32.0-36.0) L 12/19/18 04:41 RDW 16.3 % (12.0-15.0) H 12/19/18 04:41 Plt Count 171 10^3/uL (130-450) 12/19/18 04:41 MPV 11.9 fL (7.9-10.8) H 12/19/18 04:41 Neut # (Auto) 5.7 10^3/uL (1.5-6.6) 12/19/18 04:41 Lymph # (Auto) 1.0 10^3/uL (1.5-3.5) L 12/19/18 04:41 [place] # (Auto) 0.6 10^3/uL (0.0-1.0) 12/19/18 04:41 Eos # (Auto) 0.2 10^3/uL (0.0-0.7) 12/19/18 04:41 Baso # (Auto) 0.0 10^3/uL (0.0-0.1) 12/19/18 04:41 Absolute Nucleated RBC 0.00 x10^3/uL 12/19/18 04:41 Nucleated RBC % 0.0 /100WBC 12/19/18 04:41 PT 18.1 secs (9.9-12.6) H 12/19/18 04:41 INR 1.6 (0.8-1.2) H 12/19/18 04:41 Sodium 138 mmol/L (135-145) 12/19/18 04:41 Potassium 3.6 mmol/L (3.5-5.0) 12/19/18 04:41 Chloride 106 mmol/L (101-111) 12/19/18 04:41 Carbon Dioxide 24 mmol/L (21-32) 12/19/18 04:41 Anion Gap 8.0 (6-13) 12/19/18 04:41 BUN 13 mg/dL (6-20) 12/19/18 04:41 Creatinine 0.9 mg/dL (0.4-1.0) 12/19/18 04:41 Estimated GFR (MDRD) 60 (>89) L 12/19/18 04:41 Glucose 142 mg/dL (70-100) H 12/19/18 04:41 POC Whole Bld Glucose 139 mg/dL (70 - 100) H 12/19/18 11:45 Glycated Hemoglobin 6.0 % (4.6-6.2) 12/16/18 12:18 Estim Average Glucose 126 (70-100) H 12/16/18 12:18 Calcium 8.4 mg/dL (8.5-10.3) L 12/19/18 04:41 Phosphorus 1.8 mg/dL (2.5-4.6) L 12/19/18 04:41 Magnesium 1.7 mg/dL (1.7-2.8) 12/19/18 04:41 Total Bilirubin 1.0 mg/dL (0.2-1.0) 12/19/18 04:41 AST 11 IU/L (10-42) 12/19/18 04:41 ALT 11 IU/L (10-60) 12/19/18 04:41 Alkaline Phosphatase 38 IU/L (42-121) L 12/19/18 04:41 Total Protein 6.1 g/dL (6.7-8.2) L 12/19/18 04:41 Albumin 2.9 g/dL (3.2-5.5) L 12/19/18 04:41 Globulin 3.2 g/dL (2.1-4.2) 12/19/18 04:41 Albumin/Globulin Ratio 0.9 (1.0-2.2) L 12/19/18 04:41 Lipase 29 U/L (22-51) 12/16/18 12:18 Urine Color YELLOW 12/16/18 13:45 Urine Clarity HAZY (CLEAR) 12/16/18 13:45 Urine pH 7.5 PH (5.0-7.5) 12/16/18 13:45 Ur Specific [place] 1.020 (1.002-1.030) 12/16/18 13:45 Urine Protein 100 mg/dL (NEGATIVE) H 12/16/18 13:45 Urine Glucose (UA) 500 mg/dL (NEGATIVE) H 12/16/18 13:45 Urine Ketones NEGATIVE mg/dL (NEGATIVE) 12/16/18 13:45 Urine Occult Blood SMALL (NEGATIVE) H 12/16/18 13:45 Urine Nitrite NEGATIVE (NEGATIVE) 12/16/18 13:45 Urine Bilirubin NEGATIVE (NEGATIVE) 12/16/18 13:45 Urine Urobilinogen 0.2 (NORMAL) E.U./dL (NORMAL) 12/16/18 13:45 Ur Leukocyte Esterase NEGATIVE (NEGATIVE) 12/16/18 13:45 Urine RBC 2 /HPF (0-5) 12/16/18 13:45 Urine WBC 0-3 /HPF (0-5) 12/16/18 13:45 Ur Squamous Epith Cells RARE Squamous (<= Few) 12/16/18 13:45 Urine Bacteria Rare /HPF (None Seen) 12/16/18 13:45 Urine Casts 3-5 Hyaline Casts /LPF 12/16/18 13:45 Ur Microscopic Review INDICATED 12/16/18 13:45 Urine Culture Comments NOT INDICATED 12/16/18 13:45 Nasal Screen MRSA (PCR) NEGATIVE (NEGATIVE) 12/17/18 00:38 - Procedures Procedures: Procedures RELEASE PERITONEUM, OPEN APPROACH (07/02/18) RELEASE SMALL INTESTINE, OPEN APPROACH (07/02/18) REPAIR ABDOMINAL WALL, OPEN APPROACH (07/02/18) Sepsis Event Note (H) - Evaluation Current Stage of Sepsis: Ruled out
[2018-12-19] MEDS: MAG HYDROX/AL HYDROX/SIMETH 30 ML UDC PO PRN (16:29)
[2018-12-19] MEDS: ENOXAPARIN 60 MG/0.6 ML SYRINGE SUBQ SCH (21:24)
[2018-12-19] MEDS ORDERED: BENZOCAINE/MENTHOL LOZENGE MM PRN (23:43)
[2018-12-20] MEDS: SODIUM CHLORIDE FLUSH 0.9% 10 ML SYRINGE IVP SCH ×3 (00:43→19:08)
[2018-12-20 05:24] LABS: BASOPHILS % (AUTO) 0.5 %; EOSINOPHILS # (AUTO) 0.1 10^3/uL (0.0-0.7); EOSINOPHILS % (AUTO) 2.2 %; HGB - HEMOGLOBIN 10.9 g/dL (12.0-16.0); LYMPHOCYTES % (AUTO) 15.8 %; MEAN CORPUSCULAR HEMOGLOBIN 27.4 pg (27.0-31.0); MEAN CORPUSCULAR HGB CONC 31.5 g/dL (32.0-36.0); MEAN CORPUSCULAR VOLUME 86.9 fL (81.0-99.0); MEAN PLATELET VOLUME 11.5 fL (7.9-10.8); MONOCYTES # (AUTO) 0.6 10^3/uL (0.0-1.0); MONOCYTES % (AUTO) 9.8 %; NEUTROPHILS # (AUTO) 4.6 10^3/uL (1.5-6.6); NEUTROPHILS % (AUTO) 71.2 %; PLT - PLATELET COUNT 168 10^3/uL (130-450); RED BLOOD COUNT 3.98 10^6/uL (4.20-5.40); RED CELL DISTRIBUTION WIDTH 16.1 % (12.0-15.0); WHITE BLOOD COUNT 6.5 x10^3/uL (4.8-10.8)
[2018-12-20 05:32] LABS: INR 1.8 (0.8-1.2); PT - PROTHROMBIN TIME 19.5 secs (9.9-12.6)
[2018-12-20 05:34] LABS: CALCIUM 8.5 mg/dL (8.5-10.3)
[2018-12-20] MEDS: AMPICILLIN/SULBACTAM 1.5 GM in SODIUM CHLORIDE 0.9% MINIBAG 100 ML IV SCH ×5 (05:35→23:41)
[2018-12-20 05:46] LABS: ALBUMIN 2.8 g/dL (3.2-5.5); ALBUMIN/GLOBULIN RATIO 0.9 (1.0-2.2); MAGNESIUM 1.8 mg/dL (1.7-2.8); PHOSPHORUS 2.1 mg/dL (2.5-4.6); TOTAL PROTEIN 5.9 g/dL (6.7-8.2)
--- NOTE | 2018-12-20 06:42 | XRAY Report ---
Reason: Wheezing, F/U pneumonia Procedure Date: 12/20/2018 Accession Number: [id number] / [id number] Procedure: XR - Chest 1 View X-Ray CPT Code: 82479 FULL RESULT: EXAM: CHEST RADIOGRAPHY EXAM DATE: 12/20/2018 06:09 AM. CLINICAL HISTORY: Wheezing, F/U pneumonia. COMPARISON: CHEST FOR LINE PLACEMENT 12/16/2018 10:57 PM. TECHNIQUE: 1 view. FINDINGS: Lungs/Pleura: There is a persisting infiltrate and continuous pleural effusion at the left lung base. Mediastinum: The heart size is slightly enlarged and stable. Other: None. IMPRESSION: 1. Persistent infiltrate with a continuous pleural effusion the left lung base. No significant change. RADIA
[2018-12-20] MEDS: LEVALBUTEROL 1.25 MG/3 ML NEB INH PRN ×3 (07:49→21:08)
[2018-12-20] MEDS ORDERED: POTASSIUM CHLORIDE 20 MEQ/15 ML UDC PO ONE (08:00)
[2018-12-20] MEDS ORDERED: POTASSIUM PHOSPHATE 15 MMOL in SODIUM CHLORIDE 0.9% 250 ML IV ONE (08:00)
[2018-12-20] MEDS ORDERED: POTASSIUM CHLORIDE 20 MEQ TABLET PO SCH (08:10)
[2018-12-20] MEDS: METOPROLOL 5 MG/5 ML VIAL IVP PRN (08:56)
[2018-12-20] MEDS ORDERED: METOPROLOL 5 MG/5 ML VIAL IVP PRN (08:59)
[2018-12-20] MEDS: PANTOPRAZOLE 40 MG VIAL IVP SCH ×2 (09:02→20:57)
[2018-12-20] MEDS: SODIUM CHLORIDE FLUSH 0.9% 10 ML SYRINGE IVP PRN ×7 (09:02→23:41)
[2018-12-20] MEDS: INSULIN ASPART 300 UNIT/3 ML PEN SUBQ SCH ×4 (09:14→20:56)
[2018-12-20] MEDS: ENOXAPARIN 60 MG/0.6 ML SYRINGE SUBQ SCH ×2 (09:16→20:57)
[2018-12-20] MEDS: LISINOPRIL 20 MG TABLET PO SCH (09:21)
[2018-12-20] MEDS: diltiaZEM CD 180 MG CAPSULE PO SCH (09:21)
[2018-12-20] MEDS: MAG HYDROX/AL HYDROX/SIMETH 30 ML UDC PO PRN (09:23)
[2018-12-20] MEDS ORDERED: CALCIUM CARBONATE CHEW 500 MG TABLET PO SCH (11:00)
[2018-12-20] MEDS ORDERED: FUROSEMIDE 20 MG TABLET PO SCH (11:00)
[2018-12-20] MEDS: SUCRALFATE 1 GM/10 ML UDC PO SCH ×3 (11:15→21:47)
[2018-12-20] MEDS: CALCIUM CARBONATE CHEW 500 MG TABLET PO PRN ×2 (11:43→18:18)
[2018-12-20] MEDS ORDERED: HYDROmorphone 0.5 MG/0.5 ML SYRINGE IVP ONE (12:00)
[2018-12-20] MEDS ORDERED: DIGOXIN 500 MCG/2 ML AMP IVP ONE (12:00)
[2018-12-20] MEDS: NEUTRA-PHOS 250 MG TABLET PO SCH ×2 (13:19→17:48)
[2018-12-20] MEDS: WARFARIN 2.5 MG TABLET PO SCH (14:03)
--- NOTE | 2018-12-20 15:09 | PROVIDER PROGRESS NOTE ---
Assessment/Plan - Problem List (1) Gastric outlet obstruction Assessment/Plan: pt report she did not have N/V any more, her abdominal is controlled, she tolerate full liquid, and request advanced diet, she had bowel movements continue PPI, add carafate (2) Prepyloric ulcer Continue with PPI management and symptomatic treatment, add carafate (3) Esophagitis Assessment/Plan: continue PPI and add Carafate liquid (4) Atrial fibrillation with rapid ventricular response Assessment/Plan: pt's afib RVR is not controlled. pt's HR still had 110-140, also pt present mild SOB, and mild anxiety. pt's tele reveals irregular irregular with missed pause, will order EKG to see any bundle mine hold Metoprolol, pt had already 360 mg PO Cardizem daily, now add Digoxin continue tele and vital monitor Will begin to resume the Coumadin and use Lovenox for bridging, follow INR daily (5) shortness of breath Assessment/Plan: pt present mild SOB with RR at 24-27, 96% sat on one liter of O2. CXR reveals persistent infiltration with left pleural effusion continue antibiotics add lower dosage Lasix ECHO is ordered, will followup (6) Aspiration pneumonia Assessment/Plan: pt's WBC is normal, no fever or chill. continue antibiotics, continue supplement of O2 as needed (7) Diabetes Assessment/Plan: continue sliding scale insulin coverage for this patient that we will start eating today. pt's A1C is 6 (8) HTN (hypertension) Assessment/Plan: stable, continue Cardizem and Lisinopril vital monitor (9) Hypokalemia Assessment/Plan: Replace. Follow lab daily (10) TIFFANI (acute kidney injury) Assessment/Plan: resolved - Current Meds Current Meds: Current Medications Generic Name Dose Route Start Last Admin Trade Name Freq PRN Reason Stop Dose Admin Al Hydroxide/Mg Hydroxide 30 ml 12/19/18 14:55 12/20/18 09:23 Mylanta Plus PO 30 ml Q4HR PRN Administration INDIGESTION Calcium Carbonate/Glycine 500 mg 12/20/18 10:43 12/20/18 11:43 Tums PO 500 mg BID PRN Administration Heartburn Diltiazem HCl 360 mg 12/19/18 10:00 12/20/18 09:21 Cardizem Cd PO 360 mg DAILY NESSA Administration Enoxaparin Sodium 60 mg 12/19/18 21:00 12/20/18 09:16 Lovenox SUBQ 60 mg BID NESSA Administration Furosemide 20 mg 12/20/18 11:00 12/20/18 11:48 Lasix PO 20 mg DAILY NESSA Administration Ampicillin Sodium/Sulbactam 100 mls @ 200 mls/hr 12/17/18 00:00 12/20/18 13:11 Sodium 1.5 gm/ Sodium Chloride IV 200 mls/hr Q6HR NESSA Administration Insulin Aspart 1 - 5 unit 12/19/18 12:00 12/20/18 13:08 Novolog SUBQ 1 unit 0800,1200,1700,2100 NESSA Administration Protocol Levalbuterol HCl 1.25 mg 12/19/18 15:15 12/20/18 14:33 Xopenex INH 1.25 mg Q4H PRN Administration Shortness of Air/Wheezing Lisinopril 20 mg 12/20/18 09:00 12/20/18 09:21 Zestril PO 20 mg DAILY NESSA Administration Pantoprazole Sodium 40 mg 12/16/18 21:00 12/20/18 09:02 Protonix IVP 40 mg BID NESSA Administration Sodium Chloride 10 ml 12/16/18 15:06 12/20/18 11:57 Normal Saline Flush 0.9% IVP 10 ml PRN PRN Administration NEEDED PER PROVIDER ORDERS Sodium Chloride 10 ml 12/16/18 17:00 12/20/18 11:26 Normal Saline Flush 0.9% IVP Not Given 0100,0900,1700 NESSA Sodium Phosphate 250 mg 12/20/18 12:00 12/20/18 13:19 K-Phos Neutral PO Not Given TIDWM NESSA Sucralfate 1 gm 12/20/18 11:00 12/20/18 11:15 Carafate PO 1 gm 0700,1100,1600,2200 NESSA Administration Throat Lozenges 1 lozenge 12/19/18 23:43 12/20/18 00:42 Cepacol MM 1 lozenge Q2HR PRN Administration Throat pain Warfarin Sodium 2.5 mg 12/20/18 14:00 12/20/18 14:03 Coumadin PO 2.5 mg TUTH@1400 NESSA Administration Warfarin Sodium 2 mg 12/19/18 14:00 12/19/18 14:10 Coumadin PO 2 mg SUMOWEFRSA@1400 [facility] Administration - Lab Result Fish Bone Diagrams: 12/20/18 05:07 12/20/18 05:07 - Additional Planning My Orders: My Active Orders 12/20/18 08:59 Metoprolol Inj [Lopressor Inj] 5 mg IVP Q6H PRN 12/20/18 10:31 Echo Transthoracic Complete [ECHO] Routine 12/20/18 10:43 Calcium Carbonate [Tums] 500 mg PO BID PRN 12/20/18 11:00 Furosemide [Lasix] 20 mg PO DAILY Sucralfate [Carafate] 1 gm PO 0700,1100,1600,2200 12/20/18 12:00 Neutra-Phos [K-Phos Neutral] 250 mg PO TIDWM 12/20/18 Dinner Soft (Low Fiber) Diet [DIET] 12/21/18 05:00 CBC - COMP BLD CT W/AUTO DIFF [HEME] DAILYLAB 12/22/18 05:00 CBC - COMP BLD CT W/AUTO DIFF [HEME] DAILYLAB 12/23/18 05:00 CBC - COMP BLD CT W/AUTO DIFF [HEME] DAILYLAB 12/24/18 05:00 CBC - COMP BLD CT W/AUTO DIFF [HEME] DAILYLAB Subjective - Subjective Patient Reports: Feeling Better Objective Vital Signs: Vital Signs - 24 hr 12/19/18 12/19/18 12/19/18 15:36 16:00 17:00 Temperature 37.0 C Heart Rate 91 Heart Rate [ 98 84 Monitoring electrodes] Respiratory 23 31 H 19 Rate Blood Pressure Blood Pressure 126/61 127/60 [Right Brachial artery] O2 Saturation 98 95 12/19/18 12/19/18 12/19/18 18:00 19:00 20:00 Temperature 36.8 C Heart Rate Heart Rate [ 93 85 83 Monitoring electrodes] Respiratory 18 27 H 30 H Rate Blood Pressure Blood Pressure 127/77 136/71 H 132/70 H [Right Brachial artery] O2 Saturation 98 97 97 12/19/18 12/19/18 12/19/18 20:23 21:00 22:00 Temperature Heart Rate 86 Heart Rate [ 83 72 Monitoring electrodes] Respiratory 18 29 H 26 H Rate Blood Pressure Blood Pressure 124/67 128/71 [Right Brachial artery] O2 Saturation 97 95 12/19/18 12/20/18 12/20/18 23:00 00:00 01:00 Temperature 37.3 C Heart Rate Heart Rate [ 76 76 74 Monitoring electrodes] Respiratory 31 H 31 H 24 Rate Blood Pressure Blood Pressure 133/62 H 134/76 H 122/58 L [Right Brachial artery] O2 Saturation 95 95 95 12/20/18 12/20/18 12/20/18 02:00 03:00 04:00 Temperature 36.8 C Heart Rate Heart Rate [ 100 80 98 Monitoring electrodes] Respiratory 25 H 24 24 Rate Blood Pressure Blood Pressure 117/52 L 132/54 H 128/66 [Right Brachial artery] O2 Saturation 96 96 96 12/20/18 12/20/18 12/20/18 05:00 06:00 07:00 Temperature Heart Rate Heart Rate [ 92 100 108 H Monitoring electrodes] Respiratory 21 26 H 28 H Rate Blood Pressure Blood Pressure 127/95 H 126/66 122/64 [Right Brachial artery] O2 Saturation 95 96 96 12/20/18 12/20/18 12/20/18 07:50 08:00 08:56 Temperature 36.6 C Heart Rate 105 H Heart Rate [ 116 H Monitoring electrodes] Respiratory 24 28 H Rate Blood Pressure 140/76 H Blood Pressure 140/76 H [Right Brachial artery] O2 Saturation 97 12/20/18 12/20/18 12/20/18 09:00 09:26 10:00 Temperature Heart Rate Heart Rate [ 133 H 105 H Monitoring electrodes] Respiratory 31 H 28 H Rate Blood Pressure 146/63 H Blood Pressure 140/69 H 146/90 H [Right Brachial artery] O2 Saturation 97 96 12/20/18 12/20/18 12/20/18 11:00 11:55 12:00 Temperature 37.4 C Heart Rate 108 H Heart Rate [ 129 H 107 H Monitoring electrodes] Respiratory 28 H 24 Rate Blood Pressure Blood Pressure 139/104 H 119/77 [Right Brachial artery] O2 Saturation 97 96 12/20/18 12/20/18 12/20/18 13:00 14:00 14:33 Temperature Heart Rate 91 Heart Rate [ 100 78 Monitoring electrodes] Respiratory 22 24 27 H Rate Blood Pressure Blood Pressure 120/68 [Right Brachial artery] O2 Saturation 96 96 Oxygen O2 Source [Without Activity] Room air O2 Source Nasal cannula I&O (Last 24 Hrs): Intake and Output Totals x24h 12/18/18 12/19/18 12/20/18 23:59 23:59 23:59 Intake Total 3299.992 3217.83 1644 Output Total 875 2300 2275 Balance 2424.992 917.83 -631 General: Alert, No acute distress HEENT: Atraumatic Neck: Supple Lymphatic: no adenopathy Neuro: Alert, Oriented Times 3 Cardiovascular: Normal S1, Normal S2 Respiratory: Chest non-tender Abdomen: Normal bowel sounds, Soft - Results Results: Laboratory Results WBC 6.5 x10^3/uL (4.8-10.8) 12/20/18 05:07 RBC 3.98 10^6/uL (4.20-5.40) L 12/20/18 05:07 Hgb 10.9 g/dL (12.0-16.0) L 12/20/18 05:07 Hct 34.6 % (37.0-47.0) L 12/20/18 05:07 MCV 86.9 fL (81.0-99.0) 12/20/18 05:07 MCH 27.4 pg (27.0-31.0) 12/20/18 05:07 MCHC 31.5 g/dL (32.0-36.0) L 12/20/18 05:07 RDW 16.1 % (12.0-15.0) H 12/20/18 05:07 Plt Count 168 10^3/uL (130-450) 12/20/18 05:07 MPV 11.5 fL (7.9-10.8) H 12/20/18 05:07 Neut # (Auto) 4.6 10^3/uL (1.5-6.6) 12/20/18 05:07 Lymph # (Auto) 1.0 10^3/uL (1.5-3.5) L 12/20/18 05:07 [place] # (Auto) 0.6 10^3/uL (0.0-1.0) 12/20/18 05:07 Eos # (Auto) 0.1 10^3/uL (0.0-0.7) 12/20/18 05:07 Baso # (Auto) 0.0 10^3/uL (0.0-0.1) 12/20/18 05:07 Absolute Nucleated RBC 0.00 x10^3/uL 12/20/18 05:07 Nucleated RBC % 0.0 /100WBC 12/20/18 05:07 PT 19.5 secs (9.9-12.6) H 12/20/18 05:07 INR 1.8 (0.8-1.2) H 12/20/18 05:07 Sodium 138 mmol/L (135-145) 12/20/18 05:07 Potassium 3.4 mmol/L (3.5-5.0) L 12/20/18 05:07 Chloride 107 mmol/L (101-111) 12/20/18 05:07 Carbon Dioxide 25 mmol/L (21-32) 12/20/18 05:07 Anion Gap 6.0 (6-13) 12/20/18 05:07 BUN 10 mg/dL (6-20) 12/20/18 05:07 Creatinine 1.0 mg/dL (0.4-1.0) 12/20/18 05:07 Estimated GFR (MDRD) 53 (>89) L 12/20/18 05:07 Glucose 143 mg/dL (70-100) H 12/20/18 05:07 POC Whole Bld Glucose 162 mg/dL (70 - 100) H 12/20/18 11:27 Glycated Hemoglobin 6.0 % (4.6-6.2) 12/16/18 12:18 Estim Average Glucose 126 (70-100) H 12/16/18 12:18 Calcium 8.5 mg/dL (8.5-10.3) 12/20/18 05:07 Phosphorus 2.1 mg/dL (2.5-4.6) L 12/20/18 05:07 Magnesium 1.8 mg/dL (1.7-2.8) 12/20/18 05:07 Total Bilirubin 1.0 mg/dL (0.2-1.0) 12/20/18 05:07 AST 14 IU/L (10-42) 12/20/18 05:07 ALT 14 IU/L (10-60) 12/20/18 05:07 Alkaline Phosphatase 42 IU/L (42-121) 12/20/18 05:07 Total Protein 5.9 g/dL (6.7-8.2) L 12/20/18 05:07 Albumin 2.8 g/dL (3.2-5.5) L 12/20/18 05:07 Globulin 3.1 g/dL (2.1-4.2) 12/20/18 05:07 Albumin/Globulin Ratio 0.9 (1.0-2.2) L 12/20/18 05:07 Lipase 29 U/L (22-51) 12/16/18 12:18 Urine Color YELLOW 12/16/18 13:45 Urine Clarity HAZY (CLEAR) 12/16/18 13:45 Urine pH 7.5 PH (5.0-7.5) 12/16/18 13:45 Ur Specific [place] 1.020 (1.002-1.030) 12/16/18 13:45 Urine Protein 100 mg/dL (NEGATIVE) H 12/16/18 13:45 Urine Glucose (UA) 500 mg/dL (NEGATIVE) H 12/16/18 13:45 Urine Ketones NEGATIVE mg/dL (NEGATIVE) 12/16/18 13:45 Urine Occult Blood SMALL (NEGATIVE) H 12/16/18 13:45 Urine Nitrite NEGATIVE (NEGATIVE) 12/16/18 13:45 Urine Bilirubin NEGATIVE (NEGATIVE) 12/16/18 13:45 Urine Urobilinogen 0.2 (NORMAL) E.U./dL (NORMAL) 12/16/18 13:45 Ur Leukocyte Esterase NEGATIVE (NEGATIVE) 12/16/18 13:45 Urine RBC 2 /HPF (0-5) 12/16/18 13:45 Urine WBC 0-3 /HPF (0-5) 12/16/18 13:45 Ur Squamous Epith Cells RARE Squamous (<= Few) 12/16/18 13:45 Urine Bacteria Rare /HPF (None Seen) 12/16/18 13:45 Urine Casts 3-5 Hyaline Casts /LPF 12/16/18 13:45 Ur Microscopic Review INDICATED 12/16/18 13:45 Urine Culture Comments NOT INDICATED 12/16/18 13:45 Nasal Screen MRSA (PCR) NEGATIVE (NEGATIVE) 12/17/18 00:38 - Procedures Procedures: Procedures RELEASE PERITONEUM, OPEN APPROACH (07/02/18) RELEASE SMALL INTESTINE, OPEN APPROACH (07/02/18) REPAIR ABDOMINAL WALL, OPEN APPROACH (07/02/18) Sepsis Event Note (H) - Evaluation Current Stage of Sepsis: Ruled out ABX Reporting Has patient been on IV antibiotics over the past 48 hours?: Yes Current Medications - Current Medications Current Medications: Active Medications Acetaminophen (Tylenol) 650 mg PO Q4HR PRN PRN Reason: Pain 1 to 4 Al Hydroxide/Mg Hydroxide (Mylanta Plus) 30 ml PO Q4HR PRN PRN Reason: INDIGESTION Last Admin: 12/20/18 09:23 Dose: 30 ml Calcium Carbonate/Glycine (Tums) 500 mg PO BID PRN PRN Reason: Heartburn Last Admin: 12/20/18 11:43 Dose: 500 mg Diltiazem HCl (Cardizem Cd) 360 mg PO DAILY [facility] Last Admin: 12/20/18 09:21 Dose: 360 mg Enoxaparin Sodium (Lovenox) 60 mg SUBQ BID [facility] Last Admin: 12/20/18 09:16 Dose: 60 mg Furosemide (Lasix) 20 mg PO DAILY [facility] Last Admin: 12/20/18 11:48 Dose: 20 mg Ampicillin Sodium/Sulbactam (Sodium 1.5 gm/ Sodium Chloride) 100 mls @ 200 mls/hr IV Q6HR [facility] Last Admin: 12/20/18 13:11 Dose: 200 mls/hr Insulin Aspart (Novolog) 1 - 5 unit SUBQ 0800,1200,1700,2100 [facility]; Protocol Last Admin: 12/20/18 13:08 Dose: 1 unit Levalbuterol HCl (Xopenex) 1.25 mg INH Q4H PRN PRN Reason: Shortness of Air/Wheezing Last Admin: 12/20/18 14:33 Dose: 1.25 mg Lisinopril (Zestril) 20 mg PO DAILY [facility] Last Admin: 12/20/18 09:21 Dose: 20 mg Metoclopramide HCl (Reglan Inj) 5 mg IVP Q6HR PRN PRN Reason: Nausea / Vomiting Metoprolol Tartrate (Lopressor Inj) 5 mg IVP Q6H PRN PRN Reason: HTN Emergency and HR control Morphine Sulfate (Morphine (Carpuject)) 2 mg IVP Q2HR PRN PRN Reason: Pain 8 to 10 Ondansetron HCl (Zofran Inj) 4 mg IVP Q6HR PRN PRN Reason: Nausea / Vomiting Pantoprazole Sodium (Protonix) 40 mg IVP BID [facility] Last Admin: 12/20/18 09:02 Dose: 40 mg Sodium Chloride (Normal Saline Flush 0.9%) 10 ml IVP PRN PRN PRN Reason: NEEDED PER PROVIDER ORDERS Last Admin: 12/20/18 11:57 Dose: 10 ml Sodium Chloride (Normal Saline Flush 0.9%) 10 ml IVP 0100,0900,1700 [facility] Last Admin: 12/20/18 11:26 Dose: Not Given Sodium Phosphate (K-Phos Neutral) 250 mg PO TIDWM [facility] Last Admin: 12/20/18 13:19 Dose: Not Given Sucralfate (Carafate) 1 gm PO 0700,1100,1600,2200 [facility] Last Admin: 12/20/18 11:15 Dose: 1 gm Throat Lozenges (Cepacol) 1 lozenge MM Q2HR PRN PRN Reason: Throat pain Last Admin: 12/20/18 00:42 Dose: 1 lozenge Warfarin Sodium (Coumadin) 2.5 mg PO TUTH@1400 [facility] Last Admin: 12/20/18 14:03 Dose: 2.5 mg Warfarin Sodium (Coumadin) 2 mg PO SUMOWEFRSA@1400 [facility] Last Admin: 12/19/18 14:10 Dose: 2 mg hydroCHLOROthiazide [Hydrochlorothiazide] 25 mg PO DAILY 07/03/18 Diltiazem HCl [Cardizem Cd] 360 mg PO DAILY 12/17/18 Lisinopril 20 mg PO DAILY 12/17/18 Ocuvite Eye Vitamin 1 tab PO DAILY 12/17/18 Warfarin Sodium 2.5 mg PO TUTH@1400 12/17/18 Warfarin [Coumadin] 2 mg PO SUMOWEFRSA@1400 12/17/18
[2018-12-20] MEDS: FUROSEMIDE 20 MG TABLET PO SCH (18:39)
[2018-12-21] MEDS: SODIUM CHLORIDE FLUSH 0.9% 10 ML SYRINGE IVP SCH ×4 (00:20→21:02)
[2018-12-21 04:57] LABS: BASOPHILS % (AUTO) 0.4 %; EOSINOPHILS # (AUTO) 0.2 10^3/uL (0.0-0.7); EOSINOPHILS % (AUTO) 2.3 %; HGB - HEMOGLOBIN 11.1 g/dL (12.0-16.0); LYMPHOCYTES # (AUTO) 1.2 10^3/uL (1.5-3.5); LYMPHOCYTES % (AUTO) 17.3 %; MEAN CORPUSCULAR HEMOGLOBIN 28.1 pg (27.0-31.0); MEAN CORPUSCULAR HGB CONC 32.2 g/dL (32.0-36.0); MEAN CORPUSCULAR VOLUME 87.3 fL (81.0-99.0); MEAN PLATELET VOLUME 11.9 fL (7.9-10.8); MONOCYTES # (AUTO) 0.9 10^3/uL (0.0-1.0); NEUTROPHILS # (AUTO) 4.8 10^3/uL (1.5-6.6); NEUTROPHILS % (AUTO) 67.6 %; PLT - PLATELET COUNT 191 10^3/uL (130-450); RED BLOOD COUNT 3.95 10^6/uL (4.20-5.40); WHITE BLOOD COUNT 7.1 x10^3/uL (4.8-10.8)
[2018-12-21 04:58] LABS: INR 2.3 (0.8-1.2); PT - PROTHROMBIN TIME 24.9 secs (9.9-12.6)
[2018-12-21 05:11] LABS: MAGNESIUM 1.4 mg/dL (1.7-2.8); PHOSPHORUS 2.4 mg/dL (2.5-4.6)
[2018-12-21] MEDS: AMPICILLIN/SULBACTAM 1.5 GM in SODIUM CHLORIDE 0.9% MINIBAG 100 ML IV SCH ×2 (05:59→11:28)
[2018-12-21] MEDS: FUROSEMIDE 20 MG TABLET PO SCH ×2 (06:00→14:34)
[2018-12-21] MEDS: SODIUM CHLORIDE FLUSH 0.9% 10 ML SYRINGE IVP PRN ×2 (06:00→23:06)
[2018-12-21] MEDS: MAGNESIUM OXIDE 400 MG TABLET PO SCH ×2 (06:03→14:34)
[2018-12-21] MEDS: SUCRALFATE 1 GM/10 ML UDC PO SCH ×4 (06:04→21:02)
[2018-12-21] MEDS: NEUTRA-PHOS 250 MG TABLET PO SCH ×5 (06:04→16:29)
[2018-12-21] MEDS ORDERED: POTASSIUM CHLORIDE 20 MEQ/15 ML UDC PO ONE (08:00)
[2018-12-21] MEDS: INSULIN ASPART 300 UNIT/3 ML PEN SUBQ SCH ×4 (08:15→21:02)
[2018-12-21] MEDS: DIGOXIN 125 MCG TABLET PO SCH (08:16)
[2018-12-21] MEDS: diltiaZEM CD 180 MG CAPSULE PO SCH (08:17)
[2018-12-21] MEDS: PANTOPRAZOLE 40 MG VIAL IVP SCH ×2 (08:19→21:02)
[2018-12-21] MEDS: LISINOPRIL 20 MG TABLET PO SCH (08:24)
[2018-12-21] MEDS: ENOXAPARIN 60 MG/0.6 ML SYRINGE SUBQ SCH (08:31)
[2018-12-21] MEDS: LEVALBUTEROL 1.25 MG/3 ML NEB INH PRN ×2 (08:44→20:51)
[2018-12-21] MEDS ORDERED: POLYETHYLENE GLYCOL 3350 17 GM PACKET PO PRN (09:00)
[2018-12-21] MEDS ORDERED: POLYETHYLENE GLYCOL 3350 17 GM PACKET PO ONE (09:00)
[2018-12-21] MEDS ORDERED: METOPROLOL SUCCINATE 25 MG TABLET PO SCH (09:00)
[2018-12-21] MEDS ORDERED: POTASSIUM CHLORIDE 20 MEQ TABLET PO ONE (09:04)
[2018-12-21] MEDS ORDERED: MAGNESIUM SULFATE 2 GRAM 2 GM/50 ML BAG IV ONE (09:13)
[2018-12-21 11:08] LABS: ALBUMIN 2.9 g/dL (3.2-5.5); ALBUMIN/GLOBULIN RATIO 0.9 (1.0-2.2); CALCIUM 8.6 mg/dL (8.5-10.3); TOTAL PROTEIN 6.1 g/dL (6.7-8.2)
[2018-12-21] MEDS: METOPROLOL 5 MG/5 ML VIAL IVP PRN ×2 (11:21→23:06)
[2018-12-21] MEDS: WARFARIN 1 MG TABLET PO SCH (14:34)
--- NOTE | 2018-12-21 15:39 | PROVIDER PROGRESS NOTE ---
Assessment/Plan - Problem List (1) Gastric outlet obstruction Assessment/Plan: pt report she did not have N/V any more, her abdominal is controlled, she tolerate full liquid, and request advanced diet, she had bowel movements continue PPI, add carafate (2)dyspnea 12/21 pt present dyspnea up to [address] of chest reveals small to moderate pleural effusion, right more than left. consult with radiologist for thoracentesis, will order gram stain and lab test of thoracentesis fluid (3) pneumonia Assessment/Plan: 12/21 pt had elevated temperature 99.5/37.7. CT of chest reveals underlying posterior sulci including a small amount of consolidation bilaterally, other area of infiltration on previous study have cleared switch antibiotic to Cefepim and vancomycin continue O2 supplement as needed pt's WBC is normal, no fever or chill. continue antibiotics, continue supplement of O2 as needed (4) Prepyloric ulcer Continue with PPI management and symptomatic treatment, add carafate (5) Esophagitis Assessment/Plan: continue PPI and add Carafate liquid (6) Atrial fibrillation with rapid ventricular response Assessment/Plan: 12/21 pt still had elevated HR at morning, add Metoprolol 25 mg and PRN metoprolol, will increase PO metoprolol dosage as needed INR is 2.3 today, stop Lovenox and continue home Coumadin dosage daily continue check PT/INR pt's afib RVR is not controlled. pt's HR still had 110-140, also pt present mild SOB, and mild anxiety. pt's tele reveals irregular irregular with missed pause, will order EKG to see any bundle mine hold Metoprolol, pt had already 360 mg PO Cardizem daily, now add Digoxin continue tele and vital monitor Will begin to resume the Coumadin and use Lovenox for bridging, follow INR daily (7) Diabetes Assessment/Plan: continue sliding scale insulin coverage for this patient that we will start eating today. pt's A1C is 6 (8) HTN (hypertension) Assessment/Plan: stable, continue Cardizem and Lisinopril vital monitor (9) Hypokalemia Assessment/Plan: Replace. Follow lab daily (10) TIFFANI (acute kidney injury) Assessment/Plan: resolved (11) COPD pt has hx of COPD, and smoking for 30 yrs per pt stated. treat with PRN xopenxin and atrovent - Current Meds Current Meds: Current Medications Generic Name Dose Route Start Last Admin Trade Name Freq PRN Reason Stop Dose Admin Al Hydroxide/Mg Hydroxide 30 ml 12/19/18 14:55 12/20/18 09:23 Mylanta Plus PO 30 ml Q4HR PRN Administration INDIGESTION Calcium Carbonate/Glycine 500 mg 12/20/18 10:43 12/20/18 18:18 Tums PO 500 mg BID PRN Administration Heartburn Digoxin 125 mcg 12/21/18 09:00 12/21/18 08:16 Lanoxin PO 125 mcg DAILY NESSA Administration Diltiazem HCl 360 mg 12/19/18 10:00 12/21/18 08:17 Cardizem Cd PO 360 mg DAILY NESSA Administration Furosemide 20 mg 12/20/18 18:45 12/21/18 14:34 Lasix PO 20 mg BIDDIURETIC NESSA Administration Ampicillin Sodium/Sulbactam 100 mls @ 200 mls/hr 12/17/18 00:00 12/21/18 12:0 0 Sodium 1.5 gm/ Sodium Chloride IV Infused Q6HR NESSA Infusion Insulin Aspart 1 - 5 unit 12/19/18 12:00 12/21/18 12:02 Novolog SUBQ 1 unit 0800,1200,1700,2100 NESSA Administration Protocol Levalbuterol HCl 1.25 mg 12/19/18 15:15 12/21/18 08:44 Xopenex INH 1.25 mg Q4H PRN Administration Shortness of Air/Wheezing Lisinopril 20 mg 12/20/18 09:00 12/21/18 08:24 Zestril PO 20 mg DAILY NESSA Administration Metoprolol Succinate 25 mg 12/21/18 09:00 12/21/18 09:53 Toprol Xl PO 25 mg DAILY NESSA Administration Metoprolol Tartrate 5 mg 12/21/18 10:27 12/21/18 11:21 Lopressor Inj IVP 5 mg Q6H PRN Administration Hypertensive Emergency Pantoprazole Sodium 40 mg 12/16/18 21:00 12/21/18 08:19 Protonix IVP 40 mg BID NESSA Administration Sodium Chloride 10 ml 12/16/18 15:06 12/21/18 06:00 Normal Saline Flush 0.9% IVP 10 ml PRN PRN Administration NEEDED PER PROVIDER ORDERS Sodium Chloride 10 ml 12/16/18 17:00 12/21/18 11:28 Normal Saline Flush 0.9% IVP 10 ml 0100,0900,1700 ON LICENSE OF [facility] Administration Sodium Phosphate 250 mg 12/20/18 12:00 12/21/18 10:24 K-Phos Neutral PO Not Given TIDWM ON LICENSE OF [facility] Sucralfate 1 gm 12/20/18 11:00 12/21/18 11:29 Carafate PO 1 gm 0700,1100,1600,2200 ON LICENSE OF [facility] Administration Throat Lozenges 1 lozenge 12/19/18 23:43 12/20/18 00:42 Cepacol MM 1 lozenge Q2HR PRN Administration Throat pain Warfarin Sodium 2.5 mg 12/20/18 14:00 12/20/18 14:03 Coumadin PO 2.5 mg TUTH@1400 ON LICENSE OF [facility] Administration Warfarin Sodium 2 mg 12/19/18 14:00 12/21/18 14:34 Coumadin PO 2 mg SUMOWEFRSA@1400 ON LICENSE OF [facility] Administration - Lab Result Fish Bone Diagrams: 12/21/18 04:20 12/21/18 04:20 - Additional Planning My Orders: My Active Orders 12/20/18 18:24 Incentive Spirometry - RT [RC] .TID 12/20/18 18:45 Furosemide [Lasix] 20 mg PO BIDDIURETIC 12/20/18 Dinner Soft (Low Fiber) Diet [DIET] 12/21/18 09:00 Digoxin [Lanoxin] 125 mcg PO DAILY Metoprolol Succinate [Toprol Xl] 25 mg PO DAILY 12/21/18 10:27 Metoprolol Inj [Lopressor Inj] 5 mg IVP Q6H PRN 12/21/18 13:55 CHEST WO [CT] Routine 12/21/18 15:30 Nebulizer/MDI Tx. [RC] QID Resp Teach Nebulizer/MDI [RC] .ONCE 12/21/18 17:00 Ipratropium [Atrovent] 0.5 mg INH QID 12/22/18 05:00 CBC - COMP BLD CT W/AUTO DIFF [HEME] DAILYLAB CMP [COMPREHENSIVE METABOLIC PANEL] [CHEM] DAILYLAB PHOSPHORUS [CHEM] DAILYLAB 12/23/18 05:00 CBC - COMP BLD CT W/AUTO DIFF [HEME] DAILYLAB CMP [COMPREHENSIVE METABOLIC PANEL] [CHEM] DAILYLAB 12/24/18 05:00 CBC - COMP BLD CT W/AUTO DIFF [HEME] DAILYLAB CMP [COMPREHENSIVE METABOLIC PANEL] [CHEM] DAILYLAB 12/25/18 05:00 CMP [COMPREHENSIVE METABOLIC PANEL] [CHEM] DAILYLAB 12/26/18 05:00 CMP [COMPREHENSIVE METABOLIC PANEL] [CHEM] DAILYLAB Subjective - Subjective Patient Reports: Feeling Better Objective Vital Signs: Vital Signs - 24 hr 12/20/18 12/20/18 12/20/18 16:00 17:00 18:00 Temperature 36.7 C Heart Rate Heart Rate [ 81 70 83 Monitoring electrodes] Heart Rate [ Supine] Respiratory 23 24 25 H Rate Blood Pressure Blood Pressure 128/52 L 110/97 H 135/65 H [Right Brachial artery] Blood Pressure [Supine] O2 Saturation 95 99 99 O2 Saturation [ Supine] 12/20/18 12/20/18 12/20/18 19:00 19:39 20:00 Temperature 36.6 C Heart Rate Heart Rate [ 86 84 95 Monitoring electrodes] Heart Rate [ Supine] Respiratory 24 30 H 22 Rate Blood Pressure Blood Pressure 135/55 H 139/81 H [Right Brachial artery] Blood Pressure [Supine] O2 Saturation 98 98 100 O2 Saturation [ Supine] 12/20/18 12/20/18 12/20/18 21:00 21:08 22:00 Temperature Heart Rate 90 Heart Rate [ 81 96 Monitoring electrodes] Heart Rate [ Supine] Respiratory 22 22 26 H Rate Blood Pressure Blood Pressure 149/69 H [Right Brachial artery] Blood Pressure [Supine] O2 Saturation 98 96 O2 Saturation [ Supine] 12/20/18 12/21/18 12/21/18 23:00 00:00 01:00 Temperature 37.0 C Heart Rate Heart Rate [ 93 96 88 Monitoring electrodes] Heart Rate [ Supine] Respiratory 26 H 22 25 H Rate Blood Pressure Blood Pressure 148/63 H 143/73 H 134/62 H [Right Brachial artery] Blood Pressure [Supine] O2 Saturation 97 95 97 O2 Saturation [ Supine] 12/21/18 12/21/18 12/21/18 02:00 03:00 04:00 Temperature Heart Rate Heart Rate [ 90 97 92 Monitoring electrodes] Heart Rate [ Supine] Respiratory 24 27 H 28 H Rate Blood Pressure Blood Pressure 140/88 H 135/63 H 138/78 H [Right Brachial artery] Blood Pressure [Supine] O2 Saturation 96 96 95 O2 Saturation [ Supine] 12/21/18 12/21/18 12/21/18 04:21 05:00 05:33 Temperature 36.9 C Heart Rate Heart Rate [ 103 H 91 89 Monitoring electrodes] Heart Rate [ Supine] Respiratory 19 25 H 22 Rate Blood Pressure Blood Pressure 140/85 H [Right Brachial artery] Blood Pressure [Supine] O2 Saturation 96 96 97 O2 Saturation [ Supine] 12/21/18 12/21/18 12/21/18 06:00 07:00 08:00 Temperature 99.5 C H Heart Rate Heart Rate [ 115 H 108 H 140 H Monitoring electrodes] Heart Rate [ Supine] Respiratory 18 26 H 19 Rate Blood Pressure Blood Pressure 152/81 H 136/67 H 119/82 H [Right Brachial artery] Blood Pressure [Supine] O2 Saturation 97 96 94 O2 Saturation [ Supine] 12/21/18 12/21/18 12/21/18 08:44 09:00 09:17 Temperature 99.5 C H Heart Rate 119 H 130 H Heart Rate [ 155 H Monitoring electrodes] Heart Rate [ Supine] Respiratory 14 25 H 20 Rate Blood Pressure Blood Pressure 134/71 H [Right Brachial artery] Blood Pressure [Supine] O2 Saturation 94 94 O2 Saturation [ Supine] 12/21/18 12/21/18 12/21/18 10:00 10:20 11:00 Temperature Heart Rate Heart Rate [ 124 H 120 H Monitoring electrodes] Heart Rate [ 142 H 115 H Supine] Respiratory 24 30 H Rate Blood Pressure Blood Pressure 110/67 120/63 [Right Brachial artery] Blood Pressure 127/59 L 120/63 [Supine] O2 Saturation 95 96 O2 Saturation [ 94 Supine] 12/21/18 12/21/18 12/21/18 11:21 11:51 12:00 Temperature 37.3 C Heart Rate Heart Rate [ 97 Monitoring electrodes] Heart Rate [ Supine] Respiratory 23 Rate Blood Pressure 120/63 130/69 Blood Pressure 130/69 [Right Brachial artery] Blood Pressure [Supine] O2 Saturation 97 O2 Saturation [ Supine] 12/21/18 13:00 Temperature Heart Rate Heart Rate [ 71 Monitoring electrodes] Heart Rate [ Supine] Respiratory 92 H Rate Blood Pressure Blood Pressure 113/48 L [Right Brachial artery] Blood Pressure [Supine] O2 Saturation 34 L O2 Saturation [ Supine] Oxygen O2 Source [Without Activity] Room air O2 Source Nasal cannula I&O (Last 24 Hrs): Intake and Output Totals x24h 10/28/19 10/29/19 10/30/19 23:59 23:59 23:59 Intake Total 3217.83 2339.00 650 Output Total 2300 4475 800 Balance 917.83 -2136.00 -150 General: Alert HEENT: Atraumatic Neck: Supple Lymphatic: no adenopathy Neuro: Alert, Oriented Times 3 Cardiovascular: Regular rate Respiratory: Chest non-tender, No respiratory distress Abdomen: Normal bowel sounds, Soft - Results Results: Laboratory Results WBC 7.1 x10^3/uL (4.8-10.8) 12/21/18 04:20 RBC 3.95 10^6/uL (4.20-5.40) L 12/21/18 04:20 Hgb 11.1 g/dL (12.0-16.0) L 12/21/18 04:20 Hct 34.5 % (37.0-47.0) L 12/21/18 04:20 MCV 87.3 fL (81.0-99.0) 12/21/18 04:20 MCH 28.1 pg (27.0-31.0) 12/21/18 04:20 MCHC 32.2 g/dL (32.0-36.0) 12/21/18 04:20 RDW 16.0 % (12.0-15.0) H 12/21/18 04:20 Plt Count 191 10^3/uL (130-450) 12/21/18 04:20 MPV 11.9 fL (7.9-10.8) H 12/21/18 04:20 Neut # (Auto) 4.8 10^3/uL (1.5-6.6) 12/21/18 04:20 Lymph # (Auto) 1.2 10^3/uL (1.5-3.5) L 12/21/18 04:20 [place] # (Auto) 0.9 10^3/uL (0.0-1.0) 12/21/18 04:20 Eos # (Auto) 0.2 10^3/uL (0.0-0.7) 12/21/18 04:20 Baso # (Auto) 0.0 10^3/uL (0.0-0.1) 12/21/18 04:20 Absolute Nucleated RBC 0.00 x10^3/uL 12/21/18 04:20 Nucleated RBC % 0.0 /100WBC 12/21/18 04:20 PT 24.9 secs (9.9-12.6) H 12/21/18 04:20 INR 2.3 (0.8-1.2) H 12/21/18 04:20 Sodium 136 mmol/L (135-145) 12/21/18 04:20 Potassium 3.3 mmol/L (3.5-5.0) L 12/21/18 04:20 Chloride 98 mmol/L (101-111) L 12/21/18 04:20 Carbon Dioxide 28 mmol/L (21-32) 12/21/18 04:20 Anion Gap 10.0 (6-13) 12/21/18 04:20 BUN 10 mg/dL (6-20) 12/21/18 04:20 Creatinine 1.0 mg/dL (0.4-1.0) 12/21/18 04:20 Estimated GFR (MDRD) 53 (>89) L 12/21/18 04:20 Glucose 109 mg/dL (70-100) H 12/21/18 04:20 POC Whole Bld Glucose 142 mg/dL (70 - 100) H 12/21/18 11:26 Glycated Hemoglobin 6.0 % (4.6-6.2) 12/16/18 12:18 Estim Average Glucose 126 (70-100) H 12/16/18 12:18 Calcium 8.6 mg/dL (8.5-10.3) 12/21/18 04:20 Phosphorus 2.4 mg/dL (2.5-4.6) L 12/21/18 04:20 Magnesium 1.4 mg/dL (1.7-2.8) L 12/21/18 04:20 Total Bilirubin 1.0 mg/dL (0.2-1.0) 12/21/18 04:20 AST 14 IU/L (10-42) 12/21/18 04:20 ALT 15 IU/L (10-60) 12/21/18 04:20 Alkaline Phosphatase 46 IU/L (42-121) 12/21/18 04:20 B-Natriuretic Peptide 367 pg/mL (5-100) H 12/21/18 04:20 Total Protein 6.1 g/dL (6.7-8.2) L 12/21/18 04:20 Albumin 2.9 g/dL (3.2-5.5) L 12/21/18 04:20 Globulin 3.2 g/dL (2.1-4.2) 12/21/18 04:20 Albumin/Globulin Ratio 0.9 (1.0-2.2) L 12/21/18 04:20 Lipase 29 U/L (22-51) 12/16/18 12:18 Urine Color YELLOW 12/16/18 13:45 Urine Clarity HAZY (CLEAR) 12/16/18 13:45 Urine pH 7.5 PH (5.0-7.5) 12/16/18 13:45 Ur Specific [place] 1.020 (1.002-1.030) 12/16/18 13:45 Urine Protein 100 mg/dL (NEGATIVE) H 12/16/18 13:45 Urine Glucose (UA) 500 mg/dL (NEGATIVE) H 12/16/18 13:45 Urine Ketones NEGATIVE mg/dL (NEGATIVE) 12/16/18 13:45 Urine Occult Blood SMALL (NEGATIVE) H 12/16/18 13:45 Urine Nitrite NEGATIVE (NEGATIVE) 12/16/18 13:45 Urine Bilirubin NEGATIVE (NEGATIVE) 12/16/18 13:45 Urine Urobilinogen 0.2 (NORMAL) E.U./dL (NORMAL) 12/16/18 13:45 Ur Leukocyte Esterase NEGATIVE (NEGATIVE) 12/16/18 13:45 Urine RBC 2 /HPF (0-5) 12/16/18 13:45 Urine WBC 0-3 /HPF (0-5) 12/16/18 13:45 Ur Squamous Epith Cells RARE Squamous (<= Few) 12/16/18 13:45 Urine Bacteria Rare /HPF (None Seen) 12/16/18 13:45 Urine Casts 3-5 Hyaline Casts /LPF 12/16/18 13:45 Ur Microscopic Review INDICATED 12/16/18 13:45 Urine Culture Comments NOT INDICATED 12/16/18 13:45 Nasal Screen MRSA (PCR) NEGATIVE (NEGATIVE) 12/17/18 00:38 - Procedures Procedures: Procedures RELEASE PERITONEUM, OPEN APPROACH (07/02/18) RELEASE SMALL INTESTINE, OPEN APPROACH (07/02/18) REPAIR ABDOMINAL WALL, OPEN APPROACH (07/02/18) Sepsis Event Note (H) - Evaluation Current Stage of Sepsis: Ruled out ABX Reporting Has patient been on IV antibiotics over the past 48 hours?: No Current Medications - Current Medications Current Medications: Active Medications Acetaminophen (Tylenol) 650 mg PO Q4HR PRN PRN Reason: Pain 1 to 4 Al Hydroxide/Mg Hydroxide (Mylanta Plus) 30 ml PO Q4HR PRN PRN Reason: INDIGESTION Last Admin: 12/20/18 09:23 Dose: 30 ml Calcium Carbonate/Glycine (Tums) 500 mg PO BID PRN PRN Reason: Heartburn Last Admin: 12/20/18 18:18 Dose: 500 mg Digoxin (Lanoxin) 125 mcg PO DAILY ON LICENSE OF [facility] Last Admin: 12/21/18 08:16 Dose: 125 mcg Diltiazem HCl (Cardizem Cd) 360 mg PO DAILY ON LICENSE OF [facility] Last Admin: 12/21/18 08:17 Dose: 360 mg Furosemide (Lasix) 20 mg PO BIDDIURETIC ON LICENSE OF [facility] Last Admin: 12/21/18 14:34 Dose: 20 mg Cefepime HCl 1 gm/ Sodium (Chloride) 100 mls @ 200 mls/hr IV Q8H ON LICENSE OF [facility] Last Admin: 12/21/18 18:21 Dose: 200 mls/hr Vancomycin HCl 1 gm/ Sodium (Chloride) 250 mls @ 167 mls/hr IV Q400H ON LICENSE OF [facility] Insulin Aspart (Novolog) 1 - 5 unit SUBQ 0800,1200,1700,2100 ON LICENSE OF [facility]; Protocol Last Admin: 12/21/18 16:28 Dose: Not Given Ipratropium [place] (Atrovent) 0.5 mg INH RTQID ON LICENSE OF [facility] Levalbuterol HCl (Xopenex) 1.25 mg INH Q4H PRN PRN Reason: Shortness of Air/Wheezing Last Admin: 12/21/18 08:44 Dose: 1.25 mg Lisinopril (Zestril) 20 mg PO DAILY ON LICENSE OF [facility] Last Admin: 12/21/18 08:24 Dose: 20 mg Metoclopramide HCl (Reglan Inj) 5 mg IVP Q6HR PRN PRN Reason: Nausea / Vomiting Metoprolol Succinate (Toprol Xl) 50 mg PO DAILY ON LICENSE OF [facility] Metoprolol Tartrate (Lopressor Inj) 5 mg IVP Q6H PRN PRN Reason: Hypertensive Emergency Last Admin: 12/21/18 11:21 Dose: 5 mg Morphine Sulfate (Morphine (Carpuject)) 2 mg IVP Q2HR PRN PRN Reason: Pain 8 to 10 Ondansetron HCl (Zofran Inj) 4 mg IVP Q6HR PRN PRN Reason: Nausea / Vomiting Pantoprazole Sodium (Protonix) 40 mg IVP BID ON LICENSE OF [facility] Last Admin: 12/21/18 08:19 Dose: 40 mg Sodium Chloride (Normal Saline Flush 0.9%) 10 ml IVP PRN PRN PRN Reason: NEEDED PER PROVIDER ORDERS Last Admin: 12/21/18 06:00 Dose: 10 ml Sodium Chloride (Normal Saline Flush 0.9%) 10 ml IVP 0100,0900,1700 ON LICENSE OF [facility] Last Admin: 12/21/18 11:28 Dose: 10 ml Sodium Phosphate (K-Phos Neutral) 250 mg PO TIDWM ON LICENSE OF [facility] Last Admin: 12/21/18 16:29 Dose: 250 mg Sucralfate (Carafate) 1 gm PO 0700,1100,1600,2200 ON LICENSE OF [facility] Last Admin: 12/21/18 16:29 Dose: 1 gm Throat Lozenges (Cepacol) 1 lozenge MM Q2HR PRN PRN Reason: Throat pain Last Admin: 12/20/18 00:42 Dose: 1 lozenge Warfarin Sodium (Coumadin) 2.5 mg PO TUTH@1400 ON LICENSE OF [facility] Last Admin: 12/20/18 14:03 Dose: 2.5 mg Warfarin Sodium (Coumadin) 2 mg PO SUMOWEFRSA@1400 ON LICENSE OF [facility] Last Admin: 12/21/18 14:34 Dose: 2 mg hydroCHLOROthiazide [Hydrochlorothiazide] 25 mg PO DAILY 07/03/18 Diltiazem HCl [Cardizem Cd] 360 mg PO DAILY 12/17/18 Lisinopril 20 mg PO DAILY 12/17/18 Ocuvite Eye Vitamin 1 tab PO DAILY 12/17/18 Warfarin Sodium 2.5 mg PO TUTH@1400 12/17/18 Warfarin [Coumadin] 2 mg PO SUMOWEFRSA@1400 12/17/18
--- NOTE | 2018-12-21 17:24 | CT Report ---
Reason: persistent dyspnea, long hx of somker Procedure Date: 12/21/2018 Accession Number: [id number] / [id number] Procedure: CT - CHEST WO CPT Code: FULL RESULT: EXAM: CT CHEST EXAM DATE: 12/21/2018 02:21 PM. CLINICAL HISTORY: Persistent dyspnea, long hx of smoker. COMPARISONS: CHEST ANGIO 07/09/2018 5:18 PM. TECHNIQUE: Routine helical CT imaging was performed through the chest. IV contrast: None. Reconstructions: Sagittal, coronal, and axial MIP. In accordance with CT protocol optimization, one or more of the following dose reduction techniques were utilized for this exam: automated exposure control, adjustment of mA and/or KV based on patient size, or use of iterative reconstructive technique. FINDINGS: Lungs/Pleura: Small to moderate bilateral pleural effusions, right more than left, with underlying atelectasis in the posterior sulci including a small amount of consolidation bilaterally. Other areas of infiltration on previous study have cleared. No pneumothorax. Mediastinum: Mild cardiomegaly. No pericardial effusion. Moderate coronary artery calcification. No lymphadenopathy. Bones: Mild scoliosis with degenerative changes. Visualized Abdomen: Unremarkable. Other: None. IMPRESSION: 1. Small to moderate bilateral pleural effusions, right more than left, with underlying atelectasis and small amounts of consolidation. 2. Mild cardiomegaly with coronary artery calcifications and other chronic or incidental findings. RADIA
[2018-12-21] MEDS ORDERED: VANCOMYCIN PER PHARMACY 1 GM in SODIUM CHLORIDE 0.9% 250 ML IV SCH (18:00)
[2018-12-21] MEDS: CEFEPIME 1 GM in SODIUM CHLORIDE 0.9% MINIBAG 100 ML IV SCH (18:21)
[2018-12-21] MEDS: IPRATROPIUM 0.2 MG/ML NEB INH SCH ×2 (18:50→20:51)
[2018-12-21] MEDS ORDERED: VANCOMYCIN INJ 1 GM in SODIUM CHLORIDE 0.9% 250 ML IV SCH (19:00)
[2018-12-22] MEDS: CEFEPIME 1 GM in SODIUM CHLORIDE 0.9% MINIBAG 100 ML IV SCH ×2 (02:01→10:15)
[2018-12-22] MEDS: SODIUM CHLORIDE FLUSH 0.9% 10 ML SYRINGE IVP PRN (02:07)
[2018-12-22] MEDS ORDERED: SODIUM CHLORIDE FLUSH 0.9% 10 ML SYRINGE ONE (02:09)
[2018-12-22] MEDS: ACETAMINOPHEN 325 MG TABLET PO PRN ×2 (02:42→13:10)
[2018-12-22] MEDS: METOPROLOL 5 MG/5 ML VIAL IVP PRN (06:09)
[2018-12-22] MEDS: FUROSEMIDE 20 MG TABLET PO SCH ×2 (06:09→13:48)
[2018-12-22] MEDS: SUCRALFATE 1 GM/10 ML UDC PO SCH ×3 (06:12→16:46)
[2018-12-22 06:19] LABS: BASOPHILS % (AUTO) 0.4 %; EOSINOPHILS % (AUTO) 0.5 %; HGB - HEMOGLOBIN 11.7 g/dL (12.0-16.0); LYMPHOCYTES % (AUTO) 12.3 %; MEAN CORPUSCULAR HEMOGLOBIN 28.2 pg (27.0-31.0); MEAN CORPUSCULAR HGB CONC 33.1 g/dL (32.0-36.0); MEAN CORPUSCULAR VOLUME 85.1 fL (81.0-99.0); MEAN PLATELET VOLUME 11.7 fL (7.9-10.8); MONOCYTES # (AUTO) 0.9 10^3/uL (0.0-1.0); MONOCYTES % (AUTO) 10.6 %; NEUTROPHILS % (AUTO) 75.4 %; PLT - PLATELET COUNT 213 10^3/uL (130-450); RED BLOOD COUNT 4.15 10^6/uL (4.20-5.40)
[2018-12-22 06:31] LABS: ALBUMIN 2.7 g/dL (3.2-5.5); ALBUMIN/GLOBULIN RATIO 0.8 (1.0-2.2); BILIRUBIN,TOTAL 1.4 mg/dL (0.2-1.0); CALCIUM 8.4 mg/dL (8.5-10.3); MAGNESIUM 1.3 mg/dL (1.7-2.8); TOTAL PROTEIN 6.1 g/dL (6.7-8.2)
[2018-12-22] MEDS: INSULIN ASPART 300 UNIT/3 ML PEN SUBQ SCH ×2 (07:45→11:59)
[2018-12-22] MEDS ORDERED: MAGNESIUM SULFATE 2 GRAM 2 GM/50 ML BAG IV ONE (08:00)
[2018-12-22] MEDS: NEUTRA-PHOS 250 MG TABLET PO SCH ×2 (08:20→12:00)
[2018-12-22] MEDS: diltiaZEM CD 180 MG CAPSULE PO SCH (08:21)
[2018-12-22] MEDS: DIGOXIN 125 MCG TABLET PO SCH (08:21)
[2018-12-22] MEDS: LISINOPRIL 20 MG TABLET PO SCH (08:22)
[2018-12-22] MEDS ORDERED: MAGNESIUM OXIDE 400 MG TABLET PO SCH (09:00)
[2018-12-22] MEDS ORDERED: METOPROLOL SUCCINATE 50 MG TABLET PO SCH (09:00)
[2018-12-22] MEDS: PANTOPRAZOLE 40 MG VIAL IVP SCH (09:04)
[2018-12-22] MEDS: SODIUM CHLORIDE FLUSH 0.9% 10 ML SYRINGE IVP SCH (09:05)
[2018-12-22] MEDS ORDERED: SACCHAROMYCES BOULARDII 250 MG CAPSULE PO SCH (09:28)
[2018-12-22] MEDS: IPRATROPIUM 0.2 MG/ML NEB INH SCH ×2 (11:32)
[2018-12-22] MEDS: LEVALBUTEROL 1.25 MG/3 ML NEB INH PRN (11:32)
[2018-12-22] MEDS: WARFARIN 2.5 MG TABLET PO SCH (13:47)
--- NOTE | 2018-12-22 15:12 | Discharge Plan ---
Discharge Plan Problem Reviewed?: Yes Disposition: Home, Self Care Condition: Stable Prescriptions: cephALEXin [Keflex] 250 mg PO Q6H #20 capsule Digoxin [Lanoxin] 125 mcg PO DAILY #10 tablet Magnesium Oxide [Mag Ox] 400 mg PO DAILYWM #10 tablet Metoprolol Succinate [Toprol Xl] 50 mg PO DAILY #10 tablet Omeprazole 40 mg PO DAILY #15 capsule.dr Hai [place] [Florastor] 250 mg PO BID #10 capsule Sucralfate [Carafate] 1 gm PO TID #30 ml Diet: Regular Activity Restrictions: Activity as Tolerated Shower Restrictions: No (fall precaution) Instruction Topics: Sucralfate oral suspension, Cephalexin tablets or capsules, Metoprolol tablets, Omeprazole tablets OTC, Pneumonia, Digoxin, Atrial Fibrillation, Gastric Ulcer Health Concerns: afib with RVR, gastric ulcer, pneumonia, small to moderate pleural effusion Plan of Treatment: you are prescribed two new meds, Metoprolol and Digoxin, to control your afib with RVR, advise you followup your plastic cutter as out-pt. you were reported to have gastric ulcer at last time EGD, advise you continue meds PPI and carafate for healing of gastric ulcer. your small bowel obstruction was resolved by your own, no surgery was required. you are prescribed antibiotics for finishing the treatment course. PT walked with you on room air, and you tolerate well, without showing shortness of breath, advise followup PCP closely monitor your small to moderate pleural effusion. Care Goals: stabilization and improvement of your medical conditions Assessment: assessment as the above Additional Instructions or Follow Up instructions: you may followup your PCP in one week, followup your plastic cutter as out-pt. Should your symptoms return or worsen, you may present ER or call 911 for help. No Smoking: If you smoke, Please STOP! Call for help. Follow-up with: Pasquale Jon MD [Primary Care Provider] -
--- NOTE | 2018-12-22 16:03 | DISCHARGE SUMMARY ---
"Discharge Summary Admit Date: 12/16/18 Discharge Date: 12/22/18 Discharging Provider: HAYNES Primary Care Provider: Dr. Jon Condition at Discharge: Stable Discharge Disposition: 01 Home, Self Care Discharge Facility Name: home - DIAGNOSES Admission Diagnoses: (1) Gastric outlet obstruction (2) Nausea & vomiting (3) Esophagitis (4) Pneumonia (5) Atrial fibrillation with rapid ventricular response (6) Dehydration (7) Diabetes (8) HTN (hypertension) Discharge Diagnoses with Status of Each Condition: (1) Gastric outlet obstruction resolved. pt tolerate diet, no more Nausea or vomiting or abdominal pain. pt had bowel movement. pt is prescribed PPI and carafate for her gastric ulcer which was found in the last EGD (2)dyspnea stable/resolved. pt has no shortness of breath when she walked with PT per PT reported. pt has no shortness of breath when I examine her. pt has small to moderate pleural effusion in CT but pt is asymptomatic now. advise pt followup her PCP continue monitor, return ER or call 911 if symptoms return or worsen, pt state she understood it. pt is prescribed antibiotics to finish the treatment course for her pneumonia (3) pneumonia stable, pt is prescribed antibiotics Keflex to finish the treatment course. pt has 93-94% sats on room air, WBC is normal. pt has no fever, chill. blood culture is negative for bacteremia. (4) Prepyloric ulcer stable. pt is prescribed PPI and carafate (5) Esophagitis stable. pt is prescribed PPI and carafate (6) Atrial fibrillation with rapid ventricular response stable. pt's HR is controlled by new prescribed meds Metoprolol, digoxin, and her home meds Cardizem (7) Diabetes stable. A1C is 6.0. glucose level is controlled, no further intervention is needed now. (8) HTN (hypertension) Assessment/Plan: stable (9) Hypokalemia resolved (10) TIFFANI (acute kidney injury) resolved (11) COPD stable (12)hypomagnesemia replaced. pt is prescribed magnesium oxide - HPI History of Present Illness: Elizabeth Quinonez is a 83-year old female with a past medical history of afib with Coumadin, hypertension, DM type 2, GERD, chronic diarrhea, stable umbilical hernias, and prior SBO who present ER today with complaints of nausea, vomiting, and cramp and abdominal pain. She report she has vomiting for the past 3 days, she report she was unable to keep anything down. she report she had diffuse abdominal pain. she report she can not take her Coumadin or other medications because of vomiting. She states that she had a bowel obstruction in the past and she feels the similar. CT of abdomen reveals new moderately dilated and fluid- filled stomach, findings may reflect gastric outlet obstruction or gastric ileus, distal esophageal wall thickening consistent with acute esophatitis, new left lower lobe consolidation, aspiration was not excluded. pt denies fever, chill, shortness of breath, chest pain, palpitation. Route lab test in ER reveals pt has elevated WBC 17.8, elevated BUN 26, creatinine 1.4, elevated glucose level 259. pt was admitted for above medical reasons. - CONSULTS | PROCEDURES Consultations: Dr. Molina Procedures: no procedure - HOSPITAL COURSE Hospital Course: pt was admitted for nausea, vomiting and abdominal pain. pt was found to have gastric outlet obstruction. pt was found to have afib RVR, then pt was found to have pneumonia as well. Pt's gastric outlet obstruction was resolved by her own, no surgery intervention was required. pt's afib with RVR was difficult to be controlled. Finally it was controlled at round stable at 90. pt was treated with antibiotic to treat pneumonia. pt was found to have small to moderate pleural effusion. pt was treated with low dosage lasix, then pt's symptom was resolved. The detail hospital course is as the below (1) Gastric outlet obstruction resolved. pt tolerate diet, no more Nausea or vomiting or abdominal pain. pt is prescribed PPI and carafate for her gastric ulcer which was found in the last EGD (2)dyspnea stable/resolved. pt has no shortness of breath when she walked with PT per PT reported. pt has no shortness of breath when I examine her. pt has small to moderate pleural effusion in CT but pt is asymptomatic now. advise pt followup her PCP continue monitor, return ER or call 911 if symptoms return or worsen, pt state she understood it. pt is prescribed antibiotics to finish the treatment course for her pneumonia (3) pneumonia stable, pt is prescribed antibiotics Keflex to finish the treatment course. pt has 93-94% sats on room air, WBC is normal. pt has no fever, chill. blood culture is negative for bacteremia. (4) Prepyloric ulcer stable. pt is prescribed PPI and carafate (5) Esophagitis stable. pt is prescribed PPI and carafate (6) Atrial fibrillation with rapid ventricular response stable. pt's HR is controlled by new prescribed meds Metoprolol, digoxin, and her home meds Cardizem (7) Diabetes stable. A1C is 6.0. glucose level is controlled, no further intervention is needed now. (8) HTN (hypertension) Assessment/Plan: stable (9) Hypokalemia resolved (10) TIFFANI (acute kidney injury) resolved (11) COPD stable (12)hypomagnesemia replaced. pt is prescribed magnesium oxide - ALLERGIES Allergies/Adverse Reactions: Allergies Allergy/AdvReac Type Severity Reaction Status Date / Time iodine Allergy Hives Verified 12/16/18 11:39 - MEDICATIONS Home Medications: Ambulatory Orders Medication Instructions Recorded Confirmed hydroCHLOROthiazide 25 mg PO DAILY 07/03/18 12/17/18 [Hydrochlorothiazide] Diltiazem HCl [Cardizem Cd] 360 mg PO DAILY 12/17/18 12/17/18 Lisinopril 20 mg PO DAILY 12/17/18 12/17/18 Ocuvite Eye Vitamin 1 tab PO DAILY 12/17/18 12/17/18 Warfarin Sodium 2.5 mg PO TUTH@1400 12/17/18 12/17/18 Warfarin [Coumadin] 2 mg PO SUMOWEFRSA@1400 12/17/18 12/17/18 Digoxin [Lanoxin] 125 mcg PO DAILY #10 tablet 12/22/18 Magnesium Oxide [Mag Ox] 400 mg PO DAILYWM #10 tablet 12/22/18 Metoprolol Succinate [Toprol Xl] 50 mg PO DAILY #10 tablet 12/22/18 Omeprazole 40 mg PO DAILY #15 capsule. 12/22/18 Saccharomyces Boulardii [Florastor] 250 mg PO BID #10 capsule 12/22/18 Sucralfate [Carafate] 1 gm PO TID #30 ml 12/22/18 cephALEXin [Keflex] 250 mg PO Q6H #20 capsule 12/22/18 - PHYSICAL EXAM AT DISCHARGE General Appearance: positive: No acute distress, Alert. negative: Lethargic Eyes Bilateral: positive: Normal inspection, PERRL, No lid inflammation, Conjunctivae nml ENT: positive: ENT inspection nml, Pharynx nml, No signs of dehydration. negative: Purulent nasal drainage Neck: positive: Nml inspection, Thyroid nml, No JVD, Trachea midline. negative: Thyromegaly, Lymphadenopathy (R), Lymphadenopathy (L), Stiff neck, Tracheal d eviation Respiratory: positive: Chest non-tender, No respiratory distress, Breath sounds nml. negative: Wheezes, Rales, Rhonchi Cardiovascular: positive: Regular rate & rhythm, No murmur, No gallop. negative: Irregularly irregular, Extrasystoles, Tachycardia, Bradycardia, JVD present, Systolic murmur, Diastolic murmur Peripheral Pulses: positive: 2+ Abdomen: positive: Non-tender, No organomegaly, Nml bowel sounds, No distention. negative: Tenderness, Guarding, Rebound Back: positive: Nml inspection. negative: CVA tenderness (R), CVA tenderness (L) Skin: positive: Color nml, No rash, Warm, Dry. negative: Cyanosis, Diaphoresis, Pallor Extremities: positive: Non-tender, Full ROM, Nml appearance. negative: Calf te nderness, Stephan's sign/cords Neurologic/Psychiatric: positive: Oriented x3, Motor nml, Sensation nml, Mood/affect nml. negative: Weakness, Sensory loss, Facial droop, Slurred/abnml speech, Depressed mood/affect - LABS Result Diagrams: 12/22/18 06:05 12/22/18 06:05 - SEPSIS Current Stage of Sepsis: Ruled out - FOLLOW UP Follow Up: you are prescribed two new meds, Metoprolol and Digoxin, to control your afib with RVR, advise you followup your informatics physician liaison as out-pt. you were reported to have gastric ulcer at last time EGD, advise you continue meds PPI and carafate for healing of gastric ulcer. your small bowel obstruction was resolved by your own, no surgery was required. you are prescribed antibiotics for finishing the treatment course. PT walked with you on room air, and you tolerate well, without showing shortness of breath, advise followup PCP closely monitor your small to moderate pleural effusion. you may followup your PCP in one week, followup your informatics physician liaison as out-pt. Should your symptoms return or worsen, you may present ER or call 911 for help. - TIME SPENT Time Spent in Discharge (Minutes): 60"
[2018-12-22 16:12] VITALS: BP 109/52
== END 2018-12-22 17:00 | disposition home or self-care (01) | DRG 380 ==
LOC: ED 11:32 → MS2 15:06 → ICU 12-17 00:36
PROVIDERS: ADMIT Nurse Practitioner Gerontology; ATTEND Nurse Practitioner Gerontology
DX: K31.1 Adult hypertrophic pyloric stenosis (principal); K26.9 Duodenal ulcer, unspecified as acute or chronic, without hemorrhage or perforation; K57.90 Diverticulosis of intestine, part unspecified, without perforation or abscess without bleeding; J69.0 Pneumonitis due to inhalation of food and vomit; I49.9 Cardiac arrhythmia, unspecified; J43.9 Emphysema, unspecified; N17.9 Acute kidney failure, unspecified; J90 Pleural effusion, not elsewhere classified; K25.3 Acute gastric ulcer without hemorrhage or perforation; K21.0 Gastro-esophageal reflux disease with esophagitis; I48.91 Unspecified atrial fibrillation; E11.42 Type 2 diabetes mellitus with diabetic polyneuropathy; E11.65 Type 2 diabetes mellitus with hyperglycemia; I10 Essential (primary) hypertension; E87.6 Hypokalemia; R32 Unspecified urinary incontinence; J44.9 Chronic obstructive pulmonary disease, unspecified; E83.42 Hypomagnesemia; E86.0 Dehydration; K52.9 Noninfective gastroenteritis and colitis, unspecified; K42.9 Umbilical hernia without obstruction or gangrene; R35.1 Nocturia; R35.0 Frequency of micturition; H54.7 Unspecified visual loss; J32.9 Chronic sinusitis, unspecified; M19.90 Unspecified osteoarthritis, unspecified site; Z79.51 Long term (current) use of inhaled steroids; Z79.891 Long term (current) use of opiate analgesic; Z79.52 Long term (current) use of systemic steroids; Z79.01 Long term (current) use of anticoagulants; Z79.899 Other long term (current) drug therapy; Z87.891 Personal history of nicotine dependence
CPT/HCPCS: 36415; 71045; 71250; 74177; 80053; 81001; 83036; 83690; 83735; 83880; 84100; 85025; 85610; 87040; 87150; 93005; 93306; 94640; 96361; 96374; 97162; 97165; 97530; 99283; 99285; A9270; J1170; J1650; J3370; Q9967; 81003; 82040; 82310; 84132; 87086

== ENCOUNTER 2018-12-26 13:20 | Outpatient (CLI) | payer MEDICARE, OTHER | END 2018-12-26 13:21 | disposition home or self-care (01) | LOC: LAB.S 13:20 | PROVIDERS: ATTEND Family Medicine | DX: I48.91 Unspecified atrial fibrillation (principal) | CPT/HCPCS: 85610 ==

== ENCOUNTER 2019-01-05 13:44 | Outpatient (CLI) | payer MEDICARE, OTHER | END 2019-01-05 13:45 | disposition home or self-care (01) | LOC: LAB.S 13:44 | PROVIDERS: ATTEND Family Medicine | DX: I48.91 Unspecified atrial fibrillation (principal) | CPT/HCPCS: 85610 ==

== ENCOUNTER 2019-01-23 10:59 | Outpatient (CLI) | payer MEDICARE, OTHER | END 2019-01-23 11:00 | disposition home or self-care (01) | LOC: LAB.S 10:59 | PROVIDERS: ATTEND Family Medicine | DX: I48.91 Unspecified atrial fibrillation (principal) | CPT/HCPCS: 85610 ==

== ENCOUNTER 2019-02-24 10:42 | Outpatient (CLI) | payer MEDICARE, OTHER ==
--- NOTE | 2019-02-24 16:45 | XRAY Report ---
Reason: PNEUMONIA Procedure Date: 02/24/2019 Accession Number: [id number] / [id number] Procedure: XRS - Chest 2 View X-Ray CPT Code: 33951 Final Report FULL RESULT: EXAM: CHEST RADIOGRAPHY EXAM DATE: 02/24/2019 10:51 AM. CLINICAL HISTORY: Pneumonia. COMPARISON: CHEST 1 VIEW 12/20/2018 5:54 AM CHEST W/O 12/21/2018 2:17 PM. TECHNIQUE: 2 views. FINDINGS: Lungs/Pleura: Interval resolution of previously seen left pleural effusion. No focal opacities evident. No pleural effusion. No pneumothorax. Normal volumes. Mediastinum: Redemonstration of mild cardiomegaly with calcification of the aortic arch. Other: None. IMPRESSION: Interval resolution of previous airspace disease. RADIA
== END 2019-02-24 10:43 | disposition home or self-care (01) ==
LOC: DI.S 10:42
PROVIDERS: ATTEND Nurse Practitioner Family
DX: J18.9 Pneumonia, unspecified organism (principal)
CPT/HCPCS: 71046

== ENCOUNTER 2019-02-27 14:59 | Outpatient (CLI) | payer MEDICARE, OTHER | END 2019-02-27 15:00 | disposition home or self-care (01) | LOC: LAB.S 14:59 | PROVIDERS: ATTEND Family Medicine | DX: I48.91 Unspecified atrial fibrillation (principal) | CPT/HCPCS: 85610 ==

== ENCOUNTER 2019-04-11 11:36 | Outpatient (CLI) | payer MEDICARE, OTHER | END 2019-04-11 11:37 | disposition home or self-care (01) | LOC: LAB.S 11:36 | PROVIDERS: ATTEND Family Medicine | DX: I48.91 Unspecified atrial fibrillation (principal) | CPT/HCPCS: 85610 ==

== ENCOUNTER 2019-05-05 14:36 | Outpatient (CLI) | payer MEDICARE, OTHER | END 2019-05-05 14:37 | disposition home or self-care (01) | LOC: LAB.S 14:36 | PROVIDERS: ATTEND Family Medicine | DX: I48.91 Unspecified atrial fibrillation (principal) | CPT/HCPCS: 85610 ==

== ENCOUNTER 2019-06-09 13:48 | Outpatient (CLI) | payer MEDICARE, OTHER | END 2019-06-09 13:49 | disposition home or self-care (01) | LOC: LAB 13:48 | PROVIDERS: ATTEND Family Medicine | DX: I48.91 Unspecified atrial fibrillation (principal) | CPT/HCPCS: 85610 ==

== ENCOUNTER 2019-06-12 13:28 | Outpatient (CLI) | payer MEDICARE, OTHER | END 2019-06-12 13:29 | disposition home or self-care (01) | LOC: LAB 13:28 | PROVIDERS: ATTEND Family Medicine | DX: I48.91 Unspecified atrial fibrillation (principal) | CPT/HCPCS: 85610 ==

== ENCOUNTER 2019-06-14 13:32 | Outpatient (CLI) | payer MEDICARE, OTHER | END 2019-06-14 13:33 | disposition home or self-care (01) | LOC: LAB 13:32 | PROVIDERS: ATTEND Family Medicine | DX: I48.91 Unspecified atrial fibrillation (principal) | CPT/HCPCS: 85610 ==

== ENCOUNTER 2019-06-20 12:54 | Outpatient (CLI) | payer MEDICARE, OTHER | END 2019-06-20 12:55 | disposition home or self-care (01) | LOC: LAB 12:54 | PROVIDERS: ATTEND Family Medicine | DX: I48.91 Unspecified atrial fibrillation (principal) | CPT/HCPCS: 85610 ==

== ENCOUNTER 2019-06-24 21:21 | Outpatient (CLI) | payer MEDICARE, OTHER | END 2019-06-24 21:22 | disposition short-term general hospital (02) | LOC: EMS 21:21 | PROVIDERS: ATTEND Surgery | DX: R11.2 Nausea with vomiting, unspecified (principal); R53.1 Weakness; R00.0 Tachycardia, unspecified | CPT/HCPCS: A0425; A0429 ==

== ENCOUNTER 2019-07-14 11:49 | Outpatient (CLI) | payer MEDICARE, OTHER | END 2019-07-14 11:50 | disposition home or self-care (01) | LOC: LAB 11:49 | PROVIDERS: ATTEND Family Medicine | DX: I48.91 Unspecified atrial fibrillation (principal) | CPT/HCPCS: 85610 ==

== ENCOUNTER 2019-08-08 12:05 | Outpatient (CLI) | payer MEDICARE, OTHER | END 2019-08-08 12:06 | disposition home or self-care (01) | LOC: LAB 12:05 | PROVIDERS: ATTEND Family Medicine | DX: I48.91 Unspecified atrial fibrillation (principal) | CPT/HCPCS: 85610 ==

== ENCOUNTER 2019-09-05 13:40 | Outpatient (CLI) | payer MEDICARE, OTHER | END 2019-09-05 13:41 | disposition EMS.NT | LOC: EMS 13:40 | PROVIDERS: ATTEND Surgery | DX: R09.89 Other specified symptoms and signs involving the circulatory and respiratory systems (principal); R13.10 Dysphagia, unspecified ==

== ENCOUNTER 2019-09-06 15:35 | Outpatient (CLI) | payer MEDICARE, OTHER | END 2019-09-06 15:36 | disposition home or self-care (01) | LOC: LAB 15:35 | PROVIDERS: ATTEND Family Medicine | DX: I48.91 Unspecified atrial fibrillation (principal) | CPT/HCPCS: 85610 ==

== ENCOUNTER 2019-10-16 14:07 | Outpatient (CLI) | payer MEDICARE, OTHER | END 2019-10-16 14:08 | disposition home or self-care (01) | LOC: LAB.S 14:07 | PROVIDERS: ATTEND Family Medicine | DX: I48.91 Unspecified atrial fibrillation (principal) | CPT/HCPCS: 85610 ==

== ENCOUNTER 2019-10-31 13:28 | Outpatient (CLI) | payer MEDICARE, OTHER | END 2019-10-31 13:29 | disposition home or self-care (01) | LOC: LAB.S 13:28 | PROVIDERS: ATTEND Family Medicine | DX: I48.91 Unspecified atrial fibrillation (principal) | CPT/HCPCS: 85610 ==

== ENCOUNTER 2019-11-08 13:56 | Outpatient (CLI) | payer MEDICARE, OTHER | END 2019-11-08 13:57 | disposition home or self-care (01) | LOC: LAB.S 13:56 | PROVIDERS: ATTEND Family Medicine | DX: I48.91 Unspecified atrial fibrillation (principal) | CPT/HCPCS: 85610 ==

== ENCOUNTER 2019-11-27 14:14 | Outpatient (CLI) | payer MEDICARE, OTHER | END 2019-11-27 14:15 | disposition home or self-care (01) | LOC: LAB.S 14:14 | PROVIDERS: ATTEND Family Medicine | DX: I48.91 Unspecified atrial fibrillation (principal) | CPT/HCPCS: 85610 ==

== ENCOUNTER 2019-12-18 15:10 | Outpatient (CLI) | payer MEDICARE, OTHER | END 2019-12-18 15:11 | disposition home or self-care (01) | LOC: LAB.S 15:10 | PROVIDERS: ATTEND Family Medicine | DX: I48.91 Unspecified atrial fibrillation (principal) | CPT/HCPCS: 85610 ==

== ENCOUNTER 2019-12-26 14:20 | Outpatient (CLI) | payer MEDICARE, OTHER | END 2019-12-26 14:21 | disposition home or self-care (01) | LOC: LAB.S 14:20 | PROVIDERS: ATTEND Family Medicine | DX: I48.91 Unspecified atrial fibrillation (principal) | CPT/HCPCS: 85610 ==

== ENCOUNTER 2020-01-11 11:15 | Outpatient (CLI) | payer MEDICARE, OTHER | END 2020-01-11 11:16 | disposition home or self-care (01) | LOC: LAB.S 11:15 | PROVIDERS: ATTEND Family Medicine | DX: I48.91 Unspecified atrial fibrillation (principal) | CPT/HCPCS: 85610 ==

== ENCOUNTER 2020-01-19 11:35 | Outpatient (CLI) | payer MEDICARE, OTHER | END 2020-01-19 11:36 | disposition home or self-care (01) | LOC: LAB.S 11:35 | PROVIDERS: ATTEND Family Medicine | DX: I48.91 Unspecified atrial fibrillation (principal) | CPT/HCPCS: 85610 ==

== ENCOUNTER 2020-02-01 12:48 | Outpatient (CLI) | payer MEDICARE, OTHER | END 2020-02-01 12:49 | disposition home or self-care (01) | LOC: LAB.S 12:48 | PROVIDERS: ATTEND Family Medicine | DX: I48.91 Unspecified atrial fibrillation (principal) | CPT/HCPCS: 85610 ==

== ENCOUNTER 2020-07-26 13:46 | Outpatient (CLI) | payer MEDICARE, OTHER ==
[2020-07-26 20:23] LABS: ALBUMIN 4.3 g/dL (3.2-5.5); ALBUMIN/GLOBULIN RATIO 1.2 (1.0-2.2); BILIRUBIN,TOTAL 0.9 mg/dL (0.2-1.0); CALCIUM 10.3 mg/dL (8.5-10.3); CREATININE 1.5 mg/dL (0.4-1.0); POTASSIUM 4.5 mmol/L (3.5-5.0); TOTAL PROTEIN 7.9 g/dL (6.7-8.2)
[2020-07-26 20:31] LABS: ESTIMATED AVERAGE GLUCOSE 114 mg/dL (70-100); HEMOGLOBIN A1c% 5.6 % (4.27-6.07)
== END 2020-07-26 13:47 | disposition home or self-care (01) ==
LOC: LAB.S 13:46
PROVIDERS: ATTEND Family Medicine
DX: E11.22 Type 2 diabetes mellitus with diabetic chronic kidney disease (principal)
CPT/HCPCS: 36415; 80053; 83036

== ENCOUNTER 2021-03-16 18:22 | Outpatient (CLI) | payer MEDICARE, OTHER | END 2021-03-16 18:23 | disposition critical access hospital (66) | LOC: EMS 18:22 | DX: I48.91 Unspecified atrial fibrillation (principal) | CPT/HCPCS: A0425; A0427 ==

== ENCOUNTER 2021-03-16 18:47 | Inpatient (IN) | payer MEDICARE, OTHER ==
[2021-03-16] MEDS ORDERED: diltiaZEM 30 MG TABLET PO STA (18:55)
--- NOTE | 2021-03-16 19:00 | ED Physician Documentation ---
History of Present Illness - Stated complaint Stated Complaint: AFIB,RVR - Chief complaint Chief Complaint: Cardiac - History obtained from History obtained from: Patient - History of Present Illness Timing: How many days ago (2-3) Pain level max: 1 Pain level now: 1 - Additonal information Additional information: Patient is an 86-year-old female who presents to the emergency department complaining of heart racing for the past 3 days. She states that she stopped taking all of her medication 2 to 3 days ago. She states that she was having some stomach "upset". And decided not to take her medications. Since then she has not taken any of her medications. Has felt tired and weak. Called EMS and heart rate was found to be around 200 and A. fib with RVR. She is chronically in atrial fibrillation. She is on warfarin as well as diltiazem 240 mg p.o. daily. She was given 18 mg of diltiazem IV by EMS. Heart rate decreased to the 120s to 150s and symptoms have resolved. She states that she feels normal at this time. Review of Systems Constitutional: denies: Fever, Chills Nose: denies: Rhinorrhea / runny nose, Congestion Throat: denies: Sore throat Respiratory: denies: Cough GI: denies: Nausea, Vomiting, Diarrhea Skin: denies: Rash Musculoskeletal: denies: Neck pain, Back pain Neurologic: denies: Headache PD PAST MEDICAL HISTORY - Past Medical History Past Medical History: Yes Cardiovascular: Hypertension, Arrhythmia Respiratory: Emphysema, Pneumonia, Other Neuro: Peripheral neuropathy Endocrine/Autoimmune: Type 2 diabetes GI: GERD, Ulcers, Chronic diarrhea, Other CARPENTERS HELPER: Endometriosis : Incontinence, Renal insuffiency, Nocturia, Frequency HEENT: Chronic vision loss, Chronic sinusitis Psych: None Musculoskeletal: Osteoarthritis Derm: None - Past Surgical History General: Appendectomy, Gastric surgery, Other /CARPENTERS HELPER: Hysterectomy, Oophrectomy - Present Medications Home Medications: Ambulatory Orders Medication Instructions Recorded Confirmed Diltiazem HCl [Cardizem Cd] 360 mg PO DAILY 12/17/18 08/08/19 Ocuvite Eye Vitamin 1 tab PO DAILY 12/17/18 12/17/18 Warfarin Sodium 3 mg PO TH@209912/17/18 08/08/19 Warfarin [Coumadin] 2 mg PO SUMOTUWEFRSA@2100 12/17/18 08/08/19 lisinopriL [Lisinopril] 20 mg PO DAILY 12/17/18 08/08/19 Magnesium Oxide [Mag Ox] 400 mg PO DAILYWM #10 tablet 12/22/18 Metformin HCl 500 mg PO BIDWM 08/08/19 08/08/19 bisoproloL fumarate [Bisoprolol 5 mg PO 2100 08/08/19 08/08/19 Fumarate] - Allergies Allergies/Adverse Reactions: Allergies Allergy/AdvReac Type Severity Reaction Status Date / Time iodine Allergy Hives Verified 12/16/18 11:39 - Social History Does the pt smoke?: No Smoking Status: Former smoker Does the pt drink ETOH?: Yes Does the pt have substance abuse?: No - Immunizations Immunizations are current?: Yes - POLST Patient has POLST: No POLST Status: Full Code PD ED PE NORMAL - Vitals Vital signs reviewed: Yes - General General: Alert and oriented X 3, No acute distress - HEENT HEENT: Moist mucous membranes - Cardiac Cardiac: Other (Irregular, tachycardic) - Respiratory Respiratory: No respiratory distress, Clear bilaterally - Abdomen Abdomen: Soft, Non tender, Non distended - Derm Derm: Warm and dry - Extremities Extremities: No edema, No calf tenderness / cord - Neuro Neuro: Alert and oriented X 3 - Psych Psych: Normal mood, Normal affect Results - Vitals Vitals: Vital Signs - 24 hr 03/16/21 03/16/21 03/16/21 18:53 19:30 20:07 Temperature 36.7 C Heart Rate 130 H 130 H 127 H Respiratory 20 14 15 Rate Blood Pressure 106/71 127/59 L O2 Saturation 96 97 97 Oxygen O2 Source [Without Activity] Room air O2 Source Room air - EKG (time done) 1852 Rate: Rate (enter#) (127) Rhythm: Atrial fibrillation Cecil: Normal QRS: Normal Ischemia: Other (rate related changes) - Labs Labs: Laboratory Tests 03/16/21 03/16/21 03/16/21 19:11 19:11 19:11 WBC 14.2 H RBC 4.47 Hgb 13.8 Hct 41.8 MCV 93.5 MCH 30.9 MCHC 33.0 RDW 14.9 Plt Count 231 MPV 12.0 H Neut # (Auto) 12.8 H Lymph # (Auto) 0.[address] [place] # (Auto) 0.7 Eos # (Auto) 0.0 Baso # (Auto) 0.0 Absolute Nucleated RBC 0.00 Nucleated RBC % 0.0 PT 24.5 H INR 2.2 H Sodium 138 Potassium 3.6 Chloride 101 Carbon Dioxide 21 Anion Gap 16.0 H BUN 49 H Creatinine 1.5 H Estimated GFR (MDRD) 33 L Glucose 189 H Calcium 9.1 Total Bilirubin 1.0 AST 19 ALT 15 Alkaline Phosphatase 54 Total Protein 7.5 Albumin 4.0 Globulin 3.5 Albumin/Globulin Ratio 1.1 Lipase 41 PD MEDICAL DECISION MAKING - ED course Complexity details: reviewed old records, reviewed results, re-evaluated patient, considered differential, d/w patient, d/w dynamics ax consultant ED course: Patient is a 86-year-old female who presents to the emergency department atrial fibrillation with rapid ventricular response. Initial heart rate was in the 200s with EMS. She did respond to diltiazem. She was given oral diltiazem after the 18 mg IV dose with EMS. Continued to be tachycardic 1 30-1 50. Given another 10 mg of diltiazem IV, however was still around 130. Therefore the patient will be started on a diltiazem drip and placed in observation for rate control. She is asymptomatic. A troponin was not performed as she was not having any significant chest pain and her heart rate had been elevated to over 200 for at least 24 hours, therefore the significance of a troponin would be uncertain at best. In this case that she will likely have a troponin elevation secondary to the elevated heart rate for the amount of time it was elevated rather than reflecting a true ACS. Patient is also asymptomatic and not having any chest pain or symptoms of ACS at this time. Discussed the case with Dr. Palmer, hospitalist accepts Departure - Departure Disposition: ED Place in Observation Clinical Impression: Atrial fibrillation with rapid ventricular response Condition: Stable
[2021-03-16 19:20] LABS: BASOPHILS % (AUTO) 0.2 %; EOSINOPHILS % (AUTO) 0.2 %; HCT - HEMATOCRIT 41.8 % (37.0-47.0); HGB - HEMOGLOBIN 13.8 g/dL (12.0-16.0); LYMPHOCYTES # (AUTO) 0.6 10^3/uL (1.5-3.5); LYMPHOCYTES % (AUTO) 4.1 %; MEAN CORPUSCULAR HEMOGLOBIN 30.9 pg (27.0-31.0); MEAN CORPUSCULAR VOLUME 93.5 fL (81.0-99.0); MONOCYTES # (AUTO) 0.7 10^3/uL (0.0-1.0); MONOCYTES % (AUTO) 4.7 %; NEUTROPHILS # (AUTO) 12.8 10^3/uL (1.5-6.6); NEUTROPHILS % (AUTO) 90.2 %; PLT - PLATELET COUNT 231 10^3/uL (130-450); RED BLOOD COUNT 4.47 10^6/uL (4.20-5.40); RED CELL DISTRIBUTION WIDTH 14.9 % (12.0-15.0); WHITE BLOOD COUNT 14.2 x10^3/uL (4.8-10.8)
[2021-03-16 19:22] LABS: INR 2.2 (0.8-1.2); PT - PROTHROMBIN TIME 24.5 secs (9.9-12.6)
[2021-03-16 19:31] LABS: ALBUMIN/GLOBULIN RATIO 1.1 (1.0-2.2); CALCIUM 9.1 mg/dL (8.5-10.3); CREATININE 1.5 mg/dL (0.4-1.0); POTASSIUM 3.6 mmol/L (3.5-5.0); TOTAL PROTEIN 7.5 g/dL (6.7-8.2)
[2021-03-16] MEDS ORDERED: diltiaZEM INJ 5 MG/ML VIAL IVP STA (19:41)
[2021-03-16] MEDS ORDERED: ACETAMINOPHEN 325 MG TABLET PO PRN (20:40)
[2021-03-16] MEDS ORDERED: ONDANSETRON 4 MG/2 ML VIAL IVP PRN (20:40)
[2021-03-16] MEDS ORDERED: oxyCODONE 5 MG TABLET PO PRN (20:40)
[2021-03-16] MEDS ORDERED: ONDANSETRON ODT 4 MG TABLET TL PRN (20:40)
[2021-03-16] MEDS ORDERED: diltiaZEM INJ 5 MG/ML VIAL ONE (20:54)
[2021-03-16] MEDS ORDERED: METOPROLOL TARTRATE 25 MG TABLET PO SCH ×2 (21:00→23:50)
[2021-03-16] MEDS: diltiaZEM INJ 125 MG in DEXTROSE 5% 100 ML IV STA (21:00)
--- NOTE | 2021-03-16 21:20 | HISTORY & PHYSICAL EXAMINATION ---
Chief Complaint - Chief Complaint Chief Complaint: palpitations History of Present Illness - Admitted From Admitted From:: home by EMS to emergency department - History of Present Illness HPI Comment/Other: Patient is a pleasant 86 year old female who presented to the ER via EMS after feeling palpitations at her home. On Wednesday she ate fish and chips in town and felt sick to her stomach afterward. She has had a decreased appetite since that time as well as decreased fluid intake and decided to stop taking all her medications. She reports diarrhea at baseline that did not worsen, but she did report emesis last episode was 1 x earlier today. She felt increasingly tired and weak today and began to feel palpitations when she decided to call EMS. She states that after the paramedics gave her medication on the way to the hospital she immediately felt improvement. Her heart rate was reported in the 200s by EMS on arrival. She has been admitted for similar episodes in the past. She denies any current chest pain, shortness of breath, dizziness or loss of motor function. History - Past Medical History Cardiovascular: reports: Hypertension, Arrhythmia (hx of afib) Respiratory: reports: Emphysema, Pneumonia Neuro: reports: Peripheral neuropathy Endocrine/Autoimmune: reports: Type 2 diabetes GI: reports: GERD, Ulcers, Chronic diarrhea, Other (small bowel obstruction ) QUALITY ASSURANCE/R&D LAB TECHNICIAN: reports: Endometriosis : reports: Incontinence, Renal insuffiency, Nocturia, Frequency HEENT: reports: Chronic vision loss, Chronic sinusitis Psych: reports: None Musculoskeletal: reports: Osteoarthritis Derm: reports: None MRSA Hx?: No - Past Surgical History General: reports: Appendectomy, Gastric surgery, Other /QUALITY ASSURANCE/R&D LAB TECHNICIAN: reports: Hysterectomy, Oophrectomy - Family & Social History Family History: Mother: , Diabetes, Type 2, Father: Family History Comment/Other: patient reports her mother had DM2 and at age 90. her father at age 80. she has three children all healthy. She had 2 brothers. One is in 50s from a fall in an airport silk hanger. The other brother is alive and healthy. 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 Her daughter, Arina lives near-by. She admits to a tobacco history from age [age], denies illicit drug use, and admits to occasional alcohol- wine or beer, only 1 per night. She wishes to be a FULL code. - Substance History Use: Uses substance without health or social issues: Alcohol - POLST Patient has POLST: No POLST Status: Full Code Meds/Allgy - Home Medications Home Medications: Ambulatory Orders Medication Instructions Recorded Confirmed Diltiazem HCl [Cardizem Cd] 360 mg PO DAILY 12/17/18 08/08/19 Ocuvite Eye Vitamin 1 tab PO DAILY 12/17/18 12/17/18 Warfarin Sodium 3 mg PO TH@2100 12/17/18 08/08/19 Warfarin [Coumadin] 2 mg PO SUMOTUWEFRSA@2100 12/17/18 08/08/19 lisinopriL [Lisinopril] 20 mg PO DAILY 12/17/18 08/08/19 Magnesium Oxide [Mag Ox] 400 mg PO DAILYWM #10 tablet 12/22/18 Metformin HCl 500 mg PO BIDWM 08/08/19 08/08/19 bisoproloL fumarate [Bisoprolol 5 mg PO 209908/08/19 08/08/19 Fumarate] - Allergies Allergies/Adverse Reactions: Allergies Allergy/AdvReac Type Severity Reaction Status Date / Time iodine Allergy Hives Verified 12/16/18 11:39 Review of Systems - Constitutional Constitutional: reports: Poor appetite. denies: Fatigue, Fever, Chills, Diaphoresis, Night sweats, Weight loss - Eyes Eyes: denies: Blurred vision, Spots in vision, Vision loss - Ears, Nose & Throat Ears, Nose & Throat: denies: Ear pain, Tinnitus, Vertigo, Nasal discharge - Cardiovascular Cariovascular: reports: Irregular heart rate, Palpitations. denies: Chest pain, Edema, Lightheadedness, Syncope - Respiratory Respiratory: denies: Cough, Sputum production, Wheezing, Snoring - Gastrointestinal Gastrointestinal: reports: Diarrhea, Vomiting. denies: Abdominal pain, Abdominal distention, Constipation - Genitourinary Genitourinary: denies: Dysuria, Hematuria - Musculoskeletal Musculoskeletal: denies: Muscle weakness, Joint pain - Integumentary Integumentary: denies: Rash, Pruritis, Lesions - Neurological Neurological: denies: General weakness, Headache, Dizziness, Numbness, Memory problems - Endocrine Endocrine: denies: Polyuria, Polydypsia - Hematologic/Lymphatic Hematologic/Lymphatic: denies: Anemia, Bruising Prior Level of Functionality: Patient reports she is fully independent at her home. She is able to ambulate and complete all ADLs without issue. Exam - Vital Signs Vital Signs: Vital Signs x48h Temp Pulse Resp BP Pulse Ox 03/16/21 20:07 127 H 15 127/59 L 97 03/16/21 19:30 130 H 14 97 03/16/21 18:53 36.7 C 130 H 20 106/71 96 - Physical Exam General Appearance: positive: No acute distress, Alert, Other (patient is alert and oriented. she is able to stand and pivot from stretcher to bed.) Eyes Bilateral: positive: Normal inspection, PERRL ENT: positive: Other (oral mucosa appears dry) Neck: positive: Nml inspection, No JVD Respiratory: positive: Chest non-tender, No respiratory distress, Breath sounds nml Cardiovascular: positive: Irregularly irregular, Tachycardia, Systolic murmur (heard at R 2nd ICS, documented aortic regurgitation). negative: JVD present Peripheral Pulses: positive: 1+ Abdomen: positive: Non-tender, No organomegaly, No distention, Other (hyperactive bowel sounds, large healed vertical abdominal surgical scar with reducible non tender incisional hernia just left of the umbilicus) Skin: positive: Color nml, No rash, Warm, Dry Extremities: positive: Non-tender, Full ROM, Nml appearance, No pedal edema Neurologic/Psychiatric: positive: Oriented x3, Motor nml, Sensation nml, Mood/affect nml Conclusion/Plan - Problem List (1) Atrial fibrillation with rapid ventricular response Conclusion/Plan: Patient has a history of atrial fibrillation and stopped taking her medications 3 days ago. EKG confirms atrial fibrillation with RVR she is having no evidence of acute ischemia. Patient has been placed on IV diltiazem and oral metoprolol for rate control. Her heart rate has decreased to 127 and symptoms have improved. Will continue to monitor overnight and consider discharge tomorrow. (2) Elevated WBC count Conclusion/Plan: Patient is well appearing. WBCs mildly elevated. Urine studies are pending. (3) Diabetes Conclusion/Plan: Bedside glucose was 129 on admission. Chronic managed condition that we will continue to monitor. (4) Chronic kidney disease Conclusion/Plan: Kidney function is mildly worsened from her baseline. Current decline is likely due to her vomiting and diarrhea. Will continue to follow. (5) HTN (hypertension) Conclusion/Plan: Chronic managed condition, patient is on appropriate pharmacologic therapy. Will continue to monitor. - Lab Results Fish Bones: 03/16/21 19:11 03/16/21 19:11
[2021-03-16] MEDS: INSULIN ASPART 300 UNIT/3 ML PEN SUBQ SCH (21:56)
[2021-03-16 21:58] LABS: B. PARAPERTUSSIS- RESP PCR PAN NOT DETECTED; B. PERTUSSIS- RESP PCR PANEL NOT DETECTED; C. PNEUMONIAE- RESP PCR PANEL NOT DETECTED; CORONAVIRUS 229E-RESP PCR NOT DETECTED; CORONAVIRUS HKU1-RESP PCR NOT DETECTED; CORONAVIRUS NL63-RESP PCR NOT DETECTED; CORONAVIRUS OC43-RESP PCR NOT DETECTED; HUMAN METAPNEUMOVIRUS NOT DETECTED; INFLUENZA A- RESP PCR PANEL NOT DETECTED; INFLUENZA B - RESP PCR PANEL NOT DETECTED; M. PNEUMONIAE- RESP PCR PANEL NOT DETECTED; PARAINFLUENZA VIRUS 1 NOT DETECTED; PARAINFLUENZA VIRUS 2 NOT DETECTED; PARAINFLUENZA VIRUS 3 NOT DETECTED; PARAINFLUENZA VIRUS 4 NOT DETECTED; RHINOVIRUS/ENTEROVIRUS NOT DETECTED; RSV- RESP PCR PANEL NOT DETECTED; SARS-CoV-2 -RESP PCR PANEL NOT DETECTED
--- NOTE | 2021-03-16 22:17 | XRAY Report ---
PROCEDURE: Abdomen 1 View X-Ray INDICATIONS: History of small bowel obstruction, now with nausea and vomiting TECHNIQUE: 1 view of the abdomen were acquired. COMPARISON: None. FINDINGS: Surgical changes and devices: None. Bowel: No pneumoperitoneum. Gaseous distention of the stomach. The bowel gas pattern is normal. Soft tissues: No masses; visualized solid organ contours appear normal in size. No suspicious abdom inal calcifications. Bones: No suspicious bony abnormalities. IMPRESSION: Gaseous distention of the stomach. No dilated loop of bowel identified. Reviewed by: Abe Edward MD on 03/16/2021 10:16 PM PST Approved by: Abe Edward MD on 03/16/2021 10:16 PM PST Station ID: [id number]
[2021-03-17] MEDS: SODIUM CHLORIDE FLUSH 0.9% 10 ML SYRINGE IVP SCH ×3 (00:25→17:14)
[2021-03-17 01:57] LABS: BILIRUBIN,URINE NEGATIVE (NEGATIVE); GLUCOSE, URINE (UA) NEGATIVE (NEGATIVE); KETONES,URINE (UA) NEGATIVE (NEGATIVE); LEUKOCYTE ESTERASE, URINE NEGATIVE (NEGATIVE); NITRITE,URINE NEGATIVE (NEGATIVE); OCCULT BLOOD,URINE SMALL (NEGATIVE); PROTEIN,URINE TRACE mg/dL (NEGATIVE); UROBILINOGEN,URINE 0.2 (NORMAL) E.U./dL (NORMAL)
[2021-03-17 01:58] LABS: CLARITY,URINE CLEAR (CLEAR)
[2021-03-17 02:06] LABS: BACTERIA,URINE Rare /HPF (None Seen); MUCUS,URINE Few Strands; RBC,URINE 0-5 /HPF (0-5); SQUAMOUS EPITHELIAL CELL,UR MOD Squamous (<= Few); WBC,URINE 0-3 /HPF (0-5)
[2021-03-17] MEDS ORDERED: diltiaZEM INJ 5 MG/ML VIAL ONE (04:08)
[2021-03-17] MEDS: diltiaZEM INJ 125 MG in DEXTROSE 5% 100 ML IV STA ×2 (05:05→15:22)
[2021-03-17 06:37] LABS: BASOPHILS % (AUTO) 0.4 %; EOSINOPHILS % (AUTO) 0.1 %; HGB - HEMOGLOBIN 11.9 g/dL (12.0-16.0); LYMPHOCYTES # (AUTO) 1.3 10^3/uL (1.5-3.5); LYMPHOCYTES % (AUTO) 12.1 %; MEAN CORPUSCULAR HEMOGLOBIN 31.2 pg (27.0-31.0); MEAN CORPUSCULAR HGB CONC 33.1 g/dL (32.0-36.0); MEAN CORPUSCULAR VOLUME 94.2 fL (81.0-99.0); MEAN PLATELET VOLUME 12.1 fL (7.9-10.8); MONOCYTES # (AUTO) 0.7 10^3/uL (0.0-1.0); MONOCYTES % (AUTO) 6.8 %; NEUTROPHILS # (AUTO) 8.6 10^3/uL (1.5-6.6); NEUTROPHILS % (AUTO) 80.3 %; PLT - PLATELET COUNT 176 10^3/uL (130-450); RED BLOOD COUNT 3.82 10^6/uL (4.20-5.40); RED CELL DISTRIBUTION WIDTH 14.9 % (12.0-15.0); WHITE BLOOD COUNT 10.7 x10^3/uL (4.8-10.8)
[2021-03-17 06:43] LABS: INR 2.6 (0.8-1.2); PT - PROTHROMBIN TIME 28.7 secs (9.9-12.6)
[2021-03-17 06:46] LABS: CALCIUM 8.5 mg/dL (8.5-10.3); CREATININE 1.1 mg/dL (0.4-1.0); POTASSIUM 3.4 mmol/L (3.5-5.0)
[2021-03-17 07:04] LABS: MAGNESIUM 1.5 mg/dL (1.7-2.8); PHOSPHORUS 2.2 mg/dL (2.5-4.6)
[2021-03-17] MEDS ORDERED: POTASSIUM CHLORIDE 20 MEQ TABLET PO ONE ×2 (07:10)
[2021-03-17] MEDS ORDERED: SODIUM CHLORIDE 0.9% 1,000 ML IV SCH (08:00)
[2021-03-17] MEDS ORDERED: GI COCKTAIL 120 ML BOTTLE PO PRN (08:42)
--- NOTE | 2021-03-17 08:43 | PROVIDER PROGRESS NOTE ---
Subjective - Prog Note Date Prog Note Date: 03/17/21 - Subjective Subjective: She complains of pressure over her chest. She also feels nauseous and has had vomiting. She has pain with swallowing and unable to take her pills. Current Medications - Current Medications Current Medications: Active Medications Acetaminophen (Acetaminophen 325 Mg Tablet) 650 mg PO Q4HR PRN PRN Reason: Pain 1 to 4 Diltiazem HCl 125 mg/ Dextrose 125 mls @ 5 mls/hr IV TITR STA; Protocol Stop: 03/17/21 21:34 Last Titration: 03/17/21 08:37 Dose: 15 mg/hr, 15 mls/hr Potassium Phosphate 15 mmol/ (Sodium Chloride) 255 mls @ 63 mls/hr IV ONCE ONE; Protocol Stop: 03/17/21 16:02 Last Admin: 03/17/21 11:49 Dose: 63 mls/hr Sodium Chloride (Normal Saline 0.9%) 1,000 mls @ 100 mls/hr IV .Q10H NESSA Last Admin: 03/17/21 15:05 Dose: 100 mls/hr Lactated Ringer's (Lr) 1,000 mls @ 999 mls/hr IV ONCE ONE Stop: 03/17/21 16:18 Insulin Aspart (Insulin Aspart 300 Unit/3 Ml Pen) 1 - 9 unit SUBQ 080 0,1200,1700,2100 NESSA; Protocol Last Admin: 03/17/21 14:56 Dose: Not Given Multi-Ingredient Mouthwash/Gargle (Gi Cocktail 120 Ml Bottle) 30 ml PO Q4H PRN PRN Reason: Abdominal Pain Ondansetron HCl (Ondansetron Odt 4 Mg Tablet) 4 mg TL Q6HR PRN PRN Reason: Nausea / Vomiting Ondansetron HCl (Ondansetron 4 Mg/2 Ml Vial) 4 mg IVP Q6HR PRN PRN Reason: Nausea / Vomiting Last Admin: 03/17/21 09:32 Dose: 4 mg Oxycodone HCl (Oxycodone 5 Mg Tablet) 5 mg PO Q4HR PRN PRN Reason: Pain 5 to 7 Pantoprazole Sodium (Pantoprazole 40 Mg Tablet) 40 mg PO QDAC NESSA Last Admin: 03/17/21 11:02 Dose: Not Given Sodium Chloride (Sodium Chloride Flush 0.9% 10 Ml Syringe) 10 ml IVP 0100,0900,1700 [facility] Last Admin: 03/17/21 10:32 Dose: 10 ml Sodium Chloride (Sodium Chloride Flush 0.9% 10 Ml Syringe) 10 ml IVP PRN PRN PRN Reason: NEEDED PER PROVIDER ORDERS Sodium Phosphate (Neutra-Phos 250 Mg Tablet) 250 mg PO TIDWM [facility] Last Admin: 03/17/21 11:49 Dose: Not Given Warfarin Sodium (Warfarin 1 Mg Tablet) 2 mg PO QDWARFARIN [facility] Last Admin: 03/17/21 14:56 Dose: Not Given Diltiazem HCl [Cardizem Cd] 360 mg PO DAILY 12/17/18 Ocuvite Eye Vitamin 1 tab PO DAILY 12/17/18 Warfarin Sodium 3 mg PO TH@209912/17/18 Warfarin [Coumadin] 2 mg PO SUMOTUWEFRSA@209912/17/18 lisinopriL [Lisinopril] 20 mg PO DAILY 12/17/18 Metformin HCl 500 mg PO BIDWM 08/08/19 Atorvastatin [Lipitor] 10 mg PO QPM 03/17/21 hydroCHLOROthiazide [Hydrodiuril] 25 mg PO DAILY 03/17/21 Objective - Vital Signs/Intake & Output Reviewed Vital Signs: Yes Vital Signs: Vital Signs Pulse Pulse Resp BP Pulse Ox 03/17/21 07:00 92 20 110/51 L 96 03/17/21 06:00 94 20 110/55 L 96 03/17/21 05:20 102 H 21 03/17/21 05:15 106 H 18 03/17/21 05:10 100 17 03/17/21 05:05 112 H 19 03/17/21 05:00 98 104 H 15 118/60 96 03/17/21 04:55 99 21 03/17/21 04:50 100 21 03/17/21 04:45 102 H 17 Intake & Output: Intake & Output 03/14/21 03/15/21 03/16/21 03/17/21 23:59 23:59 23:59 23:59 Intake Total 5.833 150.25 Output Total 300 Balance 5.833 -149.75 - Objective General Appearance: positive: Alert, Moderate distress Eyes Bilateral: positive: Normal inspection, Conjunctivae nml ENT: positive: ENT inspection nml Neck: positive: Nml inspection Respiratory: positive: Breath sounds nml. negative: Wheezes, Rales Cardiovascular: positive: Irregularly irregular, Tachycardia. negative: Systolic murmur Abdomen: positive: Tenderness (Diffuse tenderness.). negative: No distention, Guarding, Rebound Skin: positive: Warm, Dry Extremities: positive: No pedal edema Neurologic/Psychiatric: positive: Motor nml. negative: Disoriented to person, Disoriented to place, Disoriented to time - Lab Results Fish Bones: 03/17/21 06:27 03/17/21 06:27 Other Labs: Lab Results x24hrs 03/17/21 03/17/21 03/17/21 Range/Units 06:27 06:27 06:27 WBC (4.8-10.8) x10^3/uL RBC (4.20-5.40) 10^6/uL Hgb (12.0-16.0) g/dL Hct (37.0-47.0) % MCV (81.0-99.0) fL MCH (27.0-31.0) pg MCHC (32.0-36.0) g/dL RDW (12.0-15.0) % Plt Count (130-450) 10^3/uL MPV (7.9-10.8) fL Neut # (Auto) (1.5-6.6) 10^3/uL Lymph # (Auto) (1.5-3.5) 10^3/uL [place] # (Auto) (0.0-1.0) 10^3/uL Eos # (Auto) (0.0-0.7) 10^3/uL Baso # (Auto) (0.0-0.1) 10^3/uL Absolute Nucleated RBC x10^3/uL Nucleated RBC % /100WBC PT 28.7 H (9.9-12.6) secs INR 2.6 H (0.8-1.2) Sodium 137 (135-145) mmol/L Potassium 3.4 L (3.5-5.0) mmol/L Chloride 105 (101-111) mmol/L Carbon Dioxide 24 (21-32) mmol/L Anion Gap 8.0 (6-13) BUN 53 H (6-20) mg/dL Creatinine 1.1 H (0.4-1.0) mg/dL Estimated GFR (MDRD) 47 L (>89) Glucose 122 H (70-100) mg/dL Calcium 8.5 (8.5-10.3) mg/dL Phosphorus 2.2 L (2.5-4.6) mg/dL Magnesium 1.5 L (1.7-2.8) mg/dL Total Bilirubin (0.2-1.0) mg/dL AST (10-42) IU/L ALT (10-60) IU/L Alkaline Phosphatase (42-121) IU/L Total Protein (6.7-8.2) g/dL Albumin (3.2-5.5) g/dL Globulin (2.1-4.2) g/dL Albumin/Globulin Ratio (1.0-2.2) Lipase (22-51) U/L Urine Color Urine Clarity (CLEAR) Urine pH (5.0-7.5) PH Ur Specific [place] (1.002-1.030) Urine Protein (NEGATIVE) mg/dL Urine Glucose (UA) (NEGATIVE) mg/dL Urine Ketones (NEGATIVE) mg/dL Urine Occult Blood (NEGATIVE) Urine Nitrite (NEGATIVE) Urine Bilirubin (NEGATIVE) Urine Urobilinogen (NORMAL) E.U./dL Ur Leukocyte Esterase (NEGATIVE) Urine RBC (0-5) /HPF Urine WBC (0-5) /HPF Ur Squamous Epith Cells (<= Few) Urine Bacteria (None Seen) /HPF Urine Mucus Ur Microscopic Review Urine Culture Comments Nasal Adenovirus (PCR) Nasal B. parapertussis DNA (PCR) Nasal Coronavir 229E PCR Nasal Coronavir HKU1 PCR Nasal Coronavir NL63 PCR Nasal Coronavir OC43 PCR Nasal Enterovir/Rhinovir PCR Nasal Influenza B PCR Nasal Influenza A PCR Nasal Parainfluen 1 PCR Nasal Parainfluen 2 PCR Nasal Parainfluen 3 PCR Nasal Parainfluen 4 PCR Nasal RSV (PCR) Nasal Screen MRSA (PCR) (NEGATIVE) Nasal B.pertussis DNA PCR Nasal C.pneumoniae (PCR) Hussein Human Metapneumo PCR Nasal M.pneumoniae (PCR) Nasal SARS-CoV-2 (PCR) 03/17/21 03/17/21 03/16/21 Range/Units 06:27 01:45 21:40 WBC 10.7 (4.8-10.8) x10^3/uL RBC 3.82 L (4.20-5.40) 10^6/uL Hgb 11.9 L (12.0-16.0) g/dL Hct 36.0 L (37.0-47.0) % MCV 94.2 (81.0-99.0) fL MCH 31.2 H (27.0-31.0) pg MCHC 33.1 (32.0-36.0) g/dL RDW 14.9 (12.0-15.0) % Plt Count 176 (130-450) 10^3/uL MPV 12.1 H (7.9-10.8) fL Neut # (Auto) 8.6 H (1.5-6.6) 10^3/uL Lymph # (Auto) 1.3 L (1.5-3.5) 10^3/uL [place] # (Auto) 0.7 (0.0-1.0) 10^3/uL Eos # (Auto) 0.0 (0.0-0.7) 10^3/uL Baso # (Auto) 0.0 (0.0-0.1) 10^3/uL Absolute Nucleated RBC 0.00 x10^3/uL Nucleated RBC % 0.0 /100WBC PT (9.9-12.6) secs INR (0.8-1.2) Sodium (135-145) mmol/L Potassium (3.5-5.0) mmol/L Chloride (101-111) mmol/L Carbon Dioxide (21-32) mmol/L Anion Gap (6-13) BUN (6-20) mg/dL Creatinine (0.4-1.0) mg/dL Estimated GFR (MDRD) (>89) Glucose (70-100) mg/dL Calcium (8.5-10.3) mg/dL Phosphorus (2.5-4.6) mg/dL Magnesium (1.7-2.8) mg/dL Total Bilirubin (0.2-1.0) mg/dL AST (10-42) IU/L ALT (10-60) IU/L Alkaline Phosphatase (42-121) IU/L Total Protein (6.7-8.2) g/dL Albumin (3.2-5.5) g/dL Globulin (2.1-4.2) g/dL Albumin/Globulin Ratio (1.0-2.2) Lipase (22-51) U/L Urine Color YELLOW Urine Clarity CLEAR (CLEAR) Urine pH 6.0 (5.0-7.5) PH Ur Specific [place] 1.020 (1.002-1.030) Urine Protein TRACE (NEGATIVE) mg/dL Urine Glucose (UA) NEGATIVE (NEGATIVE) mg/dL Urine Ketones NEGATIVE (NEGATIVE) mg/dL Urine Occult Blood SMALL H (NEGATIVE) Urine Nitrite NEGATIVE (NEGATIVE) Urine Bilirubin NEGATIVE (NEGATIVE) Urine Urobilinogen 0.2 (NORMAL) (NORMAL) E.U./dL Ur Leukocyte Esterase NEGATIVE (NEGATIVE) Urine RBC 0-5 (0-5) /HPF Urine WBC 0-3 (0-5) /HPF Ur Squamous Epith Cells MOD Squamous H (<= Few) Urine Bacteria Rare (None Seen) /HPF Urine Mucus Few Strands Ur Microscopic Review INDICATED Urine Culture Comments NOT INDICATED Nasal Adenovirus (PCR) Nasal B. parapertussis DNA (PCR) Nasal Coronavir 229E PCR Nasal Coronavir HKU1 PCR Nasal Coronavir NL63 PCR Nasal Coronavir OC43 PCR Nasal Enterovir/Rhinovir PCR Nasal Influenza B PCR Nasal Influenza A PCR Nasal Parainfluen 1 PCR Nasal Parainfluen 2 PCR Nasal Parainfluen 3 PCR Nasal Parainfluen 4 PCR Nasal RSV (PCR) Nasal Screen MRSA (PCR) NEGATIVE (NEGATIVE) Nasal B.pertussis DNA PCR Nasal C.pneumoniae (PCR) Hussein Human Metapneumo PCR Nasal M.pneumoniae (PCR) Nasal SARS-CoV-2 (PCR) 03/16/21 03/16/21 03/16/21 Range/Units 20:57 19:11 19:11 WBC (4.8-10.8) x10^3/uL RBC (4.20-5.40) 10^6/uL Hgb (12.0-16.0) g/dL Hct (37.0-47.0) % MCV (81.0-99.0) fL MCH (27.0-31.0) pg MCHC (32.0-36.0) g/dL RDW (12.0-15.0) % Plt Count (130-450) 10^3/uL MPV (7.9-10.8) fL Neut # (Auto) (1.5-6.6) 10^3/uL Lymph # (Auto) (1.5-3.5) 10^3/uL [place] # (Auto) (0.0-1.0) 10^3/uL Eos # (Auto) (0.0-0.7) 10^3/uL Baso # (Auto) (0.0-0.1) 10^3/uL Absolute Nucleated RBC x10^3/uL Nucleated RBC % /100WBC PT 24.5 H (9.9-12.6) secs INR 2.2 H (0.8-1.2) Sodium 138 (135-145) mmol/L Potassium 3.6 (3.5-5.0) mmol/L Chloride 101 (101-111) mmol/L Carbon Dioxide 21 (21-32) mmol/L Anion Gap 16.0 H (6-13) BUN 49 H (6-20) mg/dL Creatinine 1.5 H (0.4-1.0) mg/dL Estimated GFR (MDRD) 33 L (>89) Glucose 189 H (70-100) mg/dL Calcium 9.1 (8.5-10.3) mg/dL Phosphorus (2.5-4.6) mg/dL Magnesium (1.7-2.8) mg/dL Total Bilirubin 1.0 (0.2-1.0) mg/dL AST 19 (10-42) IU/L ALT 15 (10-60) IU/L Alkaline Phosphatase 54 (42-121) IU/L Total Protein 7.5 (6.7-8.2) g/dL Albumin 4.0 (3.2-5.5) g/dL Globulin 3.5 (2.1-4.2) g/dL Albumin/Globulin Ratio 1.1 (1.0-2.2) Lipase 41 (22-51) U/L Urine Color Urine Clarity (CLEAR) Urine pH (5.0-7.5) PH Ur Specific [place] (1.002-1.030) Urine Protein (NEGATIVE) mg/dL Urine Glucose (UA) (NEGATIVE) mg/dL Urine Ketones (NEGATIVE) mg/dL Urine Occult Blood (NEGATIVE) Urine Nitrite (NEGATIVE) Urine Bilirubin (NEGATIVE) Urine Urobilinogen (NORMAL) E.U./dL Ur Leukocyte Esterase (NEGATIVE) Urine RBC (0-5) /HPF Urine WBC (0-5) /HPF Ur Squamous Epith Cells (<= Few) Urine Bacteria (None Seen) /HPF Urine Mucus Ur Microscopic Review Urine Culture Comments Nasal Adenovirus (PCR) NOT DETECTED Nasal B. parapertussis DNA (PCR) NOT DETECTED Nasal Coronavir 229E PCR NOT DETECTED Nasal Coronavir HKU1 PCR NOT DETECTED Nasal Coronavir NL63 PCR NOT DETECTED Nasal Coronavir OC43 PCR NOT DETECTED Nasal Enterovir/Rhinovir PCR NOT DETECTED Nasal Influenza B PCR NOT DETECTED Nasal Influenza A PCR NOT DETECTED Nasal Parainfluen 1 PCR NOT DETECTED Nasal Parainfluen 2 PCR NOT DETECTED Nasal Parainfluen 3 PCR NOT DETECTED Nasal Parainfluen 4 PCR NOT DETECTED Nasal RSV (PCR) NOT DETECTED Nasal Screen MRSA (PCR) (NEGATIVE) Nasal B.pertussis DNA PCR NOT DETECTED Nasal C.pneumoniae (PCR) NOT DETECTED [place] Human Metapneumo PCR NOT DETECTED Nasal M.pneumoniae (PCR) NOT DETECTED Nasal SARS-CoV-2 (PCR) NOT DETECTED 03/16/21 Range/Units 19:11 WBC 14.2 H (4.8-10.8) x10^3/uL RBC 4.47 (4.20-5.40) 10^6/uL Hgb 13.8 (12.0-16.0) g/dL Hct 41.8 (37.0-47.0) % MCV 93.5 (81.0-99.0) fL MCH 30.9 (27.0-31.0) pg MCHC 33.0 (32.0-36.0) g/dL RDW 14.9 (12.0-15.0) % Plt Count 231 (130-450) 10^3/uL MPV 12.0 H (7.9-10.8) fL Neut # (Auto) 12.8 H (1.5-6.6) 10^3/uL Lymph # (Auto) 0.6 L (1.5-3.5) 10^3/uL [place] # (Auto) 0.7 (0.0-1.0) 10^3/uL Eos # (Auto) 0.0 (0.0-0.7) 10^3/uL Baso # (Auto) 0.0 (0.0-0.1) 10^3/uL Absolute Nucleated RBC 0.00 x10^3/uL Nucleated RBC % 0.0 /100WBC PT (9.9-12.6) secs INR (0.8-1.2) Sodium (135-145) mmol/L Potassium (3.5-5.0) mmol/L Chloride (101-111) mmol/L Carbon Dioxide (21-32) mmol/L Anion Gap (6-13) BUN (6-20) mg/dL Creatinine (0.4-1.0) mg/dL Estimated GFR (MDRD) (>89) Glucose (70-100) mg/dL Calcium (8.5-10.3) mg/dL Phosphorus (2.5-4.6) mg/dL Magnesium (1.7-2.8) mg/dL Total Bilirubin (0.2-1.0) mg/dL AST (10-42) IU/L ALT (10-60) IU/L Alkaline Phosphatase (42-121) IU/L Total Protein (6.7-8.2) g/dL Albumin (3.2-5.5) g/dL Globulin (2.1-4.2) g/dL Albumin/Globulin Ratio (1.0-2.2) Lipase (22-51) U/L Urine Color Urine Clarity (CLEAR) Urine pH (5.0-7.5) PH Ur Specific [place] (1.002-1.030) Urine Protein (NEGATIVE) mg/dL Urine Glucose (UA) (NEGATIVE) mg/dL Urine Ketones (NEGATIVE) mg/dL Urine Occult Blood (NEGATIVE) Urine Nitrite (NEGATIVE) Urine Bilirubin (NEGATIVE) Urine Urobilinogen (NORMAL) E.U./dL Ur Leukocyte Esterase (NEGATIVE) Urine RBC (0-5) /HPF Urine WBC (0-5) /HPF Ur Squamous Epith Cells (<= Few) Urine Bacteria (None Seen) /HPF Urine Mucus Ur Microscopic Review Urine Culture Comments Nasal Adenovirus (PCR) Nasal B. parapertussis DNA (PCR) Nasal Coronavir 229E PCR Nasal Coronavir HKU1 PCR Nasal Coronavir NL63 PCR Nasal Coronavir OC43 PCR Nasal Enterovir/Rhinovir PCR Nasal Influenza B PCR Nasal Influenza A PCR Nasal Parainfluen 1 PCR Nasal Parainfluen 2 PCR Nasal Parainfluen 3 PCR Nasal Parainfluen 4 PCR Nasal RSV (PCR) Nasal Screen MRSA (PCR) (NEGATIVE) Nasal B.pertussis DNA PCR Nasal C.pneumoniae (PCR) [place] Human Metapneumo PCR Nasal M.pneumoniae (PCR) Nasal SARS-CoV-2 (PCR) Assessment/Plan - Problem List (1) Atrial fibrillation with rapid ventricular response Impression: This was exacerbated by her not taking her p.o. meds due to nausea and vomiting. Her rate is better controlled on diltiazem drip but still cannot take p.o. due to nausea and vomiting. We will keep her on a diltiazem drip until she can take p.o. consistently. (2) Chest pain Impression: She complains of chest pain which I suspect related to A. fib or likely of gastric etiology. Repeat EKG does not suggest ischemia. Her troponins have peaked over 150 and are trending down. Suspect this is likely demand ischemia from the A. fib. We are ordering a CT to evaluate her abdomen given her nausea and vomiting. We will continue to trend her troponin and obtain an echocardiogram. (3) Nausea & vomiting Impression: She continues have nausea and vomiting. Abdominal x-ray showed no evidence of obstruction. She has a history of gastric ulcers and esophagitis. We will order a CT of the abdomen and pelvis first for further evaluation. Will consider NG tube if she continues to vomit. She may also need endoscopy and if CT does not suggest an obvious cause of her nausea or vomiting then we will ask general surgery to consult. Maintain n.p.o. status. We will give her a liter of lactated Ringer's and continue maintenance IV fluids. Zofran as needed for nausea. We will start her on Protonix and a GI cocktail. (4) TIFFANI (acute kidney injury) Impression: Her creatinine is improving back to baseline. This was likely prerenal injury due to dehydration. Her BUN remains elevated and this could potentially be due to an upper GI bleed given she is a history of esophagitis and ulcers. We will continue to monitor for evidence of bleeding by checking her stool for occult blood. (5) Diet-controlled diabetes mellitus Impression: Her blood glucose is stable. We will monitor as she is n.p.o. (6) HTN (hypertension) Impression: She has a history of hypertension but we are holding her home lisinopril and diuretic due to the acute kidney injury initially as well as the fact she is hypovolemic. We will continue to hydrate her with IV fluids. We will resume her home antihypertensives when appropriate.
[2021-03-17] MEDS ORDERED: PANTOPRAZOLE 40 MG TABLET PO SCH (09:00)
[2021-03-17] MEDS ORDERED: diltiaZEM CD 180 MG CAPSULE PO SCH (09:00)
[2021-03-17] MEDS: INSULIN ASPART 300 UNIT/3 ML PEN SUBQ SCH ×4 (10:31→20:54)
[2021-03-17] MEDS: NEUTRA-PHOS 250 MG TABLET PO SCH ×3 (11:02→17:14)
[2021-03-17] MEDS ORDERED: POTASSIUM PHOSPHATE 15 MMOL in SODIUM CHLORIDE 0.9% 250 ML IV ONE (12:00)
[2021-03-17] MEDS ORDERED: WARFARIN 1 MG TABLET PO SCH (14:00)
[2021-03-17] MEDS: SODIUM CHLORIDE 0.9% 1,000 ML IV SCH (15:05)
[2021-03-17] MEDS ORDERED: LACTATED RINGERS 1,000 ML IV ONE (15:18)
[2021-03-17] MEDS ORDERED: diphenhydrAMINE INJ 50 MG/ML VIAL IVP STA (15:37)
[2021-03-17] MEDS ORDERED: methylPREDNISolone SUCCINATE 40 MG/ML VIAL IVP STA (15:41)
[2021-03-17] MEDS ORDERED: iohexoL-300 100 ML VIAL ONE (15:47)
--- NOTE | 2021-03-17 16:52 | CT Report ---
PROCEDURE: Abdomen/Pelvis W INDICATIONS: Abdominal pain. Vomiting. TECHNIQUE: After the administration of IV contrast, 5 mm thick sections acquired from the diaphragms to the symp hysis. 5 mm thick coronal and sagittal reformats were acquired. For radiation dose reduction, the f ollowing was used: automated exposure control, adjustment of mA and/or kV according to patient size. COMPARISON: 12/16/2018. FINDINGS: Image quality: Excellent. ABDOMEN: Lung bases: Right greater than left bilateral small pleural effusion is seen. Heart size is enlarged , no pericardial effusion. Solid organs: Liver and spleen are normal in size and enhancement. Gallbladder is within normal martínez its. Biliary system is non dilated. Pancreas enhances normally. No adrenal nodules. Bilateral kidn eys are slightly atrophic in size. No renal stone or hydronephrosis. Small bilateral renal cortical c ysts are seen unchanged from prior study. Peritoneum and bowel: There is distal esophageal wall thickening and edema with narrowing of the lume n which was also noted in 2019 study. Markedly fluid distended stomach lumen is again seen without si gnificant wall thickening or discrete gastric wall mass. There is no small bowel wall thickening or d istention. No colonic wall thickening. Sigmoid diverticulosis is seen without CT evidence of acute di verticulitis. Nodes and vessels: No retroperitoneal or mesenteric adenopathy by size criteria. Aorta and inferior vena cava are normal in size. Miscellaneous: There is anterior abdominal wall defect at midline measures 3.8 cm in width with herni ation sac containing small bowel loops. No signs of incarceration is seen. PELVIS: Genitourinary: Bladder wall thickness is normal. Miscellaneous: No inguinal hernias or adenopathy. Bones: No suspicious bony lesions. No vertebral body compression fractures. IMPRESSION: 1. Marked fluid distention of stomach lumen with air-fluid level. No gross gastric wall thickening or discrete gastric wall mass. Finding is concerning for gastroparesis. Gastric outlet obstruction marcia ot be entirely. 2. No small bowel or colonic wall thickening. Colonic diverticulosis without evidence of acute divert iculitis. No free fluid or free air. 3. Distal esophageal wall thickening and edema suggestive of esophagitis unchanged from prior study. 4. Right greater than left bilateral pleural effusion with adjacent bibasilar atelectasis. Cardiomega ly, no pericardial effusion. 5. Stable slightly atrophic bilateral kidneys with lobulated contour and bilateral renal cysts. No hy dronephrosis. 6. Ventral abdominal wall defect with moderate size ventral hernia containing small bowel loops witho ut incarceration. Reviewed by: Billy Huff MD on 03/17/2021 4:50 PM PST Approved by: Billy Huff MD on 03/17/2021 4:50 PM PST Station ID: [id number]
[2021-03-17] MEDS ORDERED: iohexoL-300 100 ML VIAL IVP ONE (18:42)
[2021-03-17] MEDS: SODIUM CHLORIDE FLUSH 0.9% 10 ML SYRINGE IVP PRN (20:55)
[2021-03-17] MEDS: PANTOPRAZOLE 40 MG VIAL IVP SCH (20:55)
[2021-03-17] MEDS: diltiaZEM INJ 125 MG in DEXTROSE 5% 100 ML IV SCH (23:58)
[2021-03-18] MEDS: SODIUM CHLORIDE FLUSH 0.9% 10 ML SYRINGE IVP SCH ×3 (00:15→19:50)
[2021-03-18 00:43] LABS: HCT - HEMATOCRIT 27.6 % (37.0-47.0); HGB - HEMOGLOBIN 8.8 g/dL (12.0-16.0)
[2021-03-18] MEDS: SODIUM CHLORIDE 0.9% 1,000 ML IV SCH ×4 (04:54→22:25)
[2021-03-18 05:24] LABS: CALCIUM, IONIZED 1.08 mmol/L (1.15-1.33); VBG PH 7.397 (7.31-7.41)
[2021-03-18 05:27] LABS: BASOPHILS % (AUTO) 0.2 %; EOSINOPHILS % (AUTO) 0.3 %; HCT - HEMATOCRIT 25.4 % (37.0-47.0); HGB - HEMOGLOBIN 8.3 g/dL (12.0-16.0); LYMPHOCYTES % (AUTO) 8.6 %; MEAN CORPUSCULAR HEMOGLOBIN 31.1 pg (27.0-31.0); MEAN CORPUSCULAR HGB CONC 32.7 g/dL (32.0-36.0); MEAN CORPUSCULAR VOLUME 95.1 fL (81.0-99.0); MEAN PLATELET VOLUME 12.6 fL (7.9-10.8); MONOCYTES % (AUTO) 4.1 %; NEUTROPHILS % (AUTO) 86.3 %; PLT - PLATELET COUNT 194 10^3/uL (130-450); RED BLOOD COUNT 2.67 10^6/uL (4.20-5.40); RED CELL DISTRIBUTION WIDTH 15.1 % (12.0-15.0); WHITE BLOOD COUNT 12.1 x10^3/uL (4.8-10.8)
[2021-03-18 05:34] LABS: ABNORMAL LYMPHS % (MANUAL) 0 %
[2021-03-18 05:49] LABS: BAND NEUTROPHILS % (MANUAL) 2 %; DIFFERENTIAL COMMENT MANUAL DIFFERENTIAL; LYMPHOCYTES # (MANUAL) 1.1 10^3/uL (1.5-3.5); LYMPHOCYTES % (MANUAL) 9 %; MONOCYTES # (MANUAL) 0.4 10^3/uL (0.0-1.0); NEUTROPHILS # (MANUAL) 10.6 10^3/uL (1.5-6.6); PLATELET ESTIMATE, MANUAL NORMAL (130-450,000) (NORMAL); PLATELET MORPHOLOGY NORMAL APPEARANCE (NORMAL); RBC MORPHOLOGY (MULTIPLE) NORMAL APPEARANCE (NORMAL); WBC MORPHOLOGY (MULTIPLE) NORMAL APPEARANCE (NORMAL)
[2021-03-18 05:53] LABS: CREATININE 1.8 mg/dL (0.4-1.0); MAGNESIUM 1.4 mg/dL (1.7-2.8); PHOSPHORUS 2.7 mg/dL (2.5-4.6)
[2021-03-18 05:54] LABS: POTASSIUM 4.2 mmol/L (3.5-5.0)
[2021-03-18] MEDS: MAGNESIUM SULFATE 2 GRAM 2 GM/50 ML BAG IV SCH ×4 (06:38→22:27)
[2021-03-18] MEDS ORDERED: CALCIUM CHLORIDE 1,000 MG in SODIUM CHLORIDE 0.9% 50 ML IV ONE (07:00)
[2021-03-18] MEDS ORDERED: PHYTONADIONE 10 MG/ML AMP SUBQ STA (08:00)
--- NOTE | 2021-03-18 08:18 | PROVIDER PROGRESS NOTE ---
Subjective - Prog Note Date Prog Note Date: 03/18/21 - Subjective Subjective: RN reported a change in alertness. She opened eyes to me saying her name and grunted for a response. Objective - Vital Signs/Intake & Output Vital Signs: Vital Signs Temp Pulse Pulse Resp BP BP Pulse Ox 03/18/21 08:00 36.4 C L 116 H 27 H 88/45 L 94 03/18/21 07:00 120 H 31 H 106/48 L 99 03/18/21 06:37 134 H 29 H 110/72 100 03/18/21 05:01 130 H 28 H 03/18/21 05:00 118 H 115 H 20 75/65 L 100 03/18/21 04:59 107 H 31 H 03/18/21 04:55 112 H 33 H 03/18/21 04:50 114 H 32 H 03/18/21 04:45 119 H 34 H 03/18/21 04:40 122 H 32 H 03/18/21 04:35 128 H 25 H 03/18/21 04:30 117 H 29 H 03/18/21 04:25 111 H 30 H 03/18/21 04:20 134 H 33 H 03/18/21 04:15 109 H 28 H 03/18/21 04:10 133 H 30 H 03/18/21 04:05 140 H 33 H Intake & Output: Intake & Output 03/15/21 03/16/21 03/17/21 03/18/21 23:59 23:59 23:59 23:59 Intake Total 5.833 2734.50 1000 Output Total 950 350 Balance 5.833 1784.50 650 - Objective General Appearance: positive: Lethargic Eyes Bilateral: positive: Normal inspection ENT: positive: Other (Dried coffee ground emesis on lips) Respiratory: positive: No respiratory distress, Breath sounds nml Cardiovascular: positive: No murmur, Irregularly irregular, Tachycardia Rectal: positive: Non-tender, Stool - heme POS Skin: positive: Dry, Pallor Extremities: positive: No pedal edema Neurologic/Psychiatric: positive: Other (Obtunded, opens eyes and makes a sound when her name is called out. Is confused (was trying to climb OOB), moving all extrem spontaneously.) - Lab Results Fish Bones: 03/18/21 05:11 03/18/21 05:11 Other Labs: Lab Results x24hrs 03/18/21 03/18/21 03/18/21 Range/Units 05:11 05:11 05:11 WBC (4.8-10.8) x10^3/uL RBC (4.20-5.40) 10^6/uL Hgb (12.0-16.0) g/dL Hct (37.0-47.0) % MCV (81.0-99.0) fL MCH (27.0-31.0) pg MCHC (32.0-36.0) g/dL RDW (12.0-15.0) % Plt Count (130-450) 10^3/uL MPV (7.9-10.8) fL Neut # (Auto) Lymph # (Auto) [place] # (Auto) Eos # (Auto) Baso # (Auto) Absolute Nucleated RBC Total Counted Band Neuts % (Manual) (0 - 10) % Abnorm Lymph % (Manual) % Nucleated RBC % Neutrophils # (Manual) (1.5-6.6) 10^3/uL Lymphocytes # (Manual) (1.5-3.5) 10^3/uL Monocytes # (Manual) (0.0-1.0) 10^3/uL Eosinophils # (Manual) (0-0.7) 10^3/uL Basophils # (Manual) (0-0.1) 10^3/uL Differential Comment WBC Morphology (NORMAL) Platelet Estimate (NORMAL) Platelet Morphology (NORMAL) RBC Morph Micro Appear (NORMAL) PT 44.0 H (9.9-12.6) secs INR 4.0 H (0.8-1.2) VBG pH 7.397 (7.31-7.41) Ionized Calcium 1.08 L (1.15-1.33) mmol/L Sodium 140 (135-145) mmol/L Potassium 4.2 (3.5-5.0) mmol/L Chloride 109 (101-111) mmol/L Carbon Dioxide 16 L (21-32) mmol/L Anion Gap 15.0 H (6-13) BUN 115 H* (6-20) mg/dL Creatinine 1.8 H (0.4-1.0) mg/dL Estimated GFR (MDRD) 27 L (>89) Glucose 230 H (70-100) mg/dL Calcium 8.0 L (8.5-10.3) mg/dL Phosphorus 2.7 (2.5-4.6) mg/dL Magnesium 1.4 L (1.7-2.8) mg/dL Troponin I High Sens (2.3-14.8) ng/L 03/18/21 03/18/21 03/17/21 Range/Units 05:11 00:37 17:00 WBC 12.1 H (4.8-10.8) x10^3/uL RBC 2.67 L (4.20-5.40) 10^6/uL Hgb 8.3 L 8.8 L (12.0-16.0) g/dL Hct 25.4 L 27.6 L (37.0-47.0) % MCV 95.1 (81.0-99.0) fL MCH 31.1 H (27.0-31.0) pg MCHC 32.7 (32.0-36.0) g/dL RDW 15.1 H (12.0-15.0) % Plt Count 194 (130-450) 10^3/uL MPV 12.6 H (7.9-10.8) fL Neut # (Auto) Not Reportable Lymph # (Auto) Not Reportable [place] # (Auto) Not Reportable Eos # (Auto) Not Reportable Baso # (Auto) Not Reportable Absolute Nucleated RBC Not Reportable Total Counted 100 Band Neuts % (Manual) 2 (0 - 10) % Abnorm Lymph % (Manual) 0 % Nucleated RBC % Not Reportable Neutrophils # (Manual) 10.6 H (1.5-6.6) 10^3/uL Lymphocytes # (Manual) 1.1 L (1.5-3.5) 10^3/uL Monocytes # (Manual) 0.4 (0.0-1.0) 10^3/uL Eosinophils # (Manual) 0.0 (0-0.7) 10^3/uL Basophils # (Manual) 0.0 (0-0.1) 10^3/uL Differential Comment MANUAL DIFFERENTIAL WBC Morphology NORMAL APPEARANCE (NORMAL) Platelet Estimate NORMAL (130-450,000) (NORMAL) Platelet Morphology NORMAL APPEARANCE (NORMAL) RBC Morph Micro Appear NORMAL APPEARANCE (NORMAL) PT (9.9-12.6) secs INR (0.8-1.2) VBG pH (7.31-7.41) Ionized Calcium (1.15-1.33) mmol/L Sodium (135-145) mmol/L Potassium (3.5-5.0) mmol/L Chloride (101-111) mmol/L Carbon Dioxide (21-32) mmol/L Anion Gap (6-13) BUN (6-20) mg/dL Creatinine (0.4-1.0) mg/dL Estimated GFR (MDRD) (>89) Glucose (70-100) mg/dL Calcium (8.5-10.3) mg/dL Phosphorus (2.5-4.6) mg/dL Magnesium (1.7-2.8) mg/dL Troponin I High Sens 97.5 H* (2.3-14.8) ng/L 03/17/21 03/17/21 03/17/21 Range/Units 13:40 10:15 06:27 WBC (4.8-10.8) x10^3/uL RBC (4.20-5.40) 10^6/uL Hgb (12.0-16.0) g/dL Hct (37.0-47.0) % MCV (81.0-99.0) fL MCH (27.0-31.0) pg MCHC (32.0-36.0) g/dL RDW (12.0-15.0) % Plt Count (130-450) 10^3/uL MPV (7.9-10.8) fL Neut # (Auto) Lymph # (Auto) [place] # (Auto) Eos # (Auto) Baso # (Auto) Absolute Nucleated RBC Total Counted Band Neuts % (Manual) (0 - 10) % Abnorm Lymph % (Manual) % Nucleated RBC % Neutrophils # (Manual) (1.5-6.6) 10^3/uL Lymphocytes # (Manual) (1.5-3.5) 10^3/uL Monocytes # (Manual) (0.0-1.0) 10^3/uL Eosinophils # (Manual) (0-0.7) 10^3/uL Basophils # (Manual) (0-0.1) 10^3/uL Differential Comment WBC Morphology (NORMAL) Platelet Estimate (NORMAL) Platelet Morphology (NORMAL) RBC Morph Micro Appear (NORMAL) PT (9.9-12.6) secs INR (0.8-1.2) VBG pH (7.31-7.41) Ionized Calcium (1.15-1.33) mmol/L Sodium (135-145) mmol/L Potassium (3.5-5.0) mmol/L Chloride (101-111) mmol/L Carbon Dioxide (21-32) mmol/L Anion Gap (6-13) BUN (6-20) mg/dL Creatinine (0.4-1.0) mg/dL Estimated GFR (MDRD) (>89) Glucose (70-100) mg/dL Calcium (8.5-10.3) mg/dL Phosphorus (2.5-4.6) mg/dL Magnesium (1.7-2.8) mg/dL Troponin I High Sens 135.7 H* 160.8 H* 151.5 H* (2.3-14.8) ng/L - Diagnostic Imaging Diagnostic Imaging Results: positive: Final report reviewed Assessment/Plan - Problem List (1) Atrial fibrillation with rapid ventricular response Impression: This was exacerbated by her not taking her p.o. meds due to nausea and vomiting. Her rate is better controlled on diltiazem drip but still cannot take p.o. due to nausea and vomiting. We will keep her on a diltiazem drip until she can take p.o. consistently. She was restarted on her home Counadin, but this needs to be stopped due to bleeding. (2) UGI bleed Impression: She has a history of gastric ulcers and esophagitis. Pt had 2 episodes of coffee ground emesis overnight. Also, her stool test came back guaic pos. She is on Protonix iv bid, will continue this. Will stop Coumadin Will give vit K for the INR of 4 she had today. I spoke to Dr Molina regarding a consult and poss EGD today. Will monitor H/H more frequently and have blood typed and screened for a poss transfusion. Will replace ng tube, to low intermittent suction. Will request central line, discussed with Anesthesia. (3) Nausea & vomiting Impression: She has a history of gastric ulcers and esophagitis. She continues have nausea and vomiting. Abdominal x-ray showed no evidence of obstruction. CT of the abdomen and pelvis showed air fluid levels of a distended stomach. Will place NG tube She may also need endoscopy and we have asked general surgery to consult. Continue n.p.o. status. We will continue maintenance IV fluids. Zofran as needed for nausea and will add prn Compazine. (4) Anemia Impression: UGI bleed is the source. Will monitor H/H more frequently and have blood typed and screened for a possible transfusion. (5) AMS Impression: After her last coffee ground emesis, RN reported that she was more obtunded and I saw and examined pt then at 0745. The RN leaving off warehouse shift supervisor however reported that the pt has been drowsy ever since getting Benadryl (for dye allergy and having CT with dye). She is moving all extremities spontaneously, opems her eyes and tries to answer verbally to her name. Likely this is still the Benadryl effect. Will order STAT head CT stroke protocol, concerned that the elevated INR may have caused HIP HOP DANCER bleed (6) Elevated INR Impression: She was supposed to be taking Coumadin at home, but was apperently not taking any meds due to N/V. Here, she has been ordered to get Coumadin and her INR is excessive today at 4. Will give vitamin K. Plan will be for no anticoagulation for at least a month, given her UGI bleed (since she had coffee ground emesis this a.m.). (7) TIFFANI (acute kidney injury) Impression: Her creatinine is improving back to baseline. This was likely prerenal injury due to dehydration. Her BUN is even more elevated and this is probably due to her upper GI bleed. We will continue to give iv fluids, avoid nephrotoxins and follow BMP daily. (8) Diet-controlled diabetes mellitus Impression: Her blood glucose is stable. We will monitor her fingerstick glu at 0600, etc, since she is n.p.o. Will give ss Insulin coverage for an npo pt (9) Chest pain Impression: She complained of chest pain at presentation, was suspected to be related to A. fib, but now it is more likely from a gastric etiology. Repeat EKG did not suggest ischemia. Her troponins have peaked over 150 and are trending down. Suspect this is likely demand ischemia from the A. fib. We are obtaining an Echocardiogram today. (10) HTN (hypertension) Impression: She has a history of hypertension but we are holding her home lisinopril and diuretic due to the acute kidney injury as well as the fact she is still clinically hypovolemic. We will continue to hydrate her with IV fluids. We will resume her home antihypertensives when appropriate. CRITICAL CARE TIME SPENT: 60 min
[2021-03-18] MEDS ORDERED: PHYTONADIONE INJ (ADULT) 10 MG in SODIUM CHLORIDE 0.9% 50 ML IV STA (08:42)
[2021-03-18] MEDS: diltiaZEM INJ 125 MG in DEXTROSE 5% 100 ML IV SCH ×2 (08:46→17:30)
[2021-03-18 09:07] LABS: ABG BASE EXCESS -6.5 mmol/L (-2.0-3.0); ABG HCO3 16.1 mmol/L (22.0-26.0); ABG PH 7.48 (7.35-7.45); ABG PO2 87 mmHg (80-100); ABG TCO2 16.7 MMOL/L (21.0-29.0)
[2021-03-18 09:08] LABS: ABG OXYGEN SATURATION 95 % (94-98)
[2021-03-18 09:10] LABS: ABG PCO2 22 mmHg (34-45)
--- NOTE | 2021-03-18 10:28 | CT Report ---
PROCEDURE: Head W/O Stroke Protocol INDICATIONS: altered mental status TECHNIQUE: Noncontrast 4.5 mm thick angled axial sections acquired from the foramen magnum to the vertex, with c oronal reformats. For radiation dose reduction, the following was used: automated exposure control, adjustment of mA and/or kV according to patient size. COMPARISON: None FINDINGS: Image quality: Excellent. CSF spaces: Basal cisterns are patent. No extra-axial fluid collections. Ventricles are normal in size and shape. Brain: No midline shift. No intracranial masses or hemorrhage. Craft-white matter interface is norm al. There is diffuse cortical volume loss with associated ex vacuo dilatation of the bilateral ventr icles. No acute intracranial hemorrhage or evidence of transcortical infarction. Scattered bilatera l periventricular white matter hypoattenuation likely sequela from chronic small vessel ischemic dise ase. Atherosclerotic calcifications within the intracranial segments of the bilateral internal caroti d arteries are noted. Skull and face: Calvarium and visualized facial bones are intact, without suspicious lesions. Sinuses: Visualized sinuses and mastoids are clear. IMPRESSION: CT head without acute intracranial abnormalities. Age-related senescent changes and sequela of chroni c small vessel ischemic disease. Consider further evaluation with noncontrast MRI if there is persistent concern for acute cerebral in farction. Findings were discussed in person with Dr. Reeder at [id number] This study fulfills neurological imaging criteria for inclusion or exclusion of acute stroke therapie s based on available published neurological imaging guidelines. Reviewed by: Carlos Pitts MD on 03/18/2021 10:27 AM [facility] Approved by: Carlos Pitts MD on 03/18/2021 10:27 AM [facility] Station ID: [id number]
--- NOTE | 2021-03-18 11:15 | PHARMACY PROGRESS NOTE ---
- Best Possible Medication History Admit Date and Time: 03/17/21 1515 Processed by: Pharmacy Medication History completed: Yes Secondary Source(s): Physician records, Pharmacy records, Insurance records As the person ultimately responsible for medication therapy, providers are able to order a medication from an existing home medication list in [facility] via the "Reconcile Routine" prior to Confirmation of that medication by support architect. Such practice is discouraged except when the physician, in their clinical judgment, deems that a medical need exists for a medication without regard to previous use.
[2021-03-18 13:28] LABS: HCT - HEMATOCRIT 19.8 % (37.0-47.0); HGB - HEMOGLOBIN 6.6 g/dL (12.0-16.0)
--- NOTE | 2021-03-18 14:21 | XRAY Report ---
PROCEDURE: Chest for Line Placement INDICATIONS: CL placement TECHNIQUE: One view of the chest was acquired. COMPARISON: 02/24/[address] abdomen and pelvis dated 03/17/2021 FINDINGS: Surgical changes and devices: Interval placement of right central venous catheter with the distal tip projecting over the mid to lower SVC. Lungs and pleura: No pneumothorax seen. Persistent bilateral pleural effusions which has increased in size on the left. Left basilar airspace opacities likely representing compressive atelectasis. Mediastinum: Mediastinal contours appear stable. Heart size is stable. Bones and chest wall: No suspicious bony lesions. Overlying soft tissues appear unremarkable. IMPRESSION: Right central venous catheter in place with the distal tip projecting over the mid to lower SVC. No p neumothorax. Persistent bilateral pleural effusions which has increased in size on the left. Left basilar airspace opacities favored to represent compressive atelectasis. Concurrent airspace disease/aspiration not e xcluded if clinically appropriate. Reviewed by: Carlos Pitts MD on 03/18/2021 2:19 PM PST Approved by: Carlos Pitts MD on 03/18/2021 2:19 PM PST Station ID: [id number]
--- NOTE | 2021-03-18 16:09 | CONSULTATION NOTE ---
Referring Provider Name of Referring Provider:: Leeroycatrachitalaureljaquelineja Consult Date: 03/18/21 Chief Complaint - Chief Complaint Chief Complaint: Upper GI hemorrhage History of Present Illness - Admitted From Admitted From:: ED - History of Present Illness HPI Comment/Other: Elizabeth is an unfortunate 86-year-old lady who has been admitted to the medicine service for the past couple of days. She presented to the emergency room in atrial fibrillation with rapid ventricular response. She had apparently been having nausea and vomiting for a few days and had not taken her medications. She was noted to have coffee-ground emesis on a couple of occasions and today was found to have a decreased hemoglobin down from 8-6. She does have a history of gastric ulcers in the past.He is in the intensive care unit at this time and is obtunded. She is currently receiving blood. She had a CT scan of her head this morning that did not show any evidence of a stroke.I have been asked to see her regarding the possibility of an EGD to help define and possibly treat the cause of upper GI hemorrhage.There also seems to be some question of gastric outlet obstruction as she had a very dilated stomach on recent CT scan of the abdomen pelvis. History - Past Medical History Cardiovascular: reports: Hypertension, Arrhythmia (hx of afib) Respiratory: reports: Emphysema, Pneumonia Neuro: reports: Peripheral neuropathy Endocrine/Autoimmune: reports: Type 2 diabetes GI: reports: GERD, Ulcers, Chronic diarrhea, Other (small bowel obstruction ) SOCIAL SERVICE DIRECTOR: reports: Endometriosis : reports: Incontinence, Renal insuffiency, Nocturia, Frequency HEENT: reports: Chronic vision loss, Chronic sinusitis Psych: reports: None Musculoskeletal: reports: Osteoarthritis Derm: reports: None MRSA Hx?: No - Past Surgical History General: reports: Appendectomy, Gastric surgery, Other /SOCIAL SERVICE DIRECTOR: reports: Hysterectomy, Oophrectomy - Family & Social History Family History: Mother: , Diabetes, Type 2, Father: Family History Comment/Other: patient reports her mother had DM2 and at age 90. her father at age 80. she has three children all healthy. She had 2 brothers. One is in 50s from a fall in an airport coat hanger shaper machine operator. The other brother is alive and healthy. 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 Her daughter, Arina lives near-by. She admits to a tobacco history from age [age], denies illicit drug use, and admits to occasional alcohol- wine or beer, only 1 per night. She wishes to be a FULL code. - Substance History Use: Uses substance without health or social issues: Alcohol - POLST Patient has POLST: No POLST Status: Full Code Meds/Allgy - Home Medications Home Medications: Ambulatory Orders Medication Instructions Recorded Confirmed Diltiazem HCl [Cardizem Cd] 360 mg PO DAILY 12/17/18 03/17/21 Ocuvite Eye Vitamin 1 tab PO DAILY 12/17/18 03/17/21 Warfarin Sodium 3 mg PO MOFR@2100 12/17/18 03/18/21 Warfarin [Coumadin] 2 mg PO SUTUWETHSA@2100 12/17/18 03/18/21 lisinopriL [Lisinopril] 20 mg PO DAILY 12/17/18 03/17/21 Metformin HCl 500 mg PO BIDWM 08/08/19 03/17/21 Atorvastatin [Lipitor] 10 mg PO QPM 03/17/21 03/17/21 hydroCHLOROthiazide [Hydrodiuril] 25 mg PO DAILY 03/17/21 03/17/21 - Allergies Allergies/Adverse Reactions: Allergies Allergy/AdvReac Type Severity Reaction Status Date / Time iodine Allergy Hives Verified 12/16/18 11:39 Review of Systems - Other Findings Other Findings: Unable to obtain secondary to patient's mental status Exam - Vital Signs Reviewed Vital Signs: Yes Vital Signs: Vital Signs x48h Temp Pulse Pulse Resp BP BP Pulse Ox 03/18/21 15:53 36.8 C 03/18/21 15:49 36.8 C 106 H 28 H 101/41 L 03/18/21 15:34 98 C H 98 23 96/44 L 03/18/21 15:00 117 H 25 H 115/51 L 99 03/18/21 14:00 104 H 24 117/52 L 99 03/18/21 13:00 111 H 24 96/44 L 94 03/18/21 12:00 96 21 96/44 L 98 03/18/21 11:00 120 H 28 H 90/46 L 97 03/18/21 10:00 122 H 25 H 132/44 H 98 03/18/21 09:57 136 H 25 H 94/51 L 99 03/18/21 09:00 114 H 29 H 109/53 L 99 - Physical Exam General Appearance: positive: Other (Obtunded. She grunts in response with localization to stimulus.) Respiratory: positive: No respiratory distress Abdomen: positive: Nml bowel sounds, No distention Rectal: positive: Black stool Skin: positive: Pallor Conclusion and Plan - Lab Results Microbiology Results 03/17/21 22:20 Stool Occult Blood - Final Laboratory Results 03/18/21 13:15: Hgb 6.6 L*, Hct 19.8 L* 03/18/21 11:04: INR (Fingerstick) 2.4 H 03/18/21 08:58: Bld Gas Analysis Time 0902, Sample Site LEFT BRACHIAL, ABG pH 7.48 H, ABG pCO2 22 L*, ABG pO2 87, ABG HCO3 16.1 L, ABG Total CO2 16.7 L, ABG O2 Saturation 95, ABG Base Excess -6.5 L, Buddy Test NOT APPLICABLE, O2 Delivery Device NASAL CANNULA, O2 Liters/Min 4.00 03/18/21 08:58: Blood Type A POSITIVE, Antibody Screen NEGATIVE, Crossmatch IS Only See Detail 03/18/21 05:11: Blood Type Recheck A POSITIVE 03/18/21 05:11: VBG pH 7.397, Ionized Calcium 1.08 L 03/18/21 05:11: PT 44.0 H, INR 4.0 H 03/18/21 05:11: Sodium 140, Potassium 4.2, Chloride 109, Carbon Dioxide 16 L, Anion Gap 15.0 H, BUN 115 H*, Creatinine 1.8 H, Estimated GFR (MDRD) 27 L, Glucose 230 H, Calcium 8.0 L, Phosphorus 2.7, Magnesium 1.4 L 03/18/21 05:11: WBC 12.1 H, RBC 2.67 L, Hgb 8.3 L, Hct 25.4 L, MCV 95.1, MCH 31.1 H, MCHC 32.7, RDW 15.1 H, Plt Count 194, MPV 12.6 H, Neut # (Auto) Not Reportable, Lymph # (Auto) Not Reportable, [place] # (Auto) Not Reportable, Eos # (Auto) Not Reportable, Baso # (Auto) Not Reportable, Absolute Nucleated RBC Not Reportable, Total Counted 100, Band Neuts % (Manual) 2, Abnorm Lymph % (Manual) 0, Nucleated RBC % Not Reportable, Neutrophils # (Manual) 10.6 H, Lymphocytes # (Manual) 1.1 L, Monocytes # (Manual) 0.4, Eosinophils # (Manual) 0.0, Basophils # (Manual) 0.0, Differential Comment MANUAL DIFFERENTIAL, WBC Morphology NORMAL APPEARANCE, Platelet Estimate NORMAL (130-450,000), Platelet Morphology NORMAL APPEARANCE, RBC Morph Micro Appear NORMAL APPEARANCE 03/18/21 00:37: Hgb 8.8 L, Hct 27.6 L 03/17/21 17:00: Troponin I High Sens 97.5 H* 03/17/21 13:40: Troponin I High Sens 135.7 H* 03/17/21 10:15: Troponin I High Sens 160.8 H* 03/17/21 06:27: Troponin I High Sens 151.5 H* 03/17/21 06:27: Phosphorus 2.2 L, Magnesium 1.5 L 03/17/21 06:27: Sodium 137, Potassium 3.4 L, Chloride 105, Carbon Dioxide 24, Anion Gap 8.0, BUN 53 H, Creatinine 1.1 H, Estimated GFR (MDRD) 47 L, Glucose 122 H, Calcium 8.5 03/17/21 06:27: PT 28.7 H, INR 2.6 H 03/17/21 06:27: WBC 10.7, RBC 3.82 L, Hgb 11.9 L, Hct 36.0 L, MCV 94.2, MCH 31.2 H, MCHC 33.1, RDW 14.9, Plt Count 176, MPV 12.1 H, Neut # (Auto) 8.6 H, Lymph # (Auto) 1.3 L, [place] # (Auto) 0.7, Eos # (Auto) 0.0, Baso # (Auto) 0.0, Absolute Nucleated RBC 0.00, Nucleated RBC % 0.0 03/17/21 01:45: Urine Color YELLOW, Urine Clarity CLEAR, Urine pH 6.0, Ur Specific [place] 1.020, Urine Protein TRACE, Urine Glucose (UA) NEGATIVE, Urine Ketones NEGATIVE, Urine Occult Blood SMALL H, Urine Nitrite NEGATIVE, Urine Bilirubin NEGATIVE, Urine Urobilinogen 0.2 (NORMAL), Ur Leukocyte Esterase NEGATIVE, Urine RBC 0-5, Urine WBC 0-3, Ur Squamous Epith Cells MOD Squamous H, Urine Bacteria Rare, Urine Mucus Few Strands, Ur Microscopic Review INDICATED, Urine Culture Comments NOT INDICATED 03/16/21 21:40: Nasal Screen MRSA (PCR) NEGATIVE 03/16/21 20:57: Nasal Adenovirus (PCR) NOT DETECTED, Nasal B. parapertussis DNA (PCR) NOT DETECTED, Nasal Coronavir 229E PCR NOT DETECTED, Nasal Coronavir HKU1 PCR NOT DETECTED, Nasal Coronavir NL63 PCR NOT DETECTED, Nasal Coronavir OC43 PCR NOT DETECTED, Nasal Enterovir/Rhinovir PCR NOT DETECTED, Nasal Influenza B PCR NOT DETECTED, Nasal Influenza A PCR NOT DETECTED, Nasal Parainfluen 1 PCR NOT DETECTED, Nasal Parainfluen 2 PCR NOT DETECTED, Nasal Parainfluen 3 PCR NOT DETECTED, Nasal Parainfluen 4 PCR NOT DETECTED, Nasal RSV (PCR) NOT DETECTED, Nasal B.pertussis DNA PCR NOT DETECTED, Nasal C.pneumoniae (PCR) NOT DETECTED, Hussein Human Metapneumo PCR NOT DETECTED, Nasal M.pneumoniae (PCR) NOT DETECTED, Nasal SARS-CoV-2 (PCR) NOT DETECTED 03/16/21 19:11: Sodium 138, Potassium 3.6, Chloride 101, Carbon Dioxide 21, Ani on Gap 16.0 H, BUN 49 H, Creatinine 1.5 H, Estimated GFR (MDRD) 33 L, Glucose 189 H, Calcium 9.1, Total Bilirubin 1.0, AST 19, ALT 15, Alkaline Phosphatase 54, Total Protein 7.5, Albumin 4.0, Globulin 3.5, Albumin/Globulin Ratio 1.1, Lipase 41 03/16/21 19:11: PT 24.5 H, INR 2.2 H 03/16/21 19:11: WBC 14.2 H, RBC 4.47, Hgb 13.8, Hct 41.8, MCV 93.5, MCH 30.9, MCHC 33.0, RDW 14.9, Plt Count 231, MPV 12.0 H, Neut # (Auto) 12.8 H, Lymph # (Auto) 0.6 L, [place] # (Auto) 0.7, Eos # (Auto) 0.0, Baso # (Auto) 0.0, Absolute Nucleated RBC 0.00, Nucleated RBC % 0.0 - Diagnostic Imaging Results Diagnostic Imaging Results Comments: Marked fluid distention of the stomach with air-fluid level. - Diagnosis Diagnosis: Upper GI hemorrhage with possible gastric out let obstruction in the setting of an unfortunate and critically ill 86 year old lady with multiple medical problems - Plan Plan: I agree with EGD for both diagnostic and therapeutic concerns. Will plan to place and NGT as well to provide gastric decompression. We will contact her daughter to discuss the risks, benefits and alternatives to the procedure.
--- NOTE | 2021-03-18 16:50 | ANESTHESIA PROCEDURE NOTE ---
Anesth Central Line Template - Central Line Central Line Preparation: Consent Obtained, Time out completed, Ultrasound used, Sterile prep and drape Central line location: Right IJ Central line type: Triple lumen Central line catheter tip site resides: Superior vena cava (SVC)
--- NOTE | 2021-03-18 17:25 | ANESTHESIA ---
Pre-Anesthesia VS, & Labs - Diagnosis Diagnosis Upper GI hemorrhage with possible gastric out let obstruction in the setting of an unfortunate and critically ill 86 year old lady with multiple medical problems - Procedure EGD Vital Signs: Temp Pulse Resp BP Pulse Ox 36.8 C 110 H 26 H 111/53 L 99 03/18/21 16:00 03/18/21 17:00 03/18/21 17:00 03/18/21 17:00 03/18/21 17:00 Height: 4 ft 11 in Weight (kg): 67.5 kg Body Mass Index: 30.0 BMI Classification: Obese - NPO >8 hours - Is Patient ?: No - Lab Results Current Lab Results: Laboratory Tests 03/18/21 13:15: Hgb 6.6 L*, Hct 19.8 L* 03/18/21 11:04: INR (Fingerstick) 2.4 H 03/18/21 08:58: Bld Gas Analysis Time 0902, Sample Site LEFT BRACHIAL, ABG pH 7.48 H, ABG pCO2 22 L*, ABG pO2 87, ABG HCO3 16.1 L, ABG Total CO2 16.7 L, ABG O2 Saturation 95, ABG Base Excess -6.5 L, Buddy Test NOT APPLICABLE, O2 Delivery Device NASAL CANNULA, O2 Liters/Min 4.00 03/18/21 08:58: Blood Type A POSITIVE, Antibody Screen NEGATIVE, Crossmatch IS Only See Detail 03/18/21 05:11: Blood Type Recheck A POSITIVE 03/18/21 05:11: VBG pH 7.397, Ionized Calcium 1.08 L 03/18/21 05:11: PT 44.0 H, INR 4.0 H 03/18/21 05:11: Sodium 140, Potassium 4.2, Chloride 109, Carbon Dioxide 16 L, Anion Gap 15.0 H, BUN 115 H*, Creatinine 1.8 H, Estimated GFR (MDRD) 27 L, Glucose 230 H, Calcium 8.0 L, Phosphorus 2.7, Magnesium 1.4 L 03/18/21 05:11: WBC 12.1 H, RBC 2.67 L, Hgb 8.3 L, Hct 25.4 L, MCV 95.1, MCH 31.1 H, MCHC 32.7, RDW 15.1 H, Plt Count 194, MPV 12.6 H, Neut # (Auto) Not Reportable, Lymph # (Auto) Not Reportable, [place] # (Auto) Not Reportable, Eos # (Auto) Not Reportable, Baso # (Auto) Not Reportable, Absolute Nucleated RBC Not Reportable, Total Counted 100, Band Neuts % (Manual) 2, Abnorm Lymph % (Manual) 0, Nucleated RBC % Not Reportable, Neutrophils # (Manual) 10.6 H, Lymphocytes # (Manual) 1.1 L, Monocytes # (Manual) 0.4, Eosinophils # (Manual) 0.0, Basophils # (Manual) 0.0, Differential Comment MANUAL DIFFERENTIAL, WBC Morphology NORMAL APPEARANCE, Platelet Estimate NORMAL (130-450,000), Platelet Morphology NORMAL APPEARANCE, RBC Morph Micro Appear NORMAL APPEARANCE 03/18/21 00:37: Hgb 8.8 L, Hct 27.6 L 03/17/21 17:00: Troponin I High Sens 97.5 H* 03/17/21 13:40: Troponin I High Sens 135.7 H* 03/17/21 10:15: Troponin I High Sens 160.8 H* 03/17/21 06:27: Troponin I High Sens 151.5 H* 03/17/21 06:27: Phosphorus 2.2 L, Magnesium 1.5 L 03/17/21 06:27: Sodium 137, Potassium 3.4 L, Chloride 105, Carbon Dioxide 24, Anion Gap 8.0, BUN 53 H, Creatinine 1.1 H, Estimated GFR (MDRD) 47 L, Glucose 122 H, Calcium 8.5 03/17/21 06:27: PT 28.7 H, INR 2.6 H 03/17/21 06:27: WBC 10.7, RBC 3.82 L, Hgb 11.9 L, Hct 36.0 L, MCV 94.2, MCH 31.2 H, MCHC 33.1, RDW 14.9, Plt Count 176, MPV 12.1 H, Neut # (Auto) 8.6 H, Lymph # (Auto) 1.3 L, [place] # (Auto) 0.7, Eos # (Auto) 0.0, Baso # (Auto) 0.0, Absolute Nucleated RBC 0.00, Nucleated RBC % 0.0 03/16/21 19:11: Sodium 138, Potassium 3.6, Chloride 101, Carbon Dioxide 21, Anion Gap 16.0 H, BUN 49 H, Creatinine 1.5 H, Estimated GFR (MDRD) 33 L, Glucose 189 H, Calcium 9.1, Total Bilirubin 1.0, AST 19, ALT 15, Alkaline Phosphatase 54, Total Protein 7.5, Albumin 4.0, Globulin 3.5, Albumin/Globulin Ratio 1.1, Lipase 41 03/16/21 19:11: PT 24.5 H, INR 2.2 H 03/16/21 19:11: WBC 14.2 H, RBC 4.47, Hgb 13.8, Hct 41.8, MCV 93.5, MCH 30.9, MCHC 33.0, RDW 14.9, Plt Count 231, MPV 12.0 H, Neut # (Auto) 12.8 H, Lymph # (Auto) 0.6 L, [place] # (Auto) 0.7, Eos # (Auto) 0.0, Baso # (Auto) 0.0, Absolute Nucleated RBC 0.00, Nucleated RBC % 0.0 Fish Bones: 03/18/21 13:15 03/18/21 05:11 Home Medications and Allergies Home Medications: Ambulatory Orders Atorvastatin [Lipitor] 10 mg PO QPM 03/17/21 hydroCHLOROthiazide [Hydrodiuril] 25 mg PO DAILY 03/17/21 Active Medications Diltiazem HCl 125 mg/ Dextrose 125 mls @ 15 mls/hr IV .Q8H20M [facility]; Protocol Last Admin: 03/18/21 08:46 Dose: 15 mg/hr, 15 mls/hr Sodium Chloride (Normal Saline 0.9%) 1,000 mls @ 150 mls/hr IV .Q6H40M [facility] Ondansetron HCl (Ondansetron 4 Mg/2 Ml Vial) 4 mg IVP Q6HR PRN PRN Reason: Nausea / Vomiting Last Admin: 03/17/21 09:32 Dose: 4 mg Pantoprazole Sodium (Pantoprazole 40 Mg Vial) 40 mg IVP BID [facility] Last Admin: 03/17/21 20:55 Dose: 40 mg Sodium Chloride (Sodium Chloride Flush 0.9% 10 Ml Syringe) 10 ml IVP 0100,0900,1700 [facility] Last Admin: 03/18/21 00:15 Dose: Not Given Sodium Chloride (Sodium Chloride Flush 0.9% 10 Ml Syringe) 10 ml IVP PRN PRN PRN Reason: NEEDED PER PROVIDER ORDERS Last Admin: 03/17/21 20:55 Dose: 10 ml Diltiazem HCl [Cardizem Cd] 360 mg PO DAILY 12/17/18 Ocuvite Eye Vitamin 1 tab PO DAILY 12/17/18 Warfarin Sodium 3 mg PO MOFR@2100 12/17/18 Warfarin [Coumadin] 2 mg PO SUTUWETHSA@2100 12/17/18 lisinopriL [Lisinopril] 20 mg PO DAILY 12/17/18 Metformin HCl 500 mg PO BIDWM 08/08/19 Atorvastatin [Lipitor] 10 mg PO QPM 03/17/21 hydroCHLOROthiazide [Hydrodiuril] 25 mg PO DAILY 03/17/21 Allergies/Adverse Reactions: Allergies Allergy/AdvReac Type Severity Reaction Status Date / Time iodine Allergy Hives Verified 12/16/18 11:39 Anes History & Medical History - Anesthetic History Anesthesia Complications: reports: No previous complications - Medical History Cardiovascular: reports: Hypertension, Arrhythmia (hx of afib) Pulmonary: reports: Emphysema, Pneumonia Gastrointestinal: reports: GERD, Ulcers, Chronic diarrhea, Other (small bowel obstruction ) Urinary: reports: Incontinence, Renal insuffiency, Nocturia, Frequency Neuro: reports: Peripheral neuropathy Musculoskeletal: reports: Osteoarthritis Endocrine/Autoimmune: reports: Type 2 diabetes Blood Disorders: reports: None Skin: reports: None Smoking Status: Former smoker - Surgical History General: reports: Appendectomy, Gastric surgery, Other Gynecologic: reports: Hysterectomy, Oophrectomy Exam Dental: WNL Mallampati classification: II Thyromental Distance: 4-6 cm Respiratory: Lungs clear Cardiovascular: Other (a fib, irregular) Plan Anesthesia Type: General (GI bleed, coffee ground emisis this am, several dark stools) Consent for Procedure(s) Verified and Reviewed: No Code Status: Attempt Resuscitation ASA classification: 4-Incapacitating disease Is this case an emergency?: Yes
[2021-03-18] MEDS ORDERED: PROPOFOL 200 MG/20 ML VIAL IVP ONE (17:37)
[2021-03-18] MEDS ORDERED: ROCURONIUM 50 MG/5 ML VIAL ONE (17:37)
[2021-03-18] MEDS ORDERED: SODIUM CHLORIDE 0.9% 500 ML IV ONE (19:31)
[2021-03-18] MEDS: PANTOPRAZOLE 40 MG VIAL IVP SCH ×2 (19:38→19:50)
[2021-03-18] MEDS: SODIUM CHLORIDE FLUSH 0.9% 10 ML SYRINGE IVP PRN (19:46)
[2021-03-18 23:26] LABS: CALCIUM, IONIZED 1.19 mmol/L (1.15-1.33); VBG PH 7.408 (7.31-7.41)
[2021-03-19] MEDS: SODIUM CHLORIDE 0.9% 1,000 ML IV SCH ×3 (00:56→16:01)
[2021-03-19] MEDS: SODIUM CHLORIDE FLUSH 0.9% 10 ML SYRINGE IVP SCH ×3 (01:16→17:42)
[2021-03-19] MEDS: diltiaZEM INJ 125 MG in DEXTROSE 5% 100 ML IV SCH ×2 (01:49→09:41)
[2021-03-19 05:19] LABS: INR 1.2 (0.8-1.2); PT - PROTHROMBIN TIME 13.4 secs (9.9-12.6)
[2021-03-19 05:21] LABS: BASOPHILS % (AUTO) 0.4 %; EOSINOPHILS % (AUTO) 0.3 %; HCT - HEMATOCRIT 25.7 % (37.0-47.0); HGB - HEMOGLOBIN 8.6 g/dL (12.0-16.0); LYMPHOCYTES % (AUTO) 10.2 %; MEAN CORPUSCULAR HEMOGLOBIN 29.3 pg (27.0-31.0); MEAN CORPUSCULAR HGB CONC 33.5 g/dL (32.0-36.0); MEAN CORPUSCULAR VOLUME 87.4 fL (81.0-99.0); MEAN PLATELET VOLUME 12.9 fL (7.9-10.8); MONOCYTES % (AUTO) 7.3 %; NEUTROPHILS % (AUTO) 81.5 %; PLT - PLATELET COUNT 119 10^3/uL (130-450); RED BLOOD COUNT 2.94 10^6/uL (4.20-5.40); RED CELL DISTRIBUTION WIDTH 18.2 % (12.0-15.0); WHITE BLOOD COUNT 7.4 x10^3/uL (4.8-10.8)
[2021-03-19 05:24] LABS: CALCIUM, IONIZED 1.14 mmol/L (1.15-1.33); VBG PH 7.442 (7.31-7.41)
[2021-03-19 05:26] LABS: CALCIUM 8.2 mg/dL (8.5-10.3); CREATININE 1.3 mg/dL (0.4-1.0); MAGNESIUM 2.3 mg/dL (1.7-2.8); PHOSPHORUS 2.9 mg/dL (2.5-4.6); POTASSIUM 3.4 mmol/L (3.5-5.0)
[2021-03-19 05:34] LABS: ABNORMAL LYMPHS % (MANUAL) 0 %
[2021-03-19 05:58] LABS: BAND NEUTROPHILS % (MANUAL) 7 %; DIFFERENTIAL COMMENT MANUAL DIFFERENTIAL; LYMPHOCYTES % (MANUAL) 14 %; MONOCYTES # (MANUAL) 0.4 10^3/uL (0.0-1.0); PLATELET ESTIMATE, MANUAL DECREASED (<130,000) (NORMAL); RBC MORPHOLOGY (MULTIPLE) NORMAL APPEARANCE (NORMAL)
[2021-03-19] MEDS: POTASSIUM CHLOR 20 MEQ/100 ML 20 MEQ/100 ML BAG IV SCH ×2 (06:03→07:18)
--- NOTE | 2021-03-19 08:32 | PROVIDER PROGRESS NOTE ---
<Rama Miranda - Last Filed: 03/21/21 07:59> Subjective - Prog Note Date Prog Note Date: 03/19/21 Prog Note Time: 08:27 - Subjective Pt reports feeling: No change Subjective: Patient reports feeling "miserable and uncomfortable" due to staying in bed. Reports nausea has subsided and denies pain. Objective - Vital Signs/Intake & Output Reviewed Vital Signs: Yes - Objective General Appearance: positive: No acute distress, Alert Eyes Bilateral: positive: Normal inspection, EOMI ENT: positive: ENT inspection nml, Dry mucous membranes, Other (hard of hearing. NG in place.) Neck: positive: Nml inspection, No JVD Respiratory: positive: Chest non-tender, No respiratory distress, Breath sounds nml Cardiovascular: positive: No murmur, Irregularly irregular, Tachycardia Abdomen: positive: Non-tender, Nml bowel sounds, No distention Skin: positive: Color nml, Warm, Dry Extremities: positive: Non-tender, Full ROM, Nml appearance Neurologic/Psychiatric: positive: Oriented x3, Motor nml, Mood/affect nml - Lab Results Fish Bones: 03/21/21 05:15 03/21/21 05:50 - Diagnostic Imaging Diagnostic Imaging Results: positive: Final report reviewed Assessment/Plan - Problem List (1) Bleeding duodenal ulcer Impression: Patient has a history of gastric ulcers and esophagitis. On the evening of 03/18/2021 she had 1 episode of coffee ground emesis. Her stool was also guaic positvie. EGD from 03/18/2021 found old blood in the stomach and a duodenal ulcer without active bleeding. Plan: Continue with Protonix IV twice daily. Continue to monitor H/H more frequently and consider blood transfusion as needed. Continue NG tube at low intermittent suction. Continue to hold Coumadin for 1 month. (2) Gastric outlet obstruction Impression: Patient presented hospital with nausea and vomiting for 2 days. She has a history of gastric ulcers and esophagitis. EGD report by Dr. Molina from 03/18/2021 found a "gastric outlet obstruction at the pylorus that is most likely secondary to a duodenal ulcer". Plan: Keep patient NPO with NG to low intermittent suction x 7 days to allow ulcer to heal and edema at pylorus to resolve. Began TPN today for nutrition. (3) Intractable nausea and vomiting Impression: Patient has a history of gastric ulcers and esophagitis. She denies currently having nausea with last recorded episode of vomiting was during the night of 03/18/2021 and was described as black. Abdominal x-ray showed no evidence of obstruction. CT of the abdomen and pelvis showed air fluid levels of a distended stomach. 03/18/2021 EGD found dilated stomach with old blood but no active bleeding. A gastric outlet obstruction at the pylorus was noted likely secondary to duodenal ulcer. 03/19/2021 Dr. Molina recommends keeping patient NPO for 7 days and begin TPN. Plan: Continue with NG to low intermittent suction and n.p.o. status. Discontinue maintenance IV fluids and start TPN. Zofran as needed for nausea. Consider adding Compazine if nausea resumes and unrelieved by Zofran. (4) Anemia Impression: Anemia secondary to duodenal ulcer. 03/18/2021 EGD found old blood in stomach but no active bleeding. 03/18/2021 patient received 2 units of PRBC from [facility] 6.6/19.8 that improved to 8.6/25.7 today. Last black stool and emesis was on 03/18/2021. No reports of active bleeding from patient or bedside nurse. Plan: Continue to monitor for signs of active bleeding. Monitor H/H more frequently and transfuse as needed. Qualifiers: Other causes of anemia: acute posthemorrhagic (5) Elevated INR Impression: Patient takes Coumadin at home but reports stopping oral medications due to sever nausea and vomiting. 03/18/2021 INR was elevated to 4.2 so Vitamin K was given. INR today was 1.2. Plan: No anticoagulation for at least a month, given her bleeding duodenal ulcer. (6) Atrial fibrillation with rapid ventricular response Impression: Patient has a history of A-fib with RVR so she takes Cardizem 360 mg PO daily and Coumadin at home. She was unable to take her medication prior to hospitalization due to nausea nd vomiting. Diltiazem drip was started in the ED and she remains on max dose of 15mg/hr with HR A-fib 90-100s. She is unable to resume PO dose due to NPO status for bleeding duodenal ulcer. 03/18/2021 INR was elevated at 4.2, Vitamin K was given and today INR is 1.2. Plan: Transition to scheduled IV Cardizem and Metoprolol to wean off Cardizem gtt. Will consider resuming home Coumadin after 1 month if bleeding duodenal ulcer resolves. (7) Acute kidney injury Impression: Her creatinine is improving to 1.3 today which is a decrease from 1.8 on 03/18/2021. This was likely a prerenal injury due to dehydration. Plan: Continue to give iv fluids, avoid nephrotoxin, and follow BMP daily (8) Diet-controlled diabetes mellitus Impression: Patient has a history of T2DM and takes Metformin 500mg BID at home. Her blood glucose was elevated 03/18/2021 at 230, today it has decreased to 157. Plan: We will monitor her fingerstick glucose every 6 hours while she is NPO. Will start NPO sliding scale Insulin coverage. Plans to start TPN today for planned NPO status x7 days. (9) HTN (hypertension) Impression: Patient has a history of hypertension but we are holding her home lisinopril and diuretic due to the acute kidney injury, NPO, and she is still clinically hypovolemic. Plan: Will start IV Metoprolol and scheduled IV Cardizem for A-fib with RVR to transition out of ICU. Continue to hydrate her with IV fluids. Resume her home antihypertensives when appropriate. (10) Chest pain Impression: Patient complained of chest pain at presentation, that was suspected to be related to A. fib, but it is more likely from a gastric etiology. Repeat EKG did not suggest ischemia. Her troponins have peaked over 150 and then trending down. Suspect this is likely demand ischemia from the A. fib. 03/18/2021 Echo showed that left atrium is severely dilated and there is mild LVH with normal systolic function and EF 70%. (11) Altered mental state Impression: Patient received Benadryl for prophylaxis treatment of dye allergy prior to Abdominal CT. Patient became drowsy and obtunded with eye opening to name. Today she is alert and oriented to self, location, time, and situation. Altered mental state was most likely due to the Benadryl effect. 03/18/2021 CT of head negative for acute intracranial abnormalities. Qualifiers: Altered mental status type: unspecified Qualified Code(s): R41.82 - Altered mental status, unspecified <Kimmie Reeder - Last Filed: 03/21/21 10:51> Objective - Vital Signs/Intake & Output Vital Signs: Vital Signs Temp Pulse Pulse Resp BP Pulse Ox 03/19/21 17:00 36.8 C 108 H 20 121/102 H 99 03/19/21 16:00 93 24 155/74 H 100 03/19/21 15:00 85 25 H 141/80 H 97 Intake & Output: Intake & Output 03/16/21 03/17/21 03/18/21 03/19/21 23:59 23:59 23:59 23:59 Intake Total 5.833 2734.50 3153.000 3250.000 Output Total 950 2340 2915 Balance 5.833 1784.50 813.000 335.000 - Lab Results Fish Bones: 03/21/21 05:15 03/21/21 05:50 Other Labs: Lab Results x24hrs 03/19/21 03/19/21 03/19/21 Range/Units 17:26 09:52 04:28 WBC (4.8-10.8) x10^3/uL RBC (4.20-5.40) 10^6/uL Hgb 8.5 L (12.0-16.0) g/dL Hct 25.6 L (37.0-47.0) % MCV (81.0-99.0) fL MCH (27.0-31.0) pg MCHC (32.0-36.0) g/dL RDW (12.0-15.0) % Plt Count (130-450) 10^3/uL MPV (7.9-10.8) fL Neut # (Auto) Lymph # (Auto) [place] # (Auto) Eos # (Auto) Baso # (Auto) Absolute Nucleated RBC Total Counted Band Neuts % (Manual) (0 - 10) % Abnorm Lymph % (Manual) % Nucleated RBC % Neutrophils # (Manual) (1.5-6.6) 10^3/uL Lymphocytes # (Manual) (1.5-3.5) 10^3/uL Monocytes # (Manual) (0.0-1.0) 10^3/uL Eosinophils # (Manual) (0-0.7) 10^3/uL Basophils # (Manual) (0-0.1) 10^3/uL Differential Comment Platelet Estimate (NORMAL) RBC Morph Micro Appear (NORMAL) PT (9.9-12.6) secs INR (0.8-1.2) VBG pH 7.442 H (7.31-7.41) Ionized Calcium 1.14 L (1.15-1.33) mmol/L Sodium (135-145) mmol/L Potassium 4.2 (3.5-5.0) mmol/L Chloride (101-111) mmol/L Carbon Dioxide (21-32) mmol/L Anion Gap (6-13) BUN (6-20) mg/dL Creatinine (0.4-1.0) mg/dL Estimated GFR (MDRD) (>89) Glucose (70-100) mg/dL Calcium (8.5-10.3) mg/dL Phosphorus (2.5-4.6) mg/dL Magnesium (1.7-2.8) mg/dL Blood Type Antibody Screen Crossmatch IS Only 03/19/21 03/19/21 03/19/21 Range/Units 04:28 04:28 04:28 WBC 7.4 (4.8-10.8) x10^3/uL RBC 2.94 L (4.20-5.40) 10^6/uL Hgb 8.6 L (12.0-16.0) g/dL Hct 25.7 L (37.0-47.0) % MCV 87.4 (81.0-99.0) fL MCH 29.3 (27.0-31.0) pg MCHC 33.5 (32.0-36.0) g/dL RDW 18.2 H (12.0-15.0) % Plt Count 119 L (130-450) 10^3/uL MPV 12.9 H (7.9-10.8) fL Neut # (Auto) Not Reportable Lymph # (Auto) Not Reportable [place] # (Auto) Not Reportable Eos # (Auto) Not Reportable Baso # (Auto) Not Reportable Absolute Nucleated RBC Not Reportable Total Counted 100 Band Neuts % (Manual) 7 (0 - 10) % Abnorm Lymph % (Manual) 0 % Nucleated RBC % Not Reportable Neutrophils # (Manual) 6.0 (1.5-6.6) 10^3/uL Lymphocytes # (Manual) 1.0 L (1.5-3.5) 10^3/uL Monocytes # (Manual) 0.4 (0.0-1.0) 10^3/uL Eosinophils # (Manual) 0.0 (0-0.7) 10^3/uL Basophils # (Manual) 0.0 (0-0.1) 10^3/uL Differential Comment MANUAL DIFFERENTIAL Platelet Estimate DECREASED (<130,000) (NORMAL) RBC Morph Micro Appear NORMAL APPEARANCE (NORMAL) PT 13.4 H (9.9-12.6) secs INR 1.2 (0.8-1.2) VBG pH (7.31-7.41) Ionized Calcium (1.15-1.33) mmol/L Sodium 143 (135-145) mmol/L Potassium 3.4 L (3.5-5.0) mmol/L Chloride 116 H (101-111) mmol/L Carbon Dioxide 19 L (21-32) mmol/L Anion Gap 8.0 (6-13) BUN 79 H (6-20) mg/dL Creatinine 1.3 H (0.4-1.0) mg/dL Estimated GFR (MDRD) 39 L (>89) Glucose 157 H (70-100) mg/dL Calcium 8.2 L (8.5-10.3) mg/dL Phosphorus 2.9 (2.5-4.6) mg/dL Magnesium 2.3 (1.7-2.8) mg/dL Blood Type Antibody Screen Crossmatch IS Only 03/18/21 03/18/21 03/18/21 Range/Units 23:13 23:13 08:58 WBC (4.8-10.8) x10^3/uL RBC (4.20-5.40) 10^6/uL Hgb (12.0-16.0) g/dL Hct (37.0-47.0) % MCV (81.0-99.0) fL MCH (27.0-31.0) pg MCHC (32.0-36.0) g/dL RDW (12.0-15.0) % Plt Count (130-450) 10^3/uL MPV (7.9-10.8) fL Neut # (Auto) Lymph # (Auto) [place] # (Auto) Eos # (Auto) Baso # (Auto) Absolute Nucleated RBC Total Counted Band [place]uts % (Manual) (0 - 10) % Abnorm Lymph % (Manual) % Nucleated RBC % Neutrophils # (Manual) (1.5-6.6) 10^3/uL Lymphocytes # (Manual) (1.5-3.5) 10^3/uL Monocytes # (Manual) (0.0-1.0) 10^3/uL Eosinophils # (Manual) (0-0.7) 10^3/uL Basophils # (Manual) (0-0.1) 10^3/uL Differential Comment Platelet Estimate (NORMAL) RBC Morph Micro Appear (NORMAL) PT (9.9-12.6) secs INR (0.8-1.2) VBG pH 7.408 (7.31-7.41) Ionized Calcium 1.19 (1.15-1.33) mmol/L Sodium (135-145) mmol/L Potassium (3.5-5.0) mmol/L Chloride (101-111) mmol/L Carbon Dioxide (21-32) mmol/L Anion Gap (6-13) BUN (6-20) mg/dL Creatinine (0.4-1.0) mg/dL Estimated GFR (MDRD) (>89) Glucose (70-100) mg/dL Calcium (8.5-10.3) mg/dL Phosphorus (2.5-4.6) mg/dL Magnesium 2.8 (1.7-2.8) mg/dL Blood Type A POSITIVE Antibody Screen NEGATIVE Crossmatch IS Only See Detail
[2021-03-19] MEDS: PANTOPRAZOLE 40 MG VIAL IVP SCH ×2 (09:44→20:51)
[2021-03-19] MEDS: SODIUM CHLORIDE FLUSH 0.9% 10 ML SYRINGE IVP PRN ×3 (09:45→19:10)
--- NOTE | 2021-03-19 12:00 | PROVIDER PROGRESS NOTE ---
Subjective - General Admit Date: 03/17/21 Procedure Date: 03/18/21 Post Op Days: 1 Procedure Performed: Diagnostic EGD - Other Other Information/Narrative: Elizabeth is complaining of a twitchy feeling in her legs and sort of aching all over her body. She is generally uncomfortable but denies any nausea. Objective - Patient Data Vital Signs: Vital Signs x48h Temp Pulse Resp BP Pulse Ox 03/19/21 09:00 86 99 H 122/73 23 L 03/19/21 08:00 99 99 H 113/62 23 L 03/19/21 07:34 37.3 C 03/19/21 07:00 113 H 23 131/69 H 98 03/19/21 06:00 36.9 C 107 H 22 114/47 L 97 03/19/21 05:00 109 H 21 129/63 96 03/19/21 04:00 79 23 160/72 H 93 Weight: Weight 03/17/21 03/18/21 03/19/21 23:59 23:59 23:59 Weight (kg) 67 kg 67.5 kg Intake & Output: Intake and Output Totals x24h 03/17/21 03/18/21 03/19/21 23:59 23:59 23:59 Intake Total 2734.50 3153.000 2105.25 Output Total 950 2340 2365 Balance 1784.50 813.000 -259.75 - Lab Results Lab Results: 03/19/21 04:28 03/19/21 09:52 Other Lab Results: Lab Results x24hrs 03/19/21 03/19/21 03/19/21 Range/Units 09:52 04:28 04:28 WBC (4.8-10.8) x10^3/uL RBC (4.20-5.40) 10^6/uL Hgb (12.0-16.0) g/dL Hct (37.0-47.0) % MCV (81.0-99.0) fL MCH (27.0-31.0) pg MCHC (32.0-36.0) g/dL RDW (12.0-15.0) % Plt Count (130-450) 10^3/uL MPV (7.9-10.8) fL Neut # (Auto) Lymph # (Auto) [place] # (Auto) Eos # (Auto) Baso # (Auto) Absolute Nucleated RBC Total Counted Band Neuts % (Manual) (0 - 10) % Abnorm Lymph % (Manual) % Nucleated RBC % Neutrophils # (Manual) (1.5-6.6) 10^3/uL Lymphocytes # (Manual) (1.5-3.5) 10^3/uL Monocytes # (Manual) (0.0-1.0) 10^3/uL Eosinophils # (Manual) (0-0.7) 10^3/uL Basophils # (Manual) (0-0.1) 10^3/uL Differential Comment Platelet Estimate (NORMAL) RBC Morph Micro Appear (NORMAL) PT 13.4 H (9.9-12.6) secs INR 1.2 (0.8-1.2) VBG pH 7.442 H (7.31-7.41) Ionized Calcium 1.14 L (1.15-1.33) mmol/L Sodium (135-145) mmol/L Potassium 4.2 (3.5-5.0) mmol/L Chloride (101-111) mmol/L Carbon Dioxide (21-32) mmol/L Anion Gap (6-13) BUN (6-20) mg/dL Creatinine (0.4-1.0) mg/dL Estimated GFR (MDRD) (>89) Glucose (70-100) mg/dL Calcium (8.5-10.3) mg/dL Phosphorus (2.5-4.6) mg/dL Magnesium (1.7-2.8) mg/dL Blood Type Antibody Screen Crossmatch IS Only 03/19/21 03/19/21 03/18/21 Range/Units 04:28 04:28 23:13 WBC 7.4 (4.8-10.8) x10^3/uL RBC 2.94 L (4.20-5.40) 10^6/uL Hgb 8.6 L (12.0-16.0) g/dL Hct 25.7 L (37.0-47.0) % MCV 87.4 (81.0-99.0) fL MCH 29.3 (27.0-31.0) pg MCHC 33.5 (32.0-36.0) g/dL RDW 18.2 H (12.0-15.0) % Plt Count 119 L (130-450) 10^3/uL MPV 12.9 H (7.9-10.8) fL Neut # (Auto) Not Reportable Lymph # (Auto) Not Reportable [place] # (Auto) Not Reportable Eos # (Auto) Not Reportable Baso # (Auto) Not Reportable Absolute Nucleated RBC Not Reportable Total Counted 100 Band Neuts % (Manual) 7 (0 - 10) % Abnorm Lymph % (Manual) 0 % Nucleated RBC % Not Reportable Neutrophils # (Manual) 6.0 (1.5-6.6) 10^3/uL Lymphocytes # (Manual) 1.0 L (1.5-3.5) 10^3/uL Monocytes # (Manual) 0.4 (0.0-1.0) 10^3/uL Eosinophils # (Manual) 0.0 (0-0.7) 10^3/uL Basophils # (Manual) 0.0 (0-0.1) 10^3/uL Differential Comment MANUAL DIFFERENTIAL Platelet Estimate DECREASED (<130,000) (NORMAL) RBC Morph Micro Appear NORMAL APPEARANCE (NORMAL) PT (9.9-12.6) secs INR (0.8-1.2) VBG pH 7.408 (7.31-7.41) Ionized Calcium 1.19 (1.15-1.33) mmol/L Sodium 143 (135-145) mmol/L Potassium 3.4 L (3.5-5.0) mmol/L Chloride 116 H (101-111) mmol/L Carbon Dioxide 19 L (21-32) mmol/L Anion Gap 8.0 (6-13) BUN 79 H (6-20) mg/dL Creatinine 1.3 H (0.4-1.0) mg/dL Estimated GFR (MDRD) 39 L (>89) Glucose 157 H (70-100) mg/dL Calcium 8.2 L (8.5-10.3) mg/dL Phosphorus 2.9 (2.5-4.6) mg/dL Magnesium 2.3 (1.7-2.8) mg/dL Blood Type Antibody Screen Crossmatch IS Only 03/18/21 03/18/21 03/18/21 Range/Units 23:13 13:15 08:58 WBC (4.8-10.8) x10^3/uL RBC (4.20-5.40) 10^6/uL Hgb 6.6 L* (12.0-16.0) g/dL Hct 19.8 L* (37.0-47.0) % MCV (81.0-99.0) fL MCH (27.0-31.0) pg MCHC (32.0-36.0) g/dL RDW (12.0-15.0) % Plt Count (130-450) 10^3/uL MPV (7.9-10.8) fL Neut # (Auto) Lymph # (Auto) [place] # (Auto) Eos # (Auto) Baso # (Auto) Absolute Nucleated RBC Total Counted Band Neuts % (Manual) (0 - 10) % Abnorm Lymph % (Manual) % Nucleated RBC % Neutrophils # (Manual) (1.5-6.6) 10^3/uL Lymphocytes # (Manual) (1.5-3.5) 10^3/uL Monocytes # (Manual) (0.0-1.0) 10^3/uL Eosinophils # (Manual) (0-0.7) 10^3/uL Basophils # (Manual) (0-0.1) 10^3/uL Differential Comment Platelet Estimate (NORMAL) RBC Morph Micro Appear (NORMAL) PT (9.9-12.6) secs INR (0.8-1.2) VBG pH (7.31-7.41) Ionized Calcium (1.15-1.33) mmol/L Sodium (135-145) mmol/L Potassium (3.5-5.0) mmol/L Chloride (101-111) mmol/L Carbon Dioxide (21-32) mmol/L Anion Gap (6-13) BUN (6-20) mg/dL Creatinine (0.4-1.0) mg/dL Estimated GFR (MDRD) (>89) Glucose (70-100) mg/dL Calcium (8.5-10.3) mg/dL Phosphorus (2.5-4.6) mg/dL Magnesium 2.8 (1.7-2.8) mg/dL Blood Type A POSITIVE Antibody Screen NEGATIVE Crossmatch IS Only See Detail - Current Medications Current Medications: Current Medications Generic Name Dose Route Start Last Admin Trade Name Freq PRN Reason Stop Dose Admin Diltiazem HCl 125 mg/ Dextrose 125 mls @ 15 mls/hr 03/17/21 22:30 03/19/21 09:41 IV 15 mg/hr .Q8H20M NESSA 15 mls/hr Administration Protocol 15 MG/HR Sodium Chloride 1,000 mls @ 150 mls/hr 03/18/21 08:31 03/19/21 09:42 Normal Saline 0.9% IV 150 mls/hr .Q6H40M NESSA Administration Ondansetron HCl 4 mg 03/16/21 20:40 03/17/21 09:32 Ondansetron 4 Mg/2 Ml Vial IVP 4 mg Q6HR PRN Administration Nausea / Vomiting Pantoprazole Sodium 40 mg 03/17/21 21:00 03/19/21 09:44 Pantoprazole 40 Mg Vial IVP 40 mg BID NESSA Administration Sodium Chloride 10 ml 03/17/21 01:00 03/19/21 09:46 Sodium Chloride Flush 0.9% 10 Ml Syringe IVP 30 ml 0100,0900,1700 NESSA Administration Sodium Chloride 10 ml 03/16/21 20:40 03/19/21 09:45 Sodium Chloride Flush 0.9% 10 Ml Syringe IVP 10 ml PRN PRN Administration NEEDED PER PROVIDER ORDERS - Physical Exam Comments/Other: Appears much more comfortable, brighter, and oriented today. Abdomen is soft and mildly tender to palpation in the epigastrium. No rebound or guarding.No peritoneal signs.NG tube drainage is thin.No horacio blood. ABX Reporting Has patient been on IV antibiotics over the past 48 hours?: No Impression/Plan - Problem List Problem List: Agree with all excellent care per the hospitalist service.Would continue PPI. NG tube will need to stay in place until we have evidence of pyloric function. This will likely be at least 5 days.Agree with TPN.
--- NOTE | 2021-03-19 14:35 | XRAY Report ---
PROCEDURE: Chest for Line Placement INDICATIONS: VERFICATION OF NG PLACEMENT TECHNIQUE: One view of the chest was acquired. COMPARISON: 03/18/2021, 03/16/2021. FINDINGS: Surgical changes and devices: ET tube tip is approximately 3.3 cm above the hannah. Enteric tube tip is below the left hemidiaphragm in the expected location of stomach lumen. Right internal jugular rafael tral venous catheter tip is in the region of SVC. Lungs and pleura: No pleural effusions or pneumothorax. No focal infiltrate is seen on the current s tudy. Mediastinum: Mediastinal contours appear normal. Heart size is enlarged. Bones and chest wall: No suspicious bony lesions. Overlying soft tissues appear unremarkable. IMPRESSION: 1. ET tube and enteric tube are in satisfactory position. Right-sided central venous catheter tip is in SVC. 2. Mild pulmonary vascular congestion and cardia megaly. No definite focal infiltrate. No pleural eff usion or pneumothorax. Reviewed by: Billy Huff MD on 03/19/2021 2:34 PM PST Approved by: Billy Huff MD on 03/19/2021 2:34 PM PST Station ID: [id number]
[2021-03-19] MEDS: INSULIN REGULAR HUMAN 300 UNIT/3 ML VIAL SUBQ SCH ×3 (14:53→23:29)
[2021-03-19] MEDS: METOPROLOL 5 MG/5 ML VIAL IVP SCH ×3 (14:57→23:15)
[2021-03-19 17:35] LABS: HCT - HEMATOCRIT 25.6 % (37.0-47.0); HGB - HEMOGLOBIN 8.5 g/dL (12.0-16.0)
[2021-03-19] MEDS ORDERED: diltiaZEM INJ 5 MG/ML VIAL IVP SCH (18:00)
[2021-03-19] MEDS: TPN (CLINIMIX E 5/15) 2,000 ML with MULTIVITAMIN 10 ML, TRACE ELEMENTS 1 ML IV SCH ×3 (19:57)
[2021-03-20] MEDS: diltiaZEM INJ 125 MG in DEXTROSE 5% 100 ML IV SCH ×2 (00:19→00:55)
[2021-03-20] MEDS: SODIUM CHLORIDE FLUSH 0.9% 10 ML SYRINGE IVP SCH ×4 (00:52→20:47)
[2021-03-20] MEDS: METOPROLOL 5 MG/5 ML VIAL IVP SCH ×4 (01:22→18:21)
[2021-03-20 05:15] LABS: BASOPHILS % (AUTO) 0.3 %; CALCIUM, IONIZED 1.17 mmol/L (1.15-1.33); EOSINOPHILS # (AUTO) 0.1 10^3/uL (0.0-0.7); EOSINOPHILS % (AUTO) 0.9 %; HCT - HEMATOCRIT 23.5 % (37.0-47.0); HGB - HEMOGLOBIN 7.7 g/dL (12.0-16.0); LYMPHOCYTES # (AUTO) 0.9 10^3/uL (1.5-3.5); LYMPHOCYTES % (AUTO) 15.9 %; MEAN CORPUSCULAR HEMOGLOBIN 29.3 pg (27.0-31.0); MEAN CORPUSCULAR HGB CONC 32.8 g/dL (32.0-36.0); MEAN CORPUSCULAR VOLUME 89.4 fL (81.0-99.0); MEAN PLATELET VOLUME 12.4 fL (7.9-10.8); MONOCYTES # (AUTO) 0.6 10^3/uL (0.0-1.0); MONOCYTES % (AUTO) 9.4 %; NEUTROPHILS # (AUTO) 4.3 10^3/uL (1.5-6.6); NRBC ABSOLUTE COUNT (AUTO) 0.02 x10^3/uL; NUCLEATED RED BLOOD CELLS AUTO 0.3 /100WBC; PLT - PLATELET COUNT 113 10^3/uL (130-450); RED BLOOD COUNT 2.63 10^6/uL (4.20-5.40); RED CELL DISTRIBUTION WIDTH 18.4 % (12.0-15.0); VBG PH 7.439 (7.31-7.41); WHITE BLOOD COUNT 5.8 x10^3/uL (4.8-10.8)
[2021-03-20 05:24] LABS: INR 1.2 (0.8-1.2); PT - PROTHROMBIN TIME 13.1 secs (9.9-12.6)
[2021-03-20 05:35] LABS: ALBUMIN 2.6 g/dL (3.2-5.5); BILIRUBIN,TOTAL 0.7 mg/dL (0.2-1.0); CALCIUM 8.2 mg/dL (8.5-10.3); MAGNESIUM 1.7 mg/dL (1.7-2.8); PHOSPHORUS 2.6 mg/dL (2.5-4.6); POTASSIUM 3.6 mmol/L (3.5-5.0); TOTAL PROTEIN 5.3 g/dL (6.7-8.2)
[2021-03-20] MEDS: INSULIN REGULAR HUMAN 300 UNIT/3 ML VIAL SUBQ SCH ×3 (05:59→18:21)
[2021-03-20] MEDS ORDERED: diltiaZEM INJ 5 MG/ML VIAL IVP SCH ×2 (06:00→10:00)
[2021-03-20] MEDS ORDERED: POTASSIUM CHLOR 20 MEQ/100 ML 20 MEQ/100 ML BAG IV ONE (06:37)
[2021-03-20] MEDS ORDERED: LORazepam 2 MG/ML VIAL IVP PRN (08:35)
--- NOTE | 2021-03-20 08:38 | ANESTHESIA POST OP EVALUATION ---
Anesthesia Post Eval - Post Anesthesia Eval Vitals: Last Vital Signs Temp 36.8 C 03/19/21 17:00 Pulse 124 H 03/20/21 07:03 Resp 25 H 03/20/21 07:03 BP 147/71 H 03/20/21 07:03 Pulse Ox 98 03/20/21 07:03 CV Function Including HR & BP: Stable Pain Control: Satisfactory Nausea & Vomiting: Negative Mental Status: Baseline Respiratory Status: Airway Patent Hydration Status: Satisfactory Anesthesia Complications: None
[2021-03-20] MEDS: PANTOPRAZOLE 40 MG VIAL IVP SCH ×2 (09:10→20:48)
[2021-03-20] MEDS: diltiaZEM INJ 5 MG/ML VIAL IVP SCH ×3 (09:12→20:48)
--- NOTE | 2021-03-20 09:28 | PROVIDER PROGRESS NOTE ---
Subjective - General Admit Date: 03/17/21 Procedure Date: 03/18/21 Post Op Days: 2 Procedure Performed: Diagnostic EGD - Other Other Information/Narrative: Elizabeth looks remarkably better this morning. She is bright and awake. She says her abdomen is feeling better and she is much less uncomfortable. She very much wants to go home now and see her dog.No more bloody stools. Objective - Patient Data Reviewed Vital Signs: Yes Vital Signs: Vital Signs x48h Temp Pulse Resp BP BP Pulse Ox 03/20/21 09:12 116/79 03/20/21 09:00 36.6 C 107 H 24 116/79 97 03/20/21 08:00 120 H 23 122/76 98 03/20/21 07:03 124 H 25 H 147/71 H 98 03/20/21 06:08 129 H 22 102/73 98 03/20/21 05:17 145/76 H 03/20/21 05:00 119 H 23 145/76 H 99 03/20/21 04:23 120 H 24 140/78 H 99 03/20/21 03:06 105 H 22 120/70 96 03/20/21 02:08 71 24 128/60 03/20/21 02:00 103 H 23 128/60 97 03/20/21 01:35 100 157/83 H Weight: Weight 03/18/21 03/19/21 03/20/21 23:59 23:59 23:59 Weight (kg) 67.5 kg 67.5 kg 67.5 kg Intake & Output: Intake and Output Totals x24h 03/18/21 03/19/21 03/20/21 23:59 23:59 23:59 Intake Total 3153.000 3710.000 Output Total 2340 3565 650 Balance 813.000 145.000 -650 - Lab Results Lab Results: 03/20/21 04:50 03/20/21 04:50 Other Lab Results: Lab Results x24hrs 03/20/21 03/20/21 03/20/21 Range/Units 04:50 04:50 04:50 WBC (4.8-10.8) x10^3/uL RBC (4.20-5.40) 10^6/uL Hgb (12.0-16.0) g/dL Hct (37.0-47.0) % MCV (81.0-99.0) fL MCH (27.0-31.0) pg MCHC (32.0-36.0) g/dL RDW (12.0-15.0) % Plt Count (130-450) 10^3/uL MPV (7.9-10.8) fL Neut # (Auto) (1.5-6.6) 10^3/uL Lymph # (Auto) (1.5-3.5) 10^3/uL [place] # (Auto) (0.0-1.0) 10^3/uL Eos # (Auto) (0.0-0.7) 10^3/uL Baso # (Auto) (0.0-0.1) 10^3/uL Absolute Nucleated RBC x10^3/uL Nucleated RBC % /100WBC PT 13.1 H (9.9-12.6) secs INR 1.2 (0.8-1.2) VBG pH 7.439 H (7.31-7.41) Ionized Calcium 1.17 (1.15-1.33) mmol/L Sodium 143 (135-145) mmol/L Potassium 3.6 (3.5-5.0) mmol/L Chloride 114 H (101-111) mmol/L Carbon Dioxide 22 (21-32) mmol/L Anion Gap 7.0 (6-13) BUN 40 H (6-20) mg/dL Creatinine 1.0 (0.4-1.0) mg/dL Estimated GFR (MDRD) 52 L (>89) Glucose 163 H (70-100) mg/dL Calcium 8.2 L (8.5-10.3) mg/dL Phosphorus 2.6 (2.5-4.6) mg/dL Magnesium 1.7 (1.7-2.8) mg/dL Total Bilirubin 0.7 (0.2-1.0) mg/dL AST 13 (10-42) IU/L ALT 13 (10-60) IU/L Alkaline Phosphatase 35 L (42-121) IU/L Total Protein 5.3 L (6.7-8.2) g/dL Albumin 2.6 L (3.2-5.5) g/dL Globulin 2.7 (2.1-4.2) g/dL Albumin/Globulin Ratio 1.0 (1.0-2.2) Prealbumin 8 L (18-45) mg/dL Triglycerides 83 ( - 149) mg/dL 03/20/21 03/19/21 03/19/21 Range/Units 04:50 17:26 09:52 WBC 5.8 (4.8-10.8) x10^3/uL RBC 2.63 L (4.20-5.40) 10^6/uL Hgb 7.7 L 8.5 L (12.0-16.0) g/dL Hct 23.5 L 25.6 L (37.0-47.0) % MCV 89.4 (81.0-99.0) fL MCH 29.3 (27.0-31.0) pg MCHC 32.8 (32.0-36.0) g/dL RDW 18.4 H (12.0-15.0) % Plt Count 113 L (130-450) 10^3/uL MPV 12.4 H (7.9-10.8) fL Neut # (Auto) 4.3 (1.5-6.6) 10^3/uL Lymph # (Auto) 0.9 L (1.5-3.5) 10^3/uL [place] # (Auto) 0.6 (0.0-1.0) 10^3/uL Eos # (Auto) 0.1 (0.0-0.7) 10^3/uL Baso # (Auto) 0.0 (0.0-0.1) 10^3/uL Absolute Nucleated RBC 0.02 x10^3/uL Nucleated RBC % 0.3 /100WBC PT (9.9-12.6) secs INR (0.8-1.2) VBG pH (7.31-7.41) Ionized Calcium (1.15-1.33) mmol/L Sodium (135-145) mmol/L Potassium 4.2 (3.5-5.0) mmol/L Chloride (101-111) mmol/L Carbon Dioxide (21-32) mmol/L Anion Gap (6-13) BUN (6-20) mg/dL Creatinine (0.4-1.0) mg/dL Estimated GFR (MDRD) (>89) Glucose (70-100) mg/dL Calcium (8.5-10.3) mg/dL Phosphorus (2.5-4.6) mg/dL Magnesium (1.7-2.8) mg/dL Total Bilirubin (0.2-1.0) mg/dL AST (10-42) IU/L ALT (10-60) IU/L Alkaline Phosphatase (42-121) IU/L Total Protein (6.7-8.2) g/dL Albumin (3.2-5.5) g/dL Globulin (2.1-4.2) g/dL Albumin/Globulin Ratio (1.0-2.2) Prealbumin (18-45) mg/dL Triglycerides ( - 149) mg/dL - Current Medications Current Medications: Current Medications Generic Name Dose Route Start Last Admin Trade Name Freq PRN Reason Stop Dose Admin Diltiazem HCl 5 mg 03/20/21 09:00 03/20/21 09:12 Diltiazem Inj 5 Mg/Ml Vial IVP 5 mg Q6H NESSA Administration Diltiazem HCl 125 mg/ Dextrose 125 mls @ 15 mls/hr 03/17/21 22:30 03/20/21 00:55 IV Not Given .Q8H20M NESSA Protocol 15 MG/HR Multivitamins 10 ml/ TRACE 2,011 mls @ 65 mls/hr 03/19/21 19:00 03/19/21 19:57 ELEMENTS 1 ml/ Amino Ac/ IV 65 mls/hr Electrol/Dextrose/Calcium Q24H NESSA Administration Protocol Insulin Human Regular 1 - 5 unit 03/19/21 12:00 03/20/21 05:59 Insulin Regular Human 300 Unit/3 Ml Vial SUBQ 1 unit Q6HR NESSA Administration Protocol Ondansetron HCl 4 mg 03/16/21 20:40 03/17/21 09:32 Ondansetron 4 Mg/2 Ml Vial IVP 4 mg Q6HR PRN Administration Nausea / Vomiting Pantoprazole Sodium 40 mg 03/17/21 21:00 03/20/21 09:10 Pantoprazole 40 Mg Vial IVP 40 mg BID NESSA Administration Sodium Chloride 10 ml 03/17/21 01:00 03/20/21 09:15 Sodium Chloride Flush 0.9% 10 Ml Syringe IVP 10 ml 0100,0900,1700 NESSA Administration Sodium Chloride 10 ml 03/16/21 20:40 03/19/21 19:10 Sodium Chloride Flush 0.9% 10 Ml Syringe IVP 10 ml PRN PRN Administration NEEDED PER PROVIDER ORDERS - Physical Exam Abdomen: positive: Nml bowel sounds, No distention. negative: Tenderness, Guarding, Rebound Neurologic/Psychiatric: positive: Oriented x3 Impression/Plan - Problem List Problem List: Hemoglobin has dropped a little bit from yesterday but I think this is most likely secondary to rehydration as her creatinine is also normalized and her BUN is much. Overall she is looking much much better. Continue PPI. We talked about the need to leave the NG tube in place until we have good evidence of pyloric patency. We can check a Gastrografin study on Wednesday. This is, if NG tube output continues to be low.
[2021-03-20 12:09] LABS: ESTIMATED AVERAGE GLUCOSE 117 mg/dL (70-100); HEMOGLOBIN A1c% 5.7 % (4.27-6.07)
--- NOTE | 2021-03-20 13:37 | PROVIDER PROGRESS NOTE ---
Subjective - Prog Note Date Prog Note Date: 03/20/21 - Subjective Pt reports feeling: Improved (Overall better, is very thirsty and still has "indigestion" (and points to mid chest)) Objective - Vital Signs/Intake & Output Reviewed Vital Signs: Yes Vital Signs: Vital Signs Temp Pulse Resp BP BP Pulse Ox 03/20/21 12:31 133/51 H 03/20/21 12:00 36.4 C L 105 H 31 H 133/51 H 99 03/20/21 11:00 22 140/77 H 99 03/20/21 10:00 131 H 24 131/77 H 98 Intake & Output: Intake & Output 03/17/21 03/18/21 03/19/21 03/20/21 23:59 23:59 23:59 23:59 Intake Total 2734.50 3153.000 3710.000 100 Output Total 950 2340 3565 650 Balance 1784.50 813.000 145.000 -550 - Objective General Appearance: positive: No acute distress Eyes Bilateral: positive: Normal inspection, EOMI, No lid inflammation ENT: positive: ENT inspection nml, Dry mucous membranes, Other (Has in ng tube, connected to suction) Neck: positive: Nml inspection Respiratory: positive: No respiratory distress, Breath sounds nml Cardiovascular: positive: Regular rate & rhythm, Systolic murmur (in aortic area, 2/6) Abdomen: positive: Non-tender, No distention, Other (Diminished bowel sounds) Skin: positive: Warm, Dry Extremities: positive: Non-tender, No pedal edema Neurologic/Psychiatric: positive: Oriented x3 (Non-focal) - Lab Results Fish Bones: 03/20/21 04:50 03/20/21 04:50 Other Labs: Lab Results x24hrs 03/20/21 03/20/21 03/20/21 Range/Units 04:50 04:50 04:50 WBC (4.8-10.8) x10^3/uL RBC (4.20-5.40) 10^6/uL Hgb (12.0-16.0) g/dL Hct (37.0-47.0) % MCV (81.0-99.0) fL MCH (27.0-31.0) pg MCHC (32.0-36.0) g/dL RDW (12.0-15.0) % Plt Count (130-450) 10^3/uL MPV (7.9-10.8) fL Neut # (Auto) (1.5-6.6) 10^3/uL Lymph # (Auto) (1.5-3.5) 10^3/uL [place] # (Auto) (0.0-1.0) 10^3/uL Eos # (Auto) (0.0-0.7) 10^3/uL Baso # (Auto) (0.0-0.1) 10^3/uL Absolute Nucleated RBC x10^3/uL Nucleated RBC % /100WBC PT 13.1 H (9.9-12.6) secs INR 1.2 (0.8-1.2) VBG pH 7.439 H (7.31-7.41) Ionized Calcium 1.17 (1.15-1.33) mmol/L Sodium (135-145) mmol/L Potassium (3.5-5.0) mmol/L Chloride (101-111) mmol/L Carbon Dioxide (21-32) mmol/L Anion Gap (6-13) BUN (6-20) mg/dL Creatinine (0.4-1.0) mg/dL Estimated GFR (MDRD) (>89) Glucose (70-100) mg/dL Estimat Average Glucose 117 H (70-100) mg/dL Hemoglobin A1c % 5.7 (4.27-6.07) % Calcium (8.5-10.3) mg/dL Phosphorus (2.5-4.6) mg/dL Magnesium (1.7-2.8) mg/dL Total Bilirubin (0.2-1.0) mg/dL AST (10-42) IU/L ALT (10-60) IU/L Alkaline Phosphatase (42-121) IU/L Total Protein (6.7-8.2) g/dL Albumin (3.2-5.5) g/dL Globulin (2.1-4.2) g/dL Albumin/Globulin Ratio (1.0-2.2) Prealbumin (18-45) mg/dL Triglycerides ( - 149) mg/dL 01/27/22 01/27/22 01/26/22 Range/Units 04:50 04:50 17:26 WBC 5.8 (4.8-10.8) x10^3/uL RBC 2.63 L (4.20-5.40) 10^6/uL Hgb 7.7 L 8.5 L (12.0-16.0) g/dL Hct 23.5 L 25.6 L (37.0-47.0) % MCV 89.4 (81.0-99.0) fL MCH 29.3 (27.0-31.0) pg MCHC 32.8 (32.0-36.0) g/dL RDW 18.4 H (12.0-15.0) % Plt Count 113 L (130-450) 10^3/uL MPV 12.4 H (7.9-10.8) fL Neut # (Auto) 4.3 (1.5-6.6) 10^3/uL Lymph # (Auto) 0.9 L (1.5-3.5) 10^3/uL [place] # (Auto) 0.6 (0.0-1.0) 10^3/uL Eos # (Auto) 0.1 (0.0-0.7) 10^3/uL Baso # (Auto) 0.0 (0.0-0.1) 10^3/uL Absolute Nucleated RBC 0.02 x10^3/uL Nucleated RBC % 0.3 /100WBC PT (9.9-12.6) secs INR (0.8-1.2) VBG pH (7.31-7.41) Ionized Calcium (1.15-1.33) mmol/L Sodium 143 (135-145) mmol/L Potassium 3.6 (3.5-5.0) mmol/L Chloride 114 H (101-111) mmol/L Carbon Dioxide 22 (21-32) mmol/L Anion Gap 7.0 (6-13) BUN 40 H (6-20) mg/dL Creatinine 1.0 (0.4-1.0) mg/dL Estimated GFR (MDRD) 52 L (>89) Glucose 163 H (70-100) mg/dL Estimat Average Glucose (70-100) mg/dL Hemoglobin A1c % (4.27-6.07) % Calcium 8.2 L (8.5-10.3) mg/dL Phosphorus 2.6 (2.5-4.6) mg/dL Magnesium 1.7 (1.7-2.8) mg/dL Total Bilirubin 0.7 (0.2-1.0) mg/dL AST 13 (10-42) IU/L ALT 13 (10-60) IU/L Alkaline Phosphatase 35 L (42-121) IU/L Total Protein 5.3 L (6.7-8.2) g/dL Albumin 2.6 L (3.2-5.5) g/dL Globulin 2.7 (2.1-4.2) g/dL Albumin/Globulin Ratio 1.0 (1.0-2.2) Prealbumin 8 L (18-45) mg/dL Triglycerides 83 ( - 149) mg/dL Assessment/Plan - Problem List (1) Bleeding duodenal ulcer Impression: Patient has a history of gastric ulcers, since age 17, she told me today. EGD done on 03/18/21 found old blood in the stomach and a duodenal ulcer with a clot over the ulcer and without active bleeding. Continue with Protonix IV twice daily. Continue to monitor H/H and consider blood transfusion if Hgb less than 7 Continue to hold Coumadin for 1 month minimum or possibly lifelong. Dr Molina recommended an H. pylori w/u as an outpt since there was no sample taken at time of EGD to send for H pylori (2) Gastric outlet obstruction Impression: EGD done on 03/18/21 found a gastric outlet obstruction at the pylorus, that was caused by swelling of the intestinal wall around duodenal ulcer. Plan is to keep patient NPO and continue with NG to low intermittent suction x about 7 days total, to allow ulcer to heal and swelling at pylorus to resolve. IV TPN was started yesterday for nutrition. Today, Dr Molina advised about 2-3 more days of strict NPO and ng to suction, for decompression. (3) Anemia Impression: Anemia is secondary to bleeding duodenal ulcer, found by EGD. On 03/18/21, patient received 2 units of PRBC when Hgb dropped to 6.6. Transfusion improved the Hgb to 8.6 and it remains stable. No reports of active bleeding from patient or bedside nurse. Continue to monitor for signs of active bleeding. Monitor H/H and transfuse if Hgb less than 7 Qualifiers: Other causes of anemia: acute posthemorrhagic (4) Atrial fibrillation with rapid ventricular response Impression: Patient has a history of A-fib with RVR and she takes Cardizem 360 mg PO daily (and Coumadin) at home. She was unable to take her medication for 2-3 days prior to hospitalization due to nausea and vomiting. Diltiazem drip was started in the ED and she needed max dose of 15mg/hr to attain HR in A-fib of 90-100. She is unable to resume PO meds due to STRICT NPO status for managing her bleeding duodenal ulcer. We will try to transition IV Cardizem drip to scheduled Metoprolol iv pushes plus Cardizem iv pushes, to wean off Cardizem gtt (and to then transfer out of ICU). HR bounced up to 120's of her Cardizem drip and starting the iv pushes. Today I will increase the scheduled doses of iv Cardizem push and iv Metoprolol push but stagger them to avoid hypotension. Will may possibly consider resuming home Coumadin after 1 month, if bleeding duodenal ulcer resolves. (5) Acute kidney injury Impression: Her creatinine is improving daily, on iv fluiuds, since it was likely a prerenal injury due to dehydration. Continue to give iv fluids (tpn now), avoid nephrotoxin, and follow BMP daily (6) Diet-controlled diabetes mellitus Impression: Patient has a history of T2DM and takes Metformin 500mg BID at home. Her blood glucose was elevated. We will monitor her fingerstick glucose every 6 hours while she is NPO, con tinue NPO sliding scale Insulin coverage and continue TPN for several more days. Will check her A1c. (7) HTN (hypertension) Impression: Patient has a history of hypertension but we are holding her home lisinopril and diuretic due to the acute kidney injury, and her NPO status, and she is still clinically hypovolemic. We are starting scheduled IV Metoprolol and scheduled IV Cardizem for A-fib rate control, to transition out of ICU, which will also control HTN. Will resume her home oral antihypertensives when appropriate. (8) Chest pain Impression: Patient complained of chest pain at presentation, that was suspected to be related to rapid A. fib, but it is more likely from a gastric etiology, and she continues to describe "indigestion". Repeat EKG did not suggest ischemia. Her troponins have peaked over 150 and then trending down. Suspect this is likely demand ischemia from the A. fib. On 03/18/21, her Echo showed a left atrium that is severely dilated, mild LVH with normal systolic function, LVEF 70%. (9) Altered mental state Impression: Resolved. Patient received Benadryl for prophylaxis treatment of her dye allergy prior to Abdominal CT done with contrast. Patient became drowsy and obtunded and this lasted through the entire next day, leading us to obtain a CT of head on 03/18/21, which was negative for acute intracranial abnormalities. The following day, 03/19/21, she was fully awake. (10) Intractable nausea and vomiting Impression: Resolved (11) Elevated INR Impression: Resolved. Patient took daily Coumadin at home but reports stopping oral medications due to severe nausea and vomiting 2-3 days before admission. Her Coumadin was resumed at time of admission and on 03/18/21, her INR was elevated to 4.2 so Vitamin K was given. INR is now normal for 2 days Plan for no anticoagulation for at least a month, given her bleeding duodenal ulcer, or possibly lifelong.
[2021-03-20] MEDS: TPN (CLINIMIX E 5/15) 2,000 ML with MULTIVITAMIN 10 ML, TRACE ELEMENTS 1 ML IV SCH ×3 (18:27)
[2021-03-20] MEDS: SODIUM CHLORIDE FLUSH 0.9% 10 ML SYRINGE IVP PRN (20:47)
[2021-03-20] MEDS: PHENOL THROAT SPRAY 177 ML MM PRN (20:49)
[2021-03-21] MEDS: INSULIN REGULAR HUMAN 300 UNIT/3 ML VIAL SUBQ SCH ×4 (00:17→18:47)
[2021-03-21] MEDS: METOPROLOL 5 MG/5 ML VIAL IVP SCH ×4 (00:19→18:50)
[2021-03-21] MEDS: SODIUM CHLORIDE FLUSH 0.9% 10 ML SYRINGE IVP SCH ×3 (00:28→18:55)
[2021-03-21] MEDS: diltiaZEM INJ 5 MG/ML VIAL IVP SCH (03:03)
[2021-03-21 05:27] LABS: BASOPHILS % (AUTO) 0.5 %; EOSINOPHILS # (AUTO) 0.1 10^3/uL (0.0-0.7); HCT - HEMATOCRIT 26.8 % (37.0-47.0); HGB - HEMOGLOBIN 8.1 g/dL (12.0-16.0); LYMPHOCYTES # (AUTO) 0.9 10^3/uL (1.5-3.5); MEAN CORPUSCULAR HEMOGLOBIN 29.9 pg (27.0-31.0); MEAN CORPUSCULAR HGB CONC 30.2 g/dL (32.0-36.0); MEAN CORPUSCULAR VOLUME 98.9 fL (81.0-99.0); MEAN PLATELET VOLUME 12.2 fL (7.9-10.8); MONOCYTES # (AUTO) 0.5 10^3/uL (0.0-1.0); MONOCYTES % (AUTO) 9.4 %; NEUTROPHILS % (AUTO) 71.4 %; NRBC ABSOLUTE COUNT (AUTO) 0.02 x10^3/uL; NUCLEATED RED BLOOD CELLS AUTO 0.4 /100WBC; PLT - PLATELET COUNT 112 10^3/uL (130-450); RED BLOOD COUNT 2.71 10^6/uL (4.20-5.40); RED CELL DISTRIBUTION WIDTH 23.9 % (12.0-15.0); WHITE BLOOD COUNT 5.6 x10^3/uL (4.8-10.8)
[2021-03-21 05:36] LABS: VBG PH 7.417 (7.31-7.41)
[2021-03-21 05:37] LABS: CALCIUM, IONIZED 0.94 mmol/L (1.15-1.33)
[2021-03-21 05:43] LABS: SLIDE REVIEW? Indicated
[2021-03-21 05:46] LABS: PLATELET ESTIMATE, MANUAL DECREASED (<130,000) (NORMAL); PLATELET MORPHOLOGY NORMAL APPEARANCE (NORMAL); RBC MORPHOLOGY (MULTIPLE) 3+ ANISOCYTOSIS (NORMAL); WBC MORPHOLOGY (MULTIPLE) NORMAL APPEARANCE (NORMAL)
[2021-03-21] MEDS ORDERED: CALCIUM CHLORIDE 2,000 MG in SODIUM CHLORIDE 0.9% 100ML 100 ML IV ONE ×2 (06:06→08:30)
[2021-03-21 06:11] LABS: INR 1.2 (0.8-1.2); PT - PROTHROMBIN TIME 13.2 secs (9.9-12.6)
[2021-03-21 06:16] LABS: CALCIUM 8.2 mg/dL (8.5-10.3); CREATININE 0.8 mg/dL (0.4-1.0); MAGNESIUM 1.5 mg/dL (1.7-2.8); PHOSPHORUS 2.6 mg/dL (2.5-4.6); POTASSIUM 3.7 mmol/L (3.5-5.0)
[2021-03-21] MEDS ORDERED: POTASSIUM CHLOR 20 MEQ/100 ML 20 MEQ/100 ML BAG IV ONE (06:35)
[2021-03-21] MEDS ORDERED: MAGNESIUM SULFATE 2 GRAM 2 GM/50 ML BAG IV ONE (06:35)
[2021-03-21] MEDS: PANTOPRAZOLE 40 MG VIAL IVP SCH ×2 (08:57→20:10)
[2021-03-21] MEDS: PHENOL THROAT SPRAY 177 ML MM PRN ×2 (09:00→16:30)
[2021-03-21] MEDS ORDERED: diltiaZEM INJ 5 MG/ML VIAL IVP SCH (09:00)
[2021-03-21] MEDS: SODIUM CHLORIDE FLUSH 0.9% 10 ML SYRINGE IVP PRN ×2 (12:10→20:09)
[2021-03-21 12:15] LABS: CALCIUM, IONIZED 1.4 mmol/L (1.15-1.33); VBG PH 7.447 (7.31-7.41)
--- NOTE | 2021-03-21 12:20 | PROVIDER PROGRESS NOTE ---
Subjective - Prog Note Date Prog Note Date: 03/21/21 Prog Note Time: 12:18 - Subjective Pt reports feeling: Improved Subjective: Patient reports feeling better but is more tired today. She is keeping the lights on and the blinds up so she does not change her sleep/ wake cycle. Denies nausea, vomiting, or abdominal pain. Objective - Vital Signs/Intake & Output Reviewed Vital Signs: Yes Vital Signs: Vital Signs Temp Pulse Resp BP BP Pulse Ox 03/21/21 12:00 37.3 C 140 H 25 H 113/98 H 99 03/21/21 11:00 134 H 22 156/74 H 99 03/21/21 10:00 120 H 25 H 141/83 H 98 03/21/21 09:00 115 H 24 159/76 H 98 03/21/21 08:59 149/74 H Intake & Output: Intake & Output 03/18/21 03/19/21 03/20/21 03/21/21 23:59 23:59 23:59 23:59 Intake Total 3153.000 3710.000 1888.25 928.667 Output Total 2340 3565 1150 1750 Balance 813.000 145.000 738.25 -821.333 - Objective General Appearance: positive: No acute distress, Alert Eyes Bilateral: positive: Normal inspection, PERRL, EOMI, No lid inflammation ENT: positive: ENT inspection nml, Other (NG in place.) Neck: positive: Nml inspection, No JVD Respiratory: positive: Chest non-tender, No respiratory distress, Breath sounds nml Cardiovascular: positive: No murmur, Irregularly irregular, Tachycardia Abdomen: positive: Non-tender, No organomegaly, No distention, Other (hyperactive bowel sounds.) Skin: positive: Color nml, No rash, Warm, Dry Extremities: positive: Non-tender, Full ROM, Nml appearance Neurologic/Psychiatric: positive: Oriented x3, Mood/affect nml - Lab Results Fish Bones: 03/21/21 05:15 03/21/21 12:00 Other Labs: Lab Results x24hrs 03/21/21 03/21/21 03/21/21 Range/Units 12:00 05:50 05:50 WBC (4.8-10.8) x10^3/uL RBC (4.20-5.40) 10^6/uL Hgb (12.0-16.0) g/dL Hct (37.0-47.0) % MCV (81.0-99.0) fL MCH (27.0-31.0) pg MCHC (32.0-36.0) g/dL RDW (12.0-15.0) % Plt Count (130-450) 10^3/uL MPV (7.9-10.8) fL Neut # (Auto) (1.5-6.6) 10^3/uL Lymph # (Auto) (1.5-3.5) 10^3/uL [place] # (Auto) (0.0-1.0) 10^3/uL Eos # (Auto) (0.0-0.7) 10^3/uL Baso # (Auto) (0.0-0.1) 10^3/uL Absolute Nucleated RBC x10^3/uL Nucleated RBC % /100WBC Manual Slide Review WBC Morphology (NORMAL) Platelet Estimate (NORMAL) Platelet Morphology (NORMAL) RBC Morph Micro Appear (NORMAL) PT 13.2 H (9.9-12.6) secs INR 1.2 (0.8-1.2) VBG pH 7.447 H (7.31-7.41) Ionized Calcium 1.40 H (1.15-1.33) mmol/L Sodium 135 (135-145) mmol/L Potassium 3.7 (3.5-5.0) mmol/L Chloride 104 (101-111) mmol/L Carbon Dioxide 24 (21-32) mmol/L Anion Gap 7.0 (6-13) BUN 26 H (6-20) mg/dL Creatinine 0.8 (0.4-1.0) mg/dL Estimated GFR (MDRD) 68 L (>89) Glucose 173 H (70-100) mg/dL Calcium 8.2 L (8.5-10.3) mg/dL Phosphorus 2.6 (2.5-4.6) mg/dL Magnesium 1.5 L (1.7-2.8) mg/dL 03/21/21 03/21/21 Range/Units 05:15 05:15 WBC 5.6 (4.8-10.8) x10^3/uL RBC 2.71 L (4.20-5.40) 10^6/uL Hgb 8.1 L (12.0-16.0) g/dL Hct 26.8 L (37.0-47.0) % MCV 98.9 (81.0-99.0) fL MCH 29.9 (27.0-31.0) pg MCHC 30.2 L (32.0-36.0) g/dL RDW 23.9 H (12.0-15.0) % Plt Count 112 L (130-450) 10^3/uL MPV 12.2 H (7.9-10.8) fL Neut # (Auto) 4.0 (1.5-6.6) 10^3/uL Lymph # (Auto) 0.9 L (1.5-3.5) 10^3/uL [place] # (Auto) 0.5 (0.0-1.0) 10^3/uL Eos # (Auto) 0.1 (0.0-0.7) 10^3/uL Baso # (Auto) 0.0 (0.0-0.1) 10^3/uL Absolute Nucleated RBC 0.02 x10^3/uL Nucleated RBC % 0.4 /100WBC Manual Slide Review Indicated WBC Morphology NORMAL APPEARANCE (NORMAL) Platelet Estimate DECREASED (<130,000) (NORMAL) Platelet Morphology NORMAL APPEARANCE (NORMAL) RBC Morph Micro Appear 3+ ANISOCYTOSIS (NORMAL) PT (9.9-12.6) secs INR (0.8-1.2) VBG pH 7.417 H (7.31-7.41) Ionized Calcium 0.94 L (1.15-1.33) mmol/L Sodium (135-145) mmol/L Potassium (3.5-5.0) mmol/L Chloride (101-111) mmol/L Carbon Dioxide (21-32) mmol/L Anion Gap (6-13) BUN (6-20) mg/dL Creatinine (0.4-1.0) mg/dL Estimated GFR (MDRD) (>89) Glucose (70-100) mg/dL Calcium (8.5-10.3) mg/dL Phosphorus (2.5-4.6) mg/dL Magnesium (1.7-2.8) mg/dL Assessment/Plan - Problem List (1) Bleeding duodenal ulcer Impression: Patient has a history of gastric ulcers, since age 17. Her last ulcer was a few years ago and was noted during a surgery. She has not been tested for H. pylori in the past and never received treatment. EGD done on 03/18/21 found old blood in the stomach and a duodenal ulcer with a clot over the ulcer and without active bleeding. Plan: Continue with Protonix IV twice daily. Continue to monitor H/H and consider blood transfusion if Hgb less than 7 Continue to hold Coumadin for 1 month minimum or possibly lifelong. Dr Molina recommended an H. pylori w/u as an outpt since there was no sample taken at time of EGD to send for H pylori (2) Gastric outlet obstruction Impression: EGD was done on 03/18/21 and found a gastric outlet obstruction at the pylorus, that was caused by swelling of the intestinal wall around duodenal ulcer. On 03/20/2021 Dr. Molina advised 2-3 more noble of strict NPO and NG to suction for decompression. Plan: Keep patient NPO for 1 more day and continue with NG to low intermittent suction for approximately 7 days total, to allow ulcer to heal and swelling at pylorus to resolve. Continue IV TPN for nutrition. (3) Anemia Impression: Anemia is secondary to bleeding duodenal ulcer, found by EGD. On 03/18/21, patient received 2 units of PRBC when Hgb dropped to 6.6. Transfusion improved the Hgb to 8.6 and it remains stable at 8.1 today. No reports of active bleeding from patient or bedside nurse. Plan: Continue to monitor for signs of active bleeding. Monitor H/H and transfuse if Hgb less than 7 Qualifiers: Other causes of anemia: acute posthemorrhagic (4) Atrial fibrillation with rapid ventricular response Impression: Patient has a history of A-fib with RVR and takes Cardizem 360 mg PO daily (and Coumadin) at home. She was unable to take her medication for 2-3 days prior to hospitalization due to nausea and vomiting. Diltiazem drip was started in the ED and she needed max dose of 15mg/hr to attain HR in A-fib of 90-100. She is unable to resume PO meds due to STRICT NPO status for managing her bleeding duodenal ulcer. Today her HR is ranging low 100-120s with runs of SVT while resting in the bed. She was started on IV pushes of Cardizem on 03/19/2021 in order to wean her off the Cardizem drip and is up to 7.5mg IVP every 6 hours. She was also stared on Lopressor on 03/19/2021 which has been increased to 7.5mg IVP every 6 hours, alternating with Cardizem. Plan: Will resume the Cardizem drip to keep HR under 100 and stop IVP Cardizem. Will transition to oral Cardizem after surgeon recommends resumes oral intake. Continue with Lopressor IVP 7.5mg every 6 hours. Will possibly consider resuming home Coumadin after 1 month, if bleeding duodenal ulcer resolves. (5) Diet-controlled diabetes mellitus Impression: Patient has a history of T2DM and takes Metformin 500mg BID at home. Her blood glucose was elevated. 03/21/2021 A1C was 5.7. Plan: Continue to monitor her fingerstick glucose every 6 hours while she is NPO Continue NPO sliding scale Insulin coverage. Continue TPN until patient is able to tolerate oral intake. (6) HTN (hypertension) Impression: Patient has a history of hypertension but we are holding her home lisinopril and diuretic due to the acute kidney injury, and her NPO status, and she is still clinically hypovolemic. Cardizem drip was restarted due to runs of SVT and continued A-fib with HR 100s- 120 while resting. SBP has remained stable 110- 150s. Plan: Continue with scheduled Lopressor 7.5mg IVP every 6 hours for HR control and manage BP. Will transition out of ICU when HR stablizes off Cardizem drip, which also control HTN. Will resume her home oral antihypertensives when appropriate. (7) Chest pain Impression: Patient complained of chest pain at presentation, that was suspected to be related to rapid A. fib, but it is more likely from a gastric etiology, and she continues to describe "indigestion". Repeat EKG did not suggest ischemia. Her troponins have peaked over 150 and then trending down. Suspect this is likely demand ischemia from the A. fib. On 03/18/21, her Echo showed a left atrium that is severely dilated, mild LVH with normal systolic function, LVEF 70%.
[2021-03-21 12:21] LABS: MAGNESIUM 1.9 mg/dL (1.7-2.8)
[2021-03-21] MEDS: diltiaZEM INJ 125 MG in DEXTROSE 5% 100 ML IV SCH (14:08)
[2021-03-21] MEDS: TPN (CLINIMIX E 5/15) 2,000 ML with MULTIVITAMIN 10 ML, TRACE ELEMENTS 1 ML IV SCH ×3 (19:49)
[2021-03-21] MEDS ORDERED: SODIUM CHLORIDE 0.9% 500 ML IV PRN (20:26)
[2021-03-22] MEDS: INSULIN REGULAR HUMAN 300 UNIT/3 ML VIAL SUBQ SCH ×4 (00:08→17:55)
[2021-03-22] MEDS: METOPROLOL 5 MG/5 ML VIAL IVP SCH ×2 (00:18→16:00)
[2021-03-22] MEDS: diltiaZEM INJ 125 MG in DEXTROSE 5% 100 ML IV SCH ×2 (01:30→18:01)
[2021-03-22] MEDS: SODIUM CHLORIDE FLUSH 0.9% 10 ML SYRINGE IVP SCH ×4 (05:09→21:04)
[2021-03-22] MEDS: SODIUM CHLORIDE FLUSH 0.9% 10 ML SYRINGE IVP PRN (05:09)
[2021-03-22 06:07] LABS: CALCIUM, IONIZED 1.18 mmol/L (1.15-1.33); VBG PH 7.421 (7.31-7.41)
[2021-03-22 06:09] LABS: BASOPHILS % (AUTO) 0.6 %; EOSINOPHILS % (AUTO) 0.6 %; HCT - HEMATOCRIT 26.1 % (37.0-47.0); HGB - HEMOGLOBIN 8.5 g/dL (12.0-16.0); LYMPHOCYTES % (AUTO) 15.4 %; MEAN CORPUSCULAR HEMOGLOBIN 29.2 pg (27.0-31.0); MEAN CORPUSCULAR HGB CONC 32.6 g/dL (32.0-36.0); MEAN CORPUSCULAR VOLUME 89.7 fL (81.0-99.0); MEAN PLATELET VOLUME 12.6 fL (7.9-10.8); MONOCYTES # (AUTO) 0.7 10^3/uL (0.0-1.0); MONOCYTES % (AUTO) 10.6 %; NEUTROPHILS # (AUTO) 4.5 10^3/uL (1.5-6.6); NEUTROPHILS % (AUTO) 71.2 %; PLT - PLATELET COUNT 139 10^3/uL (130-450); RED BLOOD COUNT 2.91 10^6/uL (4.20-5.40); RED CELL DISTRIBUTION WIDTH 16.5 % (12.0-15.0); WHITE BLOOD COUNT 6.4 x10^3/uL (4.8-10.8)
[2021-03-22 06:21] LABS: ALBUMIN 2.7 g/dL (3.2-5.5); ALBUMIN/GLOBULIN RATIO 0.9 (1.0-2.2); BILIRUBIN,TOTAL 0.4 mg/dL (0.2-1.0); CALCIUM 8.3 mg/dL (8.5-10.3); CREATININE 0.9 mg/dL (0.4-1.0); MAGNESIUM 1.5 mg/dL (1.7-2.8); PHOSPHORUS 3.3 mg/dL (2.5-4.6); POTASSIUM 3.7 mmol/L (3.5-5.0); TOTAL PROTEIN 5.7 g/dL (6.7-8.2)
[2021-03-22] MEDS ORDERED: POTASSIUM CHLOR 20 MEQ/100 ML 20 MEQ/100 ML BAG IV ONE (06:29)
[2021-03-22] MEDS ORDERED: MAGNESIUM SULFATE 2 GRAM 2 GM/50 ML BAG IV ONE (06:29)
[2021-03-22] MEDS: PHENOL THROAT SPRAY 177 ML MM PRN (06:46)
[2021-03-22] MEDS: PANTOPRAZOLE 40 MG VIAL IVP SCH ×2 (09:25→21:04)
[2021-03-22 10:00] LABS: MAGNESIUM 2.1 mg/dL (1.7-2.8)
--- NOTE | 2021-03-22 10:55 | PROVIDER PROGRESS NOTE ---
Subjective - General Admit Date: 03/17/21 Procedure Date: 03/18/21 Post Op Days: 4 Procedure Performed: Diagnostic EGD - Other Other Information/Narrative: Overall feeling ok. Alert this am. Denies bloody per rectum. NG output low yesterday, will try gastrograffin per tube and serial KUB today to see if GOO has resolved. Objective - Patient Data Reviewed Vital Signs: Yes Vital Signs: Vital Signs x48h Temp Pulse Resp BP Pulse Ox 03/22/21 10:00 102 H 27 H 129/62 99 03/22/21 09:00 37.1 C 111 H 22 114/96 H 100 03/22/21 08:00 94 20 126/55 L 98 03/22/21 07:00 113 H 26 H 110/70 95 03/22/21 06:00 106 H 24 131/54 H 98 03/22/21 05:00 105 H 20 116/72 100 03/22/21 04:00 36.6 C 94 20 100 03/22/21 03:00 94 24 135/59 H 99 Weight: Weight 03/20/21 03/21/21 03/22/21 23:59 23:59 23:59 Weight (kg) 69.2 kg 67.5 kg 67 kg Intake & Output: Intake and Output Totals x24h 03/20/21 03/21/21 03/22/21 23:59 23:59 23:59 Intake Total 1888.25 1917.668 937.666 Output Total 1150 2200 1400 Balance 738.25 -282.332 -462.334 - Lab Results Lab Results: 03/22/21 05:00 03/22/21 09:25 Other Lab Results: Lab Results x24hrs 03/22/21 03/22/21 03/22/21 Range/Units 09:25 05:00 05:00 WBC (4.8-10.8) x10^3/uL RBC (4.20-5.40) 10^6/uL Hgb (12.0-16.0) g/dL Hct (37.0-47.0) % MCV (81.0-99.0) fL MCH (27.0-31.0) pg MCHC (32.0-36.0) g/dL RDW (12.0-15.0) % Plt Count (130-450) 10^3/uL MPV (7.9-10.8) fL Neut # (Auto) (1.5-6.6) 10^3/uL Lymph # (Auto) (1.5-3.5) 10^3/uL [place] # (Auto) (0.0-1.0) 10^3/uL Eos # (Auto) (0.0-0.7) 10^3/uL Baso # (Auto) (0.0-0.1) 10^3/uL Absolute Nucleated RBC x10^3/uL Nucleated RBC % /100WBC VBG pH 7.421 H (7.31-7.41) Ionized Calcium 1.18 (1.15-1.33) mmol/L Sodium 131 L (135-145) mmol/L Potassium 4.0 3.7 (3.5-5.0) mmol/L Chloride 99 L (101-111) mmol/L Carbon Dioxide 25 (21-32) mmol/L Anion Gap 7.0 (6-13) BUN 29 H (6-20) mg/dL Creatinine 0.9 (0.4-1.0) mg/dL Estimated GFR (MDRD) 59 L (>89) Glucose 174 H (70-100) mg/dL Calcium 8.3 L (8.5-10.3) mg/dL Phosphorus 3.3 (2.5-4.6) mg/dL Magnesium 2.1 1.5 L (1.7-2.8) mg/dL Total Bilirubin 0.4 (0.2-1.0) mg/dL AST 17 (10-42) IU/L ALT 20 (10-60) IU/L Alkaline Phosphatase 40 L (42-121) IU/L Total Protein 5.7 L (6.7-8.2) g/dL Albumin 2.7 L (3.2-5.5) g/dL Globulin 3.0 (2.1-4.2) g/dL Albumin/Globulin Ratio 0.9 L (1.0-2.2) Prealbumin 11 L (18-45) mg/dL Triglycerides 79 ( - 149) mg/dL 03/22/21 03/21/21 03/21/21 Range/Units 05:00 12:00 12:00 WBC 6.4 (4.8-10.8) x10^3/uL RBC 2.91 L (4.20-5.40) 10^6/uL Hgb 8.5 L (12.0-16.0) g/dL Hct 26.1 L (37.0-47.0) % MCV 89.7 (81.0-99.0) fL MCH 29.2 (27.0-31.0) pg MCHC 32.6 (32.0-36.0) g/dL RDW 16.5 H (12.0-15.0) % Plt Count 139 (130-450) 10^3/uL MPV 12.6 H (7.9-10.8) fL Neut # (Auto) 4.5 (1.5-6.6) 10^3/uL Lymph # (Auto) 1.0 L (1.5-3.5) 10^3/uL [place] # (Auto) 0.7 (0.0-1.0) 10^3/uL Eos # (Auto) 0.0 (0.0-0.7) 10^3/uL Baso # (Auto) 0.0 (0.0-0.1) 10^3/uL Absolute Nucleated RBC 0.00 x10^3/uL Nucleated RBC % 0.0 /100WBC VBG pH 7.447 H (7.31-7.41) Ionized Calcium 1.40 H (1.15-1.33) mmol/L Sodium (135-145) mmol/L Potassium 4.0 (3.5-5.0) mmol/L Chloride (101-111) mmol/L Carbon Dioxide (21-32) mmol/L Anion Gap (6-13) BUN (6-20) mg/dL Creatinine (0.4-1.0) mg/dL Estimated GFR (MDRD) (>89) Glucose (70-100) mg/dL Calcium (8.5-10.3) mg/dL Phosphorus (2.5-4.6) mg/dL Magnesium 1.9 (1.7-2.8) mg/dL Total Bilirubin (0.2-1.0) mg/dL AST (10-42) IU/L ALT (10-60) IU/L Alkaline Phosphatase (42-121) IU/L Total Protein (6.7-8.2) g/dL Albumin (3.2-5.5) g/dL Globulin (2.1-4.2) g/dL Albumin/Globulin Ratio (1.0-2.2) Prealbumin (18-45) mg/dL Triglycerides ( - 149) mg/dL - Current Medications Current Medications: Current Medications Generic Name Dose Route Start Last Admin Trade Name Freq PRN Reason Stop Dose Admin Multivitamins 10 ml/ TRACE 2,011 mls @ 65 mls/hr 03/19/21 19:00 03/22/21 10:00 ELEMENTS 1 ml/ Amino Ac/ IV 65 mls/hr Electrol/Dextrose/Calcium Q24H NESSA Infusion Protocol Diltiazem HCl 125 mg/ Dextrose 125 mls @ 5 mls/hr 03/21/21 13:00 03/22/21 10:00 IV 8 mg/hr .Q25H NESSA 8 mls/hr Titration Protocol 5 MG/HR Insulin Human Regular 1 - 9 unit 03/22/21 00:00 03/22/21 05:09 Insulin Regular Human 300 Unit/3 Ml Vial SUBQ 1 unit Q6HR NESSA Administration Protocol Ondansetron HCl 4 mg 03/16/21 20:40 03/17/21 09:32 Ondansetron 4 Mg/2 Ml Vial IVP 4 mg Q6HR PRN Administration Nausea / Vomiting Pantoprazole Sodium 40 mg 03/17/21 21:00 03/22/21 09:25 Pantoprazole 40 Mg Vial IVP 40 mg BID NESSA Administration Phenol/Menthol 2 sprays 03/20/21 19:36 03/22/21 06:46 Phenol Throat Novice 177 Ml MM 2 sprays Q2HR PRN Administration Throat Pain Sodium Chloride 10 ml 03/17/21 01:00 03/22/21 09:25 Sodium Chloride Flush 0.9% 10 Ml Syringe IVP 10 ml 0100,0900,1700 NESSA Administration Sodium Chloride 10 ml 03/16/21 20:40 03/22/21 05:09 Sodium Chloride Flush 0.9% 10 Ml Syringe IVP 10 ml PRN PRN Administration NEEDED PER PROVIDER ORDERS - Physical Exam General Appearance: positive: No acute distress, Alert Eyes Bilateral: positive: EOMI Respiratory: positive: No respiratory distress Cardiovascular: positive: Tachycardia Neurologic/Psychiatric: positive: Mood/affect nml Impression/Plan - Problem List Problem List: Per pt, slowly improving. Hgb stable 8.5 from 8.1 yesterday. Low output from NG yesterday, favor administering gastrograffin per NG tube and clamping, followed by serial bedside abdominal xr to evaluate if contrast in passing through pylorus. Discussed with prior surgical attending Dr. Molina. Bandar Thomas MD General Surgery
--- NOTE | 2021-03-22 12:26 | PROVIDER PROGRESS NOTE ---
<Rama Miranda - Last Filed: 03/22/21 15:50> Subjective - Prog Note Date Prog Note Date: 03/22/21 Prog Note Time: 12:24 - Subjective Pt reports feeling: Improved (Patient is in bed watching TV and reports feeling better today with more energy. She deneis abdominal pain, nausea, or vomiting. She reports passing gas and feelng hungry.) Objective - Vital Signs/Intake & Output Reviewed Vital Signs: Yes - Objective General Appearance: positive: No acute distress Eyes Bilateral: positive: Normal inspection, PERRL, EOMI ENT: positive: ENT inspection nml, Pharynx nml, Dry mucous membranes Neck: positive: Nml inspection, No JVD, Trachea midline Respiratory: positive: Chest non-tender, No respiratory distress, Breath sounds nml Cardiovascular: positive: No murmur, Irregularly irregular, Tachycardia, Other (Cardizem drip for A-fib RVR) Abdomen: positive: Non-tender, No organomegaly, No distention, Other (hyperactive bowel sounds) Skin: positive: Color nml, No rash, Warm, Dry Extremities: positive: Non-tender, Full ROM, Nml appearance, No pedal edema Neurologic/Psychiatric: positive: Oriented x3, Motor nml - Lab Results Fish Bones: 03/22/21 05:00 03/22/21 09:25 Assessment/Plan - Problem List (1) Atrial fibrillation with rapid ventricular response Impression: Patient has a history of A-fib with RVR and takes Cardizem 360 mg PO daily (and Coumadin) at home. She was unable to take her medication for 2-3 days prior to hospitalization due to nausea and vomiting. Diltiazem drip was started in the ED and she needed max dose of 15mg/hr to attain HR in A-fib of 90-100. She was unable to resume PO meds due to STRICT NPO status for managing her bleeding duodenal ulcer. Today her HR is ranging 90-110s on Cardizem drip at 8mg/hr. According to RN note, scheduled Lopressor discontinued today at 0000 due to 2.06 sec pause. Plan: Continue with Cardizem drip to keep HR under 100 and plan to transition to PO tomorrow. Resume Lopressor at 5mg IVP every 8 hours for HR control Transition patient out of ICU when HR stabilizes and is off Cardizem drip. Will possibly consider resuming home Coumadin after 1 month, if bleeding duodenal ulcer resolves. (2) Gastric outlet obstruction Impression: EGD was done on 03/18/21 and found a gastric outlet obstruction at the pylorus, that was caused by swelling of the intestinal wall around duodenal ulcer. Today Dr. Thomas ordered a gastrograffin challenge and reported that gastrograffin w as seen passing into the duodenum after viewing study in PACs. He recommends removing NG tube and starting clear liquid diet today. Nurse reported that she a moderate dark brown/ black soft stool. Plan: Remove NG tube and advance to clear liquid diet today. Continue IV TPN for nutrition today with possible D/C tomorrow. (3) Bleeding duodenal ulcer Impression: Patient has a history of gastric ulcers, since age 17. Her last ulcer was a few years ago and was noted during a surgery. She has not been tested for H. pylori in the past and never received treatment. EGD done on 03/18/21 found old blood in the stomach and a duodenal ulcer with a clot over the ulcer and without active bleeding. Plan: Continue with Protonix IV twice daily. Continue to monitor H/H and consider blood transfusion if Hgb less than 7 Continue to hold Coumadin for 1 month minimum or possibly lifelong. Dr Molina recommended an H. pylori w/u as an outpatient since there was no sample taken at time of EGD to send for H pylori (4) Anemia Impression: Anemia is secondary to bleeding duodenal ulcer, found by EGD. On 03/18/21, kunal ent received 2 units of PRBC when Hgb dropped to 6.6. Transfusion improved the Hgb to 8.6 and it remains stable at 8.5 today. No reports of active bleeding from patient or bedside nurse. Plan: Continue to monitor for signs of active bleeding. Monitor H/H and transfuse if Hgb less than 7. Qualifiers: Other causes of anemia: acute posthemorrhagic (5) Diet-controlled diabetes mellitus Impression: Patient has a history of T2DM and takes Metformin 500mg BID at home. Her blood glucose was elevated on admission and her 03/21/2021 A1C was 5.7. Plan: Continue to monitor her fingerstick glucose every 6 hours while she is NPO. Continue NPO sliding scale Insulin coverage and transition to eating sliding scale when she tolerates PO intake. Continue TPN today while advancing to clear liquids and plan to D/C tomorrow as she tolerates advancing her diet. (6) HTN (hypertension) Impression: Patient has a history of hypertension but her home lisinopril and diuretic were held due to the acute kidney injury and her NPO status. Cardizem drip was restarted 03/21/2021 due to runs of SVT and continued A-fib with HR 100s- 120 while resting. SBP remained stable 110-150s. Plan: Resume scheduled Lopressor at 5mg IVP every 8 hours for HR control and manage BP. Will resume her home oral antihypertensives when able to tolerate regular diet. (7) Chest pain Impression: Patient complained of chest pain at presentation, that was suspected to be related to rapid A. fib, but it is more likely from a gastric etiology, and she continues to describe "indigestion". Repeat EKG did not suggest ischemia. Her troponins have peaked over 150 and then trending down. Suspect this is likely demand ischemia from the A. fib. On 03/18/21, her Echo showed a left atrium that is severely dilated, mild LVH with normal systolic function, LVEF 70%. <Kimmie Reeder - Last Filed: 03/22/21 16:15> Objective - Vital Signs/Intake & Output Vital Signs: Vital Signs Pulse Resp BP BP Pulse Ox 03/22/21 16:00 117/58 L 03/22/21 15:00 102 H 25 H 124/63 97 03/22/21 13:00 102 H 36 H 130/61 96 Intake & Output: Intake & Output 03/19/21 03/20/21 03/21/21 03/22/21 23:59 23:59 23:59 23:59 Intake Total 3710.000 1888.25 0433.245 1884.166 Output Total 3565 1150 2200 1500 Balance 145.000 738.25 -282.332 40.166 - Lab Results Fish Bones: 03/22/21 05:00 03/22/21 09:25 Other Labs: Lab Results x24hrs 03/22/21 03/22/21 03/22/21 Range/Units 09:25 05:00 05:00 WBC (4.8-10.8) x10^3/uL RBC (4.20-5.40) 10^6/uL Hgb (12.0-16.0) g/dL Hct (37.0-47.0) % MCV (81.0-99.0) fL MCH (27.0-31.0) pg MCHC (32.0-36.0) g/dL RDW (12.0-15.0) % Plt Count (130-450) 10^3/uL MPV (7.9-10.8) fL Neut # (Auto) (1.5-6.6) 10^3/uL Lymph # (Auto) (1.5-3.5) 10^3/uL [place] # (Auto) (0.0-1.0) 10^3/uL Eos # (Auto) (0.0-0.7) 10^3/uL Baso # (Auto) (0.0-0.1) 10^3/uL Absolute Nucleated RBC x10^3/uL Nucleated RBC % /100WBC VBG pH 7.421 H (7.31-7.41) Ionized Calcium 1.18 (1.15-1.33) mmol/L Sodium 131 L (135-145) mmol/L Potassium 4.0 3.7 (3.5-5.0) mmol/L Chloride 99 L (101-111) mmol/L Carbon Dioxide 25 (21-32) mmol/L Anion Gap 7.0 (6-13) BUN 29 H (6-20) mg/dL Creatinine 0.9 (0.4-1.0) mg/dL Estimated GFR (MDRD) 59 L (>89) Glucose 174 H (70-100) mg/dL Calcium 8.3 L (8.5-10.3) mg/dL Phosphorus 3.3 (2.5-4.6) mg/dL Magnesium 2.1 1.5 L (1.7-2.8) mg/dL Total Bilirubin 0.4 (0.2-1.0) mg/dL AST 17 (10-42) IU/L ALT 20 (10-60) IU/L Alkaline Phosphatase 40 L (42-121) IU/L Total Protein 5.7 L (6.7-8.2) g/dL Albumin 2.7 L (3.2-5.5) g/dL Globulin 3.0 (2.1-4.2) g/dL Albumin/Globulin Ratio 0.9 L (1.0-2.2) Prealbumin 11 L (18-45) mg/dL Triglycerides 79 ( - 149) mg/dL 03/22/21 Range/Units 05:00 WBC 6.4 (4.8-10.8) x10^3/uL RBC 2.91 L (4.20-5.40) 10^6/uL Hgb 8.5 L (12.0-16.0) g/dL Hct 26.1 L (37.0-47.0) % MCV 89.7 (81.0-99.0) fL MCH 29.2 (27.0-31.0) pg MCHC 32.6 (32.0-36.0) g/dL RDW 16.5 H (12.0-15.0) % Plt Count 139 (130-450) 10^3/uL MPV 12.6 H (7.9-10.8) fL Neut # (Auto) 4.5 (1.5-6.6) 10^3/uL Lymph # (Auto) 1.0 L (1.5-3.5) 10^3/uL [place] # (Auto) 0.7 (0.0-1.0) 10^3/uL Eos # (Auto) 0.0 (0.0-0.7) 10^3/uL Baso # (Auto) 0.0 (0.0-0.1) 10^3/uL Absolute Nucleated RBC 0.00 x10^3/uL Nucleated RBC % 0.0 /100WBC VBG pH (7.31-7.41) Ionized Calcium (1.15-1.33) mmol/L Sodium (135-145) mmol/L Potassium (3.5-5.0) mmol/L Chloride (101-111) mmol/L Carbon Dioxide (21-32) mmol/L Anion Gap (6-13) BUN (6-20) mg/dL Creatinine (0.4-1.0) mg/dL Estimated GFR (MDRD) (>89) Glucose (70-100) mg/dL Calcium (8.5-10.3) mg/dL Phosphorus (2.5-4.6) mg/dL Magnesium (1.7-2.8) mg/dL Total Bilirubin (0.2-1.0) mg/dL AST (10-42) IU/L ALT (10-60) IU/L Alkaline Phosphatase (42-121) IU/L Total Protein (6.7-8.2) g/dL Albumin (3.2-5.5) g/dL Globulin (2.1-4.2) g/dL Albumin/Globulin Ratio (1.0-2.2) Prealbumin (18-45) mg/dL Triglycerides ( - 149) mg/dL
--- NOTE | 2021-03-22 12:48 | XRAY Report ---
PROCEDURE: SBFT Challenge Panel INDICATIONS: evaluate gastric outlet obstruction CONTRAST: Unspecified enteric contrast COMPARISON: CT abdomen and pelvis 03/17/2021 FINDINGS: Preliminary forest worker film of the abdomen shows nasogastric tube in the stomach. Dense aortic vascular ca lcification present. Nonobstructive gas pattern. After enteric contrast administration, there is prompt flow of contrast through the stomach into a no rmal-appearing duodenum. The 15 minute film shows contrast within the jejunum and proximal ileum. The study was terminated. IMPRESSION: No evidence of gastric outlet obstruction. Reviewed by: Craig Mao MD on 03/22/2021 11:47 AM [place] Approved by: Craig Mao MD on 03/22/2021 11:47 AM [facility] Station ID: [id number]
[2021-03-22] MEDS: SUCRALFATE 1 GM/10 ML UDC PO SCH ×2 (16:45→21:04)
[2021-03-22] MEDS: TPN (CLINIMIX E 5/15) 2,000 ML with MULTIVITAMIN 10 ML, TRACE ELEMENTS 1 ML IV SCH ×3 (18:00)
[2021-03-23] MEDS ORDERED: INSULIN REGULAR HUMAN 300 UNIT/3 ML VIAL SUBQ SCH
[2021-03-23] MEDS: SODIUM CHLORIDE FLUSH 0.9% 10 ML SYRINGE IVP SCH ×3 (00:03→17:00)
[2021-03-23] MEDS: METOPROLOL 5 MG/5 ML VIAL IVP SCH (00:03)
[2021-03-23] MEDS: SUCRALFATE 1 GM/10 ML UDC PO SCH ×4 (06:23→21:30)
[2021-03-23] MEDS: diltiaZEM INJ 125 MG in DEXTROSE 5% 100 ML IV SCH (06:23)
[2021-03-23 06:50] LABS: CALCIUM, IONIZED 1.15 mmol/L (1.15-1.33); VBG PH 7.437 (7.31-7.41)
[2021-03-23 07:02] LABS: MAGNESIUM 1.7 mg/dL (1.7-2.8); POTASSIUM 3.7 mmol/L (3.5-5.0)
[2021-03-23 07:47] LABS: HCT - HEMATOCRIT 25.5 % (37.0-47.0); HGB - HEMOGLOBIN 8.2 g/dL (12.0-16.0); MEAN CORPUSCULAR HEMOGLOBIN 29.7 pg (27.0-31.0); MEAN CORPUSCULAR HGB CONC 32.2 g/dL (32.0-36.0); MEAN CORPUSCULAR VOLUME 92.4 fL (81.0-99.0); RED BLOOD COUNT 2.76 10^6/uL (4.20-5.40); RED CELL DISTRIBUTION WIDTH 16.6 % (12.0-15.0); WHITE BLOOD COUNT 6.3 x10^3/uL (4.8-10.8)
[2021-03-23 07:54] LABS: CALCIUM 8.3 mg/dL (8.5-10.3); POTASSIUM 3.8 mmol/L (3.5-5.0)
[2021-03-23] MEDS: INSULIN ASPART 300 UNIT/3 ML PEN SUBQ SCH ×4 (08:00→20:21)
[2021-03-23] MEDS: MAGNESIUM OXIDE 400 MG TABLET PO SCH ×2 (08:00→15:30)
[2021-03-23] MEDS ORDERED: POTASSIUM CHLORIDE 20 MEQ TABLET PO ONE (08:00)
--- NOTE | 2021-03-23 08:23 | PROVIDER PROGRESS NOTE ---
Subjective - General Admit Date: 03/17/21 Procedure Date: 03/18/21 Post Op Days: 5 Procedure Performed: Diagnostic EGD - Other Other Information/Narrative: NAEO. GG per NG yesterday with subsequent plain films demonstrating contrast moving from stomach to small bowel. NG was pulled and pt started on clears which she is tolerating. Objective - Patient Data Reviewed Vital Signs: Yes Vital Signs: Vital Signs x48h Temp Pulse Resp BP Pulse Ox 03/23/21 07:00 117 H 23 137/73 H 03/23/21 06:00 101 H 22 120/68 100 03/23/21 05:00 94 27 H 121/57 L 100 03/23/21 04:00 100 22 110/58 L 100 03/23/21 03:27 36.4 C L 03/23/21 03:00 96 22 99/67 100 03/23/21 02:00 88 13 113/42 L 95 03/23/21 01:00 82 25 H 114/55 L 100 03/23/21 00:45 79 111/49 L 03/23/21 00:30 90 114/51 L 03/23/21 00:25 94 113/51 L Weight: Weight 03/21/21 03/22/21 03/23/21 23:59 23:59 23:59 Weight (kg) 67.5 kg 67 kg Intake & Output: Intake and Output Totals x24h 03/21/21 03/22/21 03/23/21 23:59 23:59 23:59 Intake Total 0557.571 2790.999 930.000 Output Total 2200 1900 1000 Balance -282.332 438.999 -70.000 - Lab Results Lab Results: 03/23/21 06:48 03/23/21 06:48 Other Lab Results: Lab Results x24hrs 03/23/21 03/23/21 03/23/21 Range/Units 06:48 06:48 06:00 WBC 6.3 (4.8-10.8) x10^3/uL RBC 2.76 L (4.20-5.40) 10^6/uL Hgb 8.2 L (12.0-16.0) g/dL Hct 25.5 L (37.0-47.0) % MCV 92.4 (81.0-99.0) fL MCH 29.7 (27.0-31.0) pg MCHC 32.2 (32.0-36.0) g/dL RDW 16.6 H (12.0-15.0) % Plt Count 144 (130-450) 10^3/uL MPV 13.0 H (7.9-10.8) fL VBG pH (7.31-7.41) Ionized Calcium (1.15-1.33) mmol/L Sodium 133 L (135-145) mmol/L Potassium 3.8 3.7 (3.5-5.0) mmol/L Chloride 101 (101-111) mmol/L Carbon Dioxide 24 (21-32) mmol/L Anion Gap 8.0 (6-13) BUN 29 H (6-20) mg/dL Creatinine 1.0 (0.4-1.0) mg/dL Estimated GFR (MDRD) 52 L (>89) Glucose 200 H (70-100) mg/dL Calcium 8.3 L (8.5-10.3) mg/dL Phosphorus 3.0 (2.5-4.6) mg/dL Magnesium 1.7 (1.7-2.8) mg/dL 03/23/21 03/22/21 Range/Units 06:00 09:25 WBC (4.8-10.8) x10^3/uL RBC (4.20-5.40) 10^6/uL Hgb (12.0-16.0) g/dL Hct (37.0-47.0) % MCV (81.0-99.0) fL MCH (27.0-31.0) pg MCHC (32.0-36.0) g/dL RDW (12.0-15.0) % Plt Count (130-450) 10^3/uL MPV (7.9-10.8) fL VBG pH 7.437 H (7.31-7.41) Ionized Calcium 1.15 (1.15-1.33) mmol/L Sodium (135-145) mmol/L Potassium 4.0 (3.5-5.0) mmol/L Chloride (101-111) mmol/L Carbon Dioxide (21-32) mmol/L Anion Gap (6-13) BUN (6-20) mg/dL Creatinine (0.4-1.0) mg/dL Estimated GFR (MDRD) (>89) Glucose (70-100) mg/dL Calcium (8.5-10.3) mg/dL Phosphorus (2.5-4.6) mg/dL Magnesium 2.1 (1.7-2.8) mg/dL - Current Medications Current Medications: Current Medications Generic Name Dose Route Start Last Admin Trade Name Freq PRN Reason Stop Dose Admin Multivitamins 10 ml/ TRACE 2,011 mls @ 65 mls/hr 03/19/21 19:00 03/23/21 07:00 ELEMENTS 1 ml/ Amino Ac/ IV 65 mls/hr Electrol/Dextrose/Calcium Q24H NESSA Infusion Protocol Diltiazem HCl 125 mg/ Dextrose 125 mls @ 5 mls/hr 03/21/21 13:00 03/23/21 07:00 IV 10 mg/hr .Q25H NESSA 10 mls/hr Titration Protocol 5 MG/HR Sodium Chloride 500 mls @ 20 mls/hr 03/21/21 20:26 03/23/21 07:00 Normal Saline 0.9% IV 10 mls/hr Q24H PRN Infusion TKO RATE Insulin Aspart 2 - 10 unit 03/23/21 08:00 03/23/21 08:00 Insulin Aspart 300 Unit/3 Ml Pen SUBQ 4 unit 0800,1200,1700,2100 [facility] Administration Protocol Magnesium Oxide 400 mg 03/23/21 08:00 03/23/21 08:00 Magnesium Oxide 400 Mg Tablet PO 03/23/21 14:01 400 mg Q6H NESSA Administration Protocol Ondansetron HCl 4 mg 03/16/21 20:40 03/17/21 09:32 Ondansetron 4 Mg/2 Ml Vial IVP 4 mg Q6HR PRN Administration Nausea / Vomiting Pantoprazole Sodium 40 mg 03/17/21 21:00 03/22/21 21:04 Pantoprazole 40 Mg Vial IVP 40 mg BID NESSA Administration Phenol/Menthol 2 sprays 03/20/21 19:36 03/22/21 06:46 Phenol Throat [place] 177 Ml MM 2 sprays Q2HR PRN Administration Throat Pain Sodium Chloride 10 ml 03/17/21 01:00 03/23/21 00:03 Sodium Chloride Flush 0.9% 10 Ml Syringe IVP 10 ml 0100,0900,1700 NESSA Administration Sodium Chloride 10 ml 03/16/21 20:40 03/22/21 05:09 Sodium Chloride Flush 0.9% 10 Ml Syringe IVP 10 ml PRN PRN Administration NEEDED PER PROVIDER ORDERS Sucralfate 1 gm 03/22/21 16:00 03/23/21 06:23 Sucralfate 1 Gm/10 Ml Udc PO 1 gm 0700,1100,1600,2200 NESSA Administration - Physical Exam Comments/Other: Pt improving, feeling better with NG out. Hgb stable 8.2 from 8.5 yesterday. Ga strograffin passed from stomach to small bowel yesterday indicating resolution of GOO, NG pulled and pt tolerating clears now. Tolerated ensure overnight, favor continue FLD today. Hopefully advance to food soon if continues doing well. Bandar Thomas MD General Surgery
[2021-03-23] MEDS: diltiaZEM CD 180 MG CAPSULE PO SCH ×2 (09:00→20:17)
[2021-03-23] MEDS: SODIUM CHLORIDE FLUSH 0.9% 10 ML SYRINGE IVP PRN ×2 (09:00→16:00)
[2021-03-23] MEDS: PANTOPRAZOLE 40 MG VIAL IVP SCH ×2 (09:00→20:29)
--- NOTE | 2021-03-23 12:05 | PROVIDER PROGRESS NOTE ---
Subjective - Prog Note Date Prog Note Date: 03/23/21 Prog Note Time: 12:03 - Subjective Pt reports feeling: No change (Patient is sitting up in chair and reports feeling the same as yesterday. She denies n/v or abdominal pain and is able to tolerate her clear liquid meal.) Objective - Vital Signs/Intake & Output Reviewed Vital Signs: Yes Vital Signs: Vital Signs Temp Pulse Resp BP Pulse Ox 03/23/21 11:00 98 21 107/59 L 96 03/23/21 10:00 86 27 H 120/48 L 96 03/23/21 09:00 36.8 C 100 23 103/91 H 95 Intake & Output: Intake & Output 03/20/21 03/21/21 03/22/21 03/23/21 23:59 23:59 23:59 23:59 Intake Total 1888.25 8913.813 8893.999 1446.667 Output Total 1150 2200 1900 1000 Balance 738.25 -282.332 438.999 446.667 - Objective General Appearance: positive: No acute distress, Alert, Other (Patient is resting comfortably watching TV) Eyes Bilateral: positive: Normal inspection, EOMI ENT: positive: ENT inspection nml, No signs of dehydration Neck: positive: Nml inspection, No JVD, Trachea midline Respiratory: positive: Chest non-tender, No respiratory distress, Breath sounds nml Cardiovascular: positive: No murmur, Irregularly irregular, Tachycardia Abdomen: positive: Non-tender, No organomegaly, Nml bowel sounds, No distention Skin: positive: Color nml, No rash, Warm, Dry Extremities: positive: Non-tender, Full ROM, Nml appearance, No pedal edema Neurologic/Psychiatric: positive: Oriented x3 - Lab Results Fish Bones: 03/23/21 06:48 03/23/21 06:48 Other Labs: Lab Results x24hrs 03/23/21 03/23/21 03/23/21 Range/Units 06:48 06:48 06:00 WBC 6.3 (4.8-10.8) x10^3/uL RBC 2.76 L (4.20-5.40) 10^6/uL Hgb 8.2 L (12.0-16.0) g/dL Hct 25.5 L (37.0-47.0) % MCV 92.4 (81.0-99.0) fL MCH 29.7 (27.0-31.0) pg MCHC 32.2 (32.0-36.0) g/dL RDW 16.6 H (12.0-15.0) % Plt Count 144 (130-450) 10^3/uL MPV 13.0 H (7.9-10.8) fL VBG pH (7.31-7.41) Ionized Calcium (1.15-1.33) mmol/L Sodium 133 L (135-145) mmol/L Potassium 3.8 3.7 (3.5-5.0) mmol/L Chloride 101 (101-111) mmol/L Carbon Dioxide 24 (21-32) mmol/L Anion Gap 8.0 (6-13) BUN 29 H (6-20) mg/dL Creatinine 1.0 (0.4-1.0) mg/dL Estimated GFR (MDRD) 52 L (>89) Glucose 200 H (70-100) mg/dL Calcium 8.3 L (8.5-10.3) mg/dL Phosphorus 3.0 (2.5-4.6) mg/dL Magnesium 1.7 (1.7-2.8) mg/dL 03/23/21 Range/Units 06:00 WBC (4.8-10.8) x10^3/uL RBC (4.20-5.40) 10^6/uL Hgb (12.0-16.0) g/dL Hct (37.0-47.0) % MCV (81.0-99.0) fL MCH (27.0-31.0) pg MCHC (32.0-36.0) g/dL RDW (12.0-15.0) % Plt Count (130-450) 10^3/uL MPV (7.9-10.8) fL VBG pH 7.437 H (7.31-7.41) Ionized Calcium 1.15 (1.15-1.33) mmol/L Sodium (135-145) mmol/L Potassium (3.5-5.0) mmol/L Chloride (101-111) mmol/L Carbon Dioxide (21-32) mmol/L Anion Gap (6-13) BUN (6-20) mg/dL Creatinine (0.4-1.0) mg/dL Estimated GFR (MDRD) (>89) Glucose (70-100) mg/dL Calcium (8.5-10.3) mg/dL Phosphorus (2.5-4.6) mg/dL Magnesium (1.7-2.8) mg/dL Assessment/Plan - Problem List (1) Atrial fibrillation with rapid ventricular response Impression: Patient has a history of A-fib with RVR and takes Cardizem 360 mg PO daily (and Coumadin) at home. She was unable to take her medication for 2-3 days prior to hospitalization due to nausea and vomiting. Diltiazem drip was started in the ED and she needed max dose of 15mg/hr to attain HR in A-fib of 90-100. She was unable to resume PO meds due to STRICT NPO status for managing her bleeding duodenal ulcer. 03/22/2021 NG was removed and patient was started on clear liquid diet. Today her home oral Cardizem was resumed at 180mg twice daily. Lopressor has also been changed from scheduled to prn tachycardia. After initial Cardizem PO, her HR is ranging 80-100s. Plan: Transition off Cardizem gtt and maintain HR < 100 with oral Cardizem and prn Lopressor. Transition patient out of ICU when HR stabilizes and is off Cardizem drip. Will possibly consider resuming home Coumadin after 1 month, if bleeding duodenal ulcer resolves. (2) Gastric outlet obstruction Impression: EGD was done on 03/18/21 and found a gastric outlet obstruction at the pylorus, that was caused by swelling of the intestinal wall around duodenal ulcer. On 03/22/2021 Dr. Thomas ordered a gastrograffin challenge and the abdominal x-ray reported "No evidence of gastric outlet obstructions". NG was removed and her diet was advanced to clear liquid diet last night without n/v or abdominal pain. Today she reports having 2 bowel movements since advancing diet that were normal in color and consistency. Plan: Advance to full liquid diet for breakfast and lunch with plan for soft diet at dinner if tolerating. Continue IV TPN for nutrition today with possible D/C at 1800 if she continues to tolerate oral intake. (3) Bleeding duodenal ulcer Impression: Patient has a history of gastric ulcers, since age 17. Her last ulcer was a few years ago and was noted during a surgery. She has not been tested for H. pylori in the past and never received treatment. EGD done on 03/18/21 found old blood in the stomach and a duodenal ulcer with a clot over the ulcer and without active bleeding. Patient has resumed oral intake with clear liquid diet last night. Today she started on a full liquid for breakfast and lunch. She has had 2 bowel movements today and reported normal color and consistency. Her Hgb is 8.2 today. Plan: Continue with Protonix IV twice daily. Continue to monitor H/H and consider blood transfusion if Hgb less than 7 Continue to hold Coumadin for 1 month minimum or possibly lifelong. Dr Molina recommended an H. pylori w/u as an outpatient since there was no sample taken at time of EGD to send for H pylori (4) Anemia Impression: Anemia is secondary to bleeding duodenal ulcer, found by EGD. On 03/18/21, patient received 2 units of PRBC when Hgb dropped to 6.6. Transfusion improved the Hgb to 8.6 and it remains stable at 8.2 today. No reports of active bleeding from patient or bedside nurse. Plan: Continue to monitor for signs of active bleeding. Monitor H/H and transfuse if Hgb less than 7. Qualifiers: Other causes of anemia: acute posthemorrhagic (5) Diet-controlled diabetes mellitus Impression: Patient has a history of T2DM and takes Metformin 500mg BID at home. Her blood glucose was elevated on admission and her 03/21/2021 A1C was 5.7. Plan: Continue to monitor her fingerstick glucose every 6 hours while she is NPO. Continue NPO sliding scale Insulin coverage and transition to eating sliding scale when she tolerates PO intake. Continue TPN today while advancing to clear liquids and plan to D/C tomorrow as she tolerates advancing her diet. (6) HTN (hypertension) Impression: Patient has a history of hypertension but her home lisinopril and diuretic were held due to the acute kidney injury and her NPO status on admission. Cardizem drip was restarted 03/21/2021 due to runs of SVT and continued A-fib with HR 80- 100s while resting. SBP has remained remained stable 90-130s. Today home oral Cardizem was resumed at 180mg twice daily and Lopressor was changed to prn for Tachycardia. Plan: Continue to wean Cardizem gtt and use prn Lopressor for breakthrough tachycardia. Resume her home oral antihypertensives, Lisinopril and Diuretic tomorrow after Cardizem gtt has been weaned off. (7) Chest pain Impression: Patient complained of chest pain at presentation, that was suspected to be related to rapid A. fib, but it is more likely from a gastric etiology, and she continues to describe "indigestion". Repeat EKG did not suggest ischemia. Her troponins have peaked over 150 and then trending down. Suspect this is likely demand ischemia from the A. fib. On 03/18/21, her Echo showed a left atrium that is severely dilated, mild LVH with normal systolic function, LVEF 70%. Resolved
[2021-03-23] MEDS: METOPROLOL 5 MG/5 ML VIAL IVP PRN (13:00)
[2021-03-24] MEDS: SODIUM CHLORIDE FLUSH 0.9% 10 ML SYRINGE IVP SCH ×3 (01:18→17:00)
[2021-03-24] MEDS: SODIUM CHLORIDE FLUSH 0.9% 10 ML SYRINGE IVP PRN ×2 (01:18→06:57)
[2021-03-24 04:30] LABS: CALCIUM, IONIZED 1.17 mmol/L (1.15-1.33); VBG PH 7.443 (7.31-7.41)
[2021-03-24 04:40] LABS: ALBUMIN 2.7 g/dL (3.2-5.5); ALBUMIN/GLOBULIN RATIO 0.8 (1.0-2.2); BILIRUBIN,TOTAL 0.5 mg/dL (0.2-1.0); CALCIUM 8.5 mg/dL (8.5-10.3); CREATININE 1.1 mg/dL (0.4-1.0); MAGNESIUM 1.7 mg/dL (1.7-2.8); PHOSPHORUS 2.5 mg/dL (2.5-4.6); TOTAL PROTEIN 6.1 g/dL (6.7-8.2)
[2021-03-24] MEDS: MAGNESIUM OXIDE 400 MG TABLET PO SCH ×2 (06:23→12:27)
[2021-03-24] MEDS: SUCRALFATE 1 GM/10 ML UDC PO SCH ×4 (06:23→21:29)
[2021-03-24] MEDS: METOPROLOL 5 MG/5 ML VIAL IVP PRN (06:57)
[2021-03-24] MEDS: INSULIN ASPART 300 UNIT/3 ML PEN SUBQ SCH ×4 (08:13→20:28)
[2021-03-24] MEDS: diltiaZEM CD 180 MG CAPSULE PO SCH ×2 (09:54→20:28)
[2021-03-24] MEDS: PANTOPRAZOLE 40 MG VIAL IVP SCH (09:54)
--- NOTE | 2021-03-24 11:06 | PROVIDER PROGRESS NOTE ---
Subjective - General Admit Date: 03/17/21 Procedure Date: 03/18/21 Post Op Days: 6 Procedure Performed: Diagnostic EGD - Other Other Information/Narrative: Good spirits today and tolerating full liquids. Denies any abdominal pain. Objective - Patient Data Reviewed Vital Signs: Yes Vital Signs: Vital Signs x48h Temp Pulse Resp BP BP Pulse Ox 03/24/21 11:00 36.6 C 106 H 23 91/60 99 03/24/21 09:00 90 27 H 107/69 99 03/24/21 08:06 102 H 22 131/86 H 100 03/24/21 07:15 97 114/70 03/24/21 06:57 116 H 28 H 109/87 H 109/87 H 03/24/21 05:24 104 H 24 132/57 H 03/24/21 03:30 36.6 C 26 H 98 Weight: Weight 03/22/21 03/23/21 03/24/21 23:59 23:59 23:59 Weight (kg) 67 kg 61 kg 68 kg Intake & Output: Intake and Output Totals x24h 03/22/21 03/23/21 03/24/21 23:59 23:59 23:59 Intake Total 2338.999 2403.166 380 Output Total 1900 1150 1175 Balance 606.743 5378.166 -795 - Lab Results Lab Results: 03/23/21 06:48 03/24/21 04:00 Other Lab Results: Lab Results x24hrs 03/24/21 03/24/21 Range/Units 04:00 04:00 VBG pH 7.443 H (7.31-7.41) Ionized Calcium 1.17 (1.15-1.33) mmol/L Sodium 134 L (135-145) mmol/L Potassium 4.0 (3.5-5.0) mmol/L Chloride 102 (101-111) mmol/L Carbon Dioxide 25 (21-32) mmol/L Anion Gap 7.0 (6-13) BUN 30 H (6-20) mg/dL Creatinine 1.1 H (0.4-1.0) mg/dL Estimated GFR (MDRD) 47 L (>89) Glucose 125 H (70-100) mg/dL Calcium 8.5 (8.5-10.3) mg/dL Phosphorus 2.5 (2.5-4.6) mg/dL Magnesium 1.7 (1.7-2.8) mg/dL Total Bilirubin 0.5 (0.2-1.0) mg/dL AST 16 (10-42) IU/L ALT 22 (10-60) IU/L Alkaline Phosphatase 44 (42-121) IU/L Total Protein 6.1 L (6.7-8.2) g/dL Albumin 2.7 L (3.2-5.5) g/dL Globulin 3.4 (2.1-4.2) g/dL Albumin/Globulin Ratio 0.8 L (1.0-2.2) - Current Medications Current Medications: Current Medications Generic Name Dose Route Start Last Admin Trade Name Freq PRN Reason Stop Dose Admin Diltiazem HCl 180 mg 03/23/21 09:00 03/24/21 09:54 Diltiazem Cd 180 Mg Capsule PO 180 mg BID NESSA Administration Sodium Chloride 500 mls @ 20 mls/hr 03/21/21 20:26 03/23/21 16:00 Normal Saline 0.9% IV Infused Q24H PRN Infusion TKO RATE Insulin Aspart 3 - 11 unit 03/24/21 08:00 03/24/21 08:13 Insulin Aspart 300 Unit/3 Ml Pen SUBQ Not Given 0800,1200,1700,2100 [facility] Protocol Magnesium Oxide 400 mg 03/24/21 06:00 03/24/21 06:23 Magnesium Oxide 400 Mg Tablet PO 03/24/21 12:01 400 mg Q6H NESSA Administration Protocol Metoprolol Tartrate 5 mg 03/23/21 07:41 03/24/21 06:57 Metoprolol 5 Mg/5 Ml Vial IVP 5 mg Q8H PRN Administration Tachycardia Ondansetron HCl 4 mg 03/16/21 20:40 03/17/21 09:32 Ondansetron 4 Mg/2 Ml Vial IVP 4 mg Q6HR PRN Administration Nausea / Vomiting Pantoprazole Sodium 40 mg 03/17/21 21:00 03/24/21 09:54 Pantoprazole 40 Mg Vial IVP 40 mg BID NESSA Administration Phenol/Menthol 2 sprays 03/20/21 19:36 03/22/21 06:46 Phenol Throat [place] 177 Ml MM 2 sprays Q2HR PRN Administration Throat Pain Sodium Chloride 10 ml 03/17/21 01:00 03/24/21 09:54 Sodium Chloride Flush 0.9% 10 Ml Syringe IVP 10 ml 0100,0900,1700 NESSA Administration Sodium Chloride 10 ml 03/16/21 20:40 03/24/21 06:57 Sodium Chloride Flush 0.9% 10 Ml Syringe IVP 10 ml PRN PRN Administration NEEDED PER PROVIDER ORDERS Sucralfate 1 gm 03/22/21 16:00 03/24/21 06:23 Sucralfate 1 Gm/10 Ml Udc PO 1 gm 0700,1100,1600,2200 NESSA Administration - Physical Exam Abdomen: positive: Non-tender, Nml bowel sounds. negative: Guarding, Rebound Neurologic/Psychiatric: positive: Oriented x3 ABX Reporting Has patient been on IV antibiotics over the past 48 hours?: No Impression/Plan - Problem List Problem List: Improving daily. Advanance diet as tolerated. Recommend stool for H. pylori rather than repeating EGD. I will order that today. Would continue twice daily p.o. Protonix for another 7 days. Can change to daily following that and would stay on indefinitely.With her history, I do not recommend trying to transition to H2 mine from PPI.
[2021-03-24] MEDS: METOPROLOL SUCCINATE 25 MG TABLET PO SCH (17:05)
--- NOTE | 2021-03-24 17:39 | PROVIDER PROGRESS NOTE ---
Assessment/Plan - Problem List (1) Atrial fibrillation with rapid ventricular response Assessment/Plan: Patient has a history of A-fib with RVR and took Cardizem and Coumadin at home. She was unable to take her medication for 2-3 days prior to hospitalization due to nausea and vomiting. She has needed to be in ICU for Diltiazem drip while she was STRICT NPO status for managing her bleeding duodenal ulcer and gastric outlet obstruction. Continue po Cardizem, which was just started yesterday. Will today start empiric Metoprolol po bid for rate control. Will continue the iv Metoprolol pushes prn HR greater than 100. She will not be on Coumadin for at least a month, due to bleeding duod. ulcer, and probably lifelong no Counadin or anticoagulants. (2) Gastric outlet obstruction Impression: EGD was done on 03/18/21 and found a gastric outlet obstruction at the pylorus, that was caused by swelling of the intestinal wall around duodenal ulcer. NG was on for 6 days for decompression and was removed 03/22/21 and her diet has been advancing without n/v or abdominal pain. She was on tpn for a week, stopped yesterday evening. A soft diet is planned for a week, to prevent scrapping the bleeding ulcer. (3) Bleeding duodenal ulcer Impression: Patient has a history of gastric ulcers, since age 17. She has not been tested for H. pylori in the past and never received treatment. EGD done on 03/18/21 found old blood in the stomach and a duodenal ulcer with a clot over the ulcer and without active bleeding. Dr Molina has advised Protonix po bid for another week, then daily lifelong Continue to hold Coumadin for 1 month minimum but probably no anticoagulant lifelong. Dr Molina recommended an H. pylori w/u, since there was no sample taken at time of EGD to send for H pylori. A stool H pylori was ordered today. (4) Anemia Impression: Anemia was secondary to bleeding duodenal ulcer, found by EGD. At admission, she received 2 units of PRBC when Hgb dropped to 6.6. Transfusion improved the Hgb to 8.6 and it remains stable since then. No reports of further bleeding from patient or bedside nurse. Continue to monitor for signs of active bleeding. Monitor H/H daily and transfuse if Hgb less than 7. Qualifiers: Other causes of anemia: acute posthemorrhagic (5) Diet-controlled diabetes mellitus Impression: Patient has a history of T2DM and takes Metformin 500mg BID at home. Her blood glucose was elevated on admission and her A1C was 5.7. Diet restarted w/ carb control, sliding scale Insulin coverage and transitioning to eating sliding scale with PO intake. (6) HTN (hypertension) Impression: Patient has a history of hypertension but her home lisinopril and diuretic were held due to the acute kidney injury and her NPO status on admission. Cardizem drip was used and now oral Cardizem and Lopressorare controlling her BP. (7) Chest pain Impression: Resolved. Patient complained of chest pain at presentation, that was suspected to be related to rapid A. fib, but it is more likely from a gastric etiology. Resolved - Current Meds Current Meds: Current Medications Generic Name Dose Route Start Last Admin Trade Name Freq PRN Reason Stop Dose Admin Diltiazem HCl 180 mg 03/23/21 09:00 03/24/21 09:54 Diltiazem Cd 180 Mg Capsule PO 180 mg BID NESSA Administration Sodium Chloride 500 mls @ 20 mls/hr 03/21/21 20:26 03/23/21 16:00 Normal Saline 0.9% IV Infused Q24H PRN Infusion TKO RATE Insulin Aspart 3 - 11 unit 03/24/21 08:00 03/24/21 17:00 Insulin Aspart 300 Unit/3 Ml Pen SUBQ 3 unit 0800,1200,1700,2100 NESSA Administration Protocol Metoprolol Succinate 25 mg 03/24/21 18:00 03/24/21 17:05 Metoprolol Succinate 25 Mg Tablet PO 25 mg 0800,1800 NESSA Administration Metoprolol Tartrate 5 mg 03/23/21 07:41 03/24/21 06:57 Metoprolol 5 Mg/5 Ml Vial IVP 5 mg Q8H PRN Administration Tachycardia Ondansetron HCl 4 mg 03/16/21 20:40 03/17/21 09:32 Ondansetron 4 Mg/2 Ml Vial IVP 4 mg Q6HR PRN Administration Nausea / Vomiting Phenol/Menthol 2 sprays 03/20/21 19:36 03/22/21 06:46 Phenol Throat [place] 177 Ml MM 2 sprays Q2HR PRN Administration Throat Pain Sodium Chloride 10 ml 03/17/21 01:00 03/24/21 17:00 Sodium Chloride Flush 0.9% 10 Ml Syringe IVP 10 ml 0100,0900,1700 NESSA Administration Sodium Chloride 10 ml 03/16/21 20:40 03/24/21 06:57 Sodium Chloride Flush 0.9% 10 Ml Syringe IVP 10 ml PRN PRN Administration NEEDED PER PROVIDER ORDERS Sucralfate 1 gm 03/22/21 16:00 03/24/21 16:59 Sucralfate 1 Gm/10 Ml Udc PO 1 gm 0700,1100,1600,2200 NESSA Administration - Lab Result Fish Bone Diagrams: 03/23/21 06:48 03/24/21 04:00 - Additional Planning My Orders: My Active Orders 03/24/21 Evaluate and Treat OT [OT] Routine Evaluate and Treat PT [PT] Routine 03/24/21 08:00 Insulin Aspart [NovoLOG] 3 - 11 unit SUBQ 0800,1200,1700,2100 03/24/21 Lunch DIET [Soft Mechanical Diet] [DIET] 03/24/21 16:07 Telemetry- [RC] Q4HR 03/24/21 18:00 Metoprolol Succinate [Toprol Xl] 25 mg PO 0800,1800 03/24/21 21:00 Pantoprazole [Protonix] 40 mg PO BID 03/25/21 05:00 BMP - BASIC METABOLIC PANEL [CHEM] DAILYLAB CBC W/O DIFF (HEMOGRAM) [HEME] DAILYLAB 03/26/21 05:00 BMP - BASIC METABOLIC PANEL [CHEM] DAILYLAB CBC W/O DIFF (HEMOGRAM) [HEME] DAILYLAB 03/27/21 05:00 BMP - BASIC METABOLIC PANEL [CHEM] DAILYLAB CBC W/O DIFF (HEMOGRAM) [HEME] DAILYLAB Subjective - Subjective Patient Reports: Resting Comfortably, No Complaints Objective Vital Signs: Vital Signs - 24 hr 03/23/21 03/23/21 03/23/21 18:00 19:00 20:34 Temperature 36.6 C Heart Rate [ Activity] Heart Rate [ 92 96 115 H Monitoring electrodes] Heart Rate [ Sitting] Heart Rate [ Supine] Respiratory 28 H 25 H 24 Rate Blood Pressure Blood Pressure [Activity] Blood Pressure 144/51 H 125/53 L 153/74 H [Right Brachial artery] Blood Pressure [Sitting] Blood Pressure [Supine] O2 Saturation 97 97 99 03/23/21 03/24/21 03/24/21 22:34 01:00 01:20 Temperature 36.6 C Heart Rate [ Activity] Heart Rate [ 102 H 91 Monitoring electrodes] Heart Rate [ Sitting] Heart Rate [ Supine] Respiratory 27 H 20 Rate Blood Pressure Blood Pressure [Activity] Blood Pressure 155/62 H 116/48 L [Right Brachial artery] Blood Pressure [Sitting] Blood Pressure [Supine] O2 Saturation 98 03/24/21 03/24/21 03/24/21 03:03 03:30 05:24 Temperature 36.6 C Heart Rate [ Activity] Heart Rate [ 87 104 H Monitoring electrodes] Heart Rate [ Sitting] Heart Rate [ Supine] Respiratory 21 26 H 24 Rate Blood Pressure Blood Pressure [Activity] Blood Pressure 120/68 132/57 H [Right Brachial artery] Blood Pressure [Sitting] Blood Pressure [Supine] O2 Saturation 98 03/24/21 03/24/21 03/24/21 06:57 07:15 08:06 Temperature Heart Rate [ Activity] Heart Rate [ 116 H 97 102 H Monitoring electrodes] Heart Rate [ Sitting] Heart Rate [ Supine] Respiratory 28 H 22 Rate Blood Pressure 109/87 H Blood Pressure [Activity] Blood Pressure 109/87 H 114/70 131/86 H [Right Brachial artery] Blood Pressure [Sitting] Blood Pressure [Supine] O2 Saturation 100 03/24/21 03/24/21 03/24/21 09:00 11:00 11:45 Temperature 36.6 C Heart Rate [ 101 H Activity] Heart Rate [ 90 106 H Monitoring electrodes] Heart Rate [ 105 H Sitting] Heart Rate [ 103 H Supine] Respiratory 27 H 23 Rate Blood Pressure Blood Pressure 107/63 [Activity] Blood Pressure 107/69 107/49 L [Right Brachial artery] Blood Pressure 107/71 [Sitting] Blood Pressure 110/55 L [Supine] O2 Saturation 99 99 03/24/21 03/24/21 13:00 15:00 Temperature 36.6 C Heart Rate [ Activity] Heart Rate [ 89 87 Monitoring electrodes] Heart Rate [ Sitting] Heart Rate [ Supine] Respiratory 22 26 H Rate Blood Pressure Blood Pressure [Activity] Blood Pressure 136/96 H 97/61 [Right Brachial artery] Blood Pressure [Sitting] Blood Pressure [Supine] O2 Saturation 99 100 Oxygen O2 Source [Without Activity] Room air O2 Source Room air I&O (Last 24 Hrs): Intake and Output Totals x24h 03/22/21 03/23/21 03/24/21 23:59 23:59 23:59 Intake Total 2338.999 2403.166 560 Output Total 1900 1150 1200 Balance 079.288 3397.166 -640 General: Alert, Oriented x3 HEENT: Mucous membr. moist/pink Neck: Supple, No JVD Neuro: Alert, Non Focal Cardiovascular: No murmurs, Other (irreg irreg) Respiratory: No respiratory distress, Breath sounds nml Abdomen: Normal bowel sounds, Soft, No tenderness Extremities: No clubbing, No edema Skin: No rashes - Results Results: Laboratory Results WBC 6.3 x10^3/uL (4.8-10.8) 03/23/21 06:48 RBC 2.76 10^6/uL (4.20-5.40) L 03/23/21 06:48 Hgb 8.2 g/dL (12.0-16.0) L 03/23/21 06:48 Hct 25.5 % (37.0-47.0) L 03/23/21 06:48 MCV 92.4 fL (81.0-99.0) 03/23/21 06:48 MCH 29.7 pg (27.0-31.0) 03/23/21 06:48 MCHC 32.2 g/dL (32.0-36.0) 03/23/21 06:48 RDW 16.6 % (12.0-15.0) H 03/23/21 06:48 Plt Count 144 10^3/uL (130-450) 03/23/21 06:48 MPV 13.0 fL (7.9-10.8) H 03/23/21 06:48 Neut # (Auto) 4.5 10^3/uL (1.5-6.6) 03/22/21 05:00 Lymph # (Auto) 1.0 10^3/uL (1.5-3.5) L 03/22/21 05:00 [place] # (Auto) 0.7 10^3/uL (0.0-1.0) 03/22/21 05:00 Eos # (Auto) 0.0 10^3/uL (0.0-0.7) 03/22/21 05:00 Baso # (Auto) 0.0 10^3/uL (0.0-0.1) 03/22/21 05:00 Absolute Nucleated RBC 0.00 x10^3/uL 03/22/21 05:00 Total Counted 100 03/19/21 04:28 Band Neuts % (Manual) 7 % (0-10) 03/19/21 04:28 Abnorm Lymph % (Manual) 0 % 03/19/21 04:28 Nucleated RBC % 0.0 /100WBC 03/22/21 05:00 Neutrophils # (Manual) 6.0 10^3/uL (1.5-6.6) 03/19/21 04:28 Lymphocytes # (Manual) 1.0 10^3/uL (1.5-3.5) L 03/19/21 04:28 Monocytes # (Manual) 0.4 10^3/uL (0.0-1.0) 03/19/21 04:28 Eosinophils # (Manual) 0.0 10^3/uL (0-0.7) 03/19/21 04:28 Basophils # (Manual) 0.0 10^3/uL (0-0.1) 03/19/21 04:28 Differential Comment MANUAL DIFFERENTIAL 03/19/21 04:28 Manual Slide Review Indicated 03/21/21 05:15 WBC Morphology NORMAL APPEARANCE (NORMAL) 03/21/21 05:15 Platelet Estimate DECREASED (<130,000) (NORMAL) 03/21/21 05:15 Platelet Morphology NORMAL APPEARANCE (NORMAL) 03/21/21 05:15 RBC Morph Micro Appear 3+ ANISOCYTOSIS (NORMAL) 03/21/21 05:15 PT 13.2 secs (9.9-12.6) H 03/21/21 05:50 INR (Fingerstick) 2.4 (0.8-1.2) H 03/18/21 11:04 INR 1.2 (0.8-1.2) 03/21/21 05:50 Bld Gas Analysis Time 0902 03/18/21 08:58 Sample Site LEFT BRACHIAL 03/18/21 08:58 ABG pH 7.48 (7.35-7.45) H 03/18/21 08:58 ABG pCO2 22 mmHg (34-45) L* 03/18/21 08:58 ABG pO2 87 mmHg (80-100) 03/18/21 08:58 ABG HCO3 16.1 mmol/L (22.0-26.0) L 03/18/21 08:58 ABG Total CO2 16.7 MMOL/L (21.0-29.0) L 03/18/21 08:58 ABG O2 Saturation 95 % (94-98) 03/18/21 08:58 ABG Base Excess -6.5 mmol/L (-2.0-3.0) L 03/18/21 08:58 Buddy Test NOT APPLICABLE 03/18/21 08:58 VBG pH 7.443 (7.31-7.41) H 03/24/21 04:00 Ionized Calcium 1.17 mmol/L (1.15-1.33) 03/24/21 04:00 O2 Delivery Device NASAL CANNULA 03/18/21 08:58 O2 Liters/Min 4.00 LPM 03/18/21 08:58 Sodium 134 mmol/L (135-145) L 03/24/21 04:00 Potassium 4.0 mmol/L (3.5-5.0) 03/24/21 04:00 Chloride 102 mmol/L (101-111) 03/24/21 04:00 Carbon Dioxide 25 mmol/L (21-32) 03/24/21 04:00 Anion Gap 7.0 (6-13) 03/24/21 04:00 BUN 30 mg/dL (6-20) H 03/24/21 04:00 Creatinine 1.1 mg/dL (0.4-1.0) H 03/24/21 04:00 Estimated GFR (MDRD) 47 (>89) L 03/24/21 04:00 Glucose 125 mg/dL (70-100) H 03/24/21 04:00 Estimat Average Glucose 117 mg/dL (70-100) H 03/20/21 04:50 Hemoglobin A1c % 5.7 % (4.27-6.07) 03/20/21 04:50 Calcium 8.5 mg/dL (8.5-10.3) 03/24/21 04:00 Phosphorus 2.5 mg/dL (2.5-4.6) 03/24/21 04:00 Magnesium 1.7 mg/dL (1.7-2.8) 03/24/21 04:00 Total Bilirubin 0.5 mg/dL (0.2-1.0) 03/24/21 04:00 AST 16 IU/L (10-42) 03/24/21 04:00 ALT 22 IU/L (10-60) 03/24/21 04:00 Alkaline Phosphatase 44 IU/L (42-121) 03/24/21 04:00 Troponin I High Sens 97.5 ng/L (2.3-14.8) H* 03/17/21 17:00 Total Protein 6.1 g/dL (6.7-8.2) L 03/24/21 04:00 Albumin 2.7 g/dL (3.2-5.5) L 03/24/21 04:00 Globulin 3.4 g/dL (2.1-4.2) 03/24/21 04:00 Albumin/Globulin Ratio 0.8 (1.0-2.2) L 03/24/21 04:00 Prealbumin 11 mg/dL (18-45) L 03/22/21 05:00 Triglycerides 79 mg/dL (-149) 03/22/21 05:00 Lipase 41 U/L (22-51) 03/16/21 19:11 Urine Color YELLOW 03/17/21 01:45 Urine Clarity CLEAR (CLEAR) 03/17/21 01:45 Urine pH 6.0 PH (5.0-7.5) 03/17/21 01:45 Ur Specific [place] 1.020 (1.002-1.030) 03/17/21 01:45 Urine Protein TRACE mg/dL (NEGATIVE) 03/17/21 01:45 Urine Glucose (UA) NEGATIVE mg/dL (NEGATIVE) 03/17/21 01:45 Urine Ketones NEGATIVE mg/dL (NEGATIVE) 03/17/21 01:45 Urine Occult Blood SMALL (NEGATIVE) H 03/17/21 01:45 Urine Nitrite NEGATIVE (NEGATIVE) 03/17/21 01:45 Urine Bilirubin NEGATIVE (NEGATIVE) 03/17/21 01:45 Urine Urobilinogen 0.2 (NORMAL) E.U./dL (NORMAL) 03/17/21 01:45 Ur Leukocyte Esterase NEGATIVE (NEGATIVE) 03/17/21 01:45 Urine RBC 0-5 /HPF (0-5) 03/17/21 01:45 Urine WBC 0-3 /HPF (0-5) 03/17/21 01:45 Ur Squamous Epith Cells MOD Squamous (<= Few) H 03/17/21 01:45 Urine Bacteria Rare /HPF (None Seen) 03/17/21 01:45 Urine Mucus Few Strands 03/17/21 01:45 Ur Microscopic Review INDICATED 03/17/21 01:45 Urine Culture Comments NOT INDICATED 03/17/21 01:45 Nasal Adenovirus (PCR) NOT DETECTED 03/16/21 20:57 Nasal B. parapertussis DNA (PCR) NOT DETECTED 03/16/21 20:57 Nasal Coronavir 229E PCR NOT DETECTED 03/16/21 20:57 Nasal Coronavir HKU1 PCR NOT DETECTED 03/16/21 20:57 Nasal Coronavir NL63 PCR NOT DETECTED 03/16/21 20:57 Nasal Coronavir OC43 PCR NOT DETECTED 03/16/21 20:57 Nasal Enterovir/Rhinovir PCR NOT DETECTED 03/16/21 20:57 Nasal Influenza B PCR NOT DETECTED 03/16/21 20:57 Nasal Influenza A PCR NOT DETECTED 03/16/21 20:57 Nasal Parainfluen 1 PCR NOT DETECTED 03/16/21 20:57 Nasal Parainfluen 2 PCR NOT DETECTED 03/16/21 20:57 Nasal Parainfluen 3 PCR NOT DETECTED 03/16/21 20:57 Nasal Parainfluen 4 PCR NOT DETECTED 03/16/21 20:57 Nasal RSV (PCR) NOT DETECTED 03/16/21 20:57 Nasal Screen MRSA (PCR) NEGATIVE (NEGATIVE) 03/16/21 21:40 Nasal B.pertussis DNA PCR NOT DETECTED 03/16/21 20:57 Nasal C.pneumoniae (PCR) NOT DETECTED 03/16/21 20:57 Hussein Human Metapneumo PCR NOT DETECTED 03/16/21 20:57 Nasal M.pneumoniae (PCR) NOT DETECTED 03/16/21 20:57 Nasal SARS-CoV-2 (PCR) NOT DETECTED 03/16/21 20:57 Blood Type A POSITIVE 03/18/21 08:58 Blood Type Recheck A POSITIVE 03/18/21 05:11 Antibody Screen NEGATIVE 03/18/21 08:58 Crossmatch IS Only See Detail 03/18/21 08:58 - Procedures Procedures: Procedures RELEASE PERITONEUM, OPEN APPROACH (07/02/18) RELEASE SMALL INTESTINE, OPEN APPROACH (07/02/18) REPAIR ABDOMINAL WALL, OPEN APPROACH (07/02/18)
[2021-03-24] MEDS: PANTOPRAZOLE 40 MG TABLET PO SCH (20:27)
[2021-03-25] MEDS: SODIUM CHLORIDE FLUSH 0.9% 10 ML SYRINGE IVP PRN (05:03)
[2021-03-25] MEDS: SODIUM CHLORIDE FLUSH 0.9% 10 ML SYRINGE IVP SCH ×3 (05:03→16:21)
[2021-03-25 05:17] LABS: HCT - HEMATOCRIT 25.4 % (37.0-47.0); HGB - HEMOGLOBIN 8.1 g/dL (12.0-16.0); MEAN CORPUSCULAR HEMOGLOBIN 29.1 pg (27.0-31.0); MEAN CORPUSCULAR HGB CONC 31.9 g/dL (32.0-36.0); MEAN CORPUSCULAR VOLUME 91.4 fL (81.0-99.0); MEAN PLATELET VOLUME 12.4 fL (7.9-10.8); RED BLOOD COUNT 2.78 10^6/uL (4.20-5.40); RED CELL DISTRIBUTION WIDTH 16.4 % (12.0-15.0); WHITE BLOOD COUNT 7.6 x10^3/uL (4.8-10.8)
[2021-03-25 05:26] LABS: CALCIUM 8.6 mg/dL (8.5-10.3); CREATININE 1.1 mg/dL (0.4-1.0); POTASSIUM 3.9 mmol/L (3.5-5.0)
[2021-03-25] MEDS: SUCRALFATE 1 GM/10 ML UDC PO SCH ×4 (06:33→21:47)
--- NOTE | 2021-03-25 07:49 | PROVIDER PROGRESS NOTE ---
Subjective - Prog Note Date Prog Note Date: 03/25/21 Prog Note Time: 13:17 - Subjective Pt reports feeling: Improved Subjective: She is still in the ICU as a MedSur border since 03/24. She has been working with physical therapy to get her strength up. But had sudden onset of left ankle pain yesterday evening. No trauma. This morning she cannot weight-bear and the pain is getting worse. There is no swelling. No bruising. Heart rate occasionally bumps up above 100. She is on oral Cardizem and metoprolol as well as as needed IV metoprolol. Current Medications - Current Medications Current Medications: Active Medications Acetaminophen (Acetaminophen 325 Mg Tablet) 650 mg PO Q4HR PRN PRN Reason: Pain or Fever > 38C (100.4F) Diltiazem HCl (Diltiazem Cd 180 Mg Capsule) 180 mg PO BID [facility] Last Admin: 03/25/21 08:38 Dose: 180 mg Sodium Chloride (Normal Saline 0.9%) 500 mls @ 20 mls/hr IV Q24H PRN PRN Reason: TKO RATE Last Infusion: 03/23/21 16:00 Dose: Infused Insulin Aspart (Insulin Aspart 300 Unit/3 Ml Pen) 3 - 11 unit SUBQ 0800,1200,1700,2100 [facility]; Protocol Last Admin: 03/25/21 12:07 Dose: Not Given Metoprolol Succinate (Metoprolol Succinate 25 Mg Tablet) 25 mg PO 0800,1800 [facility] Last Admin: 03/25/21 08:38 Dose: 25 mg Metoprolol Tartrate (Metoprolol 5 Mg/5 Ml Vial) 5 mg IVP Q8H PRN PRN Reason: Tachycardia Last Admin: 03/24/21 06:57 Dose: 5 mg Ondansetron HCl (Ondansetron 4 Mg/2 Ml Vial) 4 mg IVP Q6HR PRN PRN Reason: Nausea / Vomiting Last Admin: 03/17/21 09:32 Dose: 4 mg Oxycodone HCl (Oxycodone 5 Mg Tablet) 5 mg PO Q4HR PRN PRN Reason: PAIN Pantoprazole Sodium (Pantoprazole 40 Mg Tablet) 40 mg PO BID [facility] Last Admin: 03/25/21 08:38 Dose: 40 mg Phenol/Menthol (Phenol Throat [place] 177 Ml) 2 sprays MM Q2HR PRN PRN Reason: Throat Pain Last Admin: 03/22/21 06:46 Dose: 2 sprays Sodium Chloride (Sodium Chloride Flush 0.9% 10 Ml Syringe) 10 ml IVP 0100,0900,1700 [facility] Last Admin: 03/25/21 10:33 Dose: 30 ml Sodium Chloride (Sodium Chloride Flush 0.9% 10 Ml Syringe) 10 ml IVP PRN PRN PRN Reason: NEEDED PER PROVIDER ORDERS Last Admin: 03/24/21 06:57 Dose: 10 ml Sodium Chloride (Sodium Chloride Flush 0.9% 10 Ml Syringe) 20 ml IVP PRN PRN PRN Reason: After Blood Draw Last Admin: 03/25/21 05:03 Dose: 20 ml Sucralfate (Sucralfate 1 Gm/10 Ml Udc) 1 gm PO 0700,1100,1600,2200 [facility] Last Admin: 03/25/21 12:07 Dose: 1 gm Diltiazem HCl [Cardizem Cd] 360 mg PO DAILY 12/17/18 Ocuvite Eye Vitamin 1 tab PO DAILY 12/17/18 Warfarin Sodium 3 mg PO MOFR@2100 12/17/18 Warfarin [Coumadin] 2 mg PO SUTUWETHSA@2100 12/17/18 lisinopriL [Lisinopril] 20 mg PO DAILY 12/17/18 Metformin HCl 500 mg PO BIDWM 08/08/19 Atorvastatin [Lipitor] 10 mg PO QPM 03/17/21 hydroCHLOROthiazide [Hydrodiuril] 25 mg PO DAILY 03/17/21 Objective - Vital Signs/Intake & Output Reviewed Vital Signs: Yes Vital Signs: Vital Signs x48h Temp Pulse Resp BP Pulse Ox 03/25/21 05:00 37.1 C 81 25 H 106/50 L 94 03/25/21 01:00 36.8 C 89 25 H 114/50 L 97 Intake & Output: Intake & Output 03/22/21 03/23/21 03/24/21 03/25/21 23:59 23:59 23:59 23:59 Intake Total 2338.999 2403.166 1050 Output Total 1900 1150 1600 Balance 240.791 7717.166 -550 - Objective General Appearance: positive: No acute distress, Alert, Other (Elderly, fatigued appearing female, sitting up in bed. I am seeing her for the first time since I was on service March 16. Nurse remarks that she is much, much less edematous) Eyes Bilateral: positive: PERRL ENT: positive: No signs of dehydration Neck: positive: No JVD. negative: Stiff neck Respiratory: positive: No respiratory distress, Other (Lung sounds markedly diminished at bases. Almost dull but no egophony). negative: Wheezes, Rales, Rhonchi Cardiovascular: positive: Irregularly irregular, Tachycardia (This morning when I saw her she was between 100-120 as her pulse bounced around. This was right after she got up to chair. Nursing reports that she slows down below 100 after that.) Abdomen: positive: Non-tender, No organomegaly, Nml bowel sounds - Lab Results Fish Bones: 03/25/21 05:05 03/25/21 05:05 Other Labs: Lab Results x24hrs 03/25/21 03/25/21 Range/Units 05:05 05:05 WBC 7.6 (4.8-10.8) x10^3/uL RBC 2.78 L (4.20-5.40) 10^6/uL Hgb 8.1 L (12.0-16.0) g/dL Hct 25.4 L (37.0-47.0) % MCV 91.4 (81.0-99.0) fL MCH 29.1 (27.0-31.0) pg MCHC 31.9 L (32.0-36.0) g/dL RDW 16.4 H (12.0-15.0) % Plt Count 184 (130-450) 10^3/uL MPV 12.4 H (7.9-10.8) fL Sodium 135 (135-145) mmol/L Potassium 3.9 (3.5-5.0) mmol/L Chloride 101 (101-111) mmol/L Carbon Dioxide 25 (21-32) mmol/L Anion Gap 9.0 (6-13) BUN 25 H (6-20) mg/dL Creatinine 1.1 H (0.4-1.0) mg/dL Estimated GFR (MDRD) 47 L (>89) Glucose 117 H (70-100) mg/dL Calcium 8.6 (8.5-10.3) mg/dL Assessment/Plan - Problem List (1) Acute on chronic renal insufficiency Impression: When she was admitted to the hospital her creatinine was 1.5. She peaked at 1.8 on March 18. When she was on regular IV fluids and TPN creatinine dropped to 0.8. Once TPN has stopped, her creatinine is climbing back up again to 1.1. Maintenance IV fluids normal saline at a KVO. Plan: Encourage at least 1 L intake of water Recheck creatinine tomorrow morning (2) Acute left ankle pain Impression: On examination there is no heat, redness, swelling. The ankle appears grossly normal. Pain is over the lateral malleolus. Plan: Check ankle film. I did discuss doing a boot to help stabilize her ankle but physical therapy feels that she will be "off balance" I would prefer her just to be in a simple Vicente wrap. We will also do rest, ice, compression, elevation (3) Atrial fibrillation with rapid ventricular response Impression: Patient has a history of A-fib with RVR and took Cardizem and Coumadin at home. She was unable to take her medication for 2-3 days prior to hospitalization due to nausea and vomiting. She has needed to be in ICU for Diltiazem drip while she was STRICT NPO status for managing her bleeding duodenal ulcer and gastric outlet obstruction. po Cardizem finally able to be resumed 03/24/21 We added Metoprolol po bid for more rate control 03/25/21 Will continue the iv Metoprolol pushes prn HR greater than 100. She will not be on Coumadin for at least a month, due to bleeding duod. ulcer, and probably lifelong no Counadin or anticoagulants. (4) Gastric outlet obstruction Impression: EGD was done on 03/18/21 and found a gastric outlet obstruction at the pylorus, that was caused by swelling of the intestinal wall around duodenal ulcer. NG was on for 6 days for decompression and was removed 03/22/21 and her diet has been advancing without n/v or abdominal pain. She was on tpn for a week, stopped 03/24/21 in the evening A soft diet is planned for a week per General Surgery, to prevent scrapping the bleeding ulcer. she is eating 25%-75% of her food. Anticipate dc once her rate control is stable and she is below 100 consistently. (5) Bleeding duodenal ulcer Impression: Patient has a history of gastric ulcers, since age 17. She has not been tested for H. pylori in the past and never received treatment. EGD done on 03/18/21 found old blood in the stomach and a duodenal ulcer with a clot over the ulcer and without active bleeding. Dr Molina has advised Protonix po bid for another week, then daily lifelong Continue to hold Coumadin for 1 month minimum but probably no anticoagulant lifelong. Dr Molina recommended an H. pylori w/u, since there was no sample taken at time of EGD to send for H pylori. A stool H pylori was ordered today. (6) Anemia Impression: Anemia was secondary to bleeding duodenal ulcer, found by EGD. At admission, she received 2 units of PRBC when Hgb dropped to 6.6. Transfusion improved the Hgb to 8.6 and it remains stable since then. 8.1 grams today. No reports of further bleeding from patient or bedside nurse. Continue to monitor for signs of active bleeding. Monitor H/H daily and transfuse if Hgb less than 7. Qualifiers: Other causes of anemia: acute posthemorrhagic (7) Diet-controlled diabetes mellitus Impression: Patient has a history of T2DM and takes Metformin 500mg BID at home. Her blood glucose was elevated on admission and her A1C was 5.7. Diet restarted w/ carb control, sliding scale Insulin coverage and transitioning to eating sliding scale with PO intake. March 23: 145, 222, 218, 260, 264 March 24: 108, 175, 173, 188 March 1: 101, 133 no change in orders today (8) HTN (hypertension) Impression: Patient has a history of hypertension but her home lisinopril and diuretic were held due to the acute kidney injury and her NPO status on admission. Cardizem drip was used and now oral Cardizem and Lopressor are controlling her BP. (9) Chest pain Impression: Resolved. Patient complained of chest pain at presentation, that was suspected to be related to rapid A. fib, but it is more likely from a gastric etiology. Resolved
[2021-03-25] MEDS: INSULIN ASPART 300 UNIT/3 ML PEN SUBQ SCH ×4 (08:37→20:13)
[2021-03-25] MEDS: PANTOPRAZOLE 40 MG TABLET PO SCH ×2 (08:38→20:07)
[2021-03-25] MEDS: METOPROLOL SUCCINATE 25 MG TABLET PO SCH ×2 (08:38→17:19)
[2021-03-25] MEDS: diltiaZEM CD 180 MG CAPSULE PO SCH ×2 (08:38→20:07)
[2021-03-25] MEDS ORDERED: oxyCODONE 5 MG TABLET PO PRN (12:53)
--- NOTE | 2021-03-25 13:36 | XRAY Report ---
PROCEDURE: Ankle 2 View LT INDICATIONS: sudden ankle pain and can't wt bear. no trauma TECHNIQUE: 2 views of the ankle were acquired. COMPARISON: None. FINDINGS: Bones: No fractures or dislocations. Ankle mortise is normally aligned. Osteoarthritic changes are noted throughout ankle and hindfoot joints. Well-defined plantar calcaneal enthesophyte seen. No susp icious bony lesions. Soft tissues: Mild soft tissue swelling around ankle joint is seen. No tibiotalar joint effusion. Ac hilles tendon appears normal. IMPRESSION: No acute ankle fracture or dislocation. Ankle and hindfoot joint osteoarthritis. No susp icious bony lesion. Mild ankle soft tissue swelling. Reviewed by: Billy Huff MD on 03/25/2021 1:35 PM PST Approved by: Billy Huff MD on 03/25/2021 1:35 PM PST Station ID: [id number]
[2021-03-25 14:12] LABS: H. PYLORIS ANTIGEN STL NEGATIVE (Negative)
[2021-03-25] MEDS: ACETAMINOPHEN 325 MG TABLET PO PRN ×3 (15:03→23:57)
[2021-03-26] MEDS: ACETAMINOPHEN 325 MG TABLET PO PRN ×2 (03:30→18:29)
[2021-03-26] MEDS: SODIUM CHLORIDE FLUSH 0.9% 10 ML SYRINGE IVP SCH ×3 (04:25→18:29)
[2021-03-26] MEDS: SODIUM CHLORIDE FLUSH 0.9% 10 ML SYRINGE IVP PRN (04:25)
[2021-03-26 05:49] LABS: HCT - HEMATOCRIT 23.3 % (37.0-47.0); HGB - HEMOGLOBIN 7.4 g/dL (12.0-16.0); MEAN CORPUSCULAR HEMOGLOBIN 28.8 pg (27.0-31.0); MEAN CORPUSCULAR HGB CONC 31.8 g/dL (32.0-36.0); MEAN CORPUSCULAR VOLUME 90.7 fL (81.0-99.0); RED BLOOD COUNT 2.57 10^6/uL (4.20-5.40); RED CELL DISTRIBUTION WIDTH 16.6 % (12.0-15.0)
[2021-03-26 05:56] LABS: CALCIUM 8.3 mg/dL (8.5-10.3); CREATININE 1.3 mg/dL (0.4-1.0); POTASSIUM 3.8 mmol/L (3.5-5.0)
[2021-03-26] MEDS: SUCRALFATE 1 GM/10 ML UDC PO SCH ×4 (06:34→22:22)
[2021-03-26] MEDS: METOPROLOL SUCCINATE 25 MG TABLET PO SCH ×2 (09:26→17:45)
[2021-03-26] MEDS: diltiaZEM CD 180 MG CAPSULE PO SCH ×2 (09:27→21:00)
[2021-03-26] MEDS: PANTOPRAZOLE 40 MG TABLET PO SCH ×2 (09:27→21:00)
[2021-03-26] MEDS: INSULIN ASPART 300 UNIT/3 ML PEN SUBQ SCH ×4 (09:29→20:58)
--- NOTE | 2021-03-26 17:23 | PROVIDER PROGRESS NOTE ---
Subjective - Prog Note Date Prog Note Date: 03/26/21 Prog Note Time: 17:24 - Subjective Subjective: Ankle pain is the thing that bothers her the most. Again it started on the evening of March 24. Yesterday's plain ankle film did not show any fracture. It hurts to weight-bear. Impeding her ability to work with physical therapy. Appetite is poor. But she ate 50% of breakfast yesterday, and 100% of lunch, dinner. 100% of breakfast this morning. No documentation of what she did with lunch. There is no nausea, vomiting. She denies chest pain, shortness of breath. Just has a poor appetite,. No abdominal pain. Current Medications - Current Medications Current Medications: Active Medications Acetaminophen (Acetaminophen 325 Mg Tablet) 650 mg PO Q4HR PRN PRN Reason: Pain or Fever > 38C (100.4F) Last Admin: 03/26/21 03:30 Dose: 650 mg Diltiazem HCl (Diltiazem Cd 180 Mg Capsule) 180 mg PO BID [facility] Last Admin: 03/26/21 09:27 Dose: 180 mg Sodium Chloride (Normal Saline 0.9%) 500 mls @ 20 mls/hr IV Q24H PRN PRN Reason: TKO RATE Last Infusion: 03/23/21 16:00 Dose: Infused Insulin Aspart (Insulin Aspart 300 Unit/3 Ml Pen) 3 - 11 unit SUBQ 0800,1200,1700,2100 [facility]; Protocol Last Admin: 03/26/21 12:27 Dose: 3 unit Metoprolol Succinate (Metoprolol Succinate 25 Mg Tablet) 25 mg PO 0800,1800 [facility] Last Admin: 03/26/21 09:26 Dose: Not Given Metoprolol Tartrate (Metoprolol 5 Mg/5 Ml Vial) 5 mg IVP Q8H PRN PRN Reason: Tachycardia Last Admin: 03/24/21 06:57 Dose: 5 mg Ondansetron HCl (Ondansetron 4 Mg/2 Ml Vial) 4 mg IVP Q6HR PRN PRN Reason: Nausea / Vomiting Last Admin: 03/17/21 09:32 Dose: 4 mg Oxycodone HCl (Oxycodone 5 Mg Tablet) 5 mg PO Q4HR PRN PRN Reason: PAIN Pantoprazole Sodium (Pantoprazole 40 Mg Tablet) 40 mg PO BID [facility] Last Admin: 03/26/21 09:27 Dose: 40 mg Phenol/Menthol (Phenol Throat [place] 177 Ml) 2 sprays MM Q2HR PRN PRN Reason: Throat Pain Last Admin: 03/22/21 06:46 Dose: 2 sprays Sodium Chloride (Sodium Chloride Flush 0.9% 10 Ml Syringe) 10 ml IVP 0100,0900,1700 [facility] Last Admin: 03/26/21 09:27 Dose: 10 ml Sodium Chloride (Sodium Chloride Flush 0.9% 10 Ml Syringe) 10 ml IVP PRN PRN PRN Reason: NEEDED PER PROVIDER ORDERS Last Admin: 03/24/21 06:57 Dose: 10 ml Sodium Chloride (Sodium Chloride Flush 0.9% 10 Ml Syringe) 20 ml IVP PRN PRN PRN Reason: After Blood Draw Last Admin: 03/26/21 04:25 Dose: 20 ml Sucralfate (Sucralfate 1 Gm/10 Ml Udc) 1 gm PO 0700,1100,1600,2200 [facility] Last Admin: 03/26/21 11:44 Dose: 1 gm Diltiazem HCl [Cardizem Cd] 360 mg PO DAILY 12/17/18 Ocuvite Eye Vitamin 1 tab PO DAILY 12/17/18 Warfarin Sodium 3 mg PO MOFR@209912/17/18 Warfarin [Coumadin] 2 mg PO SUTUWETHSA@209912/17/18 lisinopriL [Lisinopril] 20 mg PO DAILY 12/17/18 Metformin HCl 500 mg PO BIDWM 08/08/19 Atorvastatin [Lipitor] 10 mg PO QPM 03/17/21 hydroCHLOROthiazide [Hydrodiuril] 25 mg PO DAILY 03/17/21 Objective - Vital Signs/Intake & Output Reviewed Vital Signs: Yes Vital Signs: Vital Signs x48h Temp Pulse Resp BP Pulse Ox 03/26/21 16:49 36.6 C 88 18 147/60 H 100 03/26/21 13:00 37 C 84 20 111/63 97 03/26/21 09:32 36.8 C 76 18 104/57 L 100 Intake & Output: Intake & Output 03/23/21 03/24/21 03/25/21 03/26/21 23:59 23:59 23:59 23:59 Intake Total 2403.166 1050 1170 540 Output Total 1150 1600 600 300 Balance 1253.166 -550 570 240 - Objective General Appearance: positive: No acute distress, Alert, Other (eldelry white female, sitting up in bed. Ankle in vicente wrap adn occ some ice.) Eyes Bilateral: positive: PERRL, EOMI ENT: positive: No signs of dehydration Neck: positive: No JVD. negative: Stiff neck Respiratory: positive: No respiratory distress. negative: Wheezes, Rales, Rhonchi Cardiovascular: positive: Regular rate & rhythm. negative: Gallop/S4, Friction rub Abdomen: positive: Non-tender, No organomegaly, Nml bowel sounds, No distention Skin: positive: Warm, Dry Extremities: positive: Full ROM, Pedal edema (around left ankle malleoli, tender to touch but no redness or heat) Neurologic/Psychiatric: positive: Oriented x3, CN's nml (2-12), Motor nml - Lab Results Fish Bones: 03/26/21 04:25 03/26/21 04:25 Other Labs: Lab Results x24hrs 03/26/21 03/26/21 Range/Units 04:25 04:25 WBC 6.0 (4.8-10.8) x10^3/uL RBC 2.57 L (4.20-5.40) 10^6/uL Hgb 7.4 L (12.0-16.0) g/dL Hct 23.3 L (37.0-47.0) % MCV 90.7 (81.0-99.0) fL MCH 28.8 (27.0-31.0) pg MCHC 31.8 L (32.0-36.0) g/dL RDW 16.6 H (12.0-15.0) % Plt Count 182 (130-450) 10^3/uL MPV 13.0 H (7.9-10.8) fL Sodium 135 (135-145) mmol/L Potassium 3.8 (3.5-5.0) mmol/L Chloride 103 (101-111) mmol/L Carbon Dioxide 25 (21-32) mmol/L Anion Gap 7.0 (6-13) BUN 28 H (6-20) mg/dL Creatinine 1.3 H (0.4-1.0) mg/dL Estimated GFR (MDRD) 39 L (>89) Glucose 136 H (70-100) mg/dL Calcium 8.3 L (8.5-10.3) mg/dL Assessment/Plan - Problem List (1) Acute on chronic renal insufficiency Impression: When she was admitted to the hospital her creatinine was 1.5. She peaked at 1.8 on March 18. When she was on regular IV fluids and TPN creatinine dropped to 0.8. Once TPN has stopped, her creatinine is climbing back up again to 1.1. Maintenance IV fluids normal saline at a KVO. Even w encouragement to increase po intake of water, creat is 1.3 today. I reviewed her med list and no vancomycin or renal toxic meds. The last 3 days have 500cc to 1 liter positive I/O. Plan: IVF overnight. Recheck creatinine tomorrow morning (2) Acute left ankle pain Impression: On examination there is no heat, redness, swelling. The ankle appears grossly normal. Pain is over the lateral malleolus. Plan: Check ankle film. I did discuss doing a boot to help stabilize her ankle but physical therapy feels that she will be "off balance" I would prefer her just to be in a simple Vicente wrap. We will also do rest, ice, compression, elevation (3) Atrial fibrillation with rapid ventricular response Impression: Patient has a history of A-fib with RVR and took Cardizem and Coumadin at home. She was unable to take her medication for 2-3 days prior to hospitalization due to nausea and vomiting. She has needed to be in ICU for Diltiazem drip while she was STRICT NPO status for managing her bleeding duodenal ulcer and gastric outlet obstruction. po Cardizem finally able to be resumed 03/24/21 We added Metoprolol po bid for more rate control 03/25/21 Will continue the iv Metoprolol pushes prn HR greater than 100. Between yesterday and today, rate is consistently <100 now. She will not be on Coumadin for at least a month, due to bleeding duod. ulcer, and probably lifelong no Counadin or anticoagulants. (4) Gastric outlet obstruction Impression: EGD was done on 03/18/21 and found a gastric outlet obstruction at the pylorus, that was caused by swelling of the intestinal wall around duodenal ulcer. NG was on for 6 days for decompression and was removed 03/22/21 and her diet has been advancing without n/v or abdominal pain. She was on tpn for a week, stopped 03/24 in the evening A soft diet is planned for a week per General Surgery, to prevent scrapping the bleeding ulcer. she was eating 25%-75% of her food and has improved from yesterday to today's 100%. Anticipate dc once her rate control is stable and she is below 100 consistently. (5) Bleeding duodenal ulcer Impression: Patient has a history of gastric ulcers, since age 17. She has not been tested for H. pylori in the past and never received treatment. EGD done on 03/18/21 found old blood in the stomach and a duodenal ulcer with a clot over the ulcer and without active bleeding. Dr Molina has advised Protonix po bid for another week, then daily lifelong Continue to hold Coumadin for 1 month minimum but probably no anticoagulant lifelong. Dr Molina recommended an H. pylori w/u, since there was no sample taken at time of EGD to send for H pylori. A stool H pylori was ordered and it is pending. (6) Anemia Impression: Anemia was secondary to bleeding duodenal ulcer, found by EGD. At admission, she received 2 units of PRBC when Hgb dropped to 6.6. Transfusion improved the Hgb to 8.6 and it remains stable since then. 8.1 grams yesterday and 7.4 grams today. No reports of further bleeding from patient or bedside nurse. Continue to monitor for signs of active bleeding (there is no dark stool, BP stable, pulse stable, no nausea). Monitor H/H daily and transfuse if Hgb less than 7. Qualifiers: Other causes of anemia: acute posthemorrhagic (7) Diet-controlled diabetes mellitus Impression: Patient has a history of T2DM and takes Metformin 500mg BID at home. Her blood glucose was elevated on admission and her A1C was 5.7. Diet restarted w/ carb control, sliding scale Insulin coverage and transitioning to eating sliding scale with PO intake. March 23: 145, 222, 218, 260, 264 March 24: 108, 175, 173, 188 March 1: 101, 133, 180, 159 March 2: 108, 174, 139 no change in orders today (8) HTN (hypertension) Impression: Patient has a history of hypertension but her home lisinopril and diuretic were held due to the acute kidney injury and her NPO status on admission. Cardizem drip was used and now oral Cardizem and Lopressor are controlling her BP. (9) Chest pain Impression: Resolved. Patient complained of chest pain at presentation, that was suspected to be related to rapid A. fib, but it is more likely from a gastric etiology. Resolved
[2021-03-26] MEDS ORDERED: SODIUM CHLORIDE 0.9% 500 ML IV PRN (17:30)
[2021-03-27] MEDS: SODIUM CHLORIDE FLUSH 0.9% 10 ML SYRINGE IVP SCH ×2 (00:21→08:47)
[2021-03-27] MEDS: SUCRALFATE 1 GM/10 ML UDC PO SCH ×2 (06:33→12:47)
[2021-03-27 06:43] LABS: CALCIUM 8.1 mg/dL (8.5-10.3); CREATININE 1.2 mg/dL (0.4-1.0); POTASSIUM 3.7 mmol/L (3.5-5.0)
[2021-03-27 07:53] LABS: BASOPHILS % (AUTO) 0.6 %; EOSINOPHILS % (AUTO) 0.6 %; HCT - HEMATOCRIT 24.6 % (37.0-47.0); HGB - HEMOGLOBIN 7.9 g/dL (12.0-16.0); LYMPHOCYTES # (AUTO) 0.9 10^3/uL (1.5-3.5); LYMPHOCYTES % (AUTO) 18.1 %; MEAN CORPUSCULAR HEMOGLOBIN 29.2 pg (27.0-31.0); MEAN CORPUSCULAR HGB CONC 32.1 g/dL (32.0-36.0); MEAN CORPUSCULAR VOLUME 90.8 fL (81.0-99.0); MEAN PLATELET VOLUME 12.4 fL (7.9-10.8); MONOCYTES # (AUTO) 0.3 10^3/uL (0.0-1.0); MONOCYTES % (AUTO) 6.6 %; NEUTROPHILS # (AUTO) 3.8 10^3/uL (1.5-6.6); NEUTROPHILS % (AUTO) 73.3 %; PLT - PLATELET COUNT 230 10^3/uL (130-450); RED BLOOD COUNT 2.71 10^6/uL (4.20-5.40); RED CELL DISTRIBUTION WIDTH 16.5 % (12.0-15.0); WHITE BLOOD COUNT 5.2 x10^3/uL (4.8-10.8)
[2021-03-27] MEDS: METOPROLOL SUCCINATE 25 MG TABLET PO SCH (08:46)
[2021-03-27] MEDS: diltiaZEM CD 180 MG CAPSULE PO SCH (08:46)
[2021-03-27] MEDS: INSULIN ASPART 300 UNIT/3 ML PEN SUBQ SCH ×2 (08:46→12:48)
[2021-03-27] MEDS: PANTOPRAZOLE 40 MG TABLET PO SCH (08:47)
--- NOTE | 2021-03-27 10:23 | Discharge Plan ---
Discharge Plan Problem Reviewed?: Yes Disposition: Home Health Service Condition: Stable Prescriptions: Ferrous Gluconate 324 mg PO DAILY #30 tablet Pantoprazole [Protonix] 40 mg PO BID #60 tablet Metoprolol Succinate [Toprol Xl] 25 mg PO 0800,1800 #60 tablet Diet: Regular Activity Restrictions: Activity as Tolerated Shower Restrictions: No Driving Restrictions: No Assistance Devices: Walker Instruction Topics: Metoprolol tablets, Diltiazem extended-release capsules or tablets, Gastric Ulcer Health Concerns: You have atrial fibrillation and are taking a large dose of Cardizem to slow down her heart rate. You also have diabetes. When you have nausea and vomiting, you are unable to take her medications. You already had an episode in 2019 associated with nausea and vomiting in the context of a small bowel obstruction. Without taking your Cardizem, you went into a very fast heart rate with her atrial fibrillation. Once you go back on your medicines you do okay. You began having abdominal pain and discomfort for a few days. Then you started having horacio nausea and vomiting. An episode of diarrhea. You were again unable to take your medicines and your heart rate became very fast. In the emergency room you again had atrial fibrillation with rapid ventricular response. Your heart rate was close to 180. We were able to slow down your heart rate with intravenous medication. We gave you intravenous Cardizem as well as intravenous metoprolol. We thought you were going to be able to send you home but then you developed nausea and vomiting again. We did an x-ray and found you to have blockage where your stomach empties into your bowel. This resulted in an endoscopy and we found you to have an old scar down ulcer that had been recently bleeding. The swelling from the ulcer had caused such severe blockage that food and pills were not going through your stomach causing the nausea and vomiting. Because you could not eat, we gave you intravenous food through one of your veins. This lasted for about 4 or 5 days. You were finally able to tolerate eating small amounts of very soft mechanical food. You have been doing that for a few days and having normal bowel movements. No nausea or vomiting. It took us a few more days to get your heart rate under control and you are now under control with the Cardizem and a new medicine of metoprolol twice a day. Plan of Treatment: 1. Being ill for so long has left you very weak and deconditioned. As such we are discharging you with home health: for a nurse to see you and make sure that you are eating; a physical therapist to see you to make sure you are doing exercise to get you stronger; social work to see you to make sure that you are not needing more services; and a bath aide to help you take a bath and keep you safe while you take a bath. 2. I did ask you to sit down and have a conversation with your daughter. I am asking you to discuss future plans. You are 86 years old and there may come a time when you cannot take care of yourself. Options are: A. Continuing to live in your own home and hiring people to take care of you 14/09 (you state you do not have that kind of money) B. [place]. You also state that you do not have enough money for that. C. Moving to a snf. In order to afford that you would have to sell all of your assets to pay that monthly bill and then you would have to apply for Medicaid so that Medicaid would pay for you to be in a snf. D. Your daughter has offered her home for you to live in. You would have your own apartment. You hesitate to do that because you do not want to live in [place]. I have asked you to sit down and talk to her daughter about all your options to see what is best for you. E. Please also discuss whether you want life support at the end of life when you heart has stopped or you stop breathing. Are there any circumstances where you would want every thing done, or not want everything done? Since your daughter is your power of corporate attorney, it would help her make decisions when you can no longer make decisions. 3. Because you have been diagnosed with severe ulcer disease, you can never take an anti-inflammatory pill again. You cannot take aspirin, ibuprofen, Naprosyn, Aleve, etc. We would not recommend that you take Celebrex or medications like Celebrex. There are other anti-inflammatories. The only pill that you can take for pain and inflammation is Tylenol or acetaminophen. 4. Dr. Molina, the General Surgeon, would like you to take the ulcer healing pill twice a day for a month. So Protonix twice a day has been called into the pharmacy. On April 16 you can change to Protonix once a day for the rest of your life. 5. Because your ulcer is still healing, Dr. Landaverde would prefer you not take Coumadin for the next month. She is afraid that you will have more bleeding from an ulcer if you continue the Coumadin. As such, you could go back to taking your Coumadin on April 16. 6. We would asked that you see your primary care provider, Dr. Jon, in the next week. We need you to have be checked for anemia. We are aiming for 12 g of hemoglobin and it may take a while for you to get there since you are so anemic. I would like him to check a CBC and a CMP. 7. Because you are so anemic, and it is iron deficiency anemia from GI bleeding, I am asking you to start an iron tablet once a day. That has also been called into the pharmacy. 8. It took us a long time to get your heart rate under control. You are already on maximal therapy for Cardizem at 360 mg a day. We had to add a second pill called metoprolol. As you heal and your body goes back to normal, you may need less medication. As such, the second pill called metoprolol may not be needed. Make sure you check in carefully with Dr. Jon so that he can monitor your heart rate. Also the home health nurse should monitor your heart rate. If your heart rate gets too slow, we may need to stop the metoprolol. Care Goals: She would like to get back to a normal diet, and regain her strength to live independently. She will talk to her daughter about future plans. Assessment: Patient states that she will follow through. She is worried because her primary care provider is retiring. I have encouraged her to stay in that office. I explained that MILA Sibley; MILA Armstrong; and MILA Enciso are all in that office. There are other practitioners that she could switch to. Follow-Up Care: Home Health - RN, Home Health - PT No Smoking: If you smoke, Please STOP! Call for help. Follow-up with: Pasquale Jon MD [Primary Care Provider] -
--- NOTE | 2021-03-27 10:46 | DISCHARGE SUMMARY ---
"Discharge Summary Admit Date: 03/16/21 Discharge Date: 03/27/21 Discharging Provider: Amisha Palmer MD Primary Care Provider: Pasquale Jon MD Code Status: Attempt Resuscitation Condition at Discharge: Stable Discharge Disposition: [facility] - DIAGNOSES Discharge Diagnoses with Status of Each Condition: 1. Gastric outlet obstruction due to #2, Resolved 2. Gastric ulcer 3. Upper GI bleed due to gastric ulcer, Resolved 4. Acute blood loss anemia, Resolved 5. Acute on chronic kidney insufficiency, resolved 6. Acute pain left ankle 7. Type 2 diabetes mellitus with complication of peripheral neuropathy and not on long-term insulin 8. Atrial fibrillation with rapid ventricular response 9. Hypertension 10. Elevated WBC - HPI History of Present Illness: Patient is a pleasant 86 year old female who presented to the ER via EMS after feeling palpitations at her home. On Wednesday she ate fish and chips in town and felt sick to her stomach afterward. She has had a decreased appetite since that time as well as decreased fluid intake and decided to stop taking all her medications. She reports diarrhea at baseline that did not worsen, but she did report emesis last episode was 1 x earlier today. She felt increasingly tired and weak today and began to feel palpitations when she decided to call EMS. She states that after the paramedics gave her medication on the way to the hospital she immediately felt improvement. Her heart rate was reported in the 200s by EMS on arrival. She has been admitted for similar episodes in the past. She denies any current chest pain, shortness of breath, dizziness or loss of motor function. - Past Medical History Cardiovascular: reports: Hypertension, Arrhythmia (hx of afib) Respiratory: reports: Emphysema, Pneumonia Neuro: reports: Peripheral neuropathy Endocrine/Autoimmune: reports: Type 2 diabetes GI: reports: GERD, Ulcers, Chronic diarrhea, Other (small bowel obstruction ) AVICULTURIST: reports: Endometriosis : reports: Incontinence, Renal insuffiency, Nocturia, Frequency HEENT: reports: Chronic vision loss, Chronic sinusitis Psych: reports: None Musculoskeletal: reports: Osteoarthritis Derm: reports: None MRSA Hx?: No - Past Surgical History General: reports: Appendectomy, Gastric surgery, Other /AVICULTURIST: reports: Hysterectomy, Oophrectomy - CONSULTS | PROCEDURES Procedures: 1. March 16 abdomen x-ray with gaseous distention of the stomach, no dilated loops of bowel identified. 2. March [address] with marked distention of the stomach lumen with air-fluid levels. No gross gastric wall thickening or discrete mass. Concerning for gastroparesis. Gastric outlet obstruction. Colonic diverticulosis without evidence of diverticulitis. Small bowel and large bowel normal. Distal esophageal wall thickening and edema suggestive of esophagitis unchanged from prior study. Stable slightly atrophic bilateral kidneys with lobular contour and bilateral renal cyst. Ventral abdominal wall defect with moderate sized ventral hernia containing small bowel loops without incarceration. 3. March [address] with age-related senescent changes and sequela of chronic small vessel ischemic changes. No acute intracranial abnormality. 4. Chest x-ray March 17 and showing ET tube in place. Right-sided central venous catheter in place. Mild pulmonary vascular congestion and cardiomegaly. 5. Small bowel follow-through challenge showing no evidence of gastric outlet obstruction. 6. Ankle x-ray without acute fracture or dislocation. Osteoarthritis present. 7. Echocardiogram March 18 and compared to June 2018 and November 2018. She has mild aortic regurgitation. Normal right ventricle size and function. Mild concentric left ventricular hypertrophy with normal systolic ejection fraction of 70%. Left atrium severely dilated. Atrial fibrillation response throughout. - HOSPITAL COURSE Hospital Course: The patient initially improved when she was placed in the ICU on a diltiazem drip. Heart rate started to slow and nausea and vomiting improved. However, overnight she had hematemesis and became obtunded. INR went to 4. And hemoglobin dropped to 6.6. As such she was transfused 2 units, received aggressive fluid resuscitation for hypovolemia, and had an NG tube placed. Surgery was consulted for an EGD and she underwent an EGD on March 18. She has a history of gastric ulcers and esophagitis. This was already an known problem. On a patient with Coumadin. With his current EGD she had gastric ulcer at the exit of her stomach near her duodenum. The surrounding heaped up tissue and edema had resulted in a gastric outlet obstruction. She no longer required more transfusion. She was placed on twice daily proton pump inhibitors, n.p.o. status and fed TPN, sucralfate. General surgery felt that they did not want anything disrupting any healing of her stomach and that is why she was on TPN. After a few days of TPN she was gradually introduced to soft mechanical diet. She tolerated that well. Oral medications were resumed in the form of Cardizem but she needed metoprolol to further control her rate. She is at her usual baseline dose of Cardizem CD 360 mg. And to maintain [id number] beta-mine coverage she is on metoprolol XL twice daily. At discharge explained to the patient that she cannot take any nonsteroidal therapy, ever. She was to be on a proton pump inhibitor for the rest of her life. She will be on a twice daily dose for the next month and then can go to daily. She also cannot take Coumadin for the next month because the risk of GI bleeding. General surgery would like her to be off Coumadin until approximately April 16. That is when she can go on to once a day proton pump inhibitor.Ad mission hemoglobin was 13.8. With hematemesis and GI bleed she drifted to 6.6 g of hemoglobin. With 2 units of blood transfused she peaked at 8.5 g of hemoglobin. At discharge she is 7.9. I have recommended iron to be taken daily. She had sudden onset of left ankle pain. There was no trauma, no twisting of her ankle. She was working with physical therapy one day, doing quite well. That night she said that she felt pain while she was in bed. The next day she found it very difficult to weight-bear. Physical therapy work with her. Plain film was done and no fracture. She appeared to have a right ankle sprain which was treated with rest, ice, compression with Vicente wrap, and elevation. She needs to see her primary care provider in follow-up in the next week or so. She needs a CBC and a BMP. She is 86 years old and has become significantly deconditioned with her hospital stay. She is back to mental status baseline. Alert oriented and cooperative. I have discharged her with home health: RN, PT, social work, bath aide. She currently lives alone and has not made any plans ab out the future if she becomes more disabled I have asked her to have a conversation with her daughter/power of divorce attorney about future plans. At discharge she is alert, oriented. Lucid speech. Good historian. Following commands. She is 4 4 feet, 11 inches. 66 kg. She is a eder, short statured elderly female with a halo of marinelli hair, large black glasses. Normal speech. Neck is supple. Lungs are clear to auscultation and percussion. There is no labored respiration with getting up to walk to the bathroom or to speak to me.However she is weak. Needs to hold onto the bed and study herself. Uses a walker to walk around in the room. Vicente wrap around the left ankle that she is limping off of just a tad. Greater than 30 minutes was spent coordinating discharge. - ALLERGIES Allergies/Adverse Reactions: Allergies Allergy/AdvReac Type Severity Reaction Status Date / Time iodine Allergy Hives Verified 12/16/18 11:39 - MEDICATIONS Home Medications: Ambulatory Orders Medication Instructions Recorded Confirmed Diltiazem HCl [Cardizem Cd] 360 mg PO DAILY 12/17/18 03/17/21 Ocuvite Eye Vitamin 1 tab PO DAILY 12/17/18 03/17/21 lisinopriL [Lisinopril] 20 mg PO DAILY 12/17/18 03/17/21 Metformin HCl 500 mg PO BIDWM 08/08/19 03/17/21 Atorvastatin [Lipitor] 10 mg PO QPM 03/17/21 03/17/21 hydroCHLOROthiazide [Hydrodiuril] 25 mg PO DAILY 03/17/21 03/17/21 Acetaminophen [Tylenol] 650 mg PO Q4HR PRN tablet 03/27/21 Ferrous Gluconate 324 mg PO DAILY #30 tablet 03/27/21 Metoprolol Succinate [Toprol Xl] 25 mg PO 0800,1800 #60 tablet 03/27/21 Pantoprazole [Protonix] 40 mg PO BID #60 tablet 03/27/21 Walker [Ultra-Light Rollator] 1 each MC DAILY #1 each 03/27/21 - LABS Result Diagrams: 03/27/21 07:23 03/27/21 06:28"
--- NOTE | 2021-03-27 11:29 | ADVANCE CARE PLANNING NOTE ---
Advance Care Planning - Planning Encounter Date: 03/27/21 Time: 11:26 Purpose: establish care goals for the future Parties in Attendance: hospitalist and patient Decisional Capacity of the Patient: alert, oriented, lucid speech, lucid historian - Diagnosis for Encounter (1) Physical deconditioning Summary: Recent illness with stay in the ICU, diltiazem drip, EGD, GI bleed have left her weak, tired. Needing physical therapy. It is taken her several days to be able to get her strength back up to go to home. - Encounter Subjective/Patient's Story: She is an 86-year-old female who has had mainly small bowel obstructions and GI problems as the main cause of her worry. She does have diabetes mellitus with peripheral neuropathy but she finds that well controlled. Occasionally she is slow down by arthritis in her back and her hands. 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 Lives alone in a single wide trailer with her cat Sa lynne. 1 daughter lives nearby. Daughter does come by to help her. She does not use any durable medical equipment at home. She has a walk-in shower. She is independent with transfers, and up until now has been independent with all of her activities of daily living in spite of her disease status. It takes 2 steps to get up into her house. This hospital stay has left her very weak. She is needing physical therapy to help her. She is worried about the 2 steps into her trailer. And for some reason, her left ankle started hurting her quite badly while here. No history of trauma or twisting her ankle yet 1 night it started to hurt and become swollen. It is not agonizing Yosef painful, there is no redness or heat. Plain film is negative. Objective/Medical Story: Patient is a pleasant 86 year old female who presented to the ER via EMS after feeling palpitations at her home. On Wednesday she ate fish and chips in town and felt sick to her stomach afterward. She has had a decreased appetite since that time as well as decreased fluid intake and decided to stop taking all her medications. She reports diarrhea at baseline that did not worsen, but she did report emesis last episode was 1 x earlier today. She felt increasingly tired and weak today and began to feel palpitations when she decided to call EMS. She states that after the paramedics gave her medication on the way to the hospital she immediately felt improvement. Her heart rate was reported in the 200s by EMS on arrival. She has been admitted for similar episodes in the past. She denies any current chest pain, shortness of breath, dizziness or loss of motor function. - Past Medical History Cardiovascular: reports: Hypertension, Arrhythmia (hx of afib) Respiratory: reports: Emphysema, Pneumonia Neuro: reports: Peripheral neuropathy Endocrine/Autoimmune: reports: Type 2 diabetes GI: reports: GERD, Ulcers, Chronic diarrhea, Other (small bowel obstruction ) WALKING DRAGLINE OILER: reports: Endometriosis : reports: Incontinence, Renal insuffiency, Nocturia, Frequency HEENT: reports: Chronic vision loss, Chronic sinusitis Psych: reports: None Musculoskeletal: reports: Osteoarthritis Derm: reports: None MRSA Hx?: No - Past Surgical History General: reports: Appendectomy, Gastric surgery, Other /WALKING DRAGLINE OILER: reports: Hysterectomy, Oophrectomy Improved. Then began having more abdominal pain with hematemesis. Dropped hemoglobin to 6.6 and needed transfusion of 2 units. Found to have severe gastric outlet obstruction from an ulcer and it surrounding induration and erythema. She was kept n.p.o. and fed via TPN. That was stopped and transition on soft mechanical diet. Improving. In speaking to her about transition to home, she is planning to go home with her daughter to take care of her. Beyond that, however, she has not made any long-term plans about what she will do when she is disabled. Greater than 30-minute conversation had about her desires, and what she wished. Goals of Care: To get back to regular diet once her stomach has become less picky. She would like to remain in her home, independent, for as long as possible. She thinks that she will not live long enough to ever require alf facility or in-home care. Plan: In essence, the following is the conversation I had with the patient and put it in layman's terms to give her in writing: I did ask you to sit down and have a conversation with your daughter. I am asking you to discuss future plans. You are 86 years old and there may come a time when you cannot take care of yourself. Options are: A. Continuing to live in your own home and hiring people to take care of you 14/09 (you state you do not have that kind of money) B. [place]. You also state that you do not have enough money for that. C. Moving to a shelter. In order to afford that you would have to sell all of your assets to pay that monthly bill and then you would have to apply for Medicaid so that Medicaid would pay for you to be in a shelter. D. Your daughter has offered her home for you to live in. You would have your own apartment. You hesitate to do that because you do not want to live in [place]. I have asked you to sit down and talk to her daughter about all your options to see what is best for you. E. Please also discuss whether you want life support at the end of life when you heart has stopped or you stop breathing. Are there any circumstances where you would want every thing done, or not want everything done? Since your daughter is your power of consumer services consultant, it would help her make decisions when you can no longer make decisions. Code Status: Attempt Resuscitation Time spent on advance care plannin minutes
[2021-03-27 13:22] VITALS: BP 117/58
== END 2021-03-27 15:23 | disposition home health service (06) | DRG 380 ==
LOC: EDUNIT# → ED 18:47 → ICU 20:40 → OBSVTOIN 03-17 15:15 → MS2 03-26 18:39
PROVIDERS: ADMIT Specialist; ATTEND Specialist
PROC: 02HV33Z Insertion of Infusion Device into Superior Vena Cava, Percutaneous Approach (ICD-10-PCS; 2021-03-18)
PROC: 30233N1 Transfusion of Nonautologous Red Blood Cells into Peripheral Vein, Percutaneous Approach (ICD-10-PCS; 2021-03-18)
PROC: 0DJ08ZZ Inspection of Upper Intestinal Tract, Via Natural or Artificial Opening Endoscopic (ICD-10-PCS; principal; 2021-03-18 16:45)
PROC: 3E0336Z Introduction of Nutritional Substance into Peripheral Vein, Percutaneous Approach (ICD-10-PCS; 2021-03-20)
DX: K31.1 Adult hypertrophic pyloric stenosis (principal); K26.4 Chronic or unspecified duodenal ulcer with hemorrhage; D62 Acute posthemorrhagic anemia; N17.9 Acute kidney failure, unspecified; I24.8 Other forms of acute ischemic heart disease; D72.829 Elevated white blood cell count, unspecified; T50.916A Underdosing of multiple unspecified drugs, medicaments and biological substances, initial encounter; Z91.128 Patient's intentional underdosing of medication regimen for other reason; I48.91 Unspecified atrial fibrillation; R32 Unspecified urinary incontinence; R11.2 Nausea with vomiting, unspecified; Z20.822 Contact with and (suspected) exposure to COVID-19; E11.22 Type 2 diabetes mellitus with diabetic chronic kidney disease; M25.572 Pain in left ankle and joints of left foot; I12.9 Hypertensive chronic kidney disease with stage 1 through stage 4 chronic kidney disease, or unspecified chronic kidney disease; N18.9 Chronic kidney disease, unspecified; Z87.891 Personal history of nicotine dependence; Z79.01 Long term (current) use of anticoagulants; E11.42 Type 2 diabetes mellitus with diabetic polyneuropathy; Z79.84 Long term (current) use of oral hypoglycemic drugs; E86.0 Dehydration; R41.82 Altered mental status, unspecified; R79.1 Abnormal coagulation profile; J43.9 Emphysema, unspecified; K21.9 Gastro-esophageal reflux disease without esophagitis; E66.9 Obesity, unspecified; Z68.30 Body mass index [BMI] 30.0-30.9, adult; K57.30 Diverticulosis of large intestine without perforation or abscess without bleeding; M19.90 Unspecified osteoarthritis, unspecified site; E86.1 Hypovolemia; K52.9 Noninfective gastroenteritis and colitis, unspecified; R53.1 Weakness
CPT/HCPCS: 36415; 36600; 70450; 73600; 74018; 74177; 74250; 80048; 80053; 81001; 82272; 82330; 82803; 83036; 83690; 83735; 84100; 84132; 84134; 84478; 84484; 85014; 85018; 85025; 85027; 85610; 86850; 86900; 86901; 86920; 87150; 87338; 87631; 93005; 93306; 96365; 96366; 96376; 97116; 97161; 97165; 97530; 97535; 99231; 99284; 99285; A9270; G0378; J1200; J1815; J3490; J7040; J7120; P9016; Q9967; 0202U; 81003; 82310; 87086

== ENCOUNTER 2021-03-28 17:49 | Outpatient (CLI) | payer MEDICARE, OTHER | END 2021-03-28 17:50 | disposition critical access hospital (66) | LOC: EMS 17:49 | DX: R41.0 Disorientation, unspecified (principal); R09.02 Hypoxemia; R03.1 Nonspecific low blood-pressure reading | CPT/HCPCS: A0425; A0427 ==

== ENCOUNTER 2021-03-28 18:21 | Emergency (ER) | payer MEDICARE, OTHER ==
[2021-03-28] MEDS ORDERED: diltiaZEM INJ 5 MG/ML VIAL IVP STA ×2 (18:30→18:52)
--- NOTE | 2021-03-28 19:03 | ED Physician Documentation ---
History of Present Illness - Stated complaint Stated Complaint: CONFUSION, RECENT DISCHARGE - Chief complaint Chief Complaint: Cardiac - Additonal information Additional information: 86-year-old female is brought to the emergency department for evaluation of confusion and altered mental status. She was just discharged from this hospital to [facility]. She was admitted for A. fib with RVR. She was placed in the ICU on a diltiazem drip. Unfortunately she developed a gastric outlet obstruction and GI bleed. Subsequent EGD showed significant ulceration near the pylorus. Due to this GI bleeding her anticoagulation was stopped. She had a prolonged hospital stay which included management of the A. fib as well as requiring a TPN until she could tolerate oral fluids. She was discharged yesterday with a plan to follow-up in surgery and the need to abstain from anticoagulants for at least 1 month. This afternoon the patient's daughter returned from the grocery store and found her mom to be altered. Her daughter describes her mom is having altered speech. By the time EMS arrived and they found that she was in A. fib RVR with a heart rate in the 160s. She was also somewhat cyanotic and they were unable to achieve oxygen saturations. She was also mildly hypotensive with blood pressures in the 80s. She was given 200 mils of IV fluid in route with resultant increase in blood pressure. Blood glucose was 92. On presentation here to the emergency department the patient is a Ariane Coma Scale of 15 with no apparent neuro deficits. Her NIHSS is 0. However she is in A. fib with RVR with a rate approaching 160. We are also unable to achieve adequate saturations. The best saturation we are able to get is 77% with a good waveform. Thus she is placed on 100% nonrebreather. Despite this, she is not labored. Though she is somewhat dusky and cyanotic. Review of Systems Constitutional: denies: Fever, Chills Eyes: reports: Reviewed and negative Ears: reports: Reviewed and negative Nose: reports: Reviewed and negative Throat: reports: Reviewed and negative Cardiac: denies: Chest pain / pressure, Palpitations Respiratory: denies: Dyspnea, Cough GI: reports: Reviewed and negative : reports: Reviewed and negative Skin: denies: Rash, Lesions Musculoskeletal: denies: Neck pain, Back pain Neurologic: reports: Confused. denies: Generalized weakness, Focal weakness PD PAST MEDICAL HISTORY - Past Medical History Cardiovascular: Hypertension, Arrhythmia Respiratory: Emphysema, Pneumonia Neuro: Peripheral neuropathy Endocrine/Autoimmune: Type 2 diabetes GI: GERD, Ulcers, Chronic diarrhea, Other (small bowel obstruction ) RELINER: Endometriosis : Incontinence, Renal insuffiency, Nocturia, Frequency HEENT: Chronic vision loss, Chronic sinusitis Psych: None Musculoskeletal: Osteoarthritis Derm: None - Past Surgical History General: Appendectomy, Gastric surgery, Other /RELINER: Hysterectomy, Oophrectomy - Present Medications Home Medications: Ambulatory Orders Medication Instructions Recorded Confirmed Diltiazem HCl [Cardizem Cd] 360 mg PO DAILY 12/17/18 03/17/21 Ocuvite Eye Vitamin 1 tab PO DAILY 12/17/18 03/17/21 lisinopriL [Lisinopril] 20 mg PO DAILY 12/17/18 03/17/21 Metformin HCl 500 mg PO BIDWM 08/08/19 03/17/21 Atorvastatin [Lipitor] 10 mg PO QPM 03/17/21 03/17/21 hydroCHLOROthiazide [Hydrodiuril] 25 mg PO DAILY 03/17/21 03/17/21 Acetaminophen [Tylenol] 650 mg PO Q4HR PRN tablet 03/27/21 Ferrous Gluconate 324 mg PO DAILY #30 tablet 03/27/21 Metoprolol Succinate [Toprol Xl] 25 mg PO 0800,1800 #60 tablet 03/27/21 Pantoprazole [Protonix] 40 mg PO BID #60 tablet 03/27/21 Walker [Ultra-Light Rollator] 1 each MC DAILY #1 each 03/27/21 - Allergies Allergies/Adverse Reactions: Allergies Allergy/AdvReac Type Severity Reaction Status Date / Time iodine Allergy Hives Verified 03/28/21 18:31 - Social History Does the pt smoke?: No Smoking Status: Former smoker Does the pt drink ETOH?: Yes Does the pt have substance abuse?: No - Immunizations Immunizations are current?: Yes - POLST Patient has POLST: No POLST Status: Full Code PD ED PE EXPANDED - General General: Alert - Neck Neck: Supple w/out meningeal sx. No: Adenopathy - Cardiac Cardiac: Tachy, Irregularly irregular, Murmur Present, Prolonged cap refill, Oth er (1+ radial and pedal pulses bilaterally) Results - Vitals Vitals: Vital Signs - 24 hr 0203/28/21 03/28/21 18:31 18:43 18:45 Temperature 36.6 C Heart Rate 160 H 135 H 125 H Respiratory 17 20 Rate Blood Pressure 103/91 H 104/79 116/75 O2 Saturation 88 L 100 03/28/21 03/28/21 03/28/21 18:51 18:56 19:01 Temperature Heart Rate 128 H 126 H 142 H Respiratory Rate Blood Pressure 124/72 119/71 109/83 H O2 Saturation 03/28/21 03/28/21 03/28/21 19:30 20:00 20:30 Temperature Heart Rate 104 H 127 H Respiratory 17 25 H Rate Blood Pressure 110/88 H 117/72 121/66 O2 Saturation 100 100 03/28/21 03/28/21 03/28/21 20:56 21:15 21:29 Temperature 36.8 C 36.8 C Heart Rate 125 H 126 H 127 H Respiratory 16 16 17 Rate Blood Pressure 113/65 99/84 H 125/72 O2 Saturation 97 97 100 03/28/21 03/28/21 03/28/21 21:30 21:45 21:53 Temperature Heart Rate 125 H 121 H 106 H Respiratory 18 18 Rate Blood Pressure 112/81 H 126/74 O2 Saturation 100 100 03/28/21 03/28/21 03/28/21 21:55 22:00 22:16 Temperature Heart Rate 126 H 122 H 108 H Respiratory 20 18 20 Rate Blood Pressure 122/73 133/73 H 124/66 O2 Saturation 100 100 100 Oxygen O2 Source [] Room air O2 Source Nasal cannula - EKG (time done) 1824 Rate: Rate (enter#) (150) Rhythm: Atrial fibrillation [place]: Normal Intervals: No: Prolonged QT QRS: Poor R wave progression Ischemia: Non specific changes Compare to prior EKG: Unchanged from prior EKG Computer interpretation: Agree with computer - Labs Labs: Laboratory Tests 03/28/21 03/28/21 03/28/21 19:04 19:04 19:04 WBC 7.3 RBC 3.28 L Hgb 9.3 L Hct 29.4 L MCV 89.6 MCH 28.4 MCHC 31.6 L RDW 17.0 H Plt Count TNP MPV 13.0 H Neut # (Auto) 5.6 Lymph # (Auto) 1.2 L [place] # (Auto) 0.4 Eos # (Auto) 0.0 Baso # (Auto) 0.0 Absolute Nucleated RBC 0.00 Nucleated RBC % 0.0 Platelet Estimate NORMAL (130-450,000) Platelet Morphology PLATELET CLUMPING PT 12.9 H INR 1.2 D-Dimer 760.7 H Bld Gas Analysis Time Sample Site ABG pH ABG pCO2 ABG pO2 ABG HCO3 ABG Total CO2 ABG O2 Saturation ABG Base Excess Buddy Test FiO2 Sodium 136 Potassium 4.4 Chloride 105 Carbon Dioxide 21 Anion Gap 10.0 BUN 29 H Creatinine 1.8 H Estimated GFR (MDRD) 27 L Glucose 129 H Lactic Acid Calcium 8.7 Total Bilirubin 0.6 AST 26 ALT 19 Alkaline Phosphatase 55 Troponin I High Sens B-Natriuretic Peptide Total Protein 6.8 Albumin 2.8 L Globulin 4.0 Albumin/Globulin Ratio 0.7 L Lipase 54 H Nasal Adenovirus (PCR) Nasal B. parapertussis DNA (PCR) Nasal Coronavir 229E PCR Nasal Coronavir HKU1 PCR Nasal Coronavir NL63 PCR Nasal Coronavir OC43 PCR Nasal Enterovir/Rhinovir PCR Nasal Influenza B PCR Nasal Influenza A PCR Nasal Parainfluen 1 PCR Nasal Parainfluen 2 PCR Nasal Parainfluen 3 PCR Nasal Parainfluen 4 PCR Nasal RSV (PCR) Nasal B.pertussis DNA PCR Nasal C.pneumoniae (PCR) Hussein Human Metapneumo PCR Nasal M.pneumoniae (PCR) Nasal SARS-CoV-2 (PCR) 03/28/21 03/28/21 03/28/21 19:04 19:04 19:04 WBC RBC Hgb Hct MCV MCH MCHC RDW Plt Count MPV Neut # (Auto) Lymph # (Auto) [place] # (Auto) Eos # (Auto) Baso # (Auto) Absolute Nucleated RBC Nucleated RBC % Platelet Estimate Platelet Morphology PT INR D-Dimer Bld Gas Analysis Time Sample Site ABG pH ABG pCO2 ABG pO2 ABG HCO3 ABG Total CO2 ABG O2 Saturation ABG Base Excess Buddy Test FiO2 Sodium Potassium Chloride Carbon Dioxide Anion Gap BUN Creatinine Estimated GFR (MDRD) Glucose Lactic Acid 2.7 H Calcium Total Bilirubin AST ALT Alkaline Phosphatase Troponin I High Sens 8.9 B-Natriuretic Peptide 498 H Total Protein Albumin Globulin Albumin/Globulin Ratio Lipase Nasal Adenovirus (PCR) Nasal B. parapertussis DNA (PCR) Nasal Coronavir 229E PCR Nasal Coronavir HKU1 PCR Nasal Coronavir NL63 PCR Nasal Coronavir OC43 PCR Nasal Enterovir/Rhinovir PCR Nasal Influenza B PCR Nasal Influenza A PCR Nasal Parainfluen 1 PCR Nasal Parainfluen 2 PCR Nasal Parainfluen 3 PCR Nasal Parainfluen 4 PCR Nasal RSV (PCR) Nasal B.pertussis DNA PCR Nasal C.pneumoniae (PCR) Hussein Human Metapneumo PCR Nasal M.pneumoniae (PCR) Nasal SARS-CoV-2 (PCR) 03/28/21 03/28/21 20:00 20:15 WBC RBC Hgb Hct MCV MCH MCHC RDW Plt Count MPV Neut # (Auto) Lymph # (Auto) [place] # (Auto) Eos # (Auto) Baso # (Auto) Absolute Nucleated RBC Nucleated RBC % Platelet Estimate Platelet Morphology PT INR D-Dimer Bld Gas Analysis Time 2021 Sample Site RIGHT RADIAL ABG pH 7.53 H ABG pCO2 24 L* ABG pO2 297 H* ABG HCO3 19.5 L ABG Total CO2 20.2 L ABG O2 Saturation 99 H ABG Base Excess -2.4 L Buddy Test POSITIVE FiO2 15.00 Sodium Potassium Chloride Carbon Dioxide Anion Gap BUN Creatinine Estimated GFR (MDRD) Glucose Lactic Acid Calcium Total Bilirubin AST ALT Alkaline Phosphatase Troponin I High Sens B-Natriuretic Peptide Total Protein Albumin Globulin Albumin/Globulin Ratio Lipase Nasal Adenovirus (PCR) NOT DETECTED Nasal B. parapertussis DNA (PCR) NOT DETECTED Nasal Coronavir 229E PCR NOT DETECTED Nasal Coronavir HKU1 PCR NOT DETECTED Nasal Coronavir NL63 PCR NOT DETECTED Nasal Coronavir OC43 PCR NOT DETECTED Nasal Enterovir/Rhinovir PCR NOT DETECTED Nasal Influenza B PCR NOT DETECTED Nasal Influenza A PCR NOT DETECTED Nasal Parainfluen 1 PCR NOT DETECTED Nasal Parainfluen 2 PCR NOT DETECTED Nasal Parainfluen 3 PCR NOT DETECTED Nasal Parainfluen 4 PCR NOT DETECTED Nasal RSV (PCR) NOT DETECTED Nasal B.pertussis DNA PCR NOT DETECTED Nasal C.pneumoniae (PCR) NOT DETECTED Hussein Human Metapneumo PCR NOT DETECTED Nasal M.pneumoniae (PCR) NOT DETECTED Nasal SARS-CoV-2 (PCR) NOT DETECTED - Rads (name of study) CTPE Radiology: Final report received (Right lower lobe segmental pulmonary artery emboli. Nodular density in left lower lobe which may reflect a pulmonary nodule. Recommend CT follow-up in 3 to 6 months.) US DVT bilat Radiology: Final report received (No deep vein thrombosis. Questionable appearance of small partially thrombosed superficial vein in the medial left calf which could represent superficial thrombophlebitis) PD MEDICAL DECISION MAKING - ED course Complexity details: reviewed results, re-evaluated patient, considered differential, d/w patient ED course: 86-year-old female presents to the emergency department for altered mental status and confusion. She was discharged from this hospital yesterday after which she was admitted for A. fib with RVR and found to have gastric outlet obstruction secondary to severe ulceration and she had a subsequent GI bleed requiring multiple units of blood. Due to the severe ulceration and gastric outlet obstruction her anticoagulation is being held. This afternoon she became acutely altered and when EMS arrived they found that she was in A. fib with RVR heart rate in the 140s. They also noted that she was hypoxic and dusky/cyanotic. On presentation to the emergency department the best saturation we initially got with a good waveform was 77% and she did appear cyanotic. Her heart rate was also 160 atrial fibrillation. She was initially given 10 mg of Cardizem followed by an additional 10 with a resultant decrease in her heart rate to the 120s. Given the risk for PE A CT scan was completed and it did show a right segmental pulmonary embolus. The CT scan did not indicate right heart strain Unfortunately given that we cannot anticoagulate her she may need further evaluation and treatment such as an IVC filter which we cannot accommodate here at [facility] therefore we will start looking for a bed at outlying hospitals. I have ordered a preliminary DVT study. Reassuringly her hgb is stable from discharge. No troponn elevation. CXR without acute focal opacity. Recent echocardiogram 03/18/21 showed EF 65-70%. Clinically pt does not appear to have CHF 2100: Patient is noted to return to A. fib RVR with a heart rate in the 160s. Her blood pressure has declined to the 90s systolic. I have ordered an additional liter of fluid but will now institute a Cardizem infusion. 2144: Ultrasound shows no deep vein thrombus. However there is a questionable appearance of a small partially thrombosed superficial vein in the left medial calf which could represent superficial thrombophlebitis. Pt was accepted to [facility]. Pt will be ptransported ACLS. Currrently on cardizem 10mg hr. HR approx 115-120. BP 112/81. 6L NC with 100% sat. Appropriate COBRA paperwork completed. My colleague Dr. Tang will given final sign out to the accepting hospitalist Departure - Departure Disposition: 02 Transfer Acute Care Hosp Clinical Impression: Atrial fibrillation with rapid ventricular response, Hypoxia Pulmonary embolus Qualifiers: Pulmonary embolism type: unspecified Chronicity: acute Acute cor pulmonale presence: without acute cor pulmonale Qualified Code(s): I26.99 - Other pulmonary embolism without acute cor pulmonale
--- NOTE | 2021-03-28 19:05 | XRAY Report ---
PROCEDURE: Chest 1 View X-Ray INDICATIONS: Chest Pain TECHNIQUE: One view of the chest was acquired. COMPARISON: March 19, 2021 FINDINGS: SUPPORT DEVICES: None. LUNGS/PLEURA: No focal consolidation, pleural effusion or space-occupying pneumothorax. MEDIASTINUM: Enlargement of the cardiac silhouette. BONES/SOFT TISSUES: No acute abnormality. IMPRESSION: 1.No acute cardiopulmonary abnormality. Reviewed by: Francisco Reed MD on 03/28/2021 7:03 PM [facility] Approved by: Francisco Reed MD on 03/28/2021 7:03 PM [facility] Station ID: [id number]
[2021-03-28] MEDS ORDERED: IOVERSOL 320 100 ML VIAL IVP ONE ×2 (19:06→19:56)
[2021-03-28] MEDS ORDERED: diphenhydrAMINE INJ 50 MG/ML VIAL IVP STA (19:11)
[2021-03-28 19:18] LABS: BASOPHILS % (AUTO) 0.4 %; EOSINOPHILS % (AUTO) 0.3 %; HCT - HEMATOCRIT 29.4 % (37.0-47.0); HGB - HEMOGLOBIN 9.3 g/dL (12.0-16.0); LYMPHOCYTES # (AUTO) 1.2 10^3/uL (1.5-3.5); LYMPHOCYTES % (AUTO) 17.1 %; MEAN CORPUSCULAR HEMOGLOBIN 28.4 pg (27.0-31.0); MEAN CORPUSCULAR HGB CONC 31.6 g/dL (32.0-36.0); MEAN CORPUSCULAR VOLUME 89.6 fL (81.0-99.0); MONOCYTES # (AUTO) 0.4 10^3/uL (0.0-1.0); MONOCYTES % (AUTO) 5.4 %; NEUTROPHILS # (AUTO) 5.6 10^3/uL (1.5-6.6); NEUTROPHILS % (AUTO) 76.2 %; RED BLOOD COUNT 3.28 10^6/uL (4.20-5.40); WHITE BLOOD COUNT 7.3 x10^3/uL (4.8-10.8)
[2021-03-28 19:19] LABS: INR 1.2 (0.8-1.2); PT - PROTHROMBIN TIME 12.9 secs (9.9-12.6)
[2021-03-28 19:29] LABS: ALBUMIN 2.8 g/dL (3.2-5.5); ALBUMIN/GLOBULIN RATIO 0.7 (1.0-2.2); BILIRUBIN,TOTAL 0.6 mg/dL (0.2-1.0); CALCIUM 8.7 mg/dL (8.5-10.3); CREATININE 1.8 mg/dL (0.4-1.0); POTASSIUM 4.4 mmol/L (3.5-5.0); TOTAL PROTEIN 6.8 g/dL (6.7-8.2)
[2021-03-28 19:35] LABS: PLATELET ESTIMATE, MANUAL NORMAL (130-450,000) (NORMAL); PLATELET MORPHOLOGY PLATELET CLUMPING (NORMAL)
[2021-03-28 19:41] LABS: D-DIMER 760.7 ng/mL (200.0-255.0)
--- NOTE | 2021-03-28 19:59 | CT Report ---
PROCEDURE: ANGIO CHEST W/WO INDICATIONS: hypoxia afib; ? PE; no anticoagulated CONTRAST: IV CONTRAST: Optiray 320 ml: 80 PO CONTRAST: *NO PO CONTRAST TECHNIQUE: After the administration of intravenous contrast, 2 mm axial images were acquired from the pulmonary apices to the posterior costophrenic angles during the arterial phase. In addition, 1 mm lung kernel and 5 mm soft tissue kernel reconstructions were performed. 3-dimensional coronal oblique maximum int ensity projection (MIP) reformats, 8 mm axial MIP, and 5 mm coronal and sagittal MPR reformats were t hen performed through the thorax. For radiation dose reduction, the following was used: automated exp osure control, adjustment of mA and/or kV according to patient size. COMPARISON: December 21, 2018 FINDINGS: Some images at, most persistent motion. Thyroid: Homogeneous. Systemic arterial Vasculature: Calcified edematous change of the aorta without evidence of aneurysmal dilatation. The aorta is not well opacified. Pulmonary arterial vasculature: Normal opacification of the pulmonary vasculature. Filling defects ar e seen in the right lower lobe segmental pulmonary arteries, compatible with pulmonary embolism (i.E. 5-66) Heart: Mild cardiomegaly. No pericardial effusion. Coronary artery calcifications are seen. Mediastinum/albaro: No pathologically enlarged lymph nodes are seen. Lungs/pleura: A 1.3 x 0.8 cm nodular density is seen in the left lower lobe. No consolidation, pleural effusion, or pneumothorax. Tracheobronchial tree: Patent. Upper abdomen: The visualized upper abdomen is grossly unremarkable. Bones: No significant osseous abnormalities are noted. Chest wall: The chest wall and axilla are within normal limits. IMPRESSION: 1.Right lower lobe segmental pulmonary artery emboli. 2.Nodular density in the left lower lobe as detailed above, which may reflect a pulmonary nodule or m ucoid impaction. Consider CT follow-up in 3-6 months to evaluate persistence or resolution. Findings were discussed with the ordering provider at the time of dictation. Reviewed by: Francisco Reed MD on 03/28/2021 7:58 PM PST Approved by: Francisco Reed MD on 03/28/2021 7:58 PM PST Station ID: [id number]
[2021-03-28 20:23] LABS: ABG HCO3 19.5 mmol/L (22.0-26.0); ABG PH 7.53 (7.35-7.45); ABG TCO2 20.2 MMOL/L (21.0-29.0)
[2021-03-28 20:24] LABS: ABG BASE EXCESS -2.4 mmol/L (-2.0-3.0); ABG OXYGEN SATURATION 99 % (94-98); ALLEN TEST POSITIVE
[2021-03-28 20:26] LABS: ABG PCO2 24 mmHg (34-45); ABG PO2 297 mmHg (80-100)
[2021-03-28] MEDS ORDERED: METOPROLOL SUCCINATE 25 MG TABLET PO STA (20:43)
[2021-03-28 20:56] LABS: B. PARAPERTUSSIS- RESP PCR PAN NOT DETECTED; B. PERTUSSIS- RESP PCR PANEL NOT DETECTED; C. PNEUMONIAE- RESP PCR PANEL NOT DETECTED; CORONAVIRUS 229E-RESP PCR NOT DETECTED; CORONAVIRUS HKU1-RESP PCR NOT DETECTED; CORONAVIRUS NL63-RESP PCR NOT DETECTED; CORONAVIRUS OC43-RESP PCR NOT DETECTED; HUMAN METAPNEUMOVIRUS NOT DETECTED; INFLUENZA A- RESP PCR PANEL NOT DETECTED; INFLUENZA B - RESP PCR PANEL NOT DETECTED; M. PNEUMONIAE- RESP PCR PANEL NOT DETECTED; PARAINFLUENZA VIRUS 1 NOT DETECTED; PARAINFLUENZA VIRUS 2 NOT DETECTED; PARAINFLUENZA VIRUS 3 NOT DETECTED; PARAINFLUENZA VIRUS 4 NOT DETECTED; RHINOVIRUS/ENTEROVIRUS NOT DETECTED; RSV- RESP PCR PANEL NOT DETECTED; SARS-CoV-2 -RESP PCR PANEL NOT DETECTED
[2021-03-28] MEDS ORDERED: diltiaZEM INJ 125 MG in DEXTROSE 5% 100 ML IV STA (20:58)
[2021-03-28] MEDS ORDERED: SODIUM CHLORIDE 0.9% 1,000 ML IV STA (21:06)
--- NOTE | 2021-03-28 22:13 | Ultrasound Report ---
PROCEDURE: Duplex Ext Veins Bilateral INDICATIONS: Zahra Franklin TECHNIQUE: Real-time imaging, as well as color and pulse Doppler interrogation, were performed of the deep veins of both legs from the inguinal ligament to the popliteal fossa. COMPARISON: None FINDINGS: The deep veins are normally compressible, and free of intraluminal thrombus. Color and pu lse Doppler demonstrate normal phasic intravascular flow. There is normal augmentation response to d istal compression maneuver. Below the knee visualization is limited. There is a small segment of a s uperficial vein within the medial calf appearing to be partially thrombosed. IMPRESSION: No deep venous thrombosis. Questionable appearance of small partially thrombosed superficial vein in the medial calf which could represent superficial thrombophlebitis. Reviewed by: Becky Dickinson MD on 03/28/2021 10:11 PM PST Approved by: Becky Dickinson MD on 03/28/2021 10:11 PM PST Station ID: [id number]
--- NOTE | 2021-03-29 02:04 | ED Physician Documentation ---
ED Addendum - Addendum Addendum: 03/29/21 01:59I assumed care of the patient upon the end of shift of the prior provider. The patient is remained stable with heart rate decreased down to approximately 90-110 on low-dose diltiazem drip. Blood pressure is normotensive at this time. Her oxygenation is improved with decreased oxygen need and has been titrated down to 2 L nasal cannula with oxygenation 96 to 100%. She remains in atrial fibrillation. This apparently is chronic. The CT scan that showed segmental pulmonary emboli. The ultrasound report is showing superficial phlebitis in the saphenous vein but no DVTs noted. Still concern for the source of her PEs. She had been recently hospitalized for duode nal ulcer with significant bleed. I will include the endoscopy report and the recent discharge summary for the transfer papers. The GI bleed was just March 18 and she was discharged only 1 day ago on March 27. Her blood count had improved since that time. We have been awaiting callback from [facility] hospitalist for acceptance of the patient. Dr. Sosa did call back and was accepting the patient in transfer. I reviewed current vital signs with him. I also reviewed the recent hospitalization and EGD report and the concern we had for not feeling comfortable with anticoagulants at this time and whether there was an indication for an IVC filter. He is would be things that are not able to be done at our facility. The hospitalist was therefore accepting of transfer to their facility. The patient remained stable at this time. Disposition: The patient is transferred to acute care facility in stable condition. This will be facilitated by EMS. Diagnoses: 1. Acute hypoxia and near syncope from pulmonary embolus 2. Segmental pulmonary emboli 3. Atrial fibrillation with rapid ventricular response 4. Hypoxia with oxygen need 5. Recent duodenal ulcer with GI bleed 6. Anemia
[2021-03-29 02:08] VITALS: BP 92/44
== END 2021-03-29 02:26 | disposition short-term general hospital (02) ==
LOC: EDUNIT# → ED 18:21
DX: I48.20 Chronic atrial fibrillation, unspecified (principal); R09.02 Hypoxemia; R55 Syncope and collapse; I26.93 Single subsegmental thrombotic pulmonary embolism without acute cor pulmonale; I80.02 Phlebitis and thrombophlebitis of superficial vessels of left lower extremity; K26.4 Chronic or unspecified duodenal ulcer with hemorrhage; D64.9 Anemia, unspecified; Z20.822 Contact with and (suspected) exposure to COVID-19; I10 Essential (primary) hypertension; E11.42 Type 2 diabetes mellitus with diabetic polyneuropathy; Z79.84 Long term (current) use of oral hypoglycemic drugs; Z87.891 Personal history of nicotine dependence
CPT/HCPCS: 36415; 36600; 71045; 71275; 80053; 82803; 83605; 83690; 83880; 84484; 85025; 85379; 85610; 87631; 93005; 93970; 96365; 96366; 96375; 96376; 99283; 99285; A9270; J1200; Q9967; 0202U

== ENCOUNTER 2021-03-29 02:35 | Outpatient (CLI) | payer MEDICARE, OTHER | END 2021-03-29 02:36 | disposition short-term general hospital (02) | LOC: EMS 02:35 | PROVIDERS: ATTEND Registered Nurse | DX: I48.91 Unspecified atrial fibrillation (principal); I26.99 Other pulmonary embolism without acute cor pulmonale; K92.2 Gastrointestinal hemorrhage, unspecified | CPT/HCPCS: A0425; A0428 ==

== ENCOUNTER 2021-04-10 13:26 | Outpatient (CLI) | payer MEDICARE, OTHER | END 2021-04-10 13:27 | disposition home or self-care (01) | LOC: LAB.S 13:26 | PROVIDERS: ATTEND Nurse Practitioner Family | DX: Z53.9 Procedure and treatment not carried out, unspecified reason (principal) | CPT/HCPCS: 36415; 80053; 85025 ==

== ENCOUNTER 2021-07-17 09:55 | Outpatient (CLI) | payer MEDICARE, OTHER ==
[2021-07-17 10:31] LABS: BASOPHILS % (AUTO) 0.6 %; EOSINOPHILS % (AUTO) 0.2 %; HCT - HEMATOCRIT 32.7 % (37.0-47.0); HGB - HEMOGLOBIN 10.4 g/dL (12.0-16.0); LYMPHOCYTES # (AUTO) 0.7 10^3/uL (1.5-3.5); LYMPHOCYTES % (AUTO) 15.1 %; MEAN CORPUSCULAR HEMOGLOBIN 27.6 pg (27.0-31.0); MEAN CORPUSCULAR HGB CONC 31.8 g/dL (32.0-36.0); MEAN CORPUSCULAR VOLUME 86.7 fL (81.0-99.0); MEAN PLATELET VOLUME 11.2 fL (7.9-10.8); MONOCYTES # (AUTO) 0.4 10^3/uL (0.0-1.0); MONOCYTES % (AUTO) 8.7 %; NEUTROPHILS # (AUTO) 3.6 10^3/uL (1.5-6.6); NEUTROPHILS % (AUTO) 74.8 %; PLT - PLATELET COUNT 195 10^3/uL (130-450); RED BLOOD COUNT 3.77 10^6/uL (4.20-5.40); RED CELL DISTRIBUTION WIDTH 18.2 % (12.0-15.0); WHITE BLOOD COUNT 4.8 x10^3/uL (4.8-10.8)
[2021-07-17 10:40] LABS: CALCIUM 9.1 mg/dL (8.5-10.3); CREATININE 1.1 mg/dL (0.4-1.0); POTASSIUM 4.5 mmol/L (3.5-5.0)
== END 2021-07-17 09:56 | disposition home or self-care (01) ==
LOC: LAB 09:55
PROVIDERS: ATTEND Internal Medicine Cardiovascular Disease
DX: I10 Essential (primary) hypertension (principal)
CPT/HCPCS: 36415; 80048; 83880; 85025

== ENCOUNTER 2021-12-30 15:51 | Emergency (ER) | payer MEDICARE, OTHER ==
--- NOTE | 2021-12-30 16:33 | ED Physician Documentation ---
PD HPI DYSPNEA - Stated complaint Stated Complaint: SOA - Chief complaint Chief Complaint: Cardiac - History obtained from History obtained from: Patient - History of Present Illness Timing - onset: How many days ago (4) Timing - onset during: Light activity Timing - duration: Days (4) Timing - details: Gradual onset, Still present, Waxing and waning Inciting event(s): No: Out of meds Improved by: Rest. No: Benadryl Associated symptoms: Palpitations, Bilateral edema. No: Fever, Cough, Wheezing, Chest pain / discomfort Similar symptoms before: Diagnosis (history of atrial fib with episodes of fast rate in the paast. She believes is usually in afib, with rate more variably. On Coumadin.) Review of Systems Constitutional: denies: Fever, Myalgias Eyes: reports: Decreased vision. denies: Photophobia Nose: denies: Rhinorrhea / runny nose, Congestion Throat: denies: Sore throat Cardiac: reports: Pedal edema. 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: Endometriosis : Incontinence, Renal insuffiency, Nocturia, Frequency HEENT: Chronic vision loss, Chronic sinusitis Psych: None Musculoskeletal: Osteoarthritis Derm: None - Past Surgical History General: Appendectomy, Gastric surgery, Other /IT SYSTEMS ANALYST: Hysterectomy, Oophrectomy - Present Medications Home Medications: Ambulatory Orders Medication Instructions Recorded Confirmed Diltiazem HCl [Cardizem Cd] 360 mg PO DAILY 12/17/18 12/30/21 Ocuvite Eye Vitamin 1 tab PO DAILY 12/17/18 03/17/21 lisinopriL [Lisinopril] 20 mg PO DAILY 12/17/18 03/17/21 Metformin HCl 500 mg PO BIDWM 08/08/19 12/30/21 Atorvastatin [Lipitor] 10 mg PO QPM 03/17/21 12/30/21 hydroCHLOROthiazide [Hydrodiuril] 25 mg PO DAILY 03/17/21 03/17/21 Acetaminophen [Tylenol] 650 mg PO Q4HR PRN tablet 03/27/21 Ferrous Gluconate 324 mg PO DAILY #30 tablet 03/27/21 12/30/21 Pantoprazole [Protonix] 40 mg PO BID #60 tablet 03/27/21 12/30/21 Walker [Ultra-Light Rollator] 1 each MC DAILY #1 each 03/27/21 Furosemide [Lasix] 40 mg PO DAILY 12/30/21 12/30/21 Magnesium Oxide [Mag Ox] 400 mg PO DAILY 10 Days #10 tablet 12/30/21 Metoprolol Succinate [Toprol Xl] 25 mg PO BID 12/30/21 12/30/21 Potassium Chloride [Klor-Con 10] 10 meq PO DAILY 12/30/21 12/30/21 - Allergies Allergies/Adverse Reactions: Allergies Allergy/AdvReac Type Severity Reaction Status Date / Time iodine Allergy Hives Verified 12/30/21 16:10 - Social History Does the pt smoke?: No Smoking Status: Former smoker Does the pt drink ETOH?: Yes Does the pt have substance abuse?: No - Immunizations Immunizations are current?: Yes - POLST Patient has POLST: No POLST Status: Full Code PD ED PE NORMAL - Vitals Vital signs reviewed: Yes - General General: Alert and oriented X 3, No acute distress, Well developed/nourished - HEENT HEENT: Pharynx benign - Neck Neck: Supple, no meningeal sign, No adenopathy, No bruit. No: No JVD (mild) - Cardiac Cardiac: No: RRR (irregular and tachycardic. ) - Respiratory Respiratory: No respiratory distress. No: Clear bilaterally (fine crackles just at bases. ) - Abdomen Abdomen: Soft, Non tender - Back Back: No CVA TTP - Derm Derm: Normal color, Warm and dry, No rash - Extremities Extremities: No calf tenderness / cord, Other - Neuro Neuro: Alert and oriented X 3, No motor deficit, No sensory deficit, Normal speech Results - Vitals Vitals: Vital Signs - 24 hr 12/30/21 12/30/21 12/30/21 15:58 16:41 17:09 Temperature 36.1 C L Heart Rate 148 H 155 H 124 H Respiratory 16 30 H 26 H Rate Blood Pressure 112/95 H 120/102 H 132/83 H O2 Saturation 100 97 100 12/30/21 12/30/21 12/30/21 17:39 18:30 18:53 Temperature Heart Rate 120 H 74 78 Respiratory 14 22 24 Rate Blood Pressure 153/101 H 119/65 129/78 O2 Saturation 97 96 100 12/30/21 12/30/21 12/30/21 19:25 19:30 20:00 Temperature 36.7 C Heart Rate 74 73 108 H Respiratory 22 26 H 26 H Rate Blood Pressure 140/84 H 137/91 H 142/87 H O2 Saturation 96 100 99 12/30/21 12/30/21 12/30/21 20:30 21:00 21:30 Temperature Heart Rate 118 H 125 H 128 H Respiratory 25 H 24 24 Rate Blood Pressure 147/91 H 118/70 125/75 O2 Saturation 99 95 99 12/30/21 22:00 Temperature Heart Rate 130 H Respiratory 25 H Rate Blood Pressure 139/86 H O2 Saturation 98 Oxygen O2 Source [Without Activity] Room air O2 Source Room air - EKG (time done) 16:07 Rate: Rate (enter#) (148) Rhythm: Atrial fibrillation QRS: Normal Ischemia: Normal ST segments. No: ST elevation c/w ischemia, ST depression Compare to prior EKG: Unchanged from prior EKG - Labs Labs: Laboratory Tests 12/30/21 12/30/21 12/30/21 16:35 16:35 16:35 WBC 6.8 RBC 3.84 L Hgb 12.1 Hct 37.2 MCV 96.9 MCH 31.5 H MCHC 32.5 RDW 16.7 H Plt Count 220 MPV 12.4 H Neut # (Auto) 5.3 Lymph # (Auto) 1.0 L [place] # (Auto) 0.4 Eos # (Auto) 0.0 Baso # (Auto) 0.1 Absolute Nucleated RBC 0.00 Nucleated RBC % 0.0 PT 23.3 H INR 2.2 H Sodium Potassium Chloride Carbon Dioxide Anion Gap BUN Creatinine Estimated GFR (MDRD) Glucose Calcium Magnesium Total Bilirubin AST ALT Alkaline Phosphatase B-Natriuretic Peptide 2381 H Total Protein Albumin Globulin Albumin/Globulin Ratio Lipase 12/30/21 18:04 WBC RBC Hgb Hct MCV MCH MCHC RDW Plt Count MPV Neut # (Auto) Lymph # (Auto) [place] # (Auto) Eos # (Auto) Baso # (Auto) Absolute Nucleated RBC Nucleated RBC % PT INR Sodium 137 Potassium 5.7 H Chloride 107 Carbon Dioxide 20 L Anion Gap 10.0 BUN 47 H Creatinine 2.0 H Estimated GFR (MDRD) 24 L Glucose 115 H Calcium 9.2 Magnesium 1.6 L Total Bilirubin 1.8 H AST 47 H ALT 34 Alkaline Phosphatase 66 B-Natriuretic Peptide Total Protein 8.0 Albumin 3.9 Globulin 4.1 Albumin/Globulin Ratio 1.0 Lipase 35 - Rads (name of study) chest xray Radiology: Prelim report reviewed (cardiomegaly without vascular congestion.), See rad report PD MEDICAL DECISION MAKING - ED course Complexity details: reviewed results, re-evaluated patient (HR improved with Diltiazem Iv doses. BP is still okay. She was diuresing reasonably with IV Lasix. Did feel some general weakness with standing up, as considering discharge. Will need a little more time for pO dose to become effctive. ), considered differential (patient believes she is commonly/usually in atrial fib, so my goal of therapy is rate control and not rhythm conversion. Does have some leg edema and fine crackles at bases. Elevated BNP. I feel some element of CHF as well. CXR not that bad. ), d/w patient Departure - Departure Disposition: 01 Home, Self Care Clinical Impression: Rapid atrial fibrillation, Anticoagulant long-term use Dyspnea Qualifiers: Dyspnea type: shortness of breath Qualified Code(s): R06.02 - Shortness of breath Condition: Stable Record reviewed to determine appropriate education?: Yes Instructions: ED Afib Prescriptions: Magnesium Oxide [Mag Ox] 400 mg PO DAILY 10 Days #10 tablet Comments: Your heart rate is better controlled now with some extra doses of diltiazem. You did receive an oral dose of 240 mg. Hopefully this will keep it rate controlled. I would still take your other medications at home such as your metoprolol, diuretic etc. Your magnesium level was a bit low here at 1.6. I would suggest an oral supplement for the next week or so. I wrote a prescription for that. Return to the ER or follow-up with your primary or talk to your primary or wallpaper consultant if it feels like your heart rate is going still fast then it should into tomorrow or so. Return as needed.
[2021-12-30 16:42] LABS: BASOPHILS # (AUTO) 0.1 10^3/uL (0.0-0.1); BASOPHILS % (AUTO) 0.7 %; EOSINOPHILS % (AUTO) 0.1 %; HCT - HEMATOCRIT 37.2 % (37.0-47.0); HGB - HEMOGLOBIN 12.1 g/dL (12.0-16.0); LYMPHOCYTES % (AUTO) 15.2 %; MEAN CORPUSCULAR HEMOGLOBIN 31.5 pg (27.0-31.0); MEAN CORPUSCULAR HGB CONC 32.5 g/dL (32.0-36.0); MEAN CORPUSCULAR VOLUME 96.9 fL (81.0-99.0); MEAN PLATELET VOLUME 12.4 fL (7.9-10.8); MONOCYTES # (AUTO) 0.4 10^3/uL (0.0-1.0); MONOCYTES % (AUTO) 5.9 %; NEUTROPHILS # (AUTO) 5.3 10^3/uL (1.5-6.6); NEUTROPHILS % (AUTO) 77.8 %; PLT - PLATELET COUNT 220 10^3/uL (130-450); RED BLOOD COUNT 3.84 10^6/uL (4.20-5.40); RED CELL DISTRIBUTION WIDTH 16.7 % (12.0-15.0); WHITE BLOOD COUNT 6.8 x10^3/uL (4.8-10.8)
[2021-12-30] MEDS ORDERED: diltiaZEM INJ 5 MG/ML VIAL IVP STA ×2 (16:59→18:16)
--- NOTE | 2021-12-30 17:06 | XRAY Report ---
PROCEDURE: Chest 1 View X-Ray INDICATIONS: Chest pain TECHNIQUE: One view of the chest was acquired. COMPARISON: None. FINDINGS: Surgical changes and devices: None. Lungs and pleura: No pleural effusions or pneumothorax. Lungs are clear. Mediastinum: Mediastinal contours appear normal. Heart size is enlarged. Atherosclerotic vascular calcification noted in the aortic arch. Bones and chest wall: No suspicious bony lesions. Overlying soft tissues appear unremarkable. IMPRESSION: Cardiomegaly without vascular congestion Reviewed by: Craig Mao MD on 12/30/2021 4:04 PM [facility] Approved by: Craig Mao MD on 12/30/2021 4:04 PM [place] Station ID: [id number]
[2021-12-30] MEDS ORDERED: diltiaZEM CD 120 MG CAPSULE PO STA (18:17)
[2021-12-30] MEDS ORDERED: FUROSEMIDE 20 MG/2 ML VIAL IVP STA (18:19)
[2021-12-30 18:21] LABS: ALBUMIN 3.9 g/dL (3.2-5.5); BILIRUBIN,TOTAL 1.8 mg/dL (0.2-1.0); CALCIUM 9.2 mg/dL (8.5-10.3); MAGNESIUM 1.6 mg/dL (1.7-2.8); POTASSIUM 5.7 mmol/L (3.5-5.0)
[2021-12-30 18:31] LABS: INR 2.2 (0.8-1.2); PT - PROTHROMBIN TIME 23.3 secs (9.9-12.6)
[2021-12-30] MEDS ORDERED: MAGNESIUM OXIDE 400 MG TABLET PO STA (18:50)
[2021-12-30] MEDS ORDERED: METOPROLOL 5 MG/5 ML VIAL IVP STA (22:36)
[2021-12-31] MEDS ORDERED: METOPROLOL TARTRATE 50 MG TABLET PO STA (06:25)
[2021-12-31] MEDS ORDERED: diltiaZEM CD 120 MG CAPSULE PO STA (06:25)
--- NOTE | 2021-12-31 09:15 | ED Physician Documentation ---
ED Addendum - Addendum Addendum: Patient signed out to me by Dr. Fournier. Patient was seen yesterday for atrial fibrillation with plan for discharge. She was kept overnight due to increased heart rates. She was given 1 dose of IV medication last night and then restarted on her home medications this morning. She Is resting comfortably and denies any current symptoms. Her heart rate on the monitor is in 80s to 90s. She was able to ambulate without any significant difficulty Or symptoms. Patient counseled on treatment plan as set up by Dr. Tang and advised on concerning symptoms to return for. Departure - Departure Disposition: Home, Self Care Clinical Impression: Rapid atrial fibrillation, Anticoagulant long-term use Dyspnea Qualifiers: Dyspnea type: shortness of breath Qualified Code(s): R06.02 - Shortness of breath Condition: Stable Instructions: ED Afib Prescriptions: dilTIAZem HCL [Diltiazem 24Hr ER (Xr)] 360 mg PO QDAC 30 Days #90 cap Magnesium Oxide [Mag Ox] 400 mg PO DAILY 10 Days #10 tablet Comments: Your heart rate is better controlled now with some extra doses of diltiazem. You did receive an oral dose of 240 mg. Hopefully this will keep it rate controlled. I would still take your other medications at home such as your metoprolol, diuretic etc. Your magnesium level was a bit low here at 1.6. I would suggest an oral supplement for the next week or so. I wrote a prescription for that. Return to the ER or follow-up with your primary or talk to your primary or home health billing specialist if it feels like your heart rate is going still fast then it should into tomorrow or so. Return as needed. Discharge Date/Time: 12/31/21 11:06
[2021-12-31 09:19] VITALS: BP 104/61
== END 2021-12-31 11:06 | disposition home or self-care (01) ==
LOC: ED 15:51
DX: I48.91 Unspecified atrial fibrillation (principal); E83.42 Hypomagnesemia; Z79.01 Long term (current) use of anticoagulants; Z87.891 Personal history of nicotine dependence
CPT/HCPCS: 36415; 71045; 80053; 83690; 83735; 83880; 85025; 85610; 93005; 96374; 96375; 96376; 99284; A9270; 84484